=== PATIENT | male | born 1960 | race Caucasian/White ===

== ENCOUNTER → 2019-08-30 08:52 | Outpatient (CLI) | payer OTHER, SELFPAY ==
[2019-08-30 09:38] LABS: Hematocrit 45.2 % (41-53); Hemoglobin 15.4 g/dL (13.5-17.5); Mean Corpuscular HGB Conc 34.1 % (30-36); Mean Corpuscular Volume 87.8 fL (80-100); Platelet Count 273 X10^3/uL (150-400); Red Blood Cell Count 5.15 X10^6/uL (4.5-5.9); Red Cell Distribution Width 13.7 % (11.6-14.8); White Blood Cell Count 5.9 X10^3/uL (4.5-11.0)
[2019-08-30 09:55] LABS: Alanine Aminotransferase 36 IU/L (<50); Albumin 4.7 g/dL (3.5-5.0); Albumin Globulin Ratio 1.5 (1.0-2.8); Alkaline Phosphatase 66 U/L (38-126); Aspartate Aminotransferase 37 IU/L (17-59); Bilirubin Total 0.7 mg/dL (0.2-1.3); Blood Urea Nitrogen 15 mg/dL (9-20); Calcium 10.2 mg/dL (8.4-10.2); Carbon Dioxide 32 mmol/L (22-32); Chloride 103 mmol/L (98-107); Cholesterol 255 mg/dL (140-199); Estimated Glomerular Filt Rate > 60.0 mL/min (>60); Globulin 3.2 g/dL (1.7-4.1); Glucose 104 mg/dL (70-100); HDL Cholesterol 45 mg/dL (40-60); HEMOLYSIS 18 (0-50); LDL Cholesterol Calculated 168 mg/dL (<100); Potassium 4.6 mmol/L (3.4-5.1); Sodium 144 mmol/L (137-145); Total Protein 7.9 g/dL (6.3-8.2); Triglycerides 210 mg/dL (35-150)
[2019-08-30 10:11] LABS: Free T3, Triiodothyronine Free 3.52 pg/mL (2.77-5.27); Free T4, Direct Thyroxine 0.82 ng/dL (0.78-2.19)
[2019-08-30 10:23] LABS: Prostate Specific Antigen Scrn 1.31 ng/mL (0.1-4.0)
[2019-08-30 10:25] LABS: Thyroid Stimulating Hormone 1.37 uIU/mL (0.47-4.68)
[2019-08-30 12:23] LABS: Total Cells Counted 100
[2019-08-30 12:24] LABS: Neutrophils Absolute Manual 3245 /uL (3000-5900)
[2019-08-30 12:25] LABS: Morphology Comment Normal Morphology
== END ==
PROVIDERS: PCP Nurse Practitioner; Visit Provider Nurse Practitioner
DX: Z00.00 Encounter for general adult medical examination without abnormal findings (principal); Z78.9 Other specified health status
CPT/HCPCS: 36415; 80053; 80061; 84439; 84443; 84481; 85025; 86900; 86901; G0103

== ENCOUNTER 2022-09-18 07:30 | Outpatient (RCR) | payer OTHER, SELFPAY ==
--- NOTE | 2021-12-29 17:20 | PT.OIE ---
Current Diagnoses Pain in left shoulder (12/29/21) Bursitis of left shoulder (12/29/21) Contusion of left shoulder, initial encounter (12/29/21) Past Medical History (Last Updated 12/15/19 @ 09:53 by LIANNE Cummins) Elevated blood sugar History of colonoscopy Hyperlipidemia Obesity (BMI 30.0-34.9) Past Surgical History (Last Reviewed 09/18/19 @ 08:29 by LIANNE Cummins) Anesthesia Fracture (~1985) History of colonoscopy Visit Care Team Role Provider Type LIANNE Cummins Family Provider Advanced Hydraulic Plumber Primary Care Provider Specialty: Family Practice Address: [address] [place] [address], [id number] Email: [email or web address] Chas Buck MD Attending Provider Non-Staff Referring Provider Specialty: Orthopedic Surgery Address: [address] [place] [address], [id number] Email: Physical Therapy Initial Evaluation PT-OP-A Visit Information Start: 12/27/21 16:53 Freq: Status: Active Protocol: Document 12/29/21 13:51 [facility] (Rec: 12/29/21 14:35 [facility] [id number]) Out-Patient Physical Therapy Visit Information Visit Information Visit Type Initial Evaluation Visit Start Time 13:45 Visit Stop Time 14:40 Total Visit Minutes 50 Visit Number 1 Evaluation Information Evaluation Date 12/29/21 PT-OP-B Current Condition Start: 12/27/21 16:53 Freq: Status: Active Protocol: Document 12/29/21 13:51 [facility] (Rec: 12/29/21 14:35 [facility] [id number]) Current Condition History of Current Condition Onset Date 10/13/21 Current Complaints left shoulder pain History of Current Condition Walking out of bus carrying things in hands, lost balance on ice, came down on left elbow, initially left shoulder pain, within a couple days feeling pain on right as well. At this time claim only approved for left shoulder. x- ray: swelling. MRI: full tear of one tendon, partial of 3 others. Anticipating surgical repair on the left. Waiting for approval for evaluation and treatment of right shoulder pain; x-ray was negative. States doctor thinking may have similar injury right shoulder. Uses both ice and heat. Doing some range of motion exercises found online with good tolerance. Taking Tylenol as needed; reg and Tylenol PM. Prior Treatments and Tests MRI as above, medication, ice and heat. No further treatment. Treatment Goals Patient/Caregiver Goals Decreased pain, improve ROM and strength in shoulder, be able to return to work. 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 Current Functional Impairments (Reported) Functional Limitations- ADL's unable to reach overhead, out to side, or behind his back without pain Functional Limitations- Work/School unable to work Personal Factors Other Personal Factors That May Effect right shoulder pain as well as Therapy/Recovery left PT-OP-C Subjective Start: 12/27/21 16:53 Freq: Status: Active Protocol: Document 12/29/21 13:51 [facility] (Rec: 01/02/22 17:20 [facility] [id number]) Patient Questionnaires Quick Dash- Upper Extremity Quick Dash UE Score 50 OP-PT Pain Assessment Pain Assessment Grid Paper Pain Assessment Grid Completed Yes Location left shoulder Intensity 8 Scale Used Numeric (0 - 10) Description Aching,Burning,Sharp,Stabbing, Tender,With Movement Pain Aggravating Factors Position,ADL's,Activity Pain Alleviating Factors Medication Home Pain Medication Use Pain Medications Used Yes Home Pain Medication Frequency occcasional Tylenol, nightly Tylenol PM PT-OP-E Functional Tests Start: 12/27/21 16:53 Freq: Status: Active Protocol: Document 12/29/21 13:51 [facility] (Rec: 01/02/22 17:20 [facility] [id number]) Functional Tests Apley's Scratch Test Action 1- Left medial chest Action 1- Right anterior shoulder Action 2- Left lateral neck Action 2- Right T1 Action 3- Left L3 Action 3- Right L3 PT-OP-H Neuro Start: 12/27/21 16:53 Freq: Status: Active Protocol: Document 12/29/21 13:51 [facility] (Rec: 01/02/22 17:20 [facility] [id number]) Sensation Evaluation Gross Sensation Gross Sensation WNL PT-OP-J Posture/Palpation/Skin Start: 12/27/21 16:53 Freq: Status: Active Protocol: Document 12/29/21 13:51 [facility] (Rec: 01/02/22 17:20 [facility] [id number]) Posture Evaluation Position Sitting Head/C-Spine Posture Forward Head Shoulder Posture (L) Rounded,(R) Rounded Scapula Posture (L) Protracted,(R) Protracted Arm Posture (L) Internally Rotated Pelvis Posture Neutral Palpation Assessment Location RC insertion Palpation Location left greater than right Palpation Findings Muscle Guarding,Tenderness PT-OP-K Range of Motion Start: 12/27/21 16:53 Freq: Status: Active Protocol: Document 12/29/21 13:51 [facility] (Rec: 01/02/22 17:20 [facility] [id number]) Cervical Spine Range of Motion Cervical Spine Active Testing Position Sitting Flexion 50 Extension 10 Rotation Left 55 Rotation Right 55 Lateral Flexion Left 45 Lateral Flexion Right 40 ROM Limitations Soft Tissue Tightness Shoulder Goniometric Range of Motion Shoulder Right Shoulder ROM WFL No Flexion 91 Extension 11 Abduction 98 External Rotation at 0 degrees Abduction 38 Internal Rotation Behind Back (text) L3 Comments painful arc Left Shoulder ROM WFL No Testing Position Sitting Flexion 83 Extension 10 Abduction 98 External Rotation at 0 degrees Abduction 0 Internal Rotation Behind Back (text) L3 Comments painful arc Elbow/Forearm Range of Motion Elbow/Forearm antoine Elbow/Forearm ROM WFL Yes PT-OP-L Special Tests Start: 12/27/21 16:53 Freq: Status: Active Protocol: Document 12/29/21 13:51 [facility] (Rec: 01/02/22 17:20 [facility] [id number]) Special Tests Shoulder Special Tests Lift-Off Rotator Cuff Test Results positive antoine left greater than righ Drop Arm Rotator Cuff Test Results positive antoine left greater than right PT-OP-M Strength Start: 12/27/21 16:53 Freq: Status: Active Protocol: Document 12/29/21 13:51 [facility] (Rec: 01/02/22 17:20 [facility] [id number]) Shoulder Strength Shoulder Manual Muscle Testing Right Flexion 3- Fair- Abduction (C5) 3- Fair- Adduction 3- Fair- External Rotation 3- Fair- Internal Rotation 3- Fair- Horizontal Abduction 3- Fair- Horizontal Adduction 3- Fair- Comments limited by pain Left Flexion 3- Fair- Extension 3- Fair- Abduction (C5) 3- Fair- Adduction 3+ Fair+ External Rotation 3- Fair- Internal Rotation 3- Fair- Horizontal Abduction 3- Fair- Horizontal Adduction 3- Fair- Comments limited by pain Elbow/Forearm Strength Elbow and Forearm Manual Muscle Testing Right Flexion (C6) 5 Normal Extension (C7) 5 Normal Left Flexion (C6) 4+ Good+ Extension (C7) 4+ Good+ Hand General Office Associate/Pinch Strength Hand Dominance Hand Dominance Right PT-OP-Q Treatments Start: 12/27/21 16:53 Freq: Status: Active Protocol: Document 12/29/21 13:51 [facility] (Rec: 01/02/22 17:20 [facility] [id number]) Self-Care/Home Management Treatment Education Patient Education Home Exercise Program,Pain Management,Posture Other Education issued written HEP shoulder flexion towel slides, pulleys, supine external rotation with wand PT-OP-R Modalities Start: 12/27/21 16:53 Freq: Status: Active Protocol: Document 12/29/21 13:51 [facility] (Rec: 01/02/22 17:20 [facility] [id number]) Hot Pack/Cold Pack Treatment Cold Pack Location left shoulder Patient Position Hooklying Treatment Duration (minutes) 10 Patient Tolerance Good PT-OP-T Assessment and Plan Start: 12/27/21 16:53 Freq: Status: Active Protocol: Document 12/29/21 13:51 [facility] (Rec: 01/02/22 17:20 [facility] [id number]) Physical Therapy Assessment Rehab Potential Rehabilitation Potential Good Evaluation Complexity Number of Personal Factors/Comorbidities 1-2 Number of Body Systems Impaired 3 Clinical Presentation at Evaluation Evolving Impairments Impairments Activity Tolerance,Pain,ROM, Strength Goals Three Impairment pain as high as 8/10 left shoulder interrupting sleep Fdc Goal (LTG) Patient will be able to sleep through the night, no wakinig due to left shouldre pain LTG Duration 04/02/22 Two Impairment decreased ROM and strength left shoulder Short Term Goal (STG) Instruct patient in progressive ther ex program for ROM and strengthening left shoudler STG Duration 02/12/22 Superintendent Storage Area Goal (LTG) Patient to be independent and compliant with HEP and demonstrate left shoulder ROM WNL and left shoulder strength at least 4+/5 all motions to allow him to return to all usual activities. LTG Duration 04/02/22 One Impairment Limited activity tolerance left shoulder due to pain Impairment Quickdash disability index score 50% Short Term Goal (STG) Decrease Quickdash score to no greater than 30% STG Duration 02/12/22 Fdc Goal (LTG) Decrease Quickdash score to no greater than 10% as measure of improved activity tolerance with patient able to return to work without an increase in pain LTG Duration 04/02/22 Assessment Summary Assessment Patient presents with function -limiting left shoulder pain with signs and symptoms consistent with rotator cuff tear. Imaging results not available at evaluation. PT evaluation always includes evaluation of opposite side for comparison and patient's right shoulder also appear to have rotator cuff involvement. Feel he would benefit from physical therapy to decrease his pain, improve his ROM, strength, an function of his left shoulder at this time and right shoulder if approved. We discussed PT POC and patient is in agreement. He is highly receptive to instruction and appears highly motivated to improve his function and return to work. Physical Therapy Plan Frequency and Duration Frequency of Treatment 2x/Week Duration of Treatment 12 weeks Plan of Care Start Date 12/29/21 Plan of Care End Date 04/02/22 Therapeutic Interventions Therapeutic Interventions Aquatic Therapy,Home Exercise Program,Manual Therapy,Patient /Caregiver Education,Self-Care /Home Management,Soft Tissue Mobilization,Taping, Therapeutic Activities, Therapeutic Exercises Modalities Cold Pack/Ice Massage,Electric Stimulation,Hot Packs, Infrared Therapy,Iontophoresis ,Ultrasound Next Visit Focus/Plan Next Note Type Treatment Note Next Visit Plan Review HEP, progress ROM and strengthening for left shoulder impairments. Modalities and manual therapy as indicated for symptom management and healing.
--- NOTE | 2021-12-29 17:21 | PT.OPPOC ---
Physical, Occupational & Speech Therapy At [facility] Current Diagnoses Pain in left shoulder (12/29/21) Bursitis of left shoulder (12/29/21) Contusion of left shoulder, initial encounter (12/29/21) Visit Care Team Role Provider Type LIANNE Cummins Family Provider Advanced Broadcast Maintenance Engineer Primary Care Provider Specialty: Family Practice Address: [address] [place] [address], [id number] Email: [email or web address] Chas Buck MD Attending Provider Non-Staff Referring Provider Specialty: Orthopedic Surgery Address: [facility] [address], [place], [address] Email: Plan Of Care PT-OP-T Assessment and Plan Start: 12/27/21 16:53 Freq: Status: Active Protocol: Document 12/29/21 13:51 [facility] (Rec: 01/02/22 17:20 [facility] [id number]) Physical Therapy Assessment Rehab Potential Rehabilitation Potential Good Evaluation Complexity Number of Personal Factors/Comorbidities 1-2 Number of Body Systems Impaired 3 Clinical Presentation at Evaluation Evolving Impairments Impairments Activity Tolerance,Pain,ROM, Strength Goals Three Impairment pain as high as 8/10 left shoulder interrupting sleep Tool Or Die Drawing Checker Goal (LTG) Patient will be able to sleep through the night, no wakinig due to left shouldre pain LTG Duration 04/02/22 Two Impairment decreased ROM and strength left shoulder Short Term Goal (STG) Instruct patient in progressive ther ex program for ROM and strengthening left shoudler STG Duration 02/12/22 Tool Or Die Drawing Checker Goal (LTG) Patient to be independent and compliant with HEP and demonstrate left shoulder ROM WNL and left shoulder strength at least 4+/5 all motions to allow him to return to all usual activities. LTG Duration 04/02/22 One Impairment Limited activity tolerance left shoulder due to pain Impairment Quickdash disability index score 50% Short Term Goal (STG) Decrease Quickdash score to no greater than 30% STG Duration 02/12/22 Tool Or Die Drawing Checker Goal (LTG) Decrease Quickdash score to no greater than 10% as measure of improved activity tolerance with patient able to return to work without an increase in pain LTG Duration 04/02/22 Assessment Summary Assessment Patient presents with function -limiting left shoulder pain with signs and symptoms consistent with rotator cuff tear. Imaging results not available at evaluation. PT evaluation always includes evaluation of opposite side for comparison and patient's right shoulder also appear to have rotator cuff involvement. Feel he would benefit from physical therapy to decrease his pain, improve his ROM, strength, an function of his left shoulder at this time and right shoulder if approved. We discussed PT POC and patient is in agreement. He is highly receptive to instruction and appears highly motivated to improve his function and return to work. Physical Therapy Plan Frequency and Duration Frequency of Treatment 2x/Week Duration of Treatment 12 weeks Plan of Care Start Date 12/29/21 Plan of Care End Date 04/02/22 Therapeutic Interventions Therapeutic Interventions Aquatic Therapy,Home Exercise Program,Manual Therapy,Patient /Caregiver Education,Self-Care /Home Management,Soft Tissue Mobilization,Taping, Therapeutic Activities, Therapeutic Exercises Modalities Cold Pack/Ice Massage,Electric Stimulation,Hot Packs, Infrared Therapy,Iontophoresis ,Ultrasound Next Visit Focus/Plan Next Note Type Treatment Note Next Visit Plan Review HEP, progress ROM and strengthening for left shoulder impairments. Modalities and manual therapy as indicated for symptom management and healing. Plan of Care Dates Plan of Care Start Date 12/29/21 Plan of Care End Date 04/02/22 Electronically Signed by: Lena Saleh PT 01/02/22 2640 If you are in agreement with this Plan of Care, please return a signed and dated copy. I have reviewed this Plan of Care and certify that the skilled therapy services above are required to meet the patient?s needs. Physician Signature Date Printed Name and Credentials Clinical Instructor Signature Printed Name and Credentials
--- NOTE | 2022-01-04 11:52 | PT.OTN ---
Current Diagnoses Pain in left shoulder (01/04/22) Bursitis of left shoulder (01/04/22) Contusion of left shoulder, initial encounter (01/04/22) Physical Therapy Treatment Note PT-OP-A Visit Information Start: 12/27/21 16:53 Freq: Status: Active Protocol: Document 01/04/22 09:30 [facility] (Rec: 01/04/22 10:17 [facility] [id number]) Out-Patient Physical Therapy Visit Information Visit Information Visit Type Treatment Note Visit Start Time 09:30 Visit Stop Time 10:20 Total Visit Minutes 50 Visit Number 3 Number of IGNITER ASSEMBLER Visits 1 PT-OP-B Current Condition Start: 12/27/21 16:53 Freq: Status: Active Protocol: Document 01/03/22 08:14 [facility] (Rec: 01/03/22 09:30 [facility] [id number]) Current Condition History of Current Condition Onset Date 10/13/21 Current Complaints left shoulder pain History of Current Condition Walking out of bus carrying things in hands, lost balance on ice, came down on left elbow, initially left shoulder pain, within a couple days feeling pain on right as well. At this time claim only approved for left shoulder. x- ray: swelling. MRI: full tear of one tendon, partial of 3 others. Anticipating surgical repair on the left. Waiting for approval for evaluation and treatment of right shoulder pain; x-ray was negative. States doctor thinking may have similar injury right shoulder. Uses both ice and heat. Doing some range of motion exercises found online with good tolerance. Taking Tylenol as needed; reg and Tylenol PM. Prior Treatments and Tests MRI as above, medication, ice and heat. No further treatment. PT-OP-C Subjective Start: 12/27/21 16:53 Freq: Status: Active Protocol: Document 01/04/22 09:30 [facility] (Rec: 01/04/22 10:17 [facility] [id number]) OP-PT Subjective Patient Comments Patient Comments Pt's dr should have new referral for josé luis shoulders by end of week. PT-OP-E Functional Tests Start: 12/27/21 16:53 Freq: Status: Active Protocol: Document 12/29/21 13:51 [facility] (Rec: 01/02/22 17:20 [facility] [id number]) Functional Tests Zelalemey's Scratch Test Action 1- Left medial chest Action 1- Right anterior shoulder Action 2- Left lateral neck Action 2- Right T1 Action 3- Left L3 Action 3- Right L3 PT-OP-H Neuro Start: 12/27/21 16:53 Freq: Status: Active Protocol: Document 12/29/21 13:51 [facility] (Rec: 01/02/22 17:20 [facility] [id number]) Sensation Evaluation Gross Sensation Gross Sensation WNL PT-OP-J Posture/Palpation/Skin Start: 12/27/21 16:53 Freq: Status: Active Protocol: Document 12/29/21 13:51 [facility] (Rec: 01/02/22 17:20 [facility] [id number]) Posture Evaluation Position Sitting Head/C-Spine Posture Forward Head Shoulder Posture (L) Rounded,(R) Rounded Scapula Posture (L) Protracted,(R) Protracted Arm Posture (L) Internally Rotated Pelvis Posture Neutral Palpation Assessment Location RC insertion Palpation Location left greater than right Palpation Findings Muscle Guarding,Tenderness PT-OP-K Range of Motion Start: 12/27/21 16:53 Freq: Status: Active Protocol: Document 12/29/21 13:51 [facility] (Rec: 01/02/22 17:20 [facility] [id number]) Cervical Spine Range of Motion Cervical Spine Active Testing Position Sitting Flexion 50 Extension 10 Rotation Left 55 Rotation Right 55 Lateral Flexion Left 45 Lateral Flexion Right 40 ROM Limitations Soft Tissue Tightness Shoulder Goniometric Range of Motion Shoulder Right Shoulder ROM WFL No Flexion 91 Extension 11 Abduction 98 External Rotation at 0 degrees Abduction 38 Internal Rotation Behind Back (text) L3 Comments painful arc Left Shoulder ROM WFL No Testing Position Sitting Flexion 83 Extension 10 Abduction 98 External Rotation at 0 degrees Abduction 0 Internal Rotation Behind Back (text) L3 Comments painful arc Elbow/Forearm Range of Motion Elbow/Forearm josé luis Elbow/Forearm ROM WFL Yes PT-OP-L Special Tests Start: 12/27/21 16:53 Freq: Status: Active Protocol: Document 12/29/21 13:51 [facility] (Rec: 01/02/22 17:20 [facility] [id number]) Special Tests Shoulder Special Tests Lift-Off Rotator Cuff Test Results positive josé luis left greater than righ Drop Arm Rotator Cuff Test Results positive josé luis left greater than right PT-OP-M Strength Start: 12/27/21 16:53 Freq: Status: Active Protocol: Document 12/29/21 13:51 [facility] (Rec: 01/02/22 17:20 [facility] [id number]) Shoulder Strength Shoulder Manual Muscle Testing Right Flexion 3- Fair- Abduction (C5) 3- Fair- Adduction 3- Fair- External Rotation 3- Fair- Internal Rotation 3- Fair- Horizontal Abduction 3- Fair- Horizontal Adduction 3- Fair- Comments limited by pain Left Flexion 3- Fair- Extension 3- Fair- Abduction (C5) 3- Fair- Adduction 3+ Fair+ External Rotation 3- Fair- Internal Rotation 3- Fair- Horizontal Abduction 3- Fair- Horizontal Adduction 3- Fair- Comments limited by pain Elbow/Forearm Strength Elbow and Forearm Manual Muscle Testing Right Flexion (C6) 5 Normal Extension (C7) 5 Normal Left Flexion (C6) 4+ Good+ Extension (C7) 4+ Good+ Hand Flosser/Pinch Strength Hand Dominance Hand Dominance Right PT-OP-Q Treatments Start: 12/27/21 16:53 Freq: Status: Active Protocol: Document 01/04/22 09:30 [facility] (Rec: 01/04/22 10:17 [facility] [id number]) Therapeutic Exercises Sitting Exercises LS stretch Side bilateral Reps/Minutes x30 ea Comments added to HEP UT stretch Side bilateral Reps/Minutes x30 ea Comments added to HEP shoulder flex Sitting Exercise Name table slide this session Side bilateral Reps/Minutes 10 Comments cues for relaxed UT shoulder ext Equipment Used wand Reps/Minutes 10 Comments cues for relaxed UT Shoulder ER Equipment Used cane Reps/Minutes 10x Comments cues for relaxed UT pulleys Sitting Exercise Name flexion and scaption Reps/Minutes 10x Comments cues for relaxed UT Standing Exercises shoulder ext Equipment Used lvl 1 TB Reps/Minutes 2x10 Comments cues for inhib UT row Resistance L2 TB Reps/Minutes 2x10 Comments cues for inhib UT Manual Therapy Treatment Soft Tissue Mobilization RC Mobilization Type Cross-Friction Body Position Hooklying bicep, deltoid insertion Mobilization Type Myofascial Release Body Position Hooklying UT Mobilization Type Sustained Pressure,Trigger Point Release Body Position Hooklying PT-OP-R Modalities Start: 12/27/21 16:53 Freq: Status: Active Protocol: Document 01/04/22 09:30 [facility] (Rec: 01/04/22 10:17 [facility] [id number]) Hot Pack/Cold Pack Treatment Cold Pack Location José Luis shds Patient Position Hooklying Treatment Duration (minutes) 10 Patient Tolerance Good PT-OP-T Assessment and Plan Start: 12/27/21 16:53 Freq: Status: Active Protocol: Document 01/04/22 09:30 [facility] (Rec: 01/04/22 10:17 [facility] [id number]) Physical Therapy Assessment Goals Three Impairment pain as high as 8/10 left shoulder interrupting sleep Food Beverage Supervisor Goal (LTG) Patient will be able to sleep through the night, no wakinig due to left shouldre pain LTG Duration 04/02/22 Two Impairment decreased ROM and strength left shoulder Short Term Goal (STG) Instruct patient in progressive ther ex program for ROM and strengthening left shoudler STG Duration 02/12/22 Jail Goal (LTG) Patient to be independent and compliant with HEP and demonstrate left shoulder ROM WNL and left shoulder strength at least 4+/5 all motions to allow him to return to all usual activities. LTG Duration 04/02/22 One Impairment Limited activity tolerance left shoulder due to pain Impairment Quickdash disability index score 50% Short Term Goal (STG) Decrease Quickdash score to no greater than 30% STG Duration 02/12/22 Jail Goal (LTG) Decrease Quickdash score to no greater than 10% as measure of improved activity tolerance with patient able to return to work without an increase in pain LTG Duration 04/02/22 Assessment Summary Assessment Pt continues to require frequent cues for inhibition of UT during ther ex and stretches. Added UT and scalene stretch to HEP. Pt tolerates all exercises with only minor pain but has increased pain in josé luis shds with AAROM ER. Physical Therapy Plan Frequency and Duration Frequency of Treatment 2x/Week Duration of Treatment 12 weeks Plan of Care Start Date 12/29/21 Plan of Care End Date 04/02/22 Therapeutic Interventions Therapeutic Interventions Aquatic Therapy,Home Exercise Program,Manual Therapy,Patient /Caregiver Education,Self-Care /Home Management,Soft Tissue Mobilization,Taping, Therapeutic Activities, Therapeutic Exercises Modalities Cold Pack/Ice Massage,Electric Stimulation,Hot Packs, Infrared Therapy,Iontophoresis ,Ultrasound Next Visit Focus/Plan Next Note Type Treatment Note Next Visit Plan Review UT & Scalene stretches. Continue PT for gentle ROM and strengthening left shoulder, modalities and manual therapy as needed for symptom management. Continue to cue for inhibition of UT and improved scapular activation.
--- NOTE | 2022-01-11 14:29 | PT.OTN ---
Current Diagnoses Pain in left shoulder (01/11/22) Bursitis of left shoulder (01/11/22) Contusion of left shoulder, initial encounter (01/11/22) Physical Therapy Treatment Note PT-OP-A Visit Information Start: 12/27/21 16:53 Freq: Status: Active Protocol: Document 01/11/22 09:04 [facility] (Rec: 01/11/22 09:51 [facility] [id number]) Out-Patient Physical Therapy Visit Information Visit Information Visit Type Treatment Note Visit Start Time 09:05 Visit Stop Time 09:55 Total Visit Minutes 50 Visit Number 4 Number of BOX PRINTER Visits 0 Evaluation Information Evaluation Date 12/29/21 PT-OP-B Current Condition Start: 12/27/21 16:53 Freq: Status: Active Protocol: Document 01/03/22 08:14 [facility] (Rec: 01/03/22 09:30 [facility] [id number]) Current Condition History of Current Condition Onset Date 10/13/21 Current Complaints left shoulder pain History of Current Condition Walking out of bus carrying things in hands, lost balance on ice, came down on left elbow, initially left shoulder pain, within a couple days feeling pain on right as well. At this time claim only approved for left shoulder. x- ray: swelling. MRI: full tear of one tendon, partial of 3 others. Anticipating surgical repair on the left. Waiting for approval for evaluation and treatment of right shoulder pain; x-ray was negative. States doctor thinking may have similar injury right shoulder. Uses both ice and heat. Doing some range of motion exercises found online with good tolerance. Taking Tylenol as needed; reg and Tylenol PM. Prior Treatments and Tests MRI as above, medication, ice and heat. No further treatment. PT-OP-C Subjective Start: 12/27/21 16:53 Freq: Status: Active Protocol: Document 01/11/22 09:04 [facility] (Rec: 01/11/22 09:51 [facility] [id number]) OP-PT Subjective Patient Comments Patient Comments Yesterday got down on hands and knees to pull weeds, has to be careful. Having MRI right shoulder 01/19/22. Shoulders still very sore, gets unexpected severe jolts of pain josé luis. Still can't lift arm overhead. Compliant to HEP. States he knows he has a difficult time relaxing his muscles. PT-OP-E Functional Tests Start: 12/27/21 16:53 Freq: Status: Active Protocol: Document 12/29/21 13:51 [facility] (Rec: 01/02/22 17:20 [facility] [id number]) Functional Tests Apley's Scratch Test Action 1- Left medial chest Action 1- Right anterior shoulder Action 2- Left lateral neck Action 2- Right T1 Action 3- Left L3 Action 3- Right L3 PT-OP-H Neuro Start: 12/27/21 16:53 Freq: Status: Active Protocol: Document 12/29/21 13:51 [facility] (Rec: 01/02/22 17:20 [facility] [id number]) Sensation Evaluation Gross Sensation Gross Sensation WNL PT-OP-J Posture/Palpation/Skin Start: 12/27/21 16:53 Freq: Status: Active Protocol: Document 12/29/21 13:51 [facility] (Rec: 01/02/22 17:20 [facility] [id number]) Posture Evaluation Position Sitting Head/C-Spine Posture Forward Head Shoulder Posture (L) Rounded,(R) Rounded Scapula Posture (L) Protracted,(R) Protracted Arm Posture (L) Internally Rotated Pelvis Posture Neutral Palpation Assessment Location RC insertion Palpation Location left greater than right Palpation Findings Muscle Guarding,Tenderness PT-OP-K Range of Motion Start: 12/27/21 16:53 Freq: Status: Active Protocol: Document 12/29/21 13:51 [facility] (Rec: 01/02/22 17:20 [facility] [id number]) Cervical Spine Range of Motion Cervical Spine Active Testing Position Sitting Flexion 50 Extension 10 Rotation Left 55 Rotation Right 55 Lateral Flexion Left 45 Lateral Flexion Right 40 ROM Limitations Soft Tissue Tightness Shoulder Goniometric Range of Motion Shoulder Right Shoulder ROM WFL No Flexion 91 Extension 11 Abduction 98 External Rotation at 0 degrees Abduction 38 Internal Rotation Behind Back (text) L3 Comments painful arc Left Shoulder ROM WFL No Testing Position Sitting Flexion 83 Extension 10 Abduction 98 External Rotation at 0 degrees Abduction 0 Internal Rotation Behind Back (text) L3 Comments painful arc Elbow/Forearm Range of Motion Elbow/Forearm josé luis Elbow/Forearm ROM WFL Yes PT-OP-L Special Tests Start: 12/27/21 16:53 Freq: Status: Active Protocol: Document 12/29/21 13:51 [facility] (Rec: 01/02/22 17:20 [facility] [id number]) Special Tests Shoulder Special Tests Lift-Off Rotator Cuff Test Results positive josé luis left greater than righ Drop Arm Rotator Cuff Test Results positive josé luis left greater than right PT-OP-M Strength Start: 12/27/21 16:53 Freq: Status: Active Protocol: Document 12/29/21 13:51 [facility] (Rec: 01/02/22 17:20 [facility] [id number]) Shoulder Strength Shoulder Manual Muscle Testing Right Flexion 3- Fair- Abduction (C5) 3- Fair- Adduction 3- Fair- External Rotation 3- Fair- Internal Rotation 3- Fair- Horizontal Abduction 3- Fair- Horizontal Adduction 3- Fair- Comments limited by pain Left Flexion 3- Fair- Extension 3- Fair- Abduction (C5) 3- Fair- Adduction 3+ Fair+ External Rotation 3- Fair- Internal Rotation 3- Fair- Horizontal Abduction 3- Fair- Horizontal Adduction 3- Fair- Comments limited by pain Elbow/Forearm Strength Elbow and Forearm Manual Muscle Testing Right Flexion (C6) 5 Normal Extension (C7) 5 Normal Left Flexion (C6) 4+ Good+ Extension (C7) 4+ Good+ Hand Scraper Meat/Pinch Strength Hand Dominance Hand Dominance Right PT-OP-Q Treatments Start: 12/27/21 16:53 Freq: Status: Active Protocol: Document 01/11/22 09:04 [facility] (Rec: 01/11/22 09:51 [facility] [id number]) Cardio Equipment Recumbent Stepper (Sci-Fit) Duration (Minutes) 5 Resistance 1 Seat Position 10 Other cues for pain-free ROM and intensity Therapeutic Exercises Sitting Exercises LS stretch Side bilateral Reps/Minutes x30 ea UT stretch Sitting Exercise Name also scalene Side bilateral Reps/Minutes x30 ea Comments hand holding side of chair shoulder flex Sitting Exercise Name table slide best tolerated Side bilateral Reps/Minutes 10 Comments cues for relaxed UT shoulder ext Sitting Exercise Name unilateral row Equipment Used wand Reps/Minutes 10x Comments cues for relaxed UT Shoulder ER Equipment Used cane Reps/Minutes 10x Comments cues for relaxed UT pulleys Sitting Exercise Name flexion and scaption Equipment Used pulleys, mirror Reps/Minutes 10x Comments cues for relaxed UT Standing Exercises pendulum Standing Exercise Name fwd, bck,side Reps/Minutes 10x Comments cues for relaxed muscles, use of body to achieve mvmt shoulder ext Equipment Used lvl 2 TB Reps/Minutes 2x10 Comments cues for inhib UT row Resistance L2 TB Reps/Minutes 2x10 Comments cues for inhib UT Other Exercises shoulder ER Other Exercise Name isometric Reps/Minutes 2x Comments painful so discontinued. shoulder IR Reps/Minutes 5x Comments isometric Manual Therapy Treatment Soft Tissue Mobilization RC Mobilization Type Cross-Friction Body Position Hooklying bicep, deltoid insertion Mobilization Type Myofascial Release Body Position Hooklying UT Mobilization Type Sustained Pressure,Trigger Point Release Body Position Hooklying PT-OP-R Modalities Start: 12/27/21 16:53 Freq: Status: Active Protocol: Document 01/11/22 09:04 [facility] (Rec: 01/11/22 09:51 [facility] [id number]) Hot Pack/Cold Pack Treatment Cold Pack Location José Luis shds Patient Position Hooklying Treatment Duration (minutes) 10 Patient Tolerance Good PT-OP-T Assessment and Plan Start: 12/27/21 16:53 Freq: Status: Active Protocol: Document 01/11/22 09:04 [facility] (Rec: 01/11/22 09:51 [facility] [id number]) Physical Therapy Assessment Goals Three Impairment pain as high as 8/10 left shoulder interrupting sleep [employer] Goal (LTG) Patient will be able to sleep through the night, no wakinig due to left shouldre pain LTG Duration 04/02/22 Two Impairment decreased ROM and strength left shoulder Short Term Goal (STG) Instruct patient in progressive ther ex program for ROM and strengthening left shoudler STG Duration 02/12/22 [facility] Goal (LTG) Patient to be independent and compliant with HEP and demonstrate left shoulder ROM WNL and left shoulder strength at least 4+/5 all motions to allow him to return to all usual activities. LTG Duration 04/02/22 One Impairment Limited activity tolerance left shoulder due to pain Impairment Quickdash disability index score 50% Short Term Goal (STG) Decrease Quickdash score to no greater than 30% STG Duration 02/12/22 [facility] Goal (LTG) Decrease Quickdash score to no greater than 10% as measure of improved activity tolerance with patient able to return to work without an increase in pain LTG Duration 04/02/22 Assessment Summary Assessment Patient requires close monitoring and cues for inhibiting UT during all exercises and with stretches cues to relax and do deep breathing into stretch vs pushing hard. He demonstrated good understanding and improved performance with continual cues. Unable to tolerate even gentle ER isometric. Reaching overhead still not tolerated. Physical Therapy Plan Frequency and Duration Frequency of Treatment 2x/Week Duration of Treatment 12 weeks Plan of Care Start Date 12/29/21 Plan of Care End Date 04/02/22 Therapeutic Interventions Therapeutic Interventions Aquatic Therapy,Home Exercise Program,Manual Therapy,Patient /Caregiver Education,Self-Care /Home Management,Soft Tissue Mobilization,Taping, Therapeutic Activities, Therapeutic Exercises Modalities Cold Pack/Ice Massage,Electric Stimulation,Hot Packs, Infrared Therapy,Iontophoresis ,Ultrasound Next Visit Focus/Plan Next Note Type Treatment Note Next Visit Plan Continue PT for gentle ROM and strengthening left shoulder, modalities and manual therapy as needed for symptom management. Continue to cue for inhibition of UT and improved scapular activation.
--- NOTE | 2022-01-12 15:18 | PT.OTN ---
Addendum entered and electronically signed by Sheri Castillo, KALPANA 01/17/22 15:19: Pt stated is color blind so stated if can cut bands for home to allow see resistance number printed to be able to tell between each progressing to at home for support. Original Note: Current Diagnoses Pain in left shoulder (01/12/22) Bursitis of left shoulder (01/12/22) Contusion of left shoulder, initial encounter (01/12/22) Physical Therapy Treatment Note PT-OP-A Visit Information Start: 12/27/21 16:53 Freq: Status: Active Protocol: Document 01/12/22 14:36 SP (Rec: 01/12/22 15:38 SP [id number]) Out-Patient Physical Therapy Visit Information Visit Information Visit Type Treatment Note Visit Start Time 14:36 Visit Stop Time 15:18 Total Visit Minutes 42 Visit Number 5 Number of INDEPENDENT DRIVER Visits 1 Evaluation Information Evaluation Date 12/29/21 PT-OP-B Current Condition Start: 12/27/21 16:53 Freq: Status: Active Protocol: Document 01/03/22 08:14 [facility] (Rec: 01/03/22 09:30 [facility] [id number]) Current Condition History of Current Condition Onset Date 10/13/21 Current Complaints left shoulder pain History of Current Condition Walking out of bus carrying things in hands, lost balance on ice, came down on left elbow, initially left shoulder pain, within a couple days feeling pain on right as well. At this time claim only approved for left shoulder. x- ray: swelling. MRI: full tear of one tendon, partial of 3 others. Anticipating surgical repair on the left. Waiting for approval for evaluation and treatment of right shoulder pain; x-ray was negative. States doctor thinking may have similar injury right shoulder. Uses both ice and heat. Doing some range of motion exercises found online with good tolerance. Taking Tylenol as needed; reg and Tylenol PM. Prior Treatments and Tests MRI as above, medication, ice and heat. No further treatment. PT-OP-C Subjective Start: 12/27/21 16:53 Freq: Status: Active Protocol: Document 01/12/22 14:36 SP (Rec: 01/12/22 15:38 SP [id number]) OP-PT Subjective Patient Comments Patient Comments Pt reported always has constant pain B shlds and knees. He states has bike and bars at home to use. He walk about 4 miles a day. PT-OP-E Functional Tests Start: 12/27/21 16:53 Freq: Status: Active Protocol: Document 12/29/21 13:[address] [facility] (Rec: 01/02/22 17:[address] [facility] [id number]) Functional Tests Apley's Scratch Test Action 1- Left medial chest Action 1- Right anterior shoulder Action 2- Left lateral neck Action 2- Right T1 Action 3- Left L3 Action 3- Right L3 PT-OP-H Neuro Start: 12/27/21 16:53 Freq: Status: Active Protocol: Document 12/29/21 13:[address] [facility] (Rec: 01/02/22 17:[address] [facility] [id number]) Sensation Evaluation Gross Sensation Gross Sensation WNL PT-OP-J Posture/Palpation/Skin Start: 12/27/21 16:53 Freq: Status: Active Protocol: Document 12/29/21 13:[address] [facility] (Rec: 01/02/22 17:[address] [facility] [id number]) Posture Evaluation Position Sitting Head/C-Spine Posture Forward Head Shoulder Posture (L) Rounded,(R) Rounded Scapula Posture (L) Protracted,(R) Protracted Arm Posture (L) Internally Rotated Pelvis Posture Neutral Palpation Assessment Location RC insertion Palpation Location left greater than right Palpation Findings Muscle Guarding,Tenderness PT-OP-K Range of Motion Start: 12/27/21 16:53 Freq: Status: Active Protocol: Document 12/29/21 13:[address] [facility] (Rec: 01/02/22 17:[address] [facility] [id number]) Cervical Spine Range of Motion Cervical Spine Active Testing Position Sitting Flexion 50 Extension 10 Rotation Left 55 Rotation Right 55 Lateral Flexion Left 45 Lateral Flexion Right 40 ROM Limitations Soft Tissue Tightness Shoulder Goniometric Range of Motion Shoulder Right Shoulder ROM WFL No Flexion 91 Extension 11 Abduction 98 External Rotation at 0 degrees Abduction 38 Internal Rotation Behind Back (text) L3 Comments painful arc Left Shoulder ROM WFL No Testing Position Sitting Flexion 83 Extension 10 Abduction 98 External Rotation at 0 degrees Abduction 0 Internal Rotation Behind Back (text) L3 Comments painful arc Elbow/Forearm Range of Motion Elbow/Forearm josé luis Elbow/Forearm ROM WFL Yes PT-OP-L Special Tests Start: 12/27/21 16:53 Freq: Status: Active Protocol: Document 12/29/21 13:[address] [facility] (Rec: 01/02/22 17:[address] [facility] [id number]) Special Tests Shoulder Special Tests Lift-Off Rotator Cuff Test Results positive josé luis left greater than righ Drop Arm Rotator Cuff Test Results positive josé luis left greater than right PT-OP-M Strength Start: 12/27/21 16:53 Freq: Status: Active Protocol: Document 12/29/21 13:51 [facility] (Rec: 01/02/22 17:20 [facility] [id number]) Shoulder Strength Shoulder Manual Muscle Testing Right Flexion 3- Fair- Abduction (C5) 3- Fair- Adduction 3- Fair- External Rotation 3- Fair- Internal Rotation 3- Fair- Horizontal Abduction 3- Fair- Horizontal Adduction 3- Fair- Comments limited by pain Left Flexion 3- Fair- Extension 3- Fair- Abduction (C5) 3- Fair- Adduction 3+ Fair+ External Rotation 3- Fair- Internal Rotation 3- Fair- Horizontal Abduction 3- Fair- Horizontal Adduction 3- Fair- Comments limited by pain Elbow/Forearm Strength Elbow and Forearm Manual Muscle Testing Right Flexion (C6) 5 Normal Extension (C7) 5 Normal Left Flexion (C6) 4+ Good+ Extension (C7) 4+ Good+ Hand Clipper Machine/Pinch Strength Hand Dominance Hand Dominance Right PT-OP-Q Treatments Start: 12/27/21 16:53 Freq: Status: Active Protocol: Document 01/12/22 14:36 SP (Rec: 01/12/22 15:38 SP [id number]) Cardio Equipment Recumbent Stepper (Sci-Fit) Duration (Minutes) 5 Resistance 2 Seat Position 10 Other cues for pain-free ROM and intensity Therapeutic Exercises Standing Exercises shoulder ball roll wall Standing Exercise Name added to HEP vs table rolls Side bilateral Equipment Used kick bal Reps/Minutes x8 Comments improvement in ROM OH shoulder ext Equipment Used lvl 2 TB Reps/Minutes 2x10 Comments improved no UT, scap post retraction row Resistance L2>3 TB Reps/Minutes 2x10 Comments good effort Other Exercises shoulder ER Other Exercise Name isometric-HEP Side bilateral Reps/Minutes 3 sec hold x5 Comments 6/10 discomfort, improved with cues less pressure and scap stab aware. shoulder IR Other Exercise Name isometric- HEP Side bilateral Reps/Minutes 3 sec hold x6 Comments cued trunk/scap align, elbow 90 deg w/no trunk recruit. Self-Care/Home Management Treatment Education Patient Education Home Exercise Program,Pain Management,Posture Other Education Time spent discuss proper form quadruped postural alignment and wt shifting trunk/ shld ROM for decrease stiffness, good use of knee pads reported . Next tx: discuss use pillows supine/ side if wants propping comfort to complete. PT-OP-R Modalities Start: 12/27/21 16:53 Freq: Status: Active Protocol: Document 01/11/22 09:04 [facility] (Rec: 01/11/22 09:51 [facility] [id number]) Hot Pack/Cold Pack Treatment Cold Pack Location José Luis shds Patient Position Hooklying Treatment Duration (minutes) 10 Patient Tolerance Good PT-OP-T Assessment and Plan Start: 12/27/21 16:53 Freq: Status: Active Protocol: Document 01/12/22 14:36 SP (Rec: 01/12/22 15:38 SP [id number]) Physical Therapy Assessment Goals Three Impairment pain as high as 8/10 left shoulder interrupting sleep [facility] Goal (LTG) Patient will be able to sleep through the night, no wakinig due to left shouldre pain 01/12/22: states needs use Tylenol pm vs regular to allow sleep 6 hrs, not working right now. LTG Duration 04/02/22 01/12/22:progressing Two Impairment decreased ROM and strength left shoulder Short Term Goal (STG) Instruct patient in progressive ther ex program for ROM and strengthening left shoudler STG Duration 02/12/22 [facility] Goal (LTG) Patient to be independent and compliant with HEP and demonstrate left shoulder ROM WNL and left shoulder strength at least 4+/5 all motions to allow him to return to all usual activities. LTG Duration 04/02/22 One Impairment Limited activity tolerance left shoulder due to pain Impairment Quickdash disability index score 50% Short Term Goal (STG) Decrease Quickdash score to no greater than 30% STG Duration 02/12/22 [facility] Goal (LTG) Decrease Quickdash score to no greater than 10% as measure of improved activity tolerance with patient able to return to work without an increase in pain LTG Duration 04/02/22 Assessment Summary Assessment Pt responded well to cues for scapular and trunk alignment during ex. He was able to increase resistance on rows and OH AROM FF use ball on wall with little discomfort tension but not pain, progressed from table rolls discontinued. Physical Therapy Plan Frequency and Duration Frequency of Treatment 2x/Week Duration of Treatment 12 weeks Plan of Care Start Date 12/29/21 Plan of Care End Date 04/02/22 Therapeutic Interventions Therapeutic Interventions Aquatic Therapy,Home Exercise Program,Manual Therapy,Patient /Caregiver Education,Self-Care /Home Management,Soft Tissue Mobilization,Taping, Therapeutic Activities, Therapeutic Exercises Modalities Cold Pack/Ice Massage,Electric Stimulation,Hot Packs, Infrared Therapy,Iontophoresis ,Ultrasound Next Visit Focus/Plan Next Note Type Treatment Note Next Visit Plan Recheck wall ball roll FF. Continue PT for gentle ROM and strengthening left shoulder, modalities and manual therapy as needed for symptom management. Continue to cue for inhibition of UT and improved scapular activation.
--- NOTE | 2022-01-17 16:05 | PT.OTN ---
Current Diagnoses Pain in left shoulder (01/17/22) Bursitis of left shoulder (01/17/22) Contusion of left shoulder, initial encounter (01/17/22) Physical Therapy Treatment Note PT-OP-A Visit Information Start: 12/27/21 16:53 Freq: Status: Active Protocol: Document 01/17/22 13:06 AMB (Rec: 01/17/22 13:40 AMB [id number]) Out-Patient Physical Therapy Visit Information Visit Information Visit Type Treatment Note Visit Start Time 13:00 Visit Stop Time 13:45 Total Visit Minutes 45 Visit Number 6 PT-OP-B Current Condition Start: 12/27/21 16:53 Freq: Status: Active Protocol: Document 01/03/22 08:14 SAK (Rec: 01/03/22 09:30 SAK [id number]) Current Condition History of Current Condition Onset Date 10/13/21 Current Complaints left shoulder pain History of Current Condition Walking out of bus carrying things in hands, lost balance on ice, came down on left elbow, initially left shoulder pain, within a couple days feeling pain on right as well. At this time claim only approved for left shoulder. x- ray: swelling. MRI: full tear of one tendon, partial of 3 others. Anticipating surgical repair on the left. Waiting for approval for evaluation and treatment of right shoulder pain; x-ray was negative. States doctor thinking may have similar injury right shoulder. Uses both ice and heat. Doing some range of motion exercises found online with good tolerance. Taking Tylenol as needed; reg and Tylenol PM. Prior Treatments and Tests MRI as above, medication, ice and heat. No further treatment. PT-OP-C Subjective Start: 12/27/21 16:53 Freq: Status: Active Protocol: Document 01/17/22 13:06 AMB (Rec: 01/17/22 13:40 AMB [id number]) OP-PT Subjective Patient Comments Patient Comments Woke up on stomach and shoulders were painful with that. Pain is always there PT-OP-E Functional Tests Start: 12/27/21 16:53 Freq: Status: Active Protocol: Document 12/29/21 13:51 SAK (Rec: 01/02/22 17:20 SAK [id number]) Functional Tests Apley's Scratch Test Action 1- Left medial chest Action 1- Right anterior shoulder Action 2- Left lateral neck Action 2- Right T1 Action 3- Left L3 Action 3- Right L3 PT-OP-H Neuro Start: 12/27/21 16:53 Freq: Status: Active Protocol: Document 12/29/21 13:51 [facility] (Rec: 01/02/22 17:20 [facility] [id number]) Sensation Evaluation Gross Sensation Gross Sensation WNL PT-OP-J Posture/Palpation/Skin Start: 12/27/21 16:53 Freq: Status: Active Protocol: Document 12/29/21 13:51 [facility] (Rec: 01/02/22 17:20 [facility] [id number]) Posture Evaluation Position Sitting Head/C-Spine Posture Forward Head Shoulder Posture (L) Rounded,(R) Rounded Scapula Posture (L) Protracted,(R) Protracted Arm Posture (L) Internally Rotated Pelvis Posture Neutral Palpation Assessment Location RC insertion Palpation Location left greater than right Palpation Findings Muscle Guarding,Tenderness PT-OP-K Range of Motion Start: 12/27/21 16:53 Freq: Status: Active Protocol: Document 12/29/21 13:51 [facility] (Rec: 01/02/22 17:20 [facility] [id number]) Cervical Spine Range of Motion Cervical Spine Active Testing Position Sitting Flexion 50 Extension 10 Rotation Left 55 Rotation Right 55 Lateral Flexion Left 45 Lateral Flexion Right 40 ROM Limitations Soft Tissue Tightness Shoulder Goniometric Range of Motion Shoulder Right Shoulder ROM WFL No Flexion 91 Extension 11 Abduction 98 External Rotation at 0 degrees Abduction 38 Internal Rotation Behind Back (text) L3 Comments painful arc Left Shoulder ROM WFL No Testing Position Sitting Flexion 83 Extension 10 Abduction 98 External Rotation at 0 degrees Abduction 0 Internal Rotation Behind Back (text) L3 Comments painful arc Elbow/Forearm Range of Motion Elbow/Forearm josé luis Elbow/Forearm ROM WFL Yes PT-OP-L Special Tests Start: 12/27/21 16:53 Freq: Status: Active Protocol: Document 12/29/21 13:51 [facility] (Rec: 01/02/22 17:20 [facility] [id number]) Special Tests Shoulder Special Tests Lift-Off Rotator Cuff Test Results positive josé luis left greater than righ Drop Arm Rotator Cuff Test Results positive josé luis left greater than right PT-OP-M Strength Start: 12/27/21 16:53 Freq: Status: Active Protocol: Document 12/29/21 13:51 [facility] (Rec: 01/02/22 17:20 [facility] [id number]) Shoulder Strength Shoulder Manual Muscle Testing Right Flexion 3- Fair- Abduction (C5) 3- Fair- Adduction 3- Fair- External Rotation 3- Fair- Internal Rotation 3- Fair- Horizontal Abduction 3- Fair- Horizontal Adduction 3- Fair- Comments limited by pain Left Flexion 3- Fair- Extension 3- Fair- Abduction (C5) 3- Fair- Adduction 3+ Fair+ External Rotation 3- Fair- Internal Rotation 3- Fair- Horizontal Abduction 3- Fair- Horizontal Adduction 3- Fair- Comments limited by pain Elbow/Forearm Strength Elbow and Forearm Manual Muscle Testing Right Flexion (C6) 5 Normal Extension (C7) 5 Normal Left Flexion (C6) 4+ Good+ Extension (C7) 4+ Good+ Hand Joint Finisher/Pinch Strength Hand Dominance Hand Dominance Right PT-OP-Q Treatments Start: 12/27/21 16:53 Freq: Status: Active Protocol: Document 01/17/22 13:06 AMB (Rec: 01/17/22 13:40 AMB [id number]) Cardio Equipment Recumbent Stepper (Sci-Fit) Duration (Minutes) 5 Resistance 2 Seat Position 10 Other cues for pain-free ROM and intensity Therapeutic Exercises Standing Exercises shoulder ball roll wall Standing Exercise Name added to HEP vs table rolls Side bilateral Equipment Used kick ball Reps/Minutes x8 Comments improvement in ROM OH shoulder ext Equipment Used lvl 2 TB Reps/Minutes 2x10 Comments improved no UT, scap post retraction row Resistance 3 TB Reps/Minutes 2x10 Comments good effort Other Exercises shoulder ER Other Exercise Name isometric-HEP Side bilateral Reps/Minutes 3 sec hold x5 Comments 6/10 discomfort, improved with cues less pressure and scap stab aware. shoulder IR Other Exercise Name isometric- HEP Side bilateral Reps/Minutes 3 sec hold x6 Comments cued trunk/scap align, elbow 90 deg w/no trunk recruit. Manual Therapy Treatment Soft Tissue Mobilization RC Mobilization Type Cross-Friction Body Position Hooklying bicep, deltoid insertion Mobilization Type Myofascial Release Body Position Hooklying PT-OP-R Modalities Start: 12/27/21 16:53 Freq: Status: Active Protocol: Document 01/11/22 09:04 AL (Rec: 01/11/22 09:51 SAK [id number]) Hot Pack/Cold Pack Treatment Cold Pack Location José Luis shds Patient Position Hooklying Treatment Duration (minutes) 10 Patient Tolerance Good PT-OP-T Assessment and Plan Start: 12/27/21 16:53 Freq: Status: Active Protocol: Document 01/17/22 13:06 AMB (Rec: 01/17/22 13:40 AMB [id number]) Physical Therapy Assessment Goals Three Impairment pain as high as 8/10 left shoulder interrupting sleep Senior Care Goal (LTG) Patient will be able to sleep through the night, no wakinig due to left shouldre pain 01/12/22: states needs use Tylenol pm vs regular to allow sleep 6 hrs, not working right now. LTG Duration 04/02/22 01/12/22:progressing Two Impairment decreased ROM and strength left shoulder Short Term Goal (STG) Instruct patient in progressive ther ex program for ROM and strengthening left shoudler STG Duration 02/12/22 Senior Care Goal (LTG) Patient to be independent and compliant with HEP and demonstrate left shoulder ROM WNL and left shoulder strength at least 4+/5 all motions to allow him to return to all usual activities. LTG Duration 04/02/22 One Impairment Limited activity tolerance left shoulder due to pain Impairment Quickdash disability index score 50% Short Term Goal (STG) Decrease Quickdash score to no greater than 30% STG Duration 02/12/22 Senior Care Goal (LTG) Decrease Quickdash score to no greater than 10% as measure of improved activity tolerance with patient able to return to work without an increase in pain LTG Duration 04/02/22 Assessment Summary Assessment Continued cues for reduced UT recruitment and scapular stabilization. Worked on positioning for sleep with pillows, pt interested in getting body pillow. Physical Therapy Plan Next Visit Focus/Plan Next Note Type Treatment Note Next Visit Plan Continue PT for gentle ROM and strengthening left shoulder, modalities and manual therapy as needed for symptom management. Continue to cue for inhibition of UT and improved scapular activation.
--- NOTE | 2022-01-23 11:01 | PT-OP ANOTE ---
No show- called and LVM confirming next appt day and time.
--- NOTE | 2022-01-25 09:07 | PT.OTN ---
Current Diagnoses Pain in left shoulder (01/25/22) Bursitis of left shoulder (01/25/22) Contusion of left shoulder, initial encounter (01/25/22) Physical Therapy Treatment Note PT-OP-A Visit Information Start: 12/27/21 16:53 Freq: Status: Active Protocol: Document 01/25/22 08:16 SP (Rec: 01/25/22 09:39 SP [id number]) Out-Patient Physical Therapy Visit Information Visit Information Visit Type Treatment Note Visit Start Time 08:16 Visit Stop Time 09:07 Total Visit Minutes 51 Visit Number 7 Number of LOCKSTITCH ZIPPER SETTER Visits 1 Evaluation Information Evaluation Date 12/29/21 PT-OP-B Current Condition Start: 12/27/21 16:53 Freq: Status: Active Protocol: Document 01/03/22 08:14 SAK (Rec: 01/03/22 09:30 SAK [id number]) Current Condition History of Current Condition Onset Date 10/13/21 Current Complaints left shoulder pain History of Current Condition Walking out of bus carrying things in hands, lost balance on ice, came down on left elbow, initially left shoulder pain, within a couple days feeling pain on right as well. At this time claim only approved for left shoulder. x- ray: swelling. MRI: full tear of one tendon, partial of 3 others. Anticipating surgical repair on the left. Waiting for approval for evaluation and treatment of right shoulder pain; x-ray was negative. States doctor thinking may have similar injury right shoulder. Uses both ice and heat. Doing some range of motion exercises found online with good tolerance. Taking Tylenol as needed; reg and Tylenol PM. Prior Treatments and Tests MRI as above, medication, ice and heat. No further treatment. PT-OP-C Subjective Start: 12/27/21 16:53 Freq: Status: Active Protocol: Document 01/25/22 08:16 SP (Rec: 01/25/22 09:39 SP [id number]) OP-PT Subjective Patient Comments Patient Comments Pt reported got the results of his MRI of R shld at [facility] and bicep involvement, States compliant with HEP and logs them for self compliance. PT-OP-E Functional Tests Start: 12/27/21 16:53 Freq: Status: Active Protocol: Document 12/29/21 13:51 SAK (Rec: 01/02/22 17:20 SAK [id number]) Functional Tests Apley's Scratch Test Action 1- Left medial chest Action 1- Right anterior shoulder Action 2- Left lateral neck Action 2- Right T1 Action 3- Left L3 Action 3- Right L3 PT-OP-H Neuro Start: 12/27/21 16:53 Freq: Status: Active Protocol: Document 12/29/21 13:51 [facility] (Rec: 01/02/22 17:20 [facility] [id number]) Sensation Evaluation Gross Sensation Gross Sensation WNL PT-OP-J Posture/Palpation/Skin Start: 12/27/21 16:53 Freq: Status: Active Protocol: Document 12/29/21 13:51 [facility] (Rec: 01/02/22 17:20 [facility] [id number]) Posture Evaluation Position Sitting Head/C-Spine Posture Forward Head Shoulder Posture (L) Rounded,(R) Rounded Scapula Posture (L) Protracted,(R) Protracted Arm Posture (L) Internally Rotated Pelvis Posture Neutral Palpation Assessment Location RC insertion Palpation Location left greater than right Palpation Findings Muscle Guarding,Tenderness PT-OP-K Range of Motion Start: 12/27/21 16:53 Freq: Status: Active Protocol: Document 12/29/21 13:51 [facility] (Rec: 01/02/22 17:20 [facility] [id number]) Cervical Spine Range of Motion Cervical Spine Active Testing Position Sitting Flexion 50 Extension 10 Rotation Left 55 Rotation Right 55 Lateral Flexion Left 45 Lateral Flexion Right 40 ROM Limitations Soft Tissue Tightness Shoulder Goniometric Range of Motion Shoulder Right Shoulder ROM WFL No Flexion 91 Extension 11 Abduction 98 External Rotation at 0 degrees Abduction 38 Internal Rotation Behind Back (text) L3 Comments painful arc Left Shoulder ROM WFL No Testing Position Sitting Flexion 83 Extension 10 Abduction 98 External Rotation at 0 degrees Abduction 0 Internal Rotation Behind Back (text) L3 Comments painful arc Elbow/Forearm Range of Motion Elbow/Forearm josé luis Elbow/Forearm ROM WFL Yes PT-OP-L Special Tests Start: 12/27/21 16:53 Freq: Status: Active Protocol: Document 12/29/21 13:51 [facility] (Rec: 01/02/22 17:20 [facility] [id number]) Special Tests Shoulder Special Tests Lift-Off Rotator Cuff Test Results positive josé luis left greater than righ Drop Arm Rotator Cuff Test Results positive josé luis left greater than right PT-OP-M Strength Start: 12/27/21 16:53 Freq: Status: Active Protocol: Document 12/29/21 13:51 SAK (Rec: 01/02/22 17:20 SAK [id number]) Shoulder Strength Shoulder Manual Muscle Testing Right Flexion 3- Fair- Abduction (C5) 3- Fair- Adduction 3- Fair- External Rotation 3- Fair- Internal Rotation 3- Fair- Horizontal Abduction 3- Fair- Horizontal Adduction 3- Fair- Comments limited by pain Left Flexion 3- Fair- Extension 3- Fair- Abduction (C5) 3- Fair- Adduction 3+ Fair+ External Rotation 3- Fair- Internal Rotation 3- Fair- Horizontal Abduction 3- Fair- Horizontal Adduction 3- Fair- Comments limited by pain Elbow/Forearm Strength Elbow and Forearm Manual Muscle Testing Right Flexion (C6) 5 Normal Extension (C7) 5 Normal Left Flexion (C6) 4+ Good+ Extension (C7) 4+ Good+ Hand Cable Installer Repairer/Pinch Strength Hand Dominance Hand Dominance Right PT-OP-Q Treatments Start: 12/27/21 16:53 Freq: Status: Active Protocol: Document 01/25/22 08:16 SP (Rec: 01/25/22 09:39 SP [id number]) Cardio Equipment Upper Body Ergometer (UBE) Duration (Minutes) 6 RPM 120 Seat Position 10 Height 3.5 Other f/b 30 sec, states muscle tiring, slight irritation R bicep but ok to do Therapeutic Exercises Standing Exercises shoulder ball roll wall Standing Exercise Name reviewed HEP wall Side bilateral Resistance AAROM Equipment Used slider at corner wall Reps/Minutes x10 each UE Comments improvement in ROM OH shoulder ext Equipment Used lvl 3 TB Reps/Minutes 2x10 Comments improved no UT, scap post retraction row Resistance 3 TB Reps/Minutes 2x10 Comments good effort Other Exercises shoulder ER Other Exercise Name isometric-HEP Side bilateral Resistance manual resistance given for feedback proper form Equipment Used gentle pressure, discomfort but not pain Reps/Minutes 3 sec hold x5 Comments 6/10 discomfort, improved with cues less pressure and scap stab aware. shoulder IR Other Exercise Name isometric- HEP Side bilateral Resistance manual resistance given for feedback proper form Equipment Used gentle pressure, discomfort but not pain Reps/Minutes 3 sec hold x6 Comments cued trunk/scap align, elbow 90 deg w/no trunk recruit. Manual Therapy Treatment Soft Tissue Mobilization RC Body Location B Mobilization Type Cross-Friction Intensity/Depth Moderate Body Position Hooklying Comments manual and discussion spouse assist home and self STMs ball wall with stated does use. He also uses MHP pre ex and helps with ROM. bicep, deltoid insertion Body Location B Mobilization Type Myofascial Release,Strumming Body Position Hooklying Comments manual and discussion spouse assist home and self STMs ball wall with stated does use. He also uses MHP pre ex and helps with ROM. Good softening of bicep post. PT-OP-R Modalities Start: 12/27/21 16:53 Freq: Status: Active Protocol: Document 01/11/22 09:04 SAK (Rec: 01/11/22 09:51 SAK [id number]) Hot Pack/Cold Pack Treatment Cold Pack Location José Luis shds Patient Position Hooklying Treatment Duration (minutes) 10 Patient Tolerance Good PT-OP-T Assessment and Plan Start: 12/27/21 16:53 Freq: Status: Active Protocol: Document 01/25/22 08:16 SP (Rec: 01/25/22 09:39 SP [id number]) Physical Therapy Assessment Goals Three Impairment pain as high as 8/10 left shoulder interrupting sleep Paleobotanist Goal (LTG) Patient will be able to sleep through the night, no wakinig due to left shouldre pain 01/12/22: states needs use Tylenol pm vs regular to allow sleep 6 hrs, not working right now. LTG Duration 04/02/22 01/12/22:progressing Two Impairment decreased ROM and strength left shoulder Short Term Goal (STG) Instruct patient in progressive ther ex program for ROM and strengthening left shoudler STG Duration 02/12/22 Half-Way Goal (LTG) Patient to be independent and compliant with HEP and demonstrate left shoulder ROM WNL and left shoulder strength at least 4+/5 all motions to allow him to return to all usual activities. LTG Duration 04/02/22 One Impairment Limited activity tolerance left shoulder due to pain Impairment Quickdash disability index score 50% Short Term Goal (STG) Decrease Quickdash score to no greater than 30% STG Duration 02/12/22 Half-Way Goal (LTG) Decrease Quickdash score to no greater than 10% as measure of improved activity tolerance with patient able to return to work without an increase in pain LTG Duration 04/02/22 Assessment Summary Assessment Pt better understanding and self correction improvement in humeral posturing with manual and verbal feedback for proper form with improvement decrease to no pain B and allowance of post musculature facilitation and inhibition of pec, bicep and improved scapular activation. Suggested having provide manual resistance feedback vs wall. Pt was able to perform UBE José Luis with no pain, improved postural self corrections and allow ease strengthening and ROM this tx. Physical Therapy Plan Frequency and Duration Frequency of Treatment 2x/Week Duration of Treatment 12 weeks Plan of Care Start Date 12/29/21 Plan of Care End Date 04/02/22 Therapeutic Interventions Therapeutic Interventions Aquatic Therapy,Home Exercise Program,Manual Therapy,Patient /Caregiver Education,Self-Care /Home Management,Soft Tissue Mobilization,Taping, Therapeutic Activities, Therapeutic Exercises Modalities Cold Pack/Ice Massage,Electric Stimulation,Hot Packs, Infrared Therapy,Iontophoresis ,Ultrasound Next Visit Focus/Plan Next Note Type Treatment Note Next Visit Plan Recheck isometric IR/ER. Continue PT for gentle ROM and strengthening left shoulder, modalities and manual therapy as needed for symptom management. Continue to cue for inhibition of UT and improved scapular activation.
--- NOTE | 2022-01-31 09:05 | PT.OTN ---
Current Diagnoses Pain in left shoulder (01/31/22) Bursitis of left shoulder (01/31/22) Contusion of left shoulder, initial encounter (01/31/22) Physical Therapy Treatment Note PT-OP-A Visit Information Start: 12/27/21 16:53 Freq: Status: Active Protocol: Document 01/31/22 08:19 SP (Rec: 01/31/22 09:07 SP [id number]) Out-Patient Physical Therapy Visit Information Visit Information Visit Type Treatment Note Visit Start Time 08:19 Visit Stop Time 09:05 Total Visit Minutes 46 Visit Number 8 Number of TRAFFIC CONTROL SPECIALIST Visits 1 Evaluation Information Evaluation Date 12/29/21 PT-OP-B Current Condition Start: 12/27/21 16:53 Freq: Status: Active Protocol: Document 01/03/22 08:14 SAK (Rec: 01/03/22 09:30 SAK [id number]) Current Condition History of Current Condition Onset Date 10/13/21 Current Complaints left shoulder pain History of Current Condition Walking out of bus carrying things in hands, lost balance on ice, came down on left elbow, initially left shoulder pain, within a couple days feeling pain on right as well. At this time claim only approved for left shoulder. x- ray: swelling. MRI: full tear of one tendon, partial of 3 others. Anticipating surgical repair on the left. Waiting for approval for evaluation and treatment of right shoulder pain; x-ray was negative. States doctor thinking may have similar injury right shoulder. Uses both ice and heat. Doing some range of motion exercises found online with good tolerance. Taking Tylenol as needed; reg and Tylenol PM. Prior Treatments and Tests MRI as above, medication, ice and heat. No further treatment. PT-OP-C Subjective Start: 12/27/21 16:53 Freq: Status: Active Protocol: Document 01/31/22 08:19 SP (Rec: 01/31/22 09:07 SP [id number]) OP-PT Subjective Patient Comments Patient Comments Pt reported R shld irritated today, thinks slept wrong last night. He reports is compliant with HEP. Patient Reported Progress Improving PT-OP-E Functional Tests Start: 12/27/21 16:53 Freq: Status: Active Protocol: Document 12/29/21 13:51 SAK (Rec: 01/02/22 17:20 SAK [id number]) Functional Tests Apley's Scratch Test Action 1- Left medial chest Action 1- Right anterior shoulder Action 2- Left lateral neck Action 2- Right T1 Action 3- Left L3 Action 3- Right L3 PT-OP-H Neuro Start: 12/27/21 16:53 Freq: Status: Active Protocol: Document 12/29/21 13:51 [facility] (Rec: 01/02/22 17:20 [facility] [id number]) Sensation Evaluation Gross Sensation Gross Sensation WNL PT-OP-J Posture/Palpation/Skin Start: 12/27/21 16:53 Freq: Status: Active Protocol: Document 12/29/21 13:51 [facility] (Rec: 01/02/22 17:20 [facility] [id number]) Posture Evaluation Position Sitting Head/C-Spine Posture Forward Head Shoulder Posture (L) Rounded,(R) Rounded Scapula Posture (L) Protracted,(R) Protracted Arm Posture (L) Internally Rotated Pelvis Posture Neutral Palpation Assessment Location RC insertion Palpation Location left greater than right Palpation Findings Muscle Guarding,Tenderness PT-OP-K Range of Motion Start: 12/27/21 16:53 Freq: Status: Active Protocol: Document 12/29/21 13:51 [facility] (Rec: 01/02/22 17:20 [facility] [id number]) Cervical Spine Range of Motion Cervical Spine Active Testing Position Sitting Flexion 50 Extension 10 Rotation Left 55 Rotation Right 55 Lateral Flexion Left 45 Lateral Flexion Right 40 ROM Limitations Soft Tissue Tightness Shoulder Goniometric Range of Motion Shoulder Right Shoulder ROM WFL No Flexion 91 Extension 11 Abduction 98 External Rotation at 0 degrees Abduction 38 Internal Rotation Behind Back (text) L3 Comments painful arc Left Shoulder ROM WFL No Testing Position Sitting Flexion 83 Extension 10 Abduction 98 External Rotation at 0 degrees Abduction 0 Internal Rotation Behind Back (text) L3 Comments painful arc Elbow/Forearm Range of Motion Elbow/Forearm josé luis Elbow/Forearm ROM WFL Yes PT-OP-L Special Tests Start: 12/27/21 16:53 Freq: Status: Active Protocol: Document 12/29/21 13:51 [facility] (Rec: 01/02/22 17:20 [facility] [id number]) Special Tests Shoulder Special Tests Lift-Off Rotator Cuff Test Results positive josé luis left greater than righ Drop Arm Rotator Cuff Test Results positive josé luis left greater than right PT-OP-M Strength Start: 12/27/21 16:53 Freq: Status: Active Protocol: Document 12/29/21 13:51 [facility] (Rec: 01/02/22 17:20 SAK [id number]) Shoulder Strength Shoulder Manual Muscle Testing Right Flexion 3- Fair- Abduction (C5) 3- Fair- Adduction 3- Fair- External Rotation 3- Fair- Internal Rotation 3- Fair- Horizontal Abduction 3- Fair- Horizontal Adduction 3- Fair- Comments limited by pain Left Flexion 3- Fair- Extension 3- Fair- Abduction (C5) 3- Fair- Adduction 3+ Fair+ External Rotation 3- Fair- Internal Rotation 3- Fair- Horizontal Abduction 3- Fair- Horizontal Adduction 3- Fair- Comments limited by pain Elbow/Forearm Strength Elbow and Forearm Manual Muscle Testing Right Flexion (C6) 5 Normal Extension (C7) 5 Normal Left Flexion (C6) 4+ Good+ Extension (C7) 4+ Good+ Hand Radio Station Engineer/Pinch Strength Hand Dominance Hand Dominance Right PT-OP-Q Treatments Start: 12/27/21 16:53 Freq: Status: Active Protocol: Document 01/31/22 08:19 SP (Rec: 01/31/22 09:07 SP [id number]) Cardio Equipment Upper Body Ergometer (UBE) Duration (Minutes) 6 RPM 120 Seat Position 10 Height 3.5 Other f/b 30 sec, states muscle tiring, 192 cycles Therapeutic Exercises Supine Exercises FF Supine Exercise Name added toHEP- alternating Side bilateral Resistance #1 DB Reps/Minutes 2x8 reps Comments cued elbow straight, knees bent, slow controlled serratus press Supine Exercise Name added to HEP (checking was doing self) Side bilateral Resistance AROM>#1 DB, > #2 DB Reps/Minutes 2x8 reps Comments cued wrist straight, no UT recruit shld ER Supine Exercise Name reviewed HEP Side bilateral Resistance AROM> #1 DB Equipment Used rolled towel under arms Reps/Minutes 2x8 Comments cued slow movement Standing Exercises shld IR TB Standing Exercise Name added to HEP Side bilateral Resistance TB #1 Equipment Used towel under arm Reps/Minutes 10 x2 Comments cued scap retract/depress, elbow as side- little twinge 2 /10 found good shoulder ball roll wall Standing Exercise Name reviewed HEP wall Side bilateral Resistance AAROM Equipment Used wall Reps/Minutes x10 each UE Comments improvement in ROM OH shoulder ext Standing Exercise Name reviewed HEP Equipment Used lvl 3 TB Reps/Minutes 2x10 Comments improved no UT, scap post retraction row Standing Exercise Name reviewed HEP Resistance 3 TB Reps/Minutes 2x10 Comments good effort Other Exercises shoulder ER Other Exercise Name isometric-HEP Side bilateral Resistance manual resistance given for feedback proper form Equipment Used gentle pressure, discomfort but not pain Reps/Minutes 3 sec hold x8 Comments 8/10 discomfort, improved with cues less pressure and scap stab aware. PT-OP-R Modalities Start: 12/27/21 16:53 Freq: Status: Active Protocol: Document 01/11/22 09:04 SAK (Rec: 01/11/22 09:51 SAK [id number]) Hot Pack/Cold Pack Treatment Cold Pack Location José Luis shds Patient Position Hooklying Treatment Duration (minutes) 10 Patient Tolerance Good PT-OP-T Assessment and Plan Start: 12/27/21 16:53 Freq: Status: Active Protocol: Document 01/31/22 08:19 SP (Rec: 01/31/22 09:07 SP [id number]) Physical Therapy Assessment Goals Three Impairment pain as high as 8/10 left shoulder interrupting sleep Ordnance Technician Goal (LTG) Patient will be able to sleep through the night, no wakinig due to left shouldre pain 01/12/22: states needs use Tylenol pm vs regular to allow sleep 6 hrs, not working right now. LTG Duration 04/02/22 01/12/22:progressing Two Impairment decreased ROM and strength left shoulder Short Term Goal (STG) Instruct patient in progressive ther ex program for ROM and strengthening left shoudler STG Duration 02/12/22 Ordnance Technician Goal (LTG) Patient to be independent and compliant with HEP and demonstrate left shoulder ROM WNL and left shoulder strength at least 4+/5 all motions to allow him to return to all usual activities. LTG Duration 04/02/22 One Impairment Limited activity tolerance left shoulder due to pain Impairment Quickdash disability index score 50% Short Term Goal (STG) Decrease Quickdash score to no greater than 30% STG Duration 02/12/22 Detention Goal (LTG) Decrease Quickdash score to no greater than 10% as measure of improved activity tolerance with patient able to return to work without an increase in pain LTG Duration 04/02/22 Assessment Summary Assessment Pt responded well to HEP review, tolerated added TB IR but challenged ER against TB resistance so recommended continued use wall vs manual resistance is best for self feedback postural alignment and graded pressure. Pt able progress serratus press, supine shld ER and FF with resistance assisted muscle control today to improve allowable ROM, painfree range and aware no UT recruitment. Limited on time post ther ex, didn't give manual STM support today. Physical Therapy Plan Frequency and Duration Frequency of Treatment 2x/Week Duration of Treatment 12 weeks Plan of Care Start Date 12/29/21 Plan of Care End Date 04/02/22 Therapeutic Interventions Therapeutic Interventions Aquatic Therapy,Home Exercise Program,Manual Therapy,Patient /Caregiver Education,Self-Care /Home Management,Soft Tissue Mobilization,Taping, Therapeutic Activities, Therapeutic Exercises Modalities Cold Pack/Ice Massage,Electric Stimulation,Hot Packs, Infrared Therapy,Iontophoresis ,Ultrasound Next Visit Focus/Plan Next Note Type Treatment Note Next Visit Plan Recheck isometric ER, added Serr Press/ FF/ER w/DB added last tx. Continue PT for gentle ROM and strengthening left shoulder, modalities and manual therapy as needed for symptom management. Continue to cue for inhibition of UT and improved scapular activation.
--- NOTE | 2022-02-02 08:00 | PT.OTRE ---
Current Diagnoses Pain in left shoulder (02/09/22) Bursitis of left shoulder (02/09/22) Contusion of left shoulder, initial encounter (02/09/22) Past Medical History (Last Updated 12/15/19 @ 09:53 by LIANNE Cummins) Elevated blood sugar Hyperlipidemia Obesity (BMI 30.0-34.9) Surgical History (Last Reviewed 09/18/19 @ 08:29 by LIANNE Cummins) Anesthesia Fracture (~1985) History of colonoscopy Visit Care Team Role Provider Type LIANNE Cummins Family Provider Advanced Show Host/Hostess Primary Care Provider Specialty: Family Practice Address: [address] [place] [address], [phone] Email: [email or web address] Chas Buck MD Attending Provider Non-Staff Referring Provider Specialty: Orthopedic Surgery Address: [address] [place] [address], [id number] Email: Physical Therapy Re-Evaluation PT-OP-A Visit Information Start: 12/27/21 16:53 Freq: Status: Active Protocol: Document 02/02/22 11:18 SAK (Rec: 02/02/22 12:01 [facility] [id number]) Out-Patient Physical Therapy Visit Information Visit Information Visit Type Treatment Note Visit Start Time 11:18 Total Visit Minutes 46 Visit Number 9 Number of BUFFER MACHINE Visits 0 Evaluation Information Evaluation Date 12/29/21 PT-OP-B Current Condition Start: 12/27/21 16:53 Freq: Status: Active Protocol: Document 01/03/22 08:14 SAK (Rec: 01/03/22 09:30 [facility] [id number]) Current Condition History of Current Condition Onset Date 10/13/21 Current Complaints left shoulder pain History of Current Condition Walking out of bus carrying things in hands, lost balance on ice, came down on left elbow, initially left shoulder pain, within a couple days feeling pain on right as well. At this time claim only approved for left shoulder. x- ray: swelling. MRI: full tear of one tendon, partial of 3 others. Anticipating surgical repair on the left. Waiting for approval for evaluation and treatment of right shoulder pain; x-ray was negative. States doctor thinking may have similar injury right shoulder. Uses both ice and heat. Doing some range of motion exercises found online with good tolerance. Taking Tylenol as needed; reg and Tylenol PM. Prior Treatments and Tests MRI as above, medication, ice and heat. No further treatment. PT-OP-C Subjective Start: 12/27/21 16:53 Freq: Status: Active Protocol: Document 02/02/22 11:18 SAK (Rec: 02/02/22 12:01 [facility] [id number]) OP-PT Subjective Patient Comments Patient Comments PT has given me things I can do at home but pain hasn't changed yet, sudden movements still challenging. Sees doctor on 02/14/22, anticipating surgery. Watching his diet; has lost 15 lbs since injury. Doing more walking vs other activities. Using heat in am, sometimes Tylenol and ice at other times of the best. Pain still can be as high as 8/10, but is constant 4-5/10 PT-OP-E Functional Tests Start: 12/27/21 16:53 Freq: Status: Active Protocol: Document 12/29/21 13:51 [facility] (Rec: 01/02/22 17:20 [facility] [id number]) Functional Tests Apley's Scratch Test Action 1: The subject is instructed to touch the opposite shoulder with his/her hand. This motion checks Glenohumeral adduction, internal rotation , horizontal adduction and scapular protraction Action 2: The subject is instructed to place his/her arm overhead and reach behind the neck to touch his/her upper back. This motion checks Glenohumeral abduction, external rotation and scapular upward rotation and elevation. Action 3: The subject puts his/her hand on the lower back and reaches upward as far as possible. This motion checks glenohumeral adduction, internal rotation and scapular retraction with downward rotation Action 1- Left medial chest Action 1- Right anterior shoulder Action 2- Left lateral neck Action 2- Right T1 Action 3- Left L3 Action 3- Right L3 PT-OP-H Neuro Start: 12/27/21 16:53 Freq: Status: Active Protocol: Document 12/29/21 13:51 [facility] (Rec: 01/02/22 17:20 [facility] [id number]) Sensation Evaluation Gross Sensation Gross Sensation WNL PT-OP-J Posture/Palpation/Skin Start: 12/27/21 16:53 Freq: Status: Active Protocol: Document 12/29/21 13:51 [facility] (Rec: 01/02/22 17:20 [facility] [id number]) Posture Evaluation Position Sitting Head/C-Spine Posture Forward Head Shoulder Posture (L) Rounded,(R) Rounded Scapula Posture (L) Protracted,(R) Protracted Arm Posture (L) Internally Rotated Pelvis Posture Neutral Palpation Assessment Location RC insertion Palpation Location left greater than right Palpation Findings Muscle Guarding,Tenderness PT-OP-K Range of Motion Start: 12/27/21 16:53 Freq: Status: Active Protocol: Document 12/29/21 13:51 SAK (Rec: 01/02/22 17:20 [facility] [id number]) Cervical Spine Range of Motion Cervical Spine Active Testing Position Sitting Flexion 50 Extension 10 Rotation Left 55 Rotation Right 55 Lateral Flexion Left 45 Lateral Flexion Right 40 ROM Limitations Soft Tissue Tightness Shoulder Goniometric Range of Motion Shoulder Measured in Degrees Right Shoulder ROM WFL No Flexion 91 Extension 11 Abduction 98 External Rotation at 0 degrees Abduction 38 Internal Rotation Behind Back (text) L3 Comments painful arc Left Shoulder ROM WFL No Testing Position Sitting Flexion 83 Extension 10 Abduction 98 External Rotation at 0 degrees Abduction 0 Internal Rotation Behind Back (text) L3 Comments painful arc Elbow/Forearm Range of Motion Elbow/Forearm Measured in Degrees antoine Elbow/Forearm ROM WFL Yes PT-OP-L Special Tests Start: 12/27/21 16:53 Freq: Status: Active Protocol: Document 12/29/21 13:51 SAK (Rec: 01/02/22 17:20 [facility] [id number]) Special Tests Shoulder Special Tests Lift-Off Rotator Cuff Test Results positive antoine left greater than righ Drop Arm Rotator Cuff Test Results positive antoine left greater than right PT-OP-M Strength Start: 12/27/21 16:53 Freq: Status: Active Protocol: Document 12/29/21 13:51 SAK (Rec: 01/02/22 17:20 [facility] [id number]) Shoulder Strength Shoulder Manual Muscle Testing Right Flexion 3- Fair- Abduction (C5) 3- Fair- Adduction 3- Fair- External Rotation 3- Fair- Internal Rotation 3- Fair- Horizontal Abduction 3- Fair- Horizontal Adduction 3- Fair- Comments limited by pain Left Flexion 3- Fair- Extension 3- Fair- Abduction (C5) 3- Fair- Adduction 3+ Fair+ External Rotation 3- Fair- Internal Rotation 3- Fair- Horizontal Abduction 3- Fair- Horizontal Adduction 3- Fair- Comments limited by pain Elbow/Forearm Strength Elbow and Forearm Manual Muscle Testing Right Flexion (C6) 5 Normal Extension (C7) 5 Normal Left Flexion (C6) 4+ Good+ Extension (C7) 4+ Good+ Hand Legal Advisor/Pinch Strength Hand Dominance Hand Dominance Right PT-OP-Q Treatments Start: 12/27/21 16:53 Freq: Status: Active Protocol: Document 02/02/22 11:18 [facility] (Rec: 02/02/22 12:01 [facility] [id number]) Cardio Equipment Upper Body Ergometer (UBE) Duration (Minutes) 6 RPM 115 Seat Position 10 Height 3.5 Other fatigued, no inc pain Gym Equipment Cable Column (Body Solid) scapular shrug Resistance 20 Reps/Time 10x2 lat pull Resistance 20 Reps/Time 10x2 Therapeutic Exercises Supine Exercises PNF Supine Exercise Name D2 starting 90 deg elevation, back to 90 Resistance L1 TB Comments well tolerated FF Supine Exercise Name added toHEP- alternating Side bilateral Resistance #1 DB Reps/Minutes 2x8 reps Comments cued elbow straight, knees bent, slow controlled serratus press Supine Exercise Name added to HEP (checking was doing self) Side bilateral Resistance AROM>#1 DB, > #2 DB Reps/Minutes 2x8 reps Comments cued wrist straight, no UT recruit shld ER Supine Exercise Name reviewed HEP Side bilateral Resistance AROM> #1 DB Equipment Used rolled towel under arms Reps/Minutes 2x8 Comments cued slow movement Standing Exercises shld IR TB Side bilateral Resistance TB #1 Equipment Used towel under arm Reps/Minutes 10 x2 Comments cued scap retract/depress, elbow as side- little twinge 2 /10 found good shoulder ball roll wall Standing Exercise Name reviewed HEP wall Side bilateral Resistance AAROM Equipment Used wall Reps/Minutes x10 each UE Comments improvement in ROM OH shoulder ext Standing Exercise Name reviewed HEP Equipment Used lvl 3 TB Reps/Minutes 2x10 Comments tactile cues for scapular activation row Standing Exercise Name reviewed HEP Resistance 3 TB Reps/Minutes 2x10 Comments tactile cues for scapular activation Manual Therapy Treatment Soft Tissue Mobilization RC Body Location B Mobilization Type Cross-Friction Intensity/Depth Moderate Body Position Hooklying bicep, deltoid insertion Body Location B Mobilization Type Myofascial Release,Strumming Body Position Hooklying PT-OP-R Modalities Start: 12/27/21 16:53 Freq: Status: Active Protocol: Document 01/11/22 09:04 [facility] (Rec: 01/11/22 09:51 [facility] [id number]) Hot Pack/Cold Pack Treatment Cold Pack Location Antoine shds Patient Position Hooklying Treatment Duration (minutes) 10 Patient Tolerance Good PT-OP-T Assessment and Plan Start: 12/27/21 16:53 Freq: Status: Active Protocol: Document 02/02/22 11:18 [facility] (Rec: 02/02/22 12:01 [facility] [id number]) Physical Therapy Assessment Goals Three Impairment pain as high as 8/10 left shoulder interrupting sleep Tour Counselor Goal (LTG) Patient will be able to sleep through the night, no wakinig due to left shouldre pain 01/12/22: states needs use Tylenol pm vs regular to allow sleep 6 hrs, not working right now. LTG Duration 04/02/22 01/12/22:progressing Two Impairment decreased ROM and strength left shoulder Short Term Goal (STG) Instruct patient in progressive ther ex program for ROM and strengthening left shoudler STG Duration 02/12/22 Halfway Goal (LTG) Patient to be independent and compliant with HEP and demonstrate left shoulder ROM WNL and left shoulder strength at least 4+/5 all motions to allow him to return to all usual activities. LTG Duration 04/02/22 One Impairment Limited activity tolerance left shoulder due to pain Impairment Quickdash disability index score 50% Short Term Goal (STG) Decrease Quickdash score to no greater than 30% STG Duration 02/12/22 Tour Counselor Goal (LTG) Decrease Quickdash score to no greater than 10% as measure of improved activity tolerance with patient able to return to work without an increase in pain LTG Duration 04/02/22 Assessment Summary Assessment Patient pain persists but demonstrating improved muscular activation, attention to postural alignment of shoulders, and dec overactivation of UT. Good tolerance for D2 shoulder flexion supine starting at 90 deg elevation with L1 TB; added to HEP Physical Therapy Plan Frequency and Duration Frequency of Treatment 2x/Week Duration of Treatment 12 weeks Plan of Care Start Date 12/29/21 Plan of Care End Date 04/02/22 Therapeutic Interventions Therapeutic Interventions Aquatic Therapy,Home Exercise Program,Manual Therapy,Patient /Caregiver Education,Self-Care /Home Management,Soft Tissue Mobilization,Taping, Therapeutic Activities, Therapeutic Exercises Modalities Cold Pack/Ice Massage,Electric Stimulation,Hot Packs, Infrared Therapy,Iontophoresis ,Ultrasound Next Visit Focus/Plan Next Note Type Treatment Note Next Visit Plan Recheck isometric ER, supine D2 flex with TB, and serratus punch. Trial prone I and T.
--- NOTE | 2022-02-02 08:01 | PT.OPPOC ---
Physical, Occupational & Speech Therapy At [facility] Current Diagnoses Pain in left shoulder (02/09/22) Bursitis of left shoulder (02/09/22) Contusion of left shoulder, initial encounter (02/09/22) Visit Care Team Role Provider Type LIANNE Cummins Family Provider Advanced Gear Cutting Machine Set Up Operator Primary Care Provider Specialty: Family Practice Address: [address] [place] [address], [id number] Email: [email or web address] Chas Buck MD Attending Provider Non-Staff Referring Provider Specialty: Orthopedic Surgery Address: [facility] [address], [place], [address] Email: Plan Of Care PT-OP-T Assessment and Plan Start: 12/27/21 16:53 Freq: Status: Active Protocol: Document 02/02/22 11:18 [facility] (Rec: 02/02/22 12:01 [facility] [id number]) Physical Therapy Assessment Goals Three Impairment pain as high as 8/10 left shoulder interrupting sleep Food Production Associate Goal (LTG) Patient will be able to sleep through the night, no wakinig due to left shouldre pain 01/12/22: states needs use Tylenol pm vs regular to allow sleep 6 hrs, not working right now. LTG Duration 04/02/22 01/12/22:progressing Two Impairment decreased ROM and strength left shoulder Short Term Goal (STG) Instruct patient in progressive ther ex program for ROM and strengthening left shoudler STG Duration 02/12/22 [facility]dc Goal (LTG) Patient to be independent and compliant with HEP and demonstrate left shoulder ROM WNL and left shoulder strength at least 4+/5 all motions to allow him to return to all usual activities. LTG Duration 04/02/22 One Impairment Limited activity tolerance left shoulder due to pain Impairment Quickdash disability index score 50% Short Term Goal (STG) Decrease Quickdash score to no greater than 30% STG Duration 02/12/22 Food Production Associate Goal (LTG) Decrease Quickdash score to no greater than 10% as measure of improved activity tolerance with patient able to return to work without an increase in pain LTG Duration 04/02/22 Assessment Summary Assessment Patient pain persists but demonstrating improved muscular activation, attention to postural alignment of shoulders, and dec overactivation of UT. Good tolerance for D2 shoulder flexion supine starting at 90 deg elevation with L1 TB; added to HEP Physical Therapy Plan Frequency and Duration Frequency of Treatment 2x/Week Duration of Treatment 12 weeks Plan of Care Start Date 12/29/21 Plan of Care End Date 04/02/22 Therapeutic Interventions Therapeutic Interventions Aquatic Therapy,Home Exercise Program,Manual Therapy,Patient /Caregiver Education,Self-Care /Home Management,Soft Tissue Mobilization,Taping, Therapeutic Activities, Therapeutic Exercises Modalities Cold Pack/Ice Massage,Electric Stimulation,Hot Packs, Infrared Therapy,Iontophoresis ,Ultrasound Next Visit Focus/Plan Next Note Type Treatment Note Next Visit Plan Recheck isometric ER, supine D2 flex with TB, and serratus punch. Trial prone I and T. Plan of Care Dates Plan of Care Start Date 12/29/21 Plan of Care End Date 04/02/22 Electronically Signed by: Lena Saleh, PT 02/09/22 0801 If you are in agreement with this Plan of Care, please return a signed and dated copy. I have reviewed this Plan of Care and certify that the skilled therapy services above are required to meet the patient?s needs. Physician Signature Date Printed Name and Credentials Clinical Instructor Signature Printed Name and Credentials
--- NOTE | 2022-02-02 08:01 | PT.OTRE ---
Current Diagnoses Pain in left shoulder (02/09/22) Bursitis of left shoulder (02/09/22) Contusion of left shoulder, initial encounter (02/09/22) Past Medical History (Last Updated 12/15/19 @ 09:53 by LIANNE Cummins) Elevated blood sugar Hyperlipidemia Obesity (BMI 30.0-34.9) Surgical History (Last Reviewed 09/18/19 @ 08:29 by LIANNE Cummins) Anesthesia Fracture (~1985) History of colonoscopy Visit Care Team Role Provider Type LIANNE Cummins Family Provider Advanced Police Justice Primary Care Provider Specialty: Family Practice Address: [address] [place] [address], [id number] Email: [email or web address] Chas Buck MD Attending Provider Non-Staff Referring Provider Specialty: Orthopedic Surgery Address: [address] [place] [address], [id number] Email: Physical Therapy Re-Evaluation PT-OP-A Visit Information Start: 12/27/21 16:53 Freq: Status: Active Protocol: Document 02/02/22 11:18 [facility] (Rec: 02/02/22 12:01 [facility] [id number]) Out-Patient Physical Therapy Visit Information Visit Information Visit Type Treatment Note Visit Start Time 11:18 Total Visit Minutes 46 Visit Number 9 Number of FIELD EXAMINER Visits 0 Evaluation Information Evaluation Date 12/29/21 PT-OP-B Current Condition Start: 12/27/21 16:53 Freq: Status: Active Protocol: Document 01/03/22 08:14 [facility] (Rec: 01/03/22 09:30 [facility] [id number]) Current Condition History of Current Condition Onset Date 10/13/21 Current Complaints left shoulder pain History of Current Condition Walking out of bus carrying things in hands, lost balance on ice, came down on left elbow, initially left shoulder pain, within a couple days feeling pain on right as well. At this time claim only approved for left shoulder. x- ray: swelling. MRI: full tear of one tendon, partial of 3 others. Anticipating surgical repair on the left. Waiting for approval for evaluation and treatment of right shoulder pain; x-ray was negative. States doctor thinking may have similar injury right shoulder. Uses both ice and heat. Doing some range of motion exercises found online with good tolerance. Taking Tylenol as needed; reg and Tylenol PM. Prior Treatments and Tests MRI as above, medication, ice and heat. No further treatment. PT-OP-C Subjective Start: 12/27/21 16:53 Freq: Status: Active Protocol: Document 02/02/22 11:18 [facility] (Rec: 02/02/22 12:01 [facility] [id number]) OP-PT Subjective Patient Comments Patient Comments PT has given me things I can do at home but pain hasn't changed yet, sudden movements still challenging. Sees doctor on 02/14/22, anticipating surgery. Watching his diet; has lost 15 lbs since injury. Doing more walking vs other activities. Using heat in am, sometimes Tylenol and ice at other times of the best. Pain still can be as high as 8/10, but is constant 4-5/10 PT-OP-E Functional Tests Start: 12/27/21 16:53 Freq: Status: Active Protocol: Document 12/29/21 13:51 [facility] (Rec: 01/02/22 17:20 [facility] [id number]) Functional Tests Apley's Scratch Test Action 1: The subject is instructed to touch the opposite shoulder with his/her hand. This motion checks Glenohumeral adduction, internal rotation , horizontal adduction and scapular protraction Action 2: The subject is instructed to place his/her arm overhead and reach behind the neck to touch his/her upper back. This motion checks Glenohumeral abduction, external rotation and scapular upward rotation and elevation. Action 3: The subject puts his/her hand on the lower back and reaches upward as far as possible. This motion checks glenohumeral adduction, internal rotation and scapular retraction with downward rotation Action 1- Left medial chest Action 1- Right anterior shoulder Action 2- Left lateral neck Action 2- Right T1 Action 3- Left L3 Action 3- Right L3 PT-OP-H Neuro Start: 12/27/21 16:53 Freq: Status: Active Protocol: Document 12/29/21 13:51 [facility] (Rec: 01/02/22 17:20 [facility] [id number]) Sensation Evaluation Gross Sensation Gross Sensation WNL PT-OP-J Posture/Palpation/Skin Start: 12/27/21 16:53 Freq: Status: Active Protocol: Document 12/29/21 13:51 [facility] (Rec: 01/02/22 17:20 [facility] [id number]) Posture Evaluation Position Sitting Head/C-Spine Posture Forward Head Shoulder Posture (L) Rounded,(R) Rounded Scapula Posture (L) Protracted,(R) Protracted Arm Posture (L) Internally Rotated Pelvis Posture Neutral Palpation Assessment Location RC insertion Palpation Location left greater than right Palpation Findings Muscle Guarding,Tenderness PT-OP-K Range of Motion Start: 12/27/21 16:53 Freq: Status: Active Protocol: Document 12/29/21 13:51 [facility] (Rec: 01/02/22 17:20 [facility] [id number]) Cervical Spine Range of Motion Cervical Spine Active Testing Position Sitting Flexion 50 Extension 10 Rotation Left 55 Rotation Right 55 Lateral Flexion Left 45 Lateral Flexion Right 40 ROM Limitations Soft Tissue Tightness Shoulder Goniometric Range of Motion Shoulder Measured in Degrees Right Shoulder ROM WFL No Flexion 91 Extension 11 Abduction 98 External Rotation at 0 degrees Abduction 38 Internal Rotation Behind Back (text) L3 Comments painful arc Left Shoulder ROM WFL No Testing Position Sitting Flexion 83 Extension 10 Abduction 98 External Rotation at 0 degrees Abduction 0 Internal Rotation Behind Back (text) L3 Comments painful arc Elbow/Forearm Range of Motion Elbow/Forearm Measured in Degrees antoine Elbow/Forearm ROM WFL Yes PT-OP-L Special Tests Start: 12/27/21 16:53 Freq: Status: Active Protocol: Document 12/29/21 13:51 [facility] (Rec: 01/02/22 17:20 [facility] [id number]) Special Tests Shoulder Special Tests Lift-Off Rotator Cuff Test Results positive antoine left greater than righ Drop Arm Rotator Cuff Test Results positive antoine left greater than right PT-OP-M Strength Start: 12/27/21 16:53 Freq: Status: Active Protocol: Document 12/29/21 13:51 [facility] (Rec: 01/02/22 17:20 [facility] [id number]) Shoulder Strength Shoulder Manual Muscle Testing Right Flexion 3- Fair- Abduction (C5) 3- Fair- Adduction 3- Fair- External Rotation 3- Fair- Internal Rotation 3- Fair- Horizontal Abduction 3- Fair- Horizontal Adduction 3- Fair- Comments limited by pain Left Flexion 3- Fair- Extension 3- Fair- Abduction (C5) 3- Fair- Adduction 3+ Fair+ External Rotation 3- Fair- Internal Rotation 3- Fair- Horizontal Abduction 3- Fair- Horizontal Adduction 3- Fair- Comments limited by pain Elbow/Forearm Strength Elbow and Forearm Manual Muscle Testing Right Flexion (C6) 5 Normal Extension (C7) 5 Normal Left Flexion (C6) 4+ Good+ Extension (C7) 4+ Good+ Hand Magnetic Resonance Imaging Coordinator/Pinch Strength Hand Dominance Hand Dominance Right PT-OP-Q Treatments Start: 12/27/21 16:53 Freq: Status: Active Protocol: Document 02/02/22 11:18 [facility] (Rec: 02/02/22 12:01 [facility] [id number]) Cardio Equipment Upper Body Ergometer (UBE) Duration (Minutes) 6 RPM 115 Seat Position 10 Height 3.5 Other fatigued, no inc pain Gym Equipment Cable Column (Body Solid) scapular shrug Resistance 20 Reps/Time 10x2 lat pull Resistance 20 Reps/Time 10x2 Therapeutic Exercises Supine Exercises PNF Supine Exercise Name D2 starting 90 deg elevation, back to 90 Resistance L1 TB Comments well tolerated FF Supine Exercise Name added toHEP- alternating Side bilateral Resistance #1 DB Reps/Minutes 2x8 reps Comments cued elbow straight, knees bent, slow controlled serratus press Supine Exercise Name added to HEP (checking was doing self) Side bilateral Resistance AROM>#1 DB, > #2 DB Reps/Minutes 2x8 reps Comments cued wrist straight, no UT recruit shld ER Supine Exercise Name reviewed HEP Side bilateral Resistance AROM> #1 DB Equipment Used rolled towel under arms Reps/Minutes 2x8 Comments cued slow movement Standing Exercises shld IR TB Side bilateral Resistance TB #1 Equipment Used towel under arm Reps/Minutes 10 x2 Comments cued scap retract/depress, elbow as side- little twinge 2 /10 found good shoulder ball roll wall Standing Exercise Name reviewed HEP wall Side bilateral Resistance AAROM Equipment Used wall Reps/Minutes x10 each UE Comments improvement in ROM OH shoulder ext Standing Exercise Name reviewed HEP Equipment Used lvl 3 TB Reps/Minutes 2x10 Comments tactile cues for scapular activation row Standing Exercise Name reviewed HEP Resistance 3 TB Reps/Minutes 2x10 Comments tactile cues for scapular activation Manual Therapy Treatment Soft Tissue Mobilization RC Body Location B Mobilization Type Cross-Friction Intensity/Depth Moderate Body Position Hooklying bicep, deltoid insertion Body Location B Mobilization Type Myofascial Release,Strumming Body Position Hooklying PT-OP-R Modalities Start: 12/27/21 16:53 Freq: Status: Active Protocol: Document 01/11/22 09:04 [facility] (Rec: 01/11/22 09:51 [facility] [id number]) Hot Pack/Cold Pack Treatment Cold Pack Location Antoine shds Patient Position Hooklying Treatment Duration (minutes) 10 Patient Tolerance Good PT-OP-T Assessment and Plan Start: 12/27/21 16:53 Freq: Status: Active Protocol: Document 02/02/22 11:18 [facility] (Rec: 02/02/22 12:01 [facility] [id number]) Physical Therapy Assessment Goals Three Impairment pain as high as 8/10 left shoulder interrupting sleep Commonwealth Attorney Goal (LTG) Patient will be able to sleep through the night, no wakinig due to left shouldre pain 01/12/22: states needs use Tylenol pm vs regular to allow sleep 6 hrs, not working right now. LTG Duration 04/02/22 01/12/22:progressing Two Impairment decreased ROM and strength left shoulder Short Term Goal (STG) Instruct patient in progressive ther ex program for ROM and strengthening left shoudler STG Duration 02/12/22 Shelter Goal (LTG) Patient to be independent and compliant with HEP and demonstrate left shoulder ROM WNL and left shoulder strength at least 4+/5 all motions to allow him to return to all usual activities. LTG Duration 04/02/22 One Impairment Limited activity tolerance left shoulder due to pain Impairment Quickdash disability index score 50% Short Term Goal (STG) Decrease Quickdash score to no greater than 30% STG Duration 02/12/22 Commonwealth Attorney Goal (LTG) Decrease Quickdash score to no greater than 10% as measure of improved activity tolerance with patient able to return to work without an increase in pain LTG Duration 04/02/22 Assessment Summary Assessment Patient pain persists but demonstrating improved muscular activation, attention to postural alignment of shoulders, and dec overactivation of UT. Good tolerance for D2 shoulder flexion supine starting at 90 deg elevation with L1 TB; added to HEP Physical Therapy Plan Frequency and Duration Frequency of Treatment 2x/Week Duration of Treatment 12 weeks Plan of Care Start Date 12/29/21 Plan of Care End Date 04/02/22 Therapeutic Interventions Therapeutic Interventions Aquatic Therapy,Home Exercise Program,Manual Therapy,Patient /Caregiver Education,Self-Care /Home Management,Soft Tissue Mobilization,Taping, Therapeutic Activities, Therapeutic Exercises Modalities Cold Pack/Ice Massage,Electric Stimulation,Hot Packs, Infrared Therapy,Iontophoresis ,Ultrasound Next Visit Focus/Plan Next Note Type Treatment Note Next Visit Plan Recheck isometric ER, supine D2 flex with TB, and serratus punch. Trial prone I and T.
--- NOTE | 2022-02-02 12:30 | PT.OTN ---
Current Diagnoses Pain in left shoulder (02/02/22) Bursitis of left shoulder (02/02/22) Contusion of left shoulder, initial encounter (02/02/22) Physical Therapy Treatment Note PT-OP-A Visit Information Start: 12/27/21 16:53 Freq: Status: Active Protocol: Document 02/02/22 11:18 SAK (Rec: 02/02/22 12:01 [facility] [id number]) Out-Patient Physical Therapy Visit Information Visit Information Visit Type Treatment Note Visit Start Time 11:18 Total Visit Minutes 46 Visit Number 9 Number of COLOR FINISHER Visits 0 Evaluation Information Evaluation Date 12/29/21 PT-OP-B Current Condition Start: 12/27/21 16:53 Freq: Status: Active Protocol: Document 01/03/22 08:14 SAK (Rec: 01/03/22 09:30 SAK [id number]) Current Condition History of Current Condition Onset Date 10/13/21 Current Complaints left shoulder pain History of Current Condition Walking out of bus carrying things in hands, lost balance on ice, came down on left elbow, initially left shoulder pain, within a couple days feeling pain on right as well. At this time claim only approved for left shoulder. x- ray: swelling. MRI: full tear of one tendon, partial of 3 others. Anticipating surgical repair on the left. Waiting for approval for evaluation and treatment of right shoulder pain; x-ray was negative. States doctor thinking may have similar injury right shoulder. Uses both ice and heat. Doing some range of motion exercises found online with good tolerance. Taking Tylenol as needed; reg and Tylenol PM. Prior Treatments and Tests MRI as above, medication, ice and heat. No further treatment. PT-OP-C Subjective Start: 12/27/21 16:53 Freq: Status: Active Protocol: Document 02/02/22 11:18 SAK (Rec: 02/02/22 12:01 SAK [id number]) OP-PT Subjective Patient Comments Patient Comments PT has given me things I can do at home but pain hasn't changed yet, sudden movements still challenging. Sees doctor on 02/14/22, anticipating surgery. Watching his diet; has lost 15 lbs since injury. Doing more walking vs other activities. Using heat in am, sometimes Tylenol and ice at other times of the best. Pain still can be as high as 8/10, but is constant 4-5/10 PT-OP-E Functional Tests Start: 12/27/21 16:53 Freq: Status: Active Protocol: Document 12/29/21 13:51 [facility] (Rec: 01/02/22 17:20 [facility] [id number]) Functional Tests Apley's Scratch Test Action 1- Left medial chest Action 1- Right anterior shoulder Action 2- Left lateral neck Action 2- Right T1 Action 3- Left L3 Action 3- Right L3 PT-OP-H Neuro Start: 12/27/21 16:53 Freq: Status: Active Protocol: Document 12/29/21 13:51 [facility] (Rec: 01/02/22 17:20 [facility] [id number]) Sensation Evaluation Gross Sensation Gross Sensation WNL PT-OP-J Posture/Palpation/Skin Start: 12/27/21 16:53 Freq: Status: Active Protocol: Document 12/29/21 13:51 [facility] (Rec: 01/02/22 17:20 [facility] [id number]) Posture Evaluation Position Sitting Head/C-Spine Posture Forward Head Shoulder Posture (L) Rounded,(R) Rounded Scapula Posture (L) Protracted,(R) Protracted Arm Posture (L) Internally Rotated Pelvis Posture Neutral Palpation Assessment Location RC insertion Palpation Location left greater than right Palpation Findings Muscle Guarding,Tenderness PT-OP-K Range of Motion Start: 12/27/21 16:53 Freq: Status: Active Protocol: Document 12/29/21 13:51 [facility] (Rec: 01/02/22 17:20 [facility] [id number]) Cervical Spine Range of Motion Cervical Spine Active Testing Position Sitting Flexion 50 Extension 10 Rotation Left 55 Rotation Right 55 Lateral Flexion Left 45 Lateral Flexion Right 40 ROM Limitations Soft Tissue Tightness Shoulder Goniometric Range of Motion Shoulder Right Shoulder ROM WFL No Flexion 91 Extension 11 Abduction 98 External Rotation at 0 degrees Abduction 38 Internal Rotation Behind Back (text) L3 Comments painful arc Left Shoulder ROM WFL No Testing Position Sitting Flexion 83 Extension 10 Abduction 98 External Rotation at 0 degrees Abduction 0 Internal Rotation Behind Back (text) L3 Comments painful arc Elbow/Forearm Range of Motion Elbow/Forearm josé luis Elbow/Forearm ROM WFL Yes PT-OP-L Special Tests Start: 12/27/21 16:53 Freq: Status: Active Protocol: Document 12/29/21 13:51 [facility] (Rec: 01/02/22 17:20 [facility] [id number]) Special Tests Shoulder Special Tests Lift-Off Rotator Cuff Test Results positive josé luis left greater than righ Drop Arm Rotator Cuff Test Results positive josé luis left greater than right PT-OP-M Strength Start: 12/27/21 16:53 Freq: Status: Active Protocol: Document 12/29/21 13:51 [facility] (Rec: 01/02/22 17:20 [facility] [id number]) Shoulder Strength Shoulder Manual Muscle Testing Right Flexion 3- Fair- Abduction (C5) 3- Fair- Adduction 3- Fair- External Rotation 3- Fair- Internal Rotation 3- Fair- Horizontal Abduction 3- Fair- Horizontal Adduction 3- Fair- Comments limited by pain Left Flexion 3- Fair- Extension 3- Fair- Abduction (C5) 3- Fair- Adduction 3+ Fair+ External Rotation 3- Fair- Internal Rotation 3- Fair- Horizontal Abduction 3- Fair- Horizontal Adduction 3- Fair- Comments limited by pain Elbow/Forearm Strength Elbow and Forearm Manual Muscle Testing Right Flexion (C6) 5 Normal Extension (C7) 5 Normal Left Flexion (C6) 4+ Good+ Extension (C7) 4+ Good+ Hand Mechanical Tech/Pinch Strength Hand Dominance Hand Dominance Right PT-OP-Q Treatments Start: 12/27/21 16:53 Freq: Status: Active Protocol: Document 02/02/22 11:18 [facility] (Rec: 02/02/22 12:01 [facility] [id number]) Cardio Equipment Upper Body Ergometer (UBE) Duration (Minutes) 6 RPM 115 Seat Position 10 Height 3.5 Other fatigued, no inc pain Gym Equipment Cable Column (Body Solid) scapular shrug Resistance 20 Reps/Time 10x2 lat pull Resistance 20 Reps/Time 10x2 Therapeutic Exercises Supine Exercises PNF Supine Exercise Name D2 starting 90 deg elevation, back to 90 Resistance L1 TB Comments well tolerated FF Supine Exercise Name added toHEP- alternating Side bilateral Resistance #1 DB Reps/Minutes 2x8 reps Comments cued elbow straight, knees bent, slow controlled serratus press Supine Exercise Name added to HEP (checking was doing self) Side bilateral Resistance AROM>#1 DB, > #2 DB Reps/Minutes 2x8 reps Comments cued wrist straight, no UT recruit shld ER Supine Exercise Name reviewed HEP Side bilateral Resistance AROM> #1 DB Equipment Used rolled towel under arms Reps/Minutes 2x8 Comments cued slow movement Standing Exercises shld IR TB Side bilateral Resistance TB #1 Equipment Used towel under arm Reps/Minutes 10 x2 Comments cued scap retract/depress, elbow as side- little twinge 2 /10 found good shoulder ball roll wall Standing Exercise Name reviewed HEP wall Side bilateral Resistance AAROM Equipment Used wall Reps/Minutes x10 each UE Comments improvement in ROM OH shoulder ext Standing Exercise Name reviewed HEP Equipment Used lvl 3 TB Reps/Minutes 2x10 Comments tactile cues for scapular activation row Standing Exercise Name reviewed HEP Resistance 3 TB Reps/Minutes 2x10 Comments tactile cues for scapular activation Manual Therapy Treatment Soft Tissue Mobilization RC Body Location B Mobilization Type Cross-Friction Intensity/Depth Moderate Body Position Hooklying bicep, deltoid insertion Body Location B Mobilization Type Myofascial Release,Strumming Body Position Hooklying PT-OP-R Modalities Start: 12/27/21 16:53 Freq: Status: Active Protocol: Document 01/11/22 09:04 [facility] (Rec: 01/11/22 09:51 [facility] [id number]) Hot Pack/Cold Pack Treatment Cold Pack Location José Luis shds Patient Position Hooklying Treatment Duration (minutes) 10 Patient Tolerance Good PT-OP-T Assessment and Plan Start: 12/27/21 16:53 Freq: Status: Active Protocol: Document 02/02/22 11:18 [facility] (Rec: 02/02/22 12:01 [facility] [id number]) Physical Therapy Assessment Goals Three Impairment pain as high as 8/10 left shoulder interrupting sleep Intermediate Goal (LTG) Patient will be able to sleep through the night, no wakinig due to left shouldre pain 01/12/22: states needs use Tylenol pm vs regular to allow sleep 6 hrs, not working right now. LTG Duration 04/02/22 01/12/22:progressing Two Impairment decreased ROM and strength left shoulder Short Term Goal (STG) Instruct patient in progressive ther ex program for ROM and strengthening left shoudler STG Duration 02/12/22 Intermediate Goal (LTG) Patient to be independent and compliant with HEP and demonstrate left shoulder ROM WNL and left shoulder strength at least 4+/5 all motions to allow him to return to all usual activities. LTG Duration 04/02/22 One Impairment Limited activity tolerance left shoulder due to pain Impairment Quickdash disability index score 50% Short Term Goal (STG) Decrease Quickdash score to no greater than 30% STG Duration 02/12/22 Intermediate Goal (LTG) Decrease Quickdash score to no greater than 10% as measure of improved activity tolerance with patient able to return to work without an increase in pain LTG Duration 04/02/22 Assessment Summary Assessment Patient pain persists but demonstrating improved muscular activation, attention to postural alignment of shoulders, and dec overactivation of UT. Good tolerance for D2 shoulder flexion supine starting at 90 deg elevation with L1 TB; added to HEP Physical Therapy Plan Frequency and Duration Frequency of Treatment 2x/Week Duration of Treatment 12 weeks Plan of Care Start Date 12/29/21 Plan of Care End Date 04/02/22 Therapeutic Interventions Therapeutic Interventions Aquatic Therapy,Home Exercise Program,Manual Therapy,Patient /Caregiver Education,Self-Care /Home Management,Soft Tissue Mobilization,Taping, Therapeutic Activities, Therapeutic Exercises Modalities Cold Pack/Ice Massage,Electric Stimulation,Hot Packs, Infrared Therapy,Iontophoresis ,Ultrasound Next Visit Focus/Plan Next Note Type Treatment Note Next Visit Plan Recheck isometric ER, supine D2 flex with TB, and serratus punch. Trial prone I and T.
--- NOTE | 2022-02-02 16:00 | PT.OTN ---
Current Diagnoses Pain in left shoulder (02/02/22) Bursitis of left shoulder (02/02/22) Contusion of left shoulder, initial encounter (02/02/22) Physical Therapy Treatment Note PT-OP-A Visit Information Start: 12/27/21 16:53 Freq: Status: Active Protocol: Document 02/02/22 11:18 SAK (Rec: 02/02/22 12:01 [facility] [id number]) Out-Patient Physical Therapy Visit Information Visit Information Visit Type Treatment Note Visit Start Time 11:18 Total Visit Minutes 46 Visit Number 9 Number of MEDICAL RECORD CLERK Visits 0 Evaluation Information Evaluation Date 12/29/21 PT-OP-B Current Condition Start: 12/27/21 16:53 Freq: Status: Active Protocol: Document 01/03/22 08:14 SAK (Rec: 01/03/22 09:30 SAK [id number]) Current Condition History of Current Condition Onset Date 10/13/21 Current Complaints left shoulder pain History of Current Condition Walking out of bus carrying things in hands, lost balance on ice, came down on left elbow, initially left shoulder pain, within a couple days feeling pain on right as well. At this time claim only approved for left shoulder. x- ray: swelling. MRI: full tear of one tendon, partial of 3 others. Anticipating surgical repair on the left. Waiting for approval for evaluation and treatment of right shoulder pain; x-ray was negative. States doctor thinking may have similar injury right shoulder. Uses both ice and heat. Doing some range of motion exercises found online with good tolerance. Taking Tylenol as needed; reg and Tylenol PM. Prior Treatments and Tests MRI as above, medication, ice and heat. No further treatment. PT-OP-C Subjective Start: 12/27/21 16:53 Freq: Status: Active Protocol: Document 02/02/22 11:18 SAK (Rec: 02/02/22 12:01 SAK [id number]) OP-PT Subjective Patient Comments Patient Comments PT has given me things I can do at home but pain hasn't changed yet, sudden movements still challenging. Sees doctor on 02/14/22, anticipating surgery. Watching his diet; has lost 15 lbs since injury. Doing more walking vs other activities. Using heat in am, sometimes Tylenol and ice at other times of the best. Pain still can be as high as 8/10, but is constant 4-5/10 Patient Reported Progress Improving PT-OP-E Functional Tests Start: 12/27/21 16:53 Freq: Status: Active Protocol: Document 12/29/21 13:51 [facility] (Rec: 01/02/22 17:20 [facility] [id number]) Functional Tests Apley's Scratch Test Action 1- Left medial chest Action 1- Right anterior shoulder Action 2- Left lateral neck Action 2- Right T1 Action 3- Left L3 Action 3- Right L3 PT-OP-H Neuro Start: 12/27/21 16:53 Freq: Status: Active Protocol: Document 12/29/21 13:51 [facility] (Rec: 01/02/22 17:20 [facility] [id number]) Sensation Evaluation Gross Sensation Gross Sensation WNL PT-OP-J Posture/Palpation/Skin Start: 12/27/21 16:53 Freq: Status: Active Protocol: Document 12/29/21 13:51 [facility] (Rec: 01/02/22 17:20 [facility] [id number]) Posture Evaluation Position Sitting Head/C-Spine Posture Forward Head Shoulder Posture (L) Rounded,(R) Rounded Scapula Posture (L) Protracted,(R) Protracted Arm Posture (L) Internally Rotated Pelvis Posture Neutral Palpation Assessment Location RC insertion Palpation Location left greater than right Palpation Findings Muscle Guarding,Tenderness PT-OP-K Range of Motion Start: 12/27/21 16:53 Freq: Status: Active Protocol: Document 12/29/21 13:51 [facility] (Rec: 01/02/22 17:20 [facility] [id number]) Cervical Spine Range of Motion Cervical Spine Active Testing Position Sitting Flexion 50 Extension 10 Rotation Left 55 Rotation Right 55 Lateral Flexion Left 45 Lateral Flexion Right 40 ROM Limitations Soft Tissue Tightness Shoulder Goniometric Range of Motion Shoulder Right Shoulder ROM WFL No Flexion 91 Extension 11 Abduction 98 External Rotation at 0 degrees Abduction 38 Internal Rotation Behind Back (text) L3 Comments painful arc Left Shoulder ROM WFL No Testing Position Sitting Flexion 83 Extension 10 Abduction 98 External Rotation at 0 degrees Abduction 0 Internal Rotation Behind Back (text) L3 Comments painful arc Elbow/Forearm Range of Motion Elbow/Forearm josé luis Elbow/Forearm ROM WFL Yes PT-OP-L Special Tests Start: 12/27/21 16:53 Freq: Status: Active Protocol: Document 12/29/21 13:51 [facility] (Rec: 01/02/22 17:20 [facility] [id number]) Special Tests Shoulder Special Tests Lift-Off Rotator Cuff Test Results positive josé luis left greater than righ Drop Arm Rotator Cuff Test Results positive josé luis left greater than right PT-OP-M Strength Start: 12/27/21 16:53 Freq: Status: Active Protocol: Document 12/29/21 13:51 [facility] (Rec: 01/02/22 17:20 [facility] [id number]) Shoulder Strength Shoulder Manual Muscle Testing Right Flexion 3- Fair- Abduction (C5) 3- Fair- Adduction 3- Fair- External Rotation 3- Fair- Internal Rotation 3- Fair- Horizontal Abduction 3- Fair- Horizontal Adduction 3- Fair- Comments limited by pain Left Flexion 3- Fair- Extension 3- Fair- Abduction (C5) 3- Fair- Adduction 3+ Fair+ External Rotation 3- Fair- Internal Rotation 3- Fair- Horizontal Abduction 3- Fair- Horizontal Adduction 3- Fair- Comments limited by pain Elbow/Forearm Strength Elbow and Forearm Manual Muscle Testing Right Flexion (C6) 5 Normal Extension (C7) 5 Normal Left Flexion (C6) 4+ Good+ Extension (C7) 4+ Good+ Hand Is Architect/Pinch Strength Hand Dominance Hand Dominance Right PT-OP-Q Treatments Start: 12/27/21 16:53 Freq: Status: Active Protocol: Document 02/02/22 11:18 [facility] (Rec: 02/02/22 12:01 [facility] [id number]) Cardio Equipment Upper Body Ergometer (UBE) Duration (Minutes) 6 RPM 115 Seat Position 10 Height 3.5 Other f/b 30 sec, states muscle tiring, 192 cycles Gym Equipment Cable Column (Body Solid) scapular shrug Resistance 20 Reps/Time 10x2 lat pull Resistance 20 Reps/Time 10x2 Therapeutic Exercises Supine Exercises PNF Supine Exercise Name D2 starting 90 deg elevation, back to 90 Resistance L1 TB FF Supine Exercise Name added toHEP- alternating Side bilateral Resistance #1 DB Reps/Minutes 2x8 reps Comments cued elbow straight, knees bent, slow controlled serratus press Supine Exercise Name added to HEP (checking was doing self) Side bilateral Resistance AROM>#1 DB, > #2 DB Reps/Minutes 2x8 reps Comments cued wrist straight, no UT recruit shld ER Supine Exercise Name reviewed HEP Side bilateral Resistance AROM> #1 DB Equipment Used rolled towel under arms Reps/Minutes 2x8 Comments cued slow movement Standing Exercises shld IR TB Side bilateral Resistance TB #1 Equipment Used towel under arm Reps/Minutes 10 x2 Comments cued scap retract/depress, elbow as side- little twinge 2 /10 found good shoulder ball roll wall Standing Exercise Name reviewed HEP wall Side bilateral Resistance AAROM Equipment Used wall Reps/Minutes x10 each UE Comments improvement in ROM OH shoulder ext Standing Exercise Name reviewed HEP Equipment Used lvl 3 TB Reps/Minutes 2x10 Comments improved no UT, scap post retraction row Standing Exercise Name reviewed HEP Resistance 3 TB Reps/Minutes 2x10 Comments good effort Manual Therapy Treatment Soft Tissue Mobilization RC Body Location B Mobilization Type Cross-Friction Intensity/Depth Moderate Body Position Hooklying Comments manual and discussion spouse assist home and self STMs ball wall with stated does use. He also uses MHP pre ex and helps with ROM. bicep, deltoid insertion Body Location B Mobilization Type Myofascial Release,Strumming Body Position Hooklying Comments manual and discussion spouse assist home and self STMs ball wall with stated does use. He also uses MHP pre ex and helps with ROM. Good softening of bicep post. PT-OP-R Modalities Start: 12/27/21 16:53 Freq: Status: Active Protocol: Document 01/11/22 09:04 [facility] (Rec: 01/11/22 09:51 [facility] [id number]) Hot Pack/Cold Pack Treatment Cold Pack Location José Luis shds Patient Position Hooklying Treatment Duration (minutes) 10 Patient Tolerance Good PT-OP-T Assessment and Plan Start: 12/27/21 16:53 Freq: Status: Active Protocol: Document 02/02/22 11:18 [facility] (Rec: 02/02/22 12:01 [facility] [id number]) Physical Therapy Assessment Goals Three Impairment pain as high as 8/10 left shoulder interrupting sleep Mcfp Goal (LTG) Patient will be able to sleep through the night, no wakinig due to left shouldre pain 01/12/22: states needs use Tylenol pm vs regular to allow sleep 6 hrs, not working right now. LTG Duration 04/02/22 01/12/22:progressing Two Impairment decreased ROM and strength left shoulder Short Term Goal (STG) Instruct patient in progressive ther ex program for ROM and strengthening left shoudler STG Duration 02/12/22 Mcfp Goal (LTG) Patient to be independent and compliant with HEP and demonstrate left shoulder ROM WNL and left shoulder strength at least 4+/5 all motions to allow him to return to all usual activities. LTG Duration 04/02/22 One Impairment Limited activity tolerance left shoulder due to pain Impairment Quickdash disability index score 50% Short Term Goal (STG) Decrease Quickdash score to no greater than 30% STG Duration 02/12/22 Mcfp Goal (LTG) Decrease Quickdash score to no greater than 10% as measure of improved activity tolerance with patient able to return to work without an increase in pain LTG Duration 04/02/22 Physical Therapy Plan Frequency and Duration Frequency of Treatment 2x/Week Duration of Treatment 12 weeks Plan of Care Start Date 12/29/21 Plan of Care End Date 04/02/22 Therapeutic Interventions Therapeutic Interventions Aquatic Therapy,Home Exercise Program,Manual Therapy,Patient /Caregiver Education,Self-Care /Home Management,Soft Tissue Mobilization,Taping, Therapeutic Activities, Therapeutic Exercises Modalities Cold Pack/Ice Massage,Electric Stimulation,Hot Packs, Infrared Therapy,Iontophoresis ,Ultrasound Next Visit Focus/Plan Next Note Type Treatment Note
--- NOTE | 2022-02-09 08:18 | PT.OTN ---
Current Diagnoses Pain in left shoulder (02/09/22) Bursitis of left shoulder (02/09/22) Contusion of left shoulder, initial encounter (02/09/22) Physical Therapy Treatment Note PT-OP-A Visit Information Start: 12/27/21 16:53 Freq: Status: Active Protocol: Document 02/09/22 07:30 SP (Rec: 02/09/22 08:18 SP [id number]) Out-Patient Physical Therapy Visit Information Visit Information Visit Type Treatment Note Visit Start Time 07:30 Visit Stop Time 08:18 Total Visit Minutes 48 Visit Number 10 Number of PRODUCE DEPARTMENT MANAGER Visits 1 Evaluation Information Evaluation Date 12/29/21 PT-OP-B Current Condition Start: 12/27/21 16:53 Freq: Status: Active Protocol: Document 01/03/22 08:14 SAK (Rec: 01/03/22 09:30 SAK [id number]) Current Condition History of Current Condition Onset Date 10/13/21 Current Complaints left shoulder pain History of Current Condition Walking out of bus carrying things in hands, lost balance on ice, came down on left elbow, initially left shoulder pain, within a couple days feeling pain on right as well. At this time claim only approved for left shoulder. x- ray: swelling. MRI: full tear of one tendon, partial of 3 others. Anticipating surgical repair on the left. Waiting for approval for evaluation and treatment of right shoulder pain; x-ray was negative. States doctor thinking may have similar injury right shoulder. Uses both ice and heat. Doing some range of motion exercises found online with good tolerance. Taking Tylenol as needed; reg and Tylenol PM. Prior Treatments and Tests MRI as above, medication, ice and heat. No further treatment. PT-OP-C Subjective Start: 12/27/21 16:53 Freq: Status: Active Protocol: Document 02/09/22 07:30 SP (Rec: 02/09/22 08:18 SP [id number]) OP-PT Subjective Patient Comments Patient Comments Pt reports has ortho appt next week and assess MRI to see what going to do forward. Pt stated some days one shld hurts more than the other,take turns and other days both hurt together. PT-OP-E Functional Tests Start: 12/27/21 16:53 Freq: Status: Active Protocol: Document 12/29/21 13:51 SAK (Rec: 01/02/22 17:20 [facility] [id number]) Functional Tests Apley's Scratch Test Action 1- Left medial chest Action 1- Right anterior shoulder Action 2- Left lateral neck Action 2- Right T1 Action 3- Left L3 Action 3- Right L3 PT-OP-H Neuro Start: 12/27/21 16:53 Freq: Status: Active Protocol: Document 12/29/21 13:51 [facility] (Rec: 01/02/22 17:20 [facility] [id number]) Sensation Evaluation Gross Sensation Gross Sensation WNL PT-OP-J Posture/Palpation/Skin Start: 12/27/21 16:53 Freq: Status: Active Protocol: Document 12/29/21 13:51 [facility] (Rec: 01/02/22 17:20 [facility] [id number]) Posture Evaluation Position Sitting Head/C-Spine Posture Forward Head Shoulder Posture (L) Rounded,(R) Rounded Scapula Posture (L) Protracted,(R) Protracted Arm Posture (L) Internally Rotated Pelvis Posture Neutral Palpation Assessment Location RC insertion Palpation Location left greater than right Palpation Findings Muscle Guarding,Tenderness PT-OP-K Range of Motion Start: 12/27/21 16:53 Freq: Status: Active Protocol: Document 12/29/21 13:51 [facility] (Rec: 01/02/22 17:20 [facility] [id number]) Cervical Spine Range of Motion Cervical Spine Active Testing Position Sitting Flexion 50 Extension 10 Rotation Left 55 Rotation Right 55 Lateral Flexion Left 45 Lateral Flexion Right 40 ROM Limitations Soft Tissue Tightness Shoulder Goniometric Range of Motion Shoulder Right Shoulder ROM WFL No Flexion 91 Extension 11 Abduction 98 External Rotation at 0 degrees Abduction 38 Internal Rotation Behind Back (text) L3 Comments painful arc Left Shoulder ROM WFL No Testing Position Sitting Flexion 83 Extension 10 Abduction 98 External Rotation at 0 degrees Abduction 0 Internal Rotation Behind Back (text) L3 Comments painful arc Elbow/Forearm Range of Motion Elbow/Forearm josé luis Elbow/Forearm ROM WFL Yes PT-OP-L Special Tests Start: 12/27/21 16:53 Freq: Status: Active Protocol: Document 12/29/21 13:51 [facility] (Rec: 01/02/22 17:20 [facility] [id number]) Special Tests Shoulder Special Tests Lift-Off Rotator Cuff Test Results positive josé luis left greater than righ Drop Arm Rotator Cuff Test Results positive josé luis left greater than right PT-OP-M Strength Start: 12/27/21 16:53 Freq: Status: Active Protocol: Document 12/29/21 13:51 SAK (Rec: 01/02/22 17:20 SAK [id number]) Shoulder Strength Shoulder Manual Muscle Testing Right Flexion 3- Fair- Abduction (C5) 3- Fair- Adduction 3- Fair- External Rotation 3- Fair- Internal Rotation 3- Fair- Horizontal Abduction 3- Fair- Horizontal Adduction 3- Fair- Comments limited by pain Left Flexion 3- Fair- Extension 3- Fair- Abduction (C5) 3- Fair- Adduction 3+ Fair+ External Rotation 3- Fair- Internal Rotation 3- Fair- Horizontal Abduction 3- Fair- Horizontal Adduction 3- Fair- Comments limited by pain Elbow/Forearm Strength Elbow and Forearm Manual Muscle Testing Right Flexion (C6) 5 Normal Extension (C7) 5 Normal Left Flexion (C6) 4+ Good+ Extension (C7) 4+ Good+ Hand Data Recovery Planner/Pinch Strength Hand Dominance Hand Dominance Right PT-OP-Q Treatments Start: 12/27/21 16:53 Freq: Status: Active Protocol: Document 02/09/22 07:30 SP (Rec: 02/09/22 08:18 SP [id number]) Cardio Equipment Upper Body Ergometer (UBE) Duration (Minutes) 6 RPM 65 Seat Position 10 Height 3.5 Other fatigued, no inc pain 155cycles Gym Equipment Cable Column (Body Solid) scapular shrug Details arms extended OH, scap shrug Resistance 20 Reps/Time 10x2 lat pull Resistance 20 Reps/Time 10x2 Therapeutic Exercises Supine Exercises PNF Supine Exercise Name D2 starting 90 deg elevation, back to 90 Resistance #1 DB (states uses DB and TB # 1 at home) Reps/Minutes x10 Comments well tolerated FF Supine Exercise Name reviewed HEP- alternating Side bilateral Resistance #1 DB> #2 Reps/Minutes 2x8 reps Comments cued elbow straight, knees bent, slow controlled serratus press Supine Exercise Name reviewed HEP Side bilateral Resistance #2 DB Reps/Minutes 2x8 reps Comments cued wrist straight, no UT recruit 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 ER Supine Exercise Name reviewed HEP Side bilateral Resistance #1 DB> #2DB Equipment Used rolled towel under arms Reps/Minutes 2x8 Comments cued slow movement Prone Exercises Ts, Is Side bilateral Resistance AROM Equipment Used over all 65cm ball Reps/Minutes x10 Comments cued no UT recruitment Standing Exercises median nerve glide Standing Exercise Name standing instructed try supine at home Side bilateral Reps/Minutes x5 Comments assist decrease tingle finger tips self STMs Standing Exercise Name pec Side bilateral Equipment Used racquetball on corner wall Reps/Minutes 1 min Comments good feedback response. shld IR TB Side bilateral Resistance TB #1 Equipment Used towel under arm Reps/Minutes 10 x2 Comments cued scap retract/depress, elbow as side- little twinge 2 /10 found good shoulder ball roll wall Standing Exercise Name reviewed HEP wall Side bilateral Resistance AAROM Equipment Used wall Reps/Minutes x10 each UE Comments Cued step with opp LE forward to increase ROM shoulder ext Standing Exercise Name reviewed HEP Equipment Used lvl 3 TB Reps/Minutes x20 Comments good scap stab depression today row Standing Exercise Name reviewed HEP Resistance 3 TB Reps/Minutes x10 Comments good scap stab depression today PT-OP-R Modalities Start: 12/27/21 16:53 Freq: Status: Active Protocol: Document 01/11/22 09:04 SAK (Rec: 01/11/22 09:51 SAK [id number]) Hot Pack/Cold Pack Treatment Cold Pack Location José Luis shds Patient Position Hooklying Treatment Duration (minutes) 10 Patient Tolerance Good PT-OP-T Assessment and Plan Start: 12/27/21 16:53 Freq: Status: Active Protocol: Document 02/09/22 07:30 SP (Rec: 02/09/22 08:18 SP [id number]) Physical Therapy Assessment Goals Three Impairment pain as high as 8/10 left shoulder interrupting sleep Skilled Nursing Goal (LTG) Patient will be able to sleep through the night, no wakinig due to left shouldre pain 01/12/22: states needs use Tylenol pm vs regular to allow sleep 6 hrs, not working right now. LTG Duration 04/02/22 01/12/22:progressing Two Impairment decreased ROM and strength left shoulder Short Term Goal (STG) Instruct patient in progressive ther ex program for ROM and strengthening left shoudler STG Duration 02/12/22 Skilled Nursing Goal (LTG) Patient to be independent and compliant with HEP and demonstrate left shoulder ROM WNL and left shoulder strength at least 4+/5 all motions to allow him to return to all usual activities. LTG Duration 04/02/22 One Impairment Limited activity tolerance left shoulder due to pain Impairment Quickdash disability index score 50% Short Term Goal (STG) Decrease Quickdash score to no greater than 30% STG Duration 02/12/22 Skilled Nursing Goal (LTG) Decrease Quickdash score to no greater than 10% as measure of improved activity tolerance with patient able to return to work without an increase in pain LTG Duration 04/02/22 Assessment Summary Assessment Pt improved ROM and tolerance with HEP, able increase resistance ther ex. Good tolerance and response to prone Ts and Is to continue at home, cued extended elbows, provided HO for carry over. Tingling in B hands end tx, improved with given median nerve glide for home. Instructed to do in supine due to limited ROM at time. Physical Therapy Plan Frequency and Duration Frequency of Treatment 2x/Week Duration of Treatment 12 weeks Plan of Care Start Date 12/29/21 Plan of Care End Date 04/02/22 Therapeutic Interventions Therapeutic Interventions Aquatic Therapy,Home Exercise Program,Manual Therapy,Patient /Caregiver Education,Self-Care /Home Management,Soft Tissue Mobilization,Taping, Therapeutic Activities, Therapeutic Exercises Modalities Cold Pack/Ice Massage,Electric Stimulation,Hot Packs, Infrared Therapy,Iontophoresis ,Ultrasound Next Visit Focus/Plan Next Note Type Treatment Note Next Visit Plan Recheck prone Ts, Is, isometric ER, supine D2 flex with TB, ER supine and serratus punch.
--- NOTE | 2022-02-16 12:03 | PT.OTN ---
Current Diagnoses Pain in left shoulder (02/16/22) Bursitis of left shoulder (02/16/22) Contusion of left shoulder, initial encounter (02/16/22) Physical Therapy Treatment Note PT-OP-A Visit Information Start: 12/27/21 16:53 Freq: Status: Active Protocol: Document 02/16/22 11:19 MA (Rec: 02/16/22 12:03 MA [id number]) Out-Patient Physical Therapy Visit Information Visit Information Visit Type Treatment Note Visit Start Time 11:15 Visit Stop Time 11:57 Total Visit Minutes 42 Visit Number 11 Number of INSIDE ACCOUNT REPRESENTATIVE Visits 2 PT-OP-B Current Condition Start: 12/27/21 16:53 Freq: Status: Active Protocol: Document 01/03/22 08:14 SAK (Rec: 01/03/22 09:30 SAK [id number]) Current Condition History of Current Condition Onset Date 10/13/21 Current Complaints left shoulder pain History of Current Condition Walking out of bus carrying things in hands, lost balance on ice, came down on left elbow, initially left shoulder pain, within a couple days feeling pain on right as well. At this time claim only approved for left shoulder. x- ray: swelling. MRI: full tear of one tendon, partial of 3 others. Anticipating surgical repair on the left. Waiting for approval for evaluation and treatment of right shoulder pain; x-ray was negative. States doctor thinking may have similar injury right shoulder. Uses both ice and heat. Doing some range of motion exercises found online with good tolerance. Taking Tylenol as needed; reg and Tylenol PM. Prior Treatments and Tests MRI as above, medication, ice and heat. No further treatment. PT-OP-C Subjective Start: 12/27/21 16:53 Freq: Status: Active Protocol: Document 02/16/22 11:19 MA (Rec: 02/16/22 12:03 MA [id number]) OP-PT Subjective Patient Comments Patient Comments Pt saw ortho who is going to schedule pt for surgery in the next three weeks. First surgery will be on L shd and then, if all goes well, two months later R shd. PT-OP-E Functional Tests Start: 12/27/21 16:53 Freq: Status: Active Protocol: Document 12/29/21 13:51 SAK (Rec: 01/02/22 17:20 SAK [id number]) Functional Tests Apley's Scratch Test Action 1- Left medial chest Action 1- Right anterior shoulder Action 2- Left lateral neck Action 2- Right T1 Action 3- Left L3 Action 3- Right L3 PT-OP-H Neuro Start: 12/27/21 16:53 Freq: Status: Active Protocol: Document 12/29/21 13:51 [facility] (Rec: 01/02/22 17:20 [facility] [id number]) Sensation Evaluation Gross Sensation Gross Sensation WNL PT-OP-J Posture/Palpation/Skin Start: 12/27/21 16:53 Freq: Status: Active Protocol: Document 12/29/21 13:51 [facility] (Rec: 01/02/22 17:20 [facility] [id number]) Posture Evaluation Position Sitting Head/C-Spine Posture Forward Head Shoulder Posture (L) Rounded,(R) Rounded Scapula Posture (L) Protracted,(R) Protracted Arm Posture (L) Internally Rotated Pelvis Posture Neutral Palpation Assessment Location RC insertion Palpation Location left greater than right Palpation Findings Muscle Guarding,Tenderness PT-OP-K Range of Motion Start: 12/27/21 16:53 Freq: Status: Active Protocol: Document 12/29/21 13:51 [facility] (Rec: 01/02/22 17:20 [facility] [id number]) Cervical Spine Range of Motion Cervical Spine Active Testing Position Sitting Flexion 50 Extension 10 Rotation Left 55 Rotation Right 55 Lateral Flexion Left 45 Lateral Flexion Right 40 ROM Limitations Soft Tissue Tightness Shoulder Goniometric Range of Motion Shoulder Right Shoulder ROM WFL No Flexion 91 Extension 11 Abduction 98 External Rotation at 0 degrees Abduction 38 Internal Rotation Behind Back (text) L3 Comments painful arc Left Shoulder ROM WFL No Testing Position Sitting Flexion 83 Extension 10 Abduction 98 External Rotation at 0 degrees Abduction 0 Internal Rotation Behind Back (text) L3 Comments painful arc Elbow/Forearm Range of Motion Elbow/Forearm josé luis Elbow/Forearm ROM WFL Yes PT-OP-L Special Tests Start: 12/27/21 16:53 Freq: Status: Active Protocol: Document 12/29/21 13:51 [facility] (Rec: 01/02/22 17:20 [facility] [id number]) Special Tests Shoulder Special Tests Lift-Off Rotator Cuff Test Results positive josé luis left greater than righ Drop Arm Rotator Cuff Test Results positive josé luis left greater than right PT-OP-M Strength Start: 12/27/21 16:53 Freq: Status: Active Protocol: Document 12/29/21 13:51 SAK (Rec: 01/02/22 17:20 SAK [id number]) Shoulder Strength Shoulder Manual Muscle Testing Right Flexion 3- Fair- Abduction (C5) 3- Fair- Adduction 3- Fair- External Rotation 3- Fair- Internal Rotation 3- Fair- Horizontal Abduction 3- Fair- Horizontal Adduction 3- Fair- Comments limited by pain Left Flexion 3- Fair- Extension 3- Fair- Abduction (C5) 3- Fair- Adduction 3+ Fair+ External Rotation 3- Fair- Internal Rotation 3- Fair- Horizontal Abduction 3- Fair- Horizontal Adduction 3- Fair- Comments limited by pain Elbow/Forearm Strength Elbow and Forearm Manual Muscle Testing Right Flexion (C6) 5 Normal Extension (C7) 5 Normal Left Flexion (C6) 4+ Good+ Extension (C7) 4+ Good+ Hand Assistant Center Manager/Pinch Strength Hand Dominance Hand Dominance Right PT-OP-Q Treatments Start: 12/27/21 16:53 Freq: Status: Active Protocol: Document 02/16/22 11:19 MA (Rec: 02/16/22 12:03 MA [id number]) Cardio Equipment Upper Body Ergometer (UBE) Duration (Minutes) 6 RPM 65 Seat Position 10 Height 3.5 Other fatigued, no inc pain Therapeutic Exercises Supine Exercises PNF Supine Exercise Name D2 starting 90 deg elevation, back to 90 Resistance #1 DB (states uses DB and TB # 1 at home) Reps/Minutes x10 Comments well tolerated FF Supine Exercise Name reviewed HEP- alternating Side bilateral Resistance #1 DB> #2 Reps/Minutes 2x8 reps Comments cued elbow straight, knees bent, slow controlled serratus press Supine Exercise Name reviewed HEP Side bilateral Resistance #1 DB per pt's request today Reps/Minutes 2x8 reps Comments cued wrist straight, no [place] recruit shld ER Supine Exercise Name reviewed HEP Side bilateral Resistance #1 DB Equipment Used rolled towel under arms Reps/Minutes 2x8 Comments pt requests 1# as 2# caused increased pain last session Prone Exercises Ts, Is Prone Exercise Name 1. ext 2. T's 3. I's Side bilateral Resistance AROM Equipment Used over all 65cm ball Reps/Minutes x10 Comments cued no UT recruitment Manual Therapy Treatment Soft Tissue Mobilization RC Body Location B Mobilization Type Cross-Friction Intensity/Depth Moderate Body Position Hooklying bicep, deltoid insertion Body Location B Mobilization Type Myofascial Release,Strumming Body Position Hooklying UT Body Location B Mobilization Type Sustained Pressure,Trigger Point Release Body Position Hooklying PT-OP-R Modalities Start: 12/27/21 16:53 Freq: Status: Active Protocol: Document 01/11/22 09:04 SAK (Rec: 01/11/22 09:51 SAK [id number]) Hot Pack/Cold Pack Treatment Cold Pack Location José Luis shds Patient Position Hooklying Treatment Duration (minutes) 10 Patient Tolerance Good PT-OP-T Assessment and Plan Start: 12/27/21 16:53 Freq: Status: Active Protocol: Document 02/16/22 11:19 MA (Rec: 02/16/22 12:03 MA [id number]) Physical Therapy Assessment Goals Three Impairment pain as high as 8/10 left shoulder interrupting sleep Roll Up Machine Operator Goal (LTG) Patient will be able to sleep through the night, no wakinig due to left shouldre pain 01/12/22: states needs use Tylenol pm vs regular to allow sleep 6 hrs, not working right now. LTG Duration 04/02/22 01/12/22:progressing Two Impairment decreased ROM and strength left shoulder Short Term Goal (STG) Instruct patient in progressive ther ex program for ROM and strengthening left shoudler STG Duration 02/12/22 Fpc Goal (LTG) Patient to be independent and compliant with HEP and demonstrate left shoulder ROM WNL and left shoulder strength at least 4+/5 all motions to allow him to return to all usual activities. LTG Duration 04/02/22 One Impairment Limited activity tolerance left shoulder due to pain Impairment Quickdash disability index score 50% Short Term Goal (STG) Decrease Quickdash score to no greater than 30% STG Duration 02/12/22 Fpc Goal (LTG) Decrease Quickdash score to no greater than 10% as measure of improved activity tolerance with patient able to return to work without an increase in pain LTG Duration 04/02/22 Assessment Summary Assessment Pt demonstrates good form throughout exercises only requiring minor cues during protraction exercise to avoid using UTs. Rene has good ROM with shd exercises prone over tball but does place his pain at an 8/10 during flex and habd. Pt will be scheduled for surgery within the next three weeks on the L shd and then ~8 weeks later will have the R shd repaired. Physical Therapy Plan Frequency and Duration Frequency of Treatment 2x/Week Duration of Treatment 12 weeks Plan of Care Start Date 12/29/21 Plan of Care End Date 04/02/22 Therapeutic Interventions Therapeutic Interventions Aquatic Therapy,Home Exercise Program,Manual Therapy,Patient /Caregiver Education,Self-Care /Home Management,Soft Tissue Mobilization,Taping, Therapeutic Activities, Therapeutic Exercises Modalities Cold Pack/Ice Massage,Electric Stimulation,Hot Packs, Infrared Therapy,Iontophoresis ,Ultrasound Next Visit Focus/Plan Next Note Type Treatment Note Next Visit Plan Recheck prone Ts, Is, isometric ER, supine D2 flex with TB, ER supine and serratus punch.
--- NOTE | 2022-03-02 08:15 | PT.OTN ---
Current Diagnoses Pain in left shoulder (03/02/22) Bursitis of left shoulder (03/02/22) Contusion of left shoulder, initial encounter (03/02/22) Physical Therapy Treatment Note PT-OP-A Visit Information Start: 12/27/21 16:53 Freq: Status: Active Protocol: Document 03/02/22 07:33 SP (Rec: 03/02/22 08:18 SP [id number]) Out-Patient Physical Therapy Visit Information Visit Information Visit Type Treatment Note Visit Start Time 07:33 Visit Stop Time 08:15 Total Visit Minutes 42 Visit Number 12 Number of SQL REPORT ANALYST Visits 3 Evaluation Information Evaluation Date 12/29/21 PT-OP-B Current Condition Start: 12/27/21 16:53 Freq: Status: Active Protocol: Document 01/03/22 08:14 SAK (Rec: 01/03/22 09:30 SAK [id number]) Current Condition History of Current Condition Onset Date 10/13/21 Current Complaints left shoulder pain History of Current Condition Walking out of bus carrying things in hands, lost balance on ice, came down on left elbow, initially left shoulder pain, within a couple days feeling pain on right as well. At this time claim only approved for left shoulder. x- ray: swelling. MRI: full tear of one tendon, partial of 3 others. Anticipating surgical repair on the left. Waiting for approval for evaluation and treatment of right shoulder pain; x-ray was negative. States doctor thinking may have similar injury right shoulder. Uses both ice and heat. Doing some range of motion exercises found online with good tolerance. Taking Tylenol as needed; reg and Tylenol PM. Prior Treatments and Tests MRI as above, medication, ice and heat. No further treatment. PT-OP-C Subjective Start: 12/27/21 16:53 Freq: Status: Active Protocol: Document 03/02/22 07:33 SP (Rec: 03/02/22 08:18 SP [id number]) OP-PT Subjective Patient Comments Patient Comments Pt stated surgery set for Apr 05 for L shld then if all goes well R shld in 8 weeks after that. Stated thinks slept wrong and stiff and tingling into R forearm/hand this am when woke up, so took Tylenol and it helped. PT-OP-E Functional Tests Start: 12/27/21 16:53 Freq: Status: Active Protocol: Document 12/29/21 13:51 [facility] (Rec: 01/02/22 17:20 [facility] [id number]) Functional Tests Apley's Scratch Test Action 1- Left medial chest Action 1- Right anterior shoulder Action 2- Left lateral neck Action 2- Right T1 Action 3- Left L3 Action 3- Right L3 PT-OP-H Neuro Start: 12/27/21 16:53 Freq: Status: Active Protocol: Document 12/29/21 13:51 SAK (Rec: 01/02/22 17:20 [facility] [id number]) Sensation Evaluation Gross Sensation Gross Sensation WNL PT-OP-J Posture/Palpation/Skin Start: 12/27/21 16:53 Freq: Status: Active Protocol: Document 12/29/21 13:51 [facility] (Rec: 01/02/22 17:20 [facility] [id number]) Posture Evaluation Position Sitting Head/C-Spine Posture Forward Head Shoulder Posture (L) Rounded,(R) Rounded Scapula Posture (L) Protracted,(R) Protracted Arm Posture (L) Internally Rotated Pelvis Posture Neutral Palpation Assessment Location RC insertion Palpation Location left greater than right Palpation Findings Muscle Guarding,Tenderness PT-OP-K Range of Motion Start: 12/27/21 16:53 Freq: Status: Active Protocol: Document 12/29/21 13:51 [facility] (Rec: 01/02/22 17:20 [facility] [id number]) Cervical Spine Range of Motion Cervical Spine Active Testing Position Sitting Flexion 50 Extension 10 Rotation Left 55 Rotation Right 55 Lateral Flexion Left 45 Lateral Flexion Right 40 ROM Limitations Soft Tissue Tightness Shoulder Goniometric Range of Motion Shoulder Right Shoulder ROM WFL No Flexion 91 Extension 11 Abduction 98 External Rotation at 0 degrees Abduction 38 Internal Rotation Behind Back (text) L3 Comments painful arc Left Shoulder ROM WFL No Testing Position Sitting Flexion 83 Extension 10 Abduction 98 External Rotation at 0 degrees Abduction 0 Internal Rotation Behind Back (text) L3 Comments painful arc Elbow/Forearm Range of Motion Elbow/Forearm josé luis Elbow/Forearm ROM WFL Yes PT-OP-L Special Tests Start: 12/27/21 16:53 Freq: Status: Active Protocol: Document 12/29/21 13:51 SAK (Rec: 01/02/22 17:20 [facility] [id number]) Special Tests Shoulder Special Tests Lift-Off Rotator Cuff Test Results positive josé luis left greater than righ Drop Arm Rotator Cuff Test Results positive josé luis left greater than right PT-OP-M Strength Start: 12/27/21 16:53 Freq: Status: Active Protocol: Document 12/29/21 13:51 SAK (Rec: 01/02/22 17:20 SAK [id number]) Shoulder Strength Shoulder Manual Muscle Testing Right Flexion 3- Fair- Abduction (C5) 3- Fair- Adduction 3- Fair- External Rotation 3- Fair- Internal Rotation 3- Fair- Horizontal Abduction 3- Fair- Horizontal Adduction 3- Fair- Comments limited by pain Left Flexion 3- Fair- Extension 3- Fair- Abduction (C5) 3- Fair- Adduction 3+ Fair+ External Rotation 3- Fair- Internal Rotation 3- Fair- Horizontal Abduction 3- Fair- Horizontal Adduction 3- Fair- Comments limited by pain Elbow/Forearm Strength Elbow and Forearm Manual Muscle Testing Right Flexion (C6) 5 Normal Extension (C7) 5 Normal Left Flexion (C6) 4+ Good+ Extension (C7) 4+ Good+ Hand Business Continuity Strategy Director/Pinch Strength Hand Dominance Hand Dominance Right PT-OP-Q Treatments Start: 12/27/21 16:53 Freq: Status: Active Protocol: Document 03/02/22 07:33 SP (Rec: 03/02/22 08:18 SP [id number]) Cardio Equipment Upper Body Ergometer (UBE) Duration (Minutes) 6 RPM 65 Seat Position 10 Height 3.5 Other fatigued, no inc pain Therapeutic Exercises Supine Exercises PNF Supine Exercise Name D2 starting 90 deg elevation, back to 90 Resistance #2 DB (states uses DB and TB # 1 at home) Reps/Minutes x10 Comments well tolerated FF Supine Exercise Name reviewed HEP- alternating Side bilateral Resistance #2 DB Reps/Minutes 2x10 reps Comments cued elbow straight, knees bent, slow controlled serratus press Supine Exercise Name reviewed HEP Side bilateral Resistance #2 DB per pt's request today Reps/Minutes 2x8 reps Comments cued wrist straight, no UT recruit shld ER Supine Exercise Name reviewed HEP Side bilateral Resistance #2 DB Equipment Used rolled towel under arms Reps/Minutes 2x8 Comments good form and response Sidelying Exercises open book Sidelying Exercise Name added to HEP: elbow straight or bent good response Side bilateral Reps/Minutes x5 reps each side Comments cued head with arm, good feedback response and no UT recruitment Standing Exercises median nerve glide Standing Exercise Name standing instructed try supine at home Side right Reps/Minutes 2x5 Comments decrease tingle finger tips Manual Therapy Treatment Soft Tissue Mobilization RC Body Location R , pec minor, Mobilization Type Cross-Friction Intensity/Depth Moderate Body Position Hooklying bicep, deltoid insertion Body Location R Mobilization Type Myofascial Release,Strumming Body Position Hooklying UT Body Location B UT, R scalene, pec minor, bicep, pronator Terex Mobilization Type Cross-Friction,Strumming, Sustained Pressure,Trigger Point Release Body Position Hooklying PT-OP-R Modalities Start: 12/27/21 16:53 Freq: Status: Active Protocol: Document 01/11/22 09:04 SAK (Rec: 01/11/22 09:51 SAK [id number]) Hot Pack/Cold Pack Treatment Cold Pack Location José Luis shds Patient Position Hooklying Treatment Duration (minutes) 10 Patient Tolerance Good PT-OP-T Assessment and Plan Start: 12/27/21 16:53 Freq: Status: Active Protocol: Document 03/02/22 07:33 SP (Rec: 03/02/22 08:18 SP [id number]) Physical Therapy Assessment Goals Three Impairment pain as high as 8/10 left shoulder interrupting sleep Intermediate Goal (LTG) Patient will be able to sleep through the night, no wakinig due to left shouldre pain 01/12/22: states needs use Tylenol pm vs regular to allow sleep 6 hrs, not working right now. LTG Duration 04/02/22 01/12/22:progressing Two Impairment decreased ROM and strength left shoulder Short Term Goal (STG) Instruct patient in progressive ther ex program for ROM and strengthening left shoudler STG Duration 02/12/22 Agricultural Equipment Sales Manager Goal (LTG) Patient to be independent and compliant with HEP and demonstrate left shoulder ROM WNL and left shoulder strength at least 4+/5 all motions to allow him to return to all usual activities. LTG Duration 04/02/22 One Impairment Limited activity tolerance left shoulder due to pain Impairment Quickdash disability index score 50% Short Term Goal (STG) Decrease Quickdash score to no greater than 30% STG Duration 02/12/22 Intermediate Goal (LTG) Decrease Quickdash score to no greater than 10% as measure of improved activity tolerance with patient able to return to work without an increase in pain LTG Duration 04/02/22 Assessment Summary Assessment Pt responded well to manual no tingling into R hand now. Added open book for scapular ROM and TS rotation with good form and reponse, increased ROM mobility. Added more appts for progress to surgery [place]. Pt to continue HEP. Physical Therapy Plan Frequency and Duration Frequency of Treatment 2x/Week Duration of Treatment 12 weeks Plan of Care Start Date 12/29/21 Plan of Care End Date 04/02/22 Therapeutic Interventions Therapeutic Interventions Aquatic Therapy,Home Exercise Program,Manual Therapy,Patient /Caregiver Education,Self-Care /Home Management,Soft Tissue Mobilization,Taping, Therapeutic Activities, Therapeutic Exercises Modalities Cold Pack/Ice Massage,Electric Stimulation,Hot Packs, Infrared Therapy,Iontophoresis ,Ultrasound Next Visit Focus/Plan Next Note Type Treatment Note Next Visit Plan Recheck open book, prone Ts, Is, isometric ER, supine D2 flex with TB, ER supine and serratus punch.
--- NOTE | 2022-03-14 11:30 | PT.OTN ---
Current Diagnoses Pain in left shoulder (03/14/22) Bursitis of left shoulder (03/14/22) Contusion of left shoulder, initial encounter (03/14/22) Physical Therapy Treatment Note PT-OP-A Visit Information Start: 12/27/21 16:53 Freq: Status: Active Protocol: Document 03/14/22 10:34 SAK (Rec: 03/14/22 11:28 [facility] [id number]) Out-Patient Physical Therapy Visit Information Visit Information Visit Type Treatment Note Visit Start Time 10:35 Visit Stop Time 11:16 Total Visit Minutes 41 Visit Number 13 Number of MARKET NEWS REPORTER Visits 0 Evaluation Information Evaluation Date 12/29/21 PT-OP-B Current Condition Start: 12/27/21 16:53 Freq: Status: Active Protocol: Document 01/03/22 08:14 SAK (Rec: 01/03/22 09:30 [facility] [id number]) Current Condition History of Current Condition Onset Date 10/13/21 Current Complaints left shoulder pain History of Current Condition Walking out of bus carrying things in hands, lost balance on ice, came down on left elbow, initially left shoulder pain, within a couple days feeling pain on right as well. At this time claim only approved for left shoulder. x- ray: swelling. MRI: full tear of one tendon, partial of 3 others. Anticipating surgical repair on the left. Waiting for approval for evaluation and treatment of right shoulder pain; x-ray was negative. States doctor thinking may have similar injury right shoulder. Uses both ice and heat. Doing some range of motion exercises found online with good tolerance. Taking Tylenol as needed; reg and Tylenol PM. Prior Treatments and Tests MRI as above, medication, ice and heat. No further treatment. PT-OP-C Subjective Start: 12/27/21 16:53 Freq: Status: Active Protocol: Document 03/14/22 10:34 SAK (Rec: 03/14/22 11:28 [facility] [id number]) OP-PT Subjective Patient Comments Patient Comments No new c/o, less tingling after shown nerve glide PT-OP-E Functional Tests Start: 12/27/21 16:53 Freq: Status: Active Protocol: Document 12/29/21 13:51 SAK (Rec: 01/02/22 17:20 [facility] [id number]) Functional Tests Apley's Scratch Test Action 1- Left medial chest Action 1- Right anterior shoulder Action 2- Left lateral neck Action 2- Right T1 Action 3- Left L3 Action 3- Right L3 PT-OP-H Neuro Start: 12/27/21 16:53 Freq: Status: Active Protocol: Document 12/29/21 13:51 [facility] (Rec: 01/02/22 17:20 [facility] [id number]) Sensation Evaluation Gross Sensation Gross Sensation WNL PT-OP-J Posture/Palpation/Skin Start: 12/27/21 16:53 Freq: Status: Active Protocol: Document 12/29/21 13:51 [facility] (Rec: 01/02/22 17:20 [facility] [id number]) Posture Evaluation Position Sitting Head/C-Spine Posture Forward Head Shoulder Posture (L) Rounded,(R) Rounded Scapula Posture (L) Protracted,(R) Protracted Arm Posture (L) Internally Rotated Pelvis Posture Neutral Palpation Assessment Location RC insertion Palpation Location left greater than right Palpation Findings Muscle Guarding,Tenderness PT-OP-K Range of Motion Start: 12/27/21 16:53 Freq: Status: Active Protocol: Document 12/29/21 13:51 [facility] (Rec: 01/02/22 17:20 [facility] [id number]) Cervical Spine Range of Motion Cervical Spine Active Testing Position Sitting Flexion 50 Extension 10 Rotation Left 55 Rotation Right 55 Lateral Flexion Left 45 Lateral Flexion Right 40 ROM Limitations Soft Tissue Tightness Shoulder Goniometric Range of Motion Shoulder Right Shoulder ROM WFL No Flexion 91 Extension 11 Abduction 98 External Rotation at 0 degrees Abduction 38 Internal Rotation Behind Back (text) L3 Comments painful arc Left Shoulder ROM WFL No Testing Position Sitting Flexion 83 Extension 10 Abduction 98 External Rotation at 0 degrees Abduction 0 Internal Rotation Behind Back (text) L3 Comments painful arc Elbow/Forearm Range of Motion Elbow/Forearm josé luis Elbow/Forearm ROM WFL Yes PT-OP-L Special Tests Start: 12/27/21 16:53 Freq: Status: Active Protocol: Document 12/29/21 13:51 [facility] (Rec: 01/02/22 17:20 [facility] [id number]) Special Tests Shoulder Special Tests Lift-Off Rotator Cuff Test Results positive josé luis left greater than righ Drop Arm Rotator Cuff Test Results positive josé luis left greater than right PT-OP-M Strength Start: 12/27/21 16:53 Freq: Status: Active Protocol: Document 12/29/21 13:51 [facility] (Rec: 01/02/22 17:20 [facility] [id number]) Shoulder Strength Shoulder Manual Muscle Testing Right Flexion 3- Fair- Abduction (C5) 3- Fair- Adduction 3- Fair- External Rotation 3- Fair- Internal Rotation 3- Fair- Horizontal Abduction 3- Fair- Horizontal Adduction 3- Fair- Comments limited by pain Left Flexion 3- Fair- Extension 3- Fair- Abduction (C5) 3- Fair- Adduction 3+ Fair+ External Rotation 3- Fair- Internal Rotation 3- Fair- Horizontal Abduction 3- Fair- Horizontal Adduction 3- Fair- Comments limited by pain Elbow/Forearm Strength Elbow and Forearm Manual Muscle Testing Right Flexion (C6) 5 Normal Extension (C7) 5 Normal Left Flexion (C6) 4+ Good+ Extension (C7) 4+ Good+ Hand Security Guard Supervisor/Pinch Strength Hand Dominance Hand Dominance Right PT-OP-Q Treatments Start: 12/27/21 16:53 Freq: Status: Active Protocol: Document 03/14/22 10:34 [facility] (Rec: 03/14/22 11:28 [facility] [id number]) Cardio Equipment Upper Body Ergometer (UBE) Duration (Minutes) 6 RPM 65 Seat Position 10 Height 3.5 Other fatigued, no inc pain Therapeutic Exercises Supine Exercises PNF Supine Exercise Name HEP FF Supine Exercise Name HEP serratus press Supine Exercise Name HEP shld ER Supine Exercise Name HEP Prone Exercises Ts, Is Prone Exercise Name 1. ext 2. T's 3. I's Side bilateral Resistance 1 lb I, T, AROM Y Equipment Used over all 65cm ball Reps/Minutes x10 Comments cued no UT recruitment, post/ inf glide scapula Sidelying Exercises open book Sidelying Exercise Name elbow bent Side bilateral Reps/Minutes x5 reps each side Comments better eamon bent arm, verbal and tacile cues Standing Exercises median nerve glide Side right Reps/Minutes 1x5 Comments decrease tingle finger tips Manual Therapy Treatment Soft Tissue Mobilization RC Body Location R , pec minor, Mobilization Type Cross-Friction Intensity/Depth Moderate Body Position Hooklying bicep, deltoid insertion Body Location R Mobilization Type Myofascial Release,Strumming Body Position Hooklying UT Body Location B UT, R scalene, pec minor, bicep, pronator Terex Mobilization Type Cross-Friction,Strumming, Sustained Pressure,Trigger Point Release Body Position Hooklying Joint Mobilizations GH Joint josé luis Direction posterior Grade III Body Position Hooklying Reps/Duration 5 min Self-Care/Home Management Treatment Education Patient Education Home Exercise Program,Pain Management,Posture Other Education consider obtaining strap on ice pack, electric ice machine for post-op PT-OP-R Modalities Start: 12/27/21 16:53 Freq: Status: Active Protocol: Document 01/11/22 09:04 [facility] (Rec: 01/11/22 09:51 [facility] [id number]) Hot Pack/Cold Pack Treatment Cold Pack Location José Luis shds Patient Position Hooklying Treatment Duration (minutes) 10 Patient Tolerance Good PT-OP-T Assessment and Plan Start: 12/27/21 16:53 Freq: Status: Active Protocol: Document 03/14/22 10:34 [facility] (Rec: 03/14/22 11:28 [facility] [id number]) Physical Therapy Assessment Goals Three Impairment pain as high as 8/10 left shoulder interrupting sleep Tire Layer Goal (LTG) Patient will be able to sleep through the night, no wakinig due to left shouldre pain 01/12/22: states needs use Tylenol pm vs regular to allow sleep 6 hrs, not working right now. LTG Duration 04/02/22 01/12/22:progressing Two Impairment decreased ROM and strength left shoulder Short Term Goal (STG) Instruct patient in progressive ther ex program for ROM and strengthening left shoudler STG Duration 02/12/22 Residential Goal (LTG) Patient to be independent and compliant with HEP and demonstrate left shoulder ROM WNL and left shoulder strength at least 4+/5 all motions to allow him to return to all usual activities. LTG Duration 04/02/22 One Impairment Limited activity tolerance left shoulder due to pain Impairment Quickdash disability index score 50% Short Term Goal (STG) Decrease Quickdash score to no greater than 30% STG Duration 02/12/22 Tire Layer Goal (LTG) Decrease Quickdash score to no greater than 10% as measure of improved activity tolerance with patient able to return to work without an increase in pain LTG Duration 04/02/22 Assessment Summary Assessment Better tolerance for open book with elbow bent. Needs mod cues for dec UT recruitment with prone ex over therapy ball and for correct shoulder rotation with ex. Added post GH mobs due to persistent posterior capsule tightness Physical Therapy Plan Frequency and Duration Frequency of Treatment 2x/Week Duration of Treatment 12 weeks Plan of Care Start Date 12/29/21 Plan of Care End Date 04/02/22 Therapeutic Interventions Therapeutic Interventions Aquatic Therapy,Home Exercise Program,Manual Therapy,Patient /Caregiver Education,Self-Care /Home Management,Soft Tissue Mobilization,Taping, Therapeutic Activities, Therapeutic Exercises Modalities Cold Pack/Ice Massage,Electric Stimulation,Hot Packs, Infrared Therapy,Iontophoresis ,Ultrasound Next Visit Focus/Plan Next Note Type Treatment Note Next Visit Plan Recheck open book, prone Ts, Is, isometric ER, supine D2 flex with TB, ER supine and serratus punch.
--- NOTE | 2022-04-27 19:50 | PT.OPPOC ---
Physical, Occupational & Speech Therapy At [facility] Current Diagnoses Pain in left shoulder (04/27/22) Bursitis of left shoulder (04/27/22) Contusion of left shoulder, initial encounter (04/27/22) Visit Care Team Role Provider Type LIANNE Cummins Family Provider Advanced Color Maker Primary Care Provider Specialty: Family Practice Address: [address] [place] [address], [id number] Email: [email or web address] Chas Buck MD Attending Provider Non-Staff Referring Provider Specialty: Orthopedic Surgery Address: [facility] [address], [place], [address] Email: Plan Of Care PT-OP-T Assessment and Plan Start: 12/27/21 16:53 Freq: Status: Active Protocol: Document 04/27/22 13:48 LRN (Rec: 04/27/22 15:42 LRN [id number]) Physical Therapy Assessment Rehab Potential Rehabilitation Potential Good Evaluation Complexity Number of Personal Factors/Comorbidities 1-2 Number of Body Systems Impaired 4 or More Clinical Presentation at Evaluation Unstable Impairments Impairments Activity Tolerance,Pain,ROM, Soft Tissue Mobility,Strength Goals Three Impairment ROM Short Term Goal (STG) Per protocol, Phase 1: PROTECT SURGERY. DECR PAIN AND INFLAMMATION, pt education in self care. STG Duration 6 wks Divider Operator Goal (LTG) Per protocol Phase II: (6-12 wks) Caution with flexion and throughout phase, functional ROM. Pt able to reach up in high cupboard. LTG Duration 4 months Two Impairment Decreased strength, not to start strengthening until phase II of protcol Short Term Goal (STG) Per protocol, Phase II: Begin gentle strengthening and scapular strengthening, Marielena IR/ER & tolerate UBE towards end of phase. Patient educated in HEP of starting AROM. STG Duration 3 months (12 weeks) Nursing Home Goal (LTG) Per protocol, Phase III - IV: Left shoulder ROM WFL, and left shoulder beginning and progressing weighted strenghtening, with L shoulder strength least 4-/5 all motions to allow him to return to usual activities. LTG Duration 6 months (24 weeks) One Impairment HEP Short Term Goal (STG) Phase II: Pt will be educated in PROM/AROM ex's on home program. STG Duration 3 months (6-12 weeks) Nursing Home Goal (LTG) Pt will be independent in self half-way and aquatic ex program for L shoulder ROM and strengthening ex's. LTG Duration 6 months (10/30/22) Assessment Summary Assessment Pt returns s/p L shoulder Rotator cuff complete tear. Pt returns with his L arm in a sling with AB pillow. He is having very little pain and his scar has healed to point of being barely visible. The pt demonstrates ability to don /doff his sling independently and although he cognitively knows not to use his L arm, when removing and replacing sling he does appear to perform active L shoulder AB without pain. The pt reported no pain with Codman ex of only dangling arm (no swing). There appears to be some confusion as to whether the pt is allowed in therapy to have ROM of the L shoulder. He attends with protocol that indicates 0-6 weeks gentle PROM, but pt believes he is only to allow his elbow to move and not the shoulder. We will hold ROM to the L shoulder until clarification is obtained. The pt does not have complaints with ROM of L hand, elbow and wrist. The pt will benefit from skilled physical therapy to start 1x/ week or every other week depending pt ability to follow directions safely for recovery. Starting at 4-6 wks post op the pt would be more appropriate for therapy 2x/ week with possible 1x/week in aquatic therapy. We will follow the rehab protocol brought to us by the patient. Physical Therapy Plan Frequency and Duration Frequency of Treatment 2x/Week Duration of Treatment 6 months Plan of Care Start Date 04/27/22 Plan of Care End Date 10/30/22 Therapeutic Interventions Therapeutic Interventions Aquatic Therapy,Home Exercise Program,Manual Therapy, Neuromuscular Re-education, Patient/Caregiver Education, Self-Care/Home Management,Soft Tissue Mobilization,Taping, Therapeutic Activities, Therapeutic Exercises Modalities Cold Pack/Ice Massage,Electric Stimulation,Hot Packs, Infrared Therapy,Iontophoresis ,Ultrasound Next Visit Focus/Plan Next Note Type Treatment Note Next Visit Plan CLARIFICATION, phase I, NEEDED BEFORE STARTING: Gentle PROM L shoulder (0-6 weeks): FLEX to 90? abduction to tolerance- being cautious with this movement, IR/ER as tolerated at 30?shoulder AB. Follow referring physicians protocol for Lg to massive Left RC repair (see protocol in meditech notes). For weeks 0-6, treatment 1x/wk or every other week for Phase I of protocol (no strengthening until 12 weeks Post Op). Per protocol pt could gegin auatic therapy 4-6 wks post-op. Plan of Care Dates Plan of Care Start Date 04/27/22 Plan of Care End Date 10/30/22 Electronically Signed by: Kamala Swenson, PT 04/28/22 0897 If you are in agreement with this Plan of Care, please return a signed and dated copy. I have reviewed this Plan of Care and certify that the skilled therapy services above are required to meet the patient?s needs. Physician Signature Date Printed Name and Credentials Clinical Instructor Signature Printed Name and Credentials
--- NOTE | 2022-04-27 19:50 | PT.OIE ---
Current Diagnoses Pain in left shoulder (04/27/22) Bursitis of left shoulder (04/27/22) Contusion of left shoulder, initial encounter (04/27/22) Past Medical History (Last Updated 12/15/19 @ 09:53 by LIANNE Cummins) Elevated blood sugar Hyperlipidemia Obesity (BMI 30.0-34.9) Past Surgical History (Last Reviewed 09/18/19 @ 08:29 by LIANNE Cummins) Anesthesia Fracture (~1985) History of colonoscopy Visit Care Team Role Provider Type LIANNE Cummins Family Provider Advanced Probation Manager Primary Care Provider Specialty: Family Practice Address: [address] [place] [address], [id number] Email: [email or web address] Chas Buck MD Attending Provider Non-Staff Referring Provider Specialty: Orthopedic Surgery Address: [address] [place] [address], [id number] Email: Physical Therapy Initial Evaluation PT-OP-A Visit Information Start: 12/27/21 16:53 Freq: Status: Active Protocol: Document 04/27/22 13:48 LRN (Rec: 04/27/22 15:42 LRN [id number]) Out-Patient Physical Therapy Visit Information Visit Information Visit Type Re-Evaluation Visit Start Time 13:48 Visit Stop Time 14:39 Total Visit Minutes 51 Visit Number 14 Evaluation Information Evaluation Date 12/29/21 Precautions Precautions L rotator cuff repair of large tear - [address] Buck. Initial eval indicates full tear of one tendon, partial of 3 others. PT-OP-B Current Condition Start: 12/27/21 16:53 Freq: Status: Active Protocol: Document 04/27/22 13:48 LRN (Rec: 04/28/22 19:47 LRN [id number]) Current Condition History of Current Condition Onset Date 2 wks ago L RCR massive full tear repair Current Complaints left shoulder not to be moved, in sling, pain 1/10 History of Current Condition Initial injury: Walking out of bus carrying things in hands, lost balance on ice, came down on left elbow, initially left shoulder pain, within a couple days feeling pain on right as well. At this time claim only approved for left shoulder. x-ray: swelling. MRI: full tear of one tendon, partial of 3 others. Surgical repair on the left shoulder 2 weeks ago. Pt presents with rehabilitation protocol for Lg to Massive RCR , subacromial decmprssion. 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 Prior Treatments and Tests Pt using mainly ice post op. Not taking medications because he doesn't like how it makes him feel. Treatment Goals Patient/Caregiver Goals Rehab per protocol. Personal Factors Other Personal Factors That May Effect Right shoulder pain as well as Therapy/Recovery left PT-OP-C Subjective Start: 12/27/21 16:53 Freq: Status: Active Protocol: Document 04/27/22 13:48 LRN (Rec: 04/27/22 15:42 LRN [id number]) OP-PT Subjective Patient Comments Patient Comments Pain in biceps where tendon is that was repaired. Feels a pull if moves wrong. Patient Questionnaires Quick Dash- Upper Extremity Quick Dash UE Score 72.72 Quick Dash UE Impairment 60 to 79% Impaired (Score 60- 79) OP-PT Pain Assessment Location left shoulder Pain Location Details Top of shoulder and lateral brachium Intensity 1 Scale Used Numeric (0 - 10) Description Aching PT-OP-E Functional Tests Start: 12/27/21 16:53 Freq: Status: Active Protocol: Document 12/29/21 13:51 [facility] (Rec: 01/02/22 17:20 [facility] [id number]) Functional Tests Apley's Scratch Test Action 1- Left medial chest Action 1- Right anterior shoulder Action 2- Left lateral neck Action 2- Right T1 Action 3- Left L3 Action 3- Right L3 PT-OP-H Neuro Start: 12/27/21 16:53 Freq: Status: Active Protocol: Document 12/29/21 13:51 SAK (Rec: 01/02/22 17:20 SAK [id number]) Sensation Evaluation Gross Sensation Gross Sensation WNL PT-OP-J Posture/Palpation/Skin Start: 12/27/21 16:53 Freq: Status: Active Protocol: Document 04/27/22 13:48 LRN (Rec: 04/27/22 20:20 LRN [id number]) Posture Evaluation Position Sitting Evaluation View Pt L shoulder in sling Comments Posture Comments Pt able to don/doff sling independently without complaints of pain. Palpation Assessment Location Healed scars Palpation Location L shoulder: Anterior and posterior incisions Palpation Details Good mobility of well healed scars with barely visible incision lines noted. No tenderness. PT-OP-K Range of Motion Start: 12/27/21 16:53 Freq: Status: Active Protocol: Document 04/27/22 13:48 LRN (Rec: 04/27/22 20:20 LRN [id number]) Shoulder Goniometric Range of Motion Shoulder Right Shoulder ROM WFL No Flexion 91 Extension 11 Abduction 98 External Rotation at 0 degrees Abduction 38 Internal Rotation Behind Back (text) L3 Comments painful arc ROM as previously taken . Left Shoulder ROM WFL No Testing Position Leaning forward Flexion 35 Comments Held assessment of other motions per pt report referring physician did not want him moving the L shoulder . Elbow/Forearm Range of Motion Elbow/Forearm Left Active ROM Testing Position Sitting Comments 3-140 deg's PT-OP-L Special Tests Start: 12/27/21 16:53 Freq: Status: Active Protocol: Document 12/29/21 13:51 SAK (Rec: 01/02/22 17:20 SAK [id number]) Special Tests Shoulder Special Tests Lift-Off Rotator Cuff Test Results positive antoine left greater than righ Drop Arm Rotator Cuff Test Results positive antoine left greater than right PT-OP-M Strength Start: 12/27/21 16:53 Freq: Status: Active Protocol: Document 04/27/22 13:48 LRN (Rec: 04/27/22 20:20 LRN [id number]) Shoulder Strength Shoulder Manual Muscle Testing Right Flexion 3- Fair- Abduction (C5) 3- Fair- Adduction 3- Fair- External Rotation 3- Fair- Internal Rotation 3- Fair- Horizontal Abduction 3- Fair- Horizontal Adduction 3- Fair- Comments Strength as assessed initial visit 12/29/21 Left Comments Deferred, pt in sling. Pt phase I protocol for PROM only. No strengthening until 12 weeks Post Op. PT-OP-Q Treatments Start: 12/27/21 16:53 Freq: Status: Active Protocol: Document 04/27/22 13:48 LRN (Rec: 04/27/22 15:42 LRN [id number]) Therapeutic Exercises Sitting Exercises Neck stretch Sitting Exercise Name SB hold 10 secs, Rot hold 2-5 secs Side bilateral Forearm sup/pron Sitting Exercise Name Forearm sup/pron Side left Reps/Minutes 30x Hand squeezes Sitting Exercise Name Hand squeeze Side left Reps/Minutes 30x Elbow flex Sitting Exercise Name Active elbow flex Side left Standing Exercises Scap retract Standing Exercise Name Very small mvmt of scap retract Side bilateral Reps/Minutes 10x Passive shldr flex Standing Exercise Name Bending over to let arm hang Side left Reps/Minutes 5' Manual Therapy Treatment Soft Tissue Mobilization L Biceps Body Location L Biceps Mobilization Type Strumming Intensity/Depth Superficial Body Position Sitting Comments Light massage Self-Care/Home Management Treatment Education Other Education Educated and discussed RICE treatment for edema and pain management, handout issued. Activities Self-Care/Home Management Activities HEP issued and reviewed: Codman's ex, active elbow flex /ext with elbow by side & neck stretch for SB and Rotation. PT-OP-R Modalities Start: 12/27/21 16:53 Freq: Status: Active Protocol: Document 01/11/22 09:04 SAK (Rec: 01/11/22 09:51 SAK [id number]) Hot Pack/Cold Pack Treatment Cold Pack Location Antoine shds Patient Position Hooklying Treatment Duration (minutes) 10 Patient Tolerance Good PT-OP-T Assessment and Plan Start: 12/27/21 16:53 Freq: Status: Active Protocol: Document 04/27/22 13:48 LRN (Rec: 04/27/22 15:42 LRN [id number]) Physical Therapy Assessment Rehab Potential Rehabilitation Potential Good Evaluation Complexity Number of Personal Factors/Comorbidities 1-2 Number of Body Systems Impaired 4 or More Clinical Presentation at Evaluation Unstable Impairments Impairments Activity Tolerance,Pain,ROM, Soft Tissue Mobility,Strength Goals Three Impairment ROM Short Term Goal (STG) Per protocol, Phase 1: PROTECT SURGERY. DECR PAIN AND INFLAMMATION, pt education in self care. STG Duration 6 wks Redipper Goal (LTG) Per protocol Phase II: (6-12 wks) Caution with flexion and throughout phase, functional ROM. Pt able to reach up in high cupboard. LTG Duration 4 months Two Impairment Decreased strength, not to start strengthening until phase II of protcol Short Term Goal (STG) Per protocol, Phase II: Begin gentle strengthening and scapular strengthening, Marielena IR/ER & tolerate UBE towards end of phase. Patient educated in HEP of starting AROM. STG Duration 3 months (12 weeks) Redipper Goal (LTG) Per protocol, Phase III - IV: Left shoulder ROM WFL, and left shoulder beginning and progressing weighted strenghtening, with L shoulder strength least 4-/5 all motions to allow him to return to usual activities. LTG Duration 6 months (24 weeks) One Impairment HEP Short Term Goal (STG) Phase II: Pt will be educated in PROM/AROM ex's on home program. STG Duration 3 months (6-12 weeks) Redipper Goal (LTG) Pt will be independent in self long term and aquatic ex program for L shoulder ROM and strengthening ex's. LTG Duration 6 months (10/30/22) Assessment Summary Assessment Pt returns s/p L shoulder Rotator cuff complete tear. Pt returns with his L arm in a sling with AB pillow. He is having very little pain and his scar has healed to point of being barely visible. The pt demonstrates ability to don /doff his sling independently and although he cognitively knows not to use his L arm, when removing and replacing sling he does appear to perform active L shoulder AB without pain. The pt reported no pain with Codman ex of only dangling arm (no swing). There appears to be some confusion as to whether the pt is allowed in therapy to have ROM of the L shoulder. He attends with protocol that indicates 0-6 weeks gentle PROM, but pt believes he is only to allow his elbow to move and not the shoulder. We will hold ROM to the L shoulder until clarification is obtained. The pt does not have complaints with ROM of L hand, elbow and wrist. The pt will benefit from skilled physical therapy to start 1x/ week or every other week depending pt ability to follow directions safely for recovery. Starting at 4-6 wks post op the pt would be more appropriate for therapy 2x/ week with possible 1x/week in aquatic therapy. We will follow the rehab protocol brought to us by the patient. Physical Therapy Plan Frequency and Duration Frequency of Treatment 2x/Week Duration of Treatment 6 months Plan of Care Start Date 04/27/22 Plan of Care End Date 10/30/22 Therapeutic Interventions Therapeutic Interventions Aquatic Therapy,Home Exercise Program,Manual Therapy, Neuromuscular Re-education, Patient/Caregiver Education, Self-Care/Home Management,Soft Tissue Mobilization,Taping, Therapeutic Activities, Therapeutic Exercises Modalities Cold Pack/Ice Massage,Electric Stimulation,Hot Packs, Infrared Therapy,Iontophoresis ,Ultrasound Next Visit Focus/Plan Next Note Type Treatment Note Next Visit Plan CLARIFICATION, phase I, NEEDED BEFORE STARTING: Gentle PROM L shoulder (0-6 weeks): FLEX to 90? abduction to tolerance- being cautious with this movement, IR/ER as tolerated at 30?shoulder AB. Follow referring physicians protocol for Lg to massive Left RC repair (see protocol in meditech notes). For weeks 0-6, treatment 1x/wk or every other week for Phase I of protocol (no strengthening until 12 weeks Post Op). Per protocol pt could gegin auatic therapy 4-6 wks post-op.
--- NOTE | 2022-05-04 12:03 | PT.OTN ---
Current Diagnoses Pain in left shoulder (05/04/22) Bursitis of left shoulder (05/04/22) Contusion of left shoulder, initial encounter (05/04/22) Physical Therapy Treatment Note PT-OP-A Visit Information Start: 12/27/21 16:53 Freq: Status: Active Protocol: Document 05/04/22 11:19 AW (Rec: 05/04/22 12:03 AW [id number]) Out-Patient Physical Therapy Visit Information Visit Information Visit Type Treatment Note Visit Start Time 11:20 Visit Stop Time 12:00 Total Visit Minutes 40 Visit Number 15 Evaluation Information Evaluation Date 12/29/21 Precautions Precautions L rotator cuff repair of large tear - [address] uBck. Initial eval indicates full tear of one tendon, partial of 3 others. PT-OP-B Current Condition Start: 12/27/21 16:53 Freq: Status: Active Protocol: Document 04/27/22 13:48 LRN (Rec: 04/28/22 19:47 LRN [id number]) Current Condition History of Current Condition Onset Date 2 wks ago L RCR massive full tear repair Current Complaints left shoulder not to be moved, in sling, pain 1/10 History of Current Condition Initial injury: Walking out of bus carrying things in hands, lost balance on ice, came down on left elbow, initially left shoulder pain, within a couple days feeling pain on right as well. At this time claim only approved for left shoulder. x-ray: swelling. MRI: full tear of one tendon, partial of 3 others. Surgical repair on the left shoulder 2 weeks ago. Pt presents with rehabilitation protocol for Lg to Massive RCR , subacromial decmprssion. 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 Prior Treatments and Tests Pt using mainly ice post op. Not taking medications because he doesn't like how it makes him feel. Treatment Goals Patient/Caregiver Goals Rehab per protocol. Personal Factors Other Personal Factors That May Effect Right shoulder pain as well as Therapy/Recovery left PT-OP-C Subjective Start: 12/27/21 16:53 Freq: Status: Active Protocol: Document 05/04/22 11:19 AW (Rec: 05/04/22 12:03 AW [id number]) OP-PT Subjective Patient Comments Patient Comments Feeling good today with only 1 /10 pain. Pt expresses interest in aquatic therapy. PT-OP-E Functional Tests Start: 12/27/21 16:53 Freq: Status: Active Protocol: Document 12/29/21 13:51 SAK (Rec: 01/02/22 17:20 SAK [id number]) Functional Tests Apley's Scratch Test Action 1- Left medial chest Action 1- Right anterior shoulder Action 2- Left lateral neck Action 2- Right T1 Action 3- Left L3 Action 3- Right L3 PT-OP-H Neuro Start: 12/27/21 16:53 Freq: Status: Active Protocol: Document 12/29/21 13:51 SAK (Rec: 01/02/22 17:20 SAK [id number]) Sensation Evaluation Gross Sensation Gross Sensation WNL PT-OP-J Posture/Palpation/Skin Start: 12/27/21 16:53 Freq: Status: Active Protocol: Document 04/27/22 13:48 LRN (Rec: 04/27/22 20:20 LRN [id number]) Posture Evaluation Position Sitting Evaluation View Pt L shoulder in sling Comments Posture Comments Pt able to don/doff sling independently without complaints of pain. Palpation Assessment Location Healed scars Palpation Location L shoulder: Anterior and posterior incisions Palpation Details Good mobility of well healed scars with barely visible incision lines noted. No tenderness. PT-OP-K Range of Motion Start: 12/27/21 16:53 Freq: Status: Active Protocol: Document 04/27/22 13:48 LRN (Rec: 04/27/22 20:20 LRN [id number]) Shoulder Goniometric Range of Motion Shoulder Right Shoulder ROM WFL No Flexion 91 Extension 11 Abduction 98 External Rotation at 0 degrees Abduction 38 Internal Rotation Behind Back (text) L3 Comments painful arc ROM as previously taken . Left Shoulder ROM WFL No Testing Position Leaning forward Flexion 35 Comments Held assessment of other motions per pt report referring physician did not want him moving the L shoulder . Elbow/Forearm Range of Motion Elbow/Forearm Left Active ROM Testing Position Sitting Comments 3-140 deg's PT-OP-L Special Tests Start: 12/27/21 16:53 Freq: Status: Active Protocol: Document 12/29/21 13:51 SAK (Rec: 01/02/22 17:20 SAK [id number]) Special Tests Shoulder Special Tests Lift-Off Rotator Cuff Test Results positive josé luis left greater than righ Drop Arm Rotator Cuff Test Results positive josé luis left greater than right PT-OP-M Strength Start: 12/27/21 16:53 Freq: Status: Active Protocol: Document 04/27/22 13:48 LRN (Rec: 04/27/22 20:20 LRN [id number]) Shoulder Strength Shoulder Manual Muscle Testing Right Flexion 3- Fair- Abduction (C5) 3- Fair- Adduction 3- Fair- External Rotation 3- Fair- Internal Rotation 3- Fair- Horizontal Abduction 3- Fair- Horizontal Adduction 3- Fair- Comments Strength as assessed initial visit 12/29/21 Left Comments Deferred, pt in sling. Pt phase I protocol for PROM only. No strengthening until 12 weeks Post Op. PT-OP-Q Treatments Start: 12/27/21 16:53 Freq: Status: Active Protocol: Document 05/04/22 11:19 AW (Rec: 05/04/22 12:03 AW [id number]) Therapeutic Exercises Sitting Exercises trunk rotation Sitting Exercise Name trunk rotation Side bilateral Equipment Used sling donned Neck stretch Sitting Exercise Name SB hold 10 secs, Rot hold 2-5 secs Side bilateral Forearm sup/pron Sitting Exercise Name Forearm sup/pron Side left Reps/Minutes 30x Hand squeezes Sitting Exercise Name Hand squeeze Side left Reps/Minutes 30x Elbow flex Sitting Exercise Name Active elbow flex Side left Standing Exercises Scap retract Standing Exercise Name Very small mvmt of scap retract Side bilateral Reps/Minutes 10x Passive shldr flex Standing Exercise Name Bending over to let arm hang Side left Comments emphasized LE weight shift to get arm moving in small range Manual Therapy Treatment Soft Tissue Mobilization L Biceps Body Location L Biceps Mobilization Type Strumming Intensity/Depth Superficial Body Position Supine Comments Light massage UT Body Location L UT, L scalene, pec minor, bicep, pronator Terex Mobilization Type Cross-Friction,Strumming, Sustained Pressure,Trigger Point Release Body Position Hooklying Joint Mobilizations L elbow Joint L elbow Comments to maintain elbow extension ROM Manual Techniques PROM L shoulder Type PROM L shoulder Comments Per protocol: no more than 90 deg flexion, IR/ER in 30 deg abduction as tolerated, abduction with caution to tolerance. Self-Care/Home Management Treatment Education Patient Education Home Exercise Program,Pain Management Other Education Added seated or standing trunk rotation for thoracic mobility. Emphasized only with sling donned or in sitting with RUE support. PT-OP-R Modalities Start: 12/27/21 16:53 Freq: Status: Active Protocol: Document 01/11/22 09:04 SAK (Rec: 01/11/22 09:51 SAK [id number]) Hot Pack/Cold Pack Treatment Cold Pack Location José Luis shds Patient Position Hooklying Treatment Duration (minutes) 10 Patient Tolerance Good PT-OP-T Assessment and Plan Start: 12/27/21 16:53 Freq: Status: Active Protocol: Document 05/04/22 11:19 AW (Rec: 05/04/22 12:03 AW [id number]) Physical Therapy Assessment Goals Three Impairment ROM Short Term Goal (STG) Per protocol, Phase 1: PROTECT SURGERY. DECR PAIN AND INFLAMMATION, pt education in self care. STG Duration 6 wks [employer] Goal (LTG) Per protocol Phase II: (6-12 wks) Caution with flexion and throughout phase, functional ROM. Pt able to reach up in high cupboard. LTG Duration 4 months Two Impairment Decreased strength, not to start strengthening until phase II of protcol Short Term Goal (STG) Per protocol, Phase II: Begin gentle strengthening and scapular strengthening, Marielena IR/ER & tolerate UBE towards end of phase. Patient educated in HEP of starting AROM. STG Duration 3 months (12 weeks) [employer] Goal (LTG) Per protocol, Phase III - IV: Left shoulder ROM WFL, and left shoulder beginning and progressing weighted strenghtening, with L shoulder strength least 4-/5 all motions to allow him to return to usual activities. LTG Duration 6 months (24 weeks) One Impairment HEP Impairment Quickdash disability index score 50% Short Term Goal (STG) Phase II: Pt will be educated in PROM/AROM ex's on home program. STG Duration 3 months (6-12 weeks) Intermediate Goal (LTG) Pt will be independent in self fdc and aquatic ex program for L shoulder ROM and strengthening ex's. LTG Duration 6 months (10/30/22) Assessment Summary Assessment PT called ortho and recieved VM in return confirming that gentle PROM left shoulder is acceptable per protocol. Educated pt on same and pt was receptive. Initiated PROM within protocol and pt tolerated very well. Physical Therapy Plan Frequency and Duration Frequency of Treatment 2x/Week Duration of Treatment 6 months Plan of Care Start Date 04/27/22 Plan of Care End Date 10/30/22 Therapeutic Interventions Therapeutic Interventions Aquatic Therapy,Home Exercise Program,Manual Therapy, Neuromuscular Re-education, Patient/Caregiver Education, Self-Care/Home Management,Soft Tissue Mobilization,Taping, Therapeutic Activities, Therapeutic Exercises Modalities Cold Pack/Ice Massage,Electric Stimulation,Hot Packs, Infrared Therapy,Iontophoresis ,Ultrasound Next Visit Focus/Plan Next Note Type Treatment Note Next Visit Plan Gentle PROM L shoulder (0-6 weeks): FLEX to 90? abduction to tolerance-being cautious with this movement, IR/ER as tolerated at 30?shoulder AB. Follow referring physicians protocol for Lg to massive Left RC repair (see protocol in meditech notes). For weeks 0-6, treatment 1x/wk or every other week for Phase I of protocol (no strengthening until 12 weeks Post Op). Per protocol pt could gegin auatic therapy 4-6 wks post-op.
--- NOTE | 2022-05-09 12:42 | PT.OTN ---
Current Diagnoses Pain in left shoulder (05/09/22) Bursitis of left shoulder (05/09/22) Contusion of left shoulder, initial encounter (05/09/22) Physical Therapy Treatment Note PT-OP-A Visit Information Start: 12/27/21 16:53 Freq: Status: Active Protocol: Document 05/09/22 09:04 LRN (Rec: 05/09/22 09:46 LRN [id number]) Out-Patient Physical Therapy Visit Information Visit Information Visit Type Treatment Note Visit Start Time 09:04 Visit Stop Time 09:44 Total Visit Minutes 40 Visit Number 16 Evaluation Information Evaluation Date 12/29/21 Precautions Precautions L rotator cuff repair of large tear - [address] Buck. Initial eval indicates full tear of one tendon, partial of 3 others. PT-OP-B Current Condition Start: 12/27/21 16:53 Freq: Status: Active Protocol: Document 04/27/22 13:48 LRN (Rec: 04/28/22 19:47 LRN [id number]) Current Condition History of Current Condition Onset Date 2 wks ago L RCR massive full tear repair Current Complaints left shoulder not to be moved, in sling, pain / History of Current Condition Initial injury: Walking out of bus carrying things in hands, lost balance on ice, came down on left elbow, initially left shoulder pain, within a couple days feeling pain on right as well. At this time claim only approved for left shoulder. x-ray: swelling. MRI: full tear of one tendon, partial of 3 others. Surgical repair on the left shoulder 2 weeks ago. Pt presents with rehabilitation protocol for Lg to Massive RCR , subacromial decmprssion. 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 Prior Treatments and Tests Pt using mainly ice post op. Not taking medications because he doesn't like how it makes him feel. Treatment Goals Patient/Caregiver Goals Rehab per protocol. Personal Factors Other Personal Factors That May Effect Right shoulder pain as well as Therapy/Recovery left PT-OP-C Subjective Start: 12/27/21 16:53 Freq: Status: Active Protocol: Document 05/09/22 09:04 LRN (Rec: 05/09/22 09:46 LRN [id number]) OP-PT Subjective Patient Comments Patient Comments po ~4.5 wks. No strengthening , just PROM. Hving tightness in the shoulder, doesn't hurt . Takes Tyleno every 3-4 days. Will use ice at home after therapy. PT-OP-E Functional Tests Start: 12/27/21 16:53 Freq: Status: Active Protocol: Document 12/29/21 13:51 SAK (Rec: 01/02/22 17:20 SAK [id number]) Functional Tests Apley's Scratch Test Action 1- Left medial chest Action 1- Right anterior shoulder Action 2- Left lateral neck Action 2- Right T1 Action 3- Left L3 Action 3- Right L3 PT-OP-H Neuro Start: 12/27/21 16:53 Freq: Status: Active Protocol: Document 12/29/21 13:51 SAK (Rec: 01/02/22 17:20 SAK [id number]) Sensation Evaluation Gross Sensation Gross Sensation WNL PT-OP-J Posture/Palpation/Skin Start: 12/27/21 16:53 Freq: Status: Active Protocol: Document 04/27/22 13:48 LRN (Rec: 04/27/22 20:20 LRN [id number]) Posture Evaluation Position Sitting Evaluation View Pt L shoulder in sling Comments Posture Comments Pt able to don/doff sling independently without complaints of pain. Palpation Assessment Location Healed scars Palpation Location L shoulder: Anterior and posterior incisions Palpation Details Good mobility of well healed scars with barely visible incision lines noted. No tenderness. PT-OP-K Range of Motion Start: 12/27/21 16:53 Freq: Status: Active Protocol: Document 04/27/22 13:48 LRN (Rec: 04/27/22 20:20 LRN [id number]) Shoulder Goniometric Range of Motion Shoulder Right Shoulder ROM WFL No Flexion 91 Extension 11 Abduction 98 External Rotation at 0 degrees Abduction 38 Internal Rotation Behind Back (text) L3 Comments painful arc ROM as previously taken . Left Shoulder ROM WFL No Testing Position Leaning forward Flexion 35 Comments Held assessment of other motions per pt report referring physician did not want him moving the L shoulder . Elbow/Forearm Range of Motion Elbow/Forearm Left Active ROM Testing Position Sitting Comments 3-140 deg's PT-OP-L Special Tests Start: 12/27/21 16:53 Freq: Status: Active Protocol: Document 12/29/21 13:51 SAK (Rec: 01/02/22 17:20 SAK [id number]) Special Tests Shoulder Special Tests Lift-Off Rotator Cuff Test Results positive josé luis left greater than righ Drop Arm Rotator Cuff Test Results positive josé luis left greater than right PT-OP-M Strength Start: 12/27/21 16:53 Freq: Status: Active Protocol: Document 04/27/22 13:48 LRN (Rec: 04/27/22 20:20 LRN [id number]) Shoulder Strength Shoulder Manual Muscle Testing Right Flexion 3- Fair- Abduction (C5) 3- Fair- Adduction 3- Fair- External Rotation 3- Fair- Internal Rotation 3- Fair- Horizontal Abduction 3- Fair- Horizontal Adduction 3- Fair- Comments Strength as assessed initial visit 12/29/21 Left Comments Deferred, pt in sling. Pt phase I protocol for PROM only. No strengthening until 12 weeks Post Op. PT-OP-Q Treatments Start: 12/27/21 16:53 Freq: Status: Active Protocol: Document 05/09/22 09:04 LRN (Rec: 05/09/22 09:46 LRN [id number]) Therapeutic Exercises Sitting Exercises trunk rotation Sitting Exercise Name trunk rotation Side bilateral Comments elbow into sides. Neck stretch Sitting Exercise Name SB, Rot Side bilateral Reps/Minutes 10SH x 6 each Comments Pt needed cuing/instructions for ex Forearm sup/pron Sitting Exercise Name Forearm sup/pron Side left Reps/Minutes 30x Elbow flex Sitting Exercise Name Active elbow flex: Palm up, side, down. Side left Reps/Minutes 10x each Standing Exercises Coidman's Standing Exercise Name Codman's - circles, flex(90)/ ext, horiz AB/AD (cautiously) Side left Reps/Minutes 10-15x each Standing trunk rot Standing Exercise Name Standing trunk rot Side bilateral Comments Elbows into sides Manual Therapy Treatment Manual Techniques PROM L shoulder Type PROM L shoulder Comments Per protocol: no more than 90 deg flexion, IR/ER in 30 deg abduction as tolerated, abduction with caution to tolerance. L shoulder PROM: Flex~60-70 deg's, AB~50 deg's, ER - 0 deg 's. PT-OP-R Modalities Start: 12/27/21 16:53 Freq: Status: Active Protocol: Document 01/11/22 09:04 SAK (Rec: 01/11/22 09:51 SAK [id number]) Hot Pack/Cold Pack Treatment Cold Pack Location José Luis shds Patient Position Hooklying Treatment Duration (minutes) 10 Patient Tolerance Good PT-OP-T Assessment and Plan Start: 12/27/21 16:53 Freq: Status: Active Protocol: Document 05/09/22 09:04 LRN (Rec: 05/09/22 09:46 LRN [id number]) Physical Therapy Assessment Goals Three Impairment ROM Short Term Goal (STG) Per protocol, Phase 1: PROTECT SURGERY. DECR PAIN AND INFLAMMATION, pt education in self care. STG Duration 6 wks Jail Goal (LTG) Per protocol Phase II: (6-12 wks) Caution with flexion and throughout phase, functional ROM. Pt able to reach up in high cupboard. LTG Duration 4 months Two Impairment Decreased strength, not to start strengthening until phase II of protcol Short Term Goal (STG) Per protocol, Phase II: Begin gentle strengthening and scapular strengthening, Marielena IR/ER & tolerate UBE towards end of phase. Patient educated in HEP of starting AROM. STG Duration 3 months (12 weeks) [employer] Goal (LTG) Per protocol, Phase III - IV: Left shoulder ROM WFL, and left shoulder beginning and progressing weighted strenghtening, with L shoulder strength least 4-/5 all motions to allow him to return to usual activities. LTG Duration 6 months (24 weeks) One Impairment HEP Impairment Quickdash disability index score 50% Short Term Goal (STG) Phase II: Pt will be educated in PROM/AROM ex's on home program. STG Duration 3 months (6-12 weeks) Jail Goal (LTG) Pt will be independent in self correction and aquatic ex program for L shoulder ROM and strengthening ex's. LTG Duration 6 months (10/30/22) Assessment Summary Assessment Pt is post-op ~ 4.5 weeks. Pt demonstrated how he was doing PROM shoulder ER, but was doing it actively; therefore more education on PROM is needed. The pt has very high pain tolerance and had no complaints of pain with PROM, although to range, movement was taken very slowly. At end of therapy, pt did feel discomfort with return to resting motion. Pt will ice at home. Physical Therapy Plan Frequency and Duration Frequency of Treatment 2x/Week Duration of Treatment 6 months Plan of Care Start Date 04/27/22 Plan of Care End Date 10/30/22 Next Visit Focus/Plan Next Note Type Treatment Note Next Visit Plan Gentle PROM L shoulder (0-6 weeks): FLEX to 90? abduction to tolerance-being cautious with this movement, IR/ER as tolerated at 30?shoulder AB. Follow referring physicians protocol for Lg to massive Left RC repair (see protocol in meditech notes). For weeks 0-6, treatment 1x/wk or every other week for Phase I of protocol (no strengthening until 12 weeks Post Op). Per protocol pt could begin aquatic therapy 4- 6 wks post-op.
--- NOTE | 2022-05-16 14:30 | PT.OTN ---
Current Diagnoses Pain in left shoulder (05/16/22) Bursitis of left shoulder (05/16/22) Contusion of left shoulder, initial encounter (05/16/22) Physical Therapy Treatment Note PT-OP-A Visit Information Start: 12/27/21 16:53 Freq: Status: Active Protocol: Document 05/16/22 13:46 SP (Rec: 05/16/22 14:36 SP [id number]) Out-Patient Physical Therapy Visit Information Visit Information Visit Type Treatment Note Visit Start Time 13:46 Visit Stop Time 14:30 Total Visit Minutes 44 Visit Number 17 Number of PROTECTION MGR Visits 1 Precautions Precautions L rotator cuff repair of large tear - [address] Buck. Initial eval indicates full tear of one tendon, partial of 3 others. PT-OP-B Current Condition Start: 12/27/21 16:53 Freq: Status: Active Protocol: Document 04/27/22 13:48 LRN (Rec: 04/28/22 19:47 LRN [id number]) Current Condition History of Current Condition Onset Date 2 wks ago L RCR massive full tear repair Current Complaints left shoulder not to be moved, in sling, pain 1/ History of Current Condition Initial injury: Walking out of bus carrying things in hands, lost balance on ice, came down on left elbow, initially left shoulder pain, within a couple days feeling pain on right as well. At this time claim only approved for left shoulder. x-ray: swelling. MRI: full tear of one tendon, partial of 3 others. Surgical repair on the left shoulder 2 weeks ago. Pt presents with rehabilitation protocol for Lg to Massive RCR , subacromial decmprssion. 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 Prior Treatments and Tests Pt using mainly ice post op. Not taking medications because he doesn't like how it makes him feel. Treatment Goals Patient/Caregiver Goals Rehab per protocol. Personal Factors Other Personal Factors That May Effect Right shoulder pain as well as Therapy/Recovery left PT-OP-C Subjective Start: 12/27/21 16:53 Freq: Status: Active Protocol: Document 05/16/22 13:46 SP (Rec: 05/16/22 14:36 SP [id number]) OP-PT Subjective Patient Comments Patient Comments Pt 5.5 week s/p L rotator cuff repair of large tear reports see ortho tomorrow for follow up, just discomfort not pain even sleeping. PT-OP-E Functional Tests Start: 12/27/21 16:53 Freq: Status: Active Protocol: Document 12/29/21 13:51 SAK (Rec: 01/02/22 17:20 SAK [id number]) Functional Tests Apley's Scratch Test Action 1- Left medial chest Action 1- Right anterior shoulder Action 2- Left lateral neck Action 2- Right T1 Action 3- Left L3 Action 3- Right L3 PT-OP-H Neuro Start: 12/27/21 16:53 Freq: Status: Active Protocol: Document 12/29/21 13:51 SAK (Rec: 01/02/22 17:20 SAK [id number]) Sensation Evaluation Gross Sensation Gross Sensation WNL PT-OP-J Posture/Palpation/Skin Start: 12/27/21 16:53 Freq: Status: Active Protocol: Document 04/27/22 13:48 LRN (Rec: 04/27/22 20:20 LRN [id number]) Posture Evaluation Position Sitting Evaluation View Pt L shoulder in sling Comments Posture Comments Pt able to don/doff sling independently without complaints of pain. Palpation Assessment Location Healed scars Palpation Location L shoulder: Anterior and posterior incisions Palpation Details Good mobility of well healed scars with barely visible incision lines noted. No tenderness. PT-OP-K Range of Motion Start: 12/27/21 16:53 Freq: Status: Active Protocol: Document 04/27/22 13:48 LRN (Rec: 04/27/22 20:20 LRN [id number]) Shoulder Goniometric Range of Motion Shoulder Right Shoulder ROM WFL No Flexion 91 Extension 11 Abduction 98 External Rotation at 0 degrees Abduction 38 Internal Rotation Behind Back (text) L3 Comments painful arc ROM as previously taken . Left Shoulder ROM WFL No Testing Position Leaning forward Flexion 35 Comments Held assessment of other motions per pt report referring physician did not want him moving the L shoulder . Elbow/Forearm Range of Motion Elbow/Forearm Left Active ROM Testing Position Sitting Comments 3-140 deg's PT-OP-L Special Tests Start: 12/27/21 16:53 Freq: Status: Active Protocol: Document 12/29/21 13:51 SAK (Rec: 01/02/22 17:20 SAK [id number]) Special Tests Shoulder Special Tests Lift-Off Rotator Cuff Test Results positive josé luis left greater than righ Drop Arm Rotator Cuff Test Results positive josé luis left greater than right PT-OP-M Strength Start: 12/27/21 16:53 Freq: Status: Active Protocol: Document 04/27/22 13:48 LRN (Rec: 04/27/22 20:20 LRN [id number]) Shoulder Strength Shoulder Manual Muscle Testing Right Flexion 3- Fair- Abduction (C5) 3- Fair- Adduction 3- Fair- External Rotation 3- Fair- Internal Rotation 3- Fair- Horizontal Abduction 3- Fair- Horizontal Adduction 3- Fair- Comments Strength as assessed initial visit 12/29/21 Left Comments Deferred, pt in sling. Pt phase I protocol for PROM only. No strengthening until 12 weeks Post Op. PT-OP-Q Treatments Start: 12/27/21 16:53 Freq: Status: Active Protocol: Document 05/16/22 13:46 SP (Rec: 05/16/22 14:36 SP [id number]) Therapeutic Exercises Sitting Exercises scap traction Sitting Exercise Name added back into HEP Side bilateral Reps/Minutes 3sec hold x10 Comments cued arms relaxed onlap and no LB arch or UT recruit trunk rotation Sitting Exercise Name trunk rotation Side bilateral Reps/Minutes x10 Comments RUE supporting LLE Neck stretch Sitting Exercise Name SB, Rot Side bilateral Reps/Minutes 10SH x 6 each Comments good form, level shld forward Forearm sup/pron Sitting Exercise Name Forearm sup/pron Side left Resistance AROM>#2 DB Equipment Used elbow supported on chair arm Reps/Minutes 30x Comments improved form Elbow flex Sitting Exercise Name Active elbow flex: Palm up, side, down. Side left Resistance AROM> #2DB (instructed hammer at home) Reps/Minutes 10x each Comments good form Standing Exercises nutritionist public health squeeze Standing Exercise Name added to HEP Side left Resistance theraputty red>green Equipment Used nutritionist public health, thumb flexion, pick put hidden buttons Comments good form/response Coidman's Standing Exercise Name Codman's - circles, flex(90)/ ext, horiz AB/AD (cautiously) Side left Reps/Minutes 10-15x each Comments good form after cue KAREN Barnett provided movement to L Manual Therapy Treatment Soft Tissue Mobilization L Biceps Body Location L Biceps Mobilization Type Strumming Intensity/Depth Superficial Body Position Supine Comments Light massage RC Body Location L suprasp, infrasp, pec minor , Mobilization Type Cross-Friction Intensity/Depth Moderate Body Position Sidelying bicep, deltoid insertion Body Location L Mobilization Type Myofascial Release,Strumming Body Position Hooklying Joint Mobilizations scapulothoracic Joint L Comments manual then active GH Joint left Direction posterior, inferior Grade I Body Position Hooklying Reps/Duration 5 min Manual Techniques PROM L shoulder Body Location PROM L shld Comments Per protocol: no more than 90 deg flexion, IR/ER in 30 deg abduction as tolerated, abduction with caution to tolerance. PROM 05/16: 90 deg FF, 118 deg ABD, allowed IR/ ER PT-OP-R Modalities Start: 12/27/21 16:53 Freq: Status: Active Protocol: Document 01/11/22 09:04 SAK (Rec: 01/11/22 09:51 SAK [id number]) Hot Pack/Cold Pack Treatment Cold Pack Location José Luis shds Patient Position Hooklying Treatment Duration (minutes) 10 Patient Tolerance Good PT-OP-T Assessment and Plan Start: 12/27/21 16:53 Freq: Status: Active Protocol: Document 05/16/22 13:46 SP (Rec: 05/16/22 14:36 SP [id number]) Physical Therapy Assessment Goals Three Impairment ROM Short Term Goal (STG) Per protocol, Phase 1: PROTECT SURGERY. DECR PAIN AND INFLAMMATION, pt education in self care. STG Duration 6 wks Curbstone Setter Goal (LTG) Per protocol Phase II: (6-12 wks) Caution with flexion and throughout phase, functional ROM. Pt able to reach up in high cupboard. LTG Duration 4 months Two Impairment Decreased strength, not to start strengthening until phase II of protcol Short Term Goal (STG) Per protocol, Phase II: Begin gentle strengthening and scapular strengthening, Marielena IR/ER & tolerate UBE towards end of phase. Patient educated in HEP of starting AROM. STG Duration 3 months (12 weeks) Half-Way Goal (LTG) Per protocol, Phase III - IV: Left shoulder ROM WFL, and left shoulder beginning and progressing weighted strenghtening, with L shoulder strength least 4-/5 all motions to allow him to return to usual activities. LTG Duration 6 months (24 weeks) One Impairment HEP Impairment Quickdash disability index score 50% Short Term Goal (STG) Phase II: Pt will be educated in PROM/AROM ex's on home program. STG Duration 3 months (6-12 weeks) Curbstone Setter Goal (LTG) Pt will be independent in self fpc and aquatic ex program for L shoulder ROM and strengthening ex's. LTG Duration 6 months (10/30/22) Assessment Summary Assessment Pt good tolerance and response to manual, stating this feels so good, L shld seems so stiff, much more relaxed, hard to do this at home. PROTECTION MGR discussed can provide CGT with if wishes and give feedback to her for safe/ benefited/allowable pressure. Good scapular mobility post manual and added scap retraction with cues for fluid movement not excessive extension back arch. Provided #1 DB and theraputty for hand/ wrist strengthening allowed and suggested remove arm from sling and rested on chair arm. Physical Therapy Plan Frequency and Duration Frequency of Treatment 2x/Week Duration of treatment (weeks) 12 Plan of Care Start Date 04/27/22 Plan of Care End Date 10/30/22 Therapeutic Interventions Therapeutic Interventions Aquatic Therapy,Home Exercise Program,Manual Therapy, Neuromuscular Re-education, Patient/Caregiver Education, Self-Care/Home Management,Soft Tissue Mobilization,Taping, Therapeutic Activities, Therapeutic Exercises Modalities Cold Pack/Ice Massage,Electric Stimulation,Hot Packs, Infrared Therapy,Iontophoresis ,Ultrasound Next Visit Focus/Plan Next Note Type Treatment Note Next Visit Plan Check follow up ortho response .Gentle PROM L shoulder (0-6 weeks): FLEX to 90? abduction to tolerance-being cautious with this movement, IR/ER as tolerated at 30?shoulder AB. Follow referring physicians protocol for Lg to massive Left RC repair (see protocol in meditech notes). For weeks 0-6, treatment 1x/wk or every other week for Phase I of protocol (no strengthening until 12 weeks Post Op). Per protocol pt could begin aquatic therapy 4- 6 wks post-op.
--- NOTE | 2022-05-23 09:00 | PT.OTN ---
Current Diagnoses Pain in left shoulder (05/23/22) Bursitis of left shoulder (05/23/22) Contusion of left shoulder, initial encounter (05/23/22) Physical Therapy Treatment Note PT-OP-A Visit Information Start: 12/27/21 16:53 Freq: Status: Active Protocol: Document 05/23/22 08:18 SP (Rec: 05/23/22 09:06 SP [id number]) Out-Patient Physical Therapy Visit Information Visit Information Visit Type Treatment Note Visit Start Time 08:18 Visit Stop Time 09:00 Total Visit Minutes 42 Visit Number 18 Number of ROTARY DRIER Visits 2 Evaluation Information Evaluation Date 12/29/21 Precautions Precautions Surgery approx 04/05/22: L rotator cuff repair of large tear by Dr. Buck. Initial eval indicates full tear of one tendon, partial of 3 others. PT-OP-B Current Condition Start: 12/27/21 16:53 Freq: Status: Active Protocol: Document 04/27/22 13:48 LRN (Rec: 04/28/22 19:47 LRN [id number]) Current Condition History of Current Condition Onset Date 2 wks ago L RCR massive full tear repair Current Complaints left shoulder not to be moved, in sling, pain / History of Current Condition Initial injury: Walking out of bus carrying things in hands, lost balance on ice, came down on left elbow, initially left shoulder pain, within a couple days feeling pain on right as well. At this time claim only approved for left shoulder. x-ray: swelling. MRI: full tear of one tendon, partial of 3 others. Surgical repair on the left shoulder 2 weeks ago. Pt presents with rehabilitation protocol for Lg to Massive RCR , subacromial decmprssion. 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 Prior Treatments and Tests Pt using mainly ice post op. Not taking medications because he doesn't like how it makes him feel. Treatment Goals Patient/Caregiver Goals Rehab per protocol. Personal Factors Other Personal Factors That May Effect Right shoulder pain as well as Therapy/Recovery left PT-OP-C Subjective Start: 12/27/21 16:53 Freq: Status: Active Protocol: Document 05/23/22 08:18 SP (Rec: 05/23/22 09:06 SP [id number]) OP-PT Subjective Patient Comments Patient Comments Pt almost 7 weeks s/p L rotator cuff repair of large. States saw ortho last Th and stated only wear sling in crowds and busy activities for safety support. Told can start AAROM wand vs AROM standing to decrease compensations. He will bring ortho note next tx to scan in to EMR. PT-OP-E Functional Tests Start: 12/27/21 16:53 Freq: Status: Active Protocol: Document 12/29/21 13:51 SAK (Rec: 01/02/22 17:20 SAK [id number]) Functional Tests Apley's Scratch Test Action 1- Left medial chest Action 1- Right anterior shoulder Action 2- Left lateral neck Action 2- Right T1 Action 3- Left L3 Action 3- Right L3 PT-OP-H Neuro Start: 12/27/21 16:53 Freq: Status: Active Protocol: Document 12/29/21 13:51 SAK (Rec: 01/02/22 17:20 SAK [id number]) Sensation Evaluation Gross Sensation Gross Sensation WNL PT-OP-J Posture/Palpation/Skin Start: 12/27/21 16:53 Freq: Status: Active Protocol: Document 04/27/22 13:48 LRN (Rec: 04/27/22 20:20 LRN [id number]) Posture Evaluation Position Sitting Evaluation View Pt L shoulder in sling Comments Posture Comments Pt able to don/doff sling independently without complaints of pain. Palpation Assessment Location Healed scars Palpation Location L shoulder: Anterior and posterior incisions Palpation Details Good mobility of well healed scars with barely visible incision lines noted. No tenderness. PT-OP-K Range of Motion Start: 12/27/21 16:53 Freq: Status: Active Protocol: Document 04/27/22 13:48 LRN (Rec: 04/27/22 20:20 LRN [id number]) Shoulder Goniometric Range of Motion Shoulder Right Shoulder ROM WFL No Flexion 91 Extension 11 Abduction 98 External Rotation at 0 degrees Abduction 38 Internal Rotation Behind Back (text) L3 Comments painful arc ROM as previously taken . Left Shoulder ROM WFL No Testing Position Leaning forward Flexion 35 Comments Held assessment of other motions per pt report referring physician did not want him moving the L shoulder . Elbow/Forearm Range of Motion Elbow/Forearm Left Active ROM Testing Position Sitting Comments 3-140 deg's PT-OP-L Special Tests Start: 12/27/21 16:53 Freq: Status: Active Protocol: Document 12/29/21 13:51 SAK (Rec: 01/02/22 17:20 SAK [id number]) Special Tests Shoulder Special Tests Lift-Off Rotator Cuff Test Results positive josé luis left greater than righ Drop Arm Rotator Cuff Test Results positive josé luis left greater than right PT-OP-M Strength Start: 12/27/21 16:53 Freq: Status: Active Protocol: Document 04/27/22 13:48 LRN (Rec: 04/27/22 20:20 LRN [id number]) Shoulder Strength Shoulder Manual Muscle Testing Right Flexion 3- Fair- Abduction (C5) 3- Fair- Adduction 3- Fair- External Rotation 3- Fair- Internal Rotation 3- Fair- Horizontal Abduction 3- Fair- Horizontal Adduction 3- Fair- Comments Strength as assessed initial visit 12/29/21 Left Comments Deferred, pt in sling. Pt phase I protocol for PROM only. No strengthening until 12 weeks Post Op. PT-OP-Q Treatments Start: 12/27/21 16:53 Freq: Status: Active Protocol: Document 05/23/22 08:18 SP (Rec: 05/23/22 09:06 SP [id number]) Therapeutic Exercises Sitting Exercises table slides Sitting Exercise Name FF, scaption added to HEP Side left Resistance AAROM Reps/Minutes x10 each Comments good feedback ROM feels good to do. Standing Exercises IR/ ER isometric Standing Exercise Name added to HEP Side left Equipment Used at wall corner/doorway Reps/Minutes 5 sec hold x5 reps each x2 sets Comments time spent assess gentle pressure manual then wall Manual Therapy Treatment Soft Tissue Mobilization bicep, deltoid insertion Body Location L Mobilization Type Myofascial Release,Strumming Body Position Hooklying Joint Mobilizations GH Joint left Direction posterior, inferior Grade I Body Position Hooklying Reps/Duration 5 min Manual Techniques PROM L shoulder Body Location PROM L shld Comments Per protocol: no more than 90 deg flexion, IR/ER in 30 deg abduction as tolerated, abduction with caution to tolerance. Unsure allowance today until get last Follow up note will bring in phase allowance/ROM. PROM 05/16: 90 deg FF, 118 deg ABD, allowed IR/ ER Self-Care/Home Management Treatment Education Patient Education Home Exercise Program Other Education added seated table slides L shld: FF, scaption gentle ROM; supine AAROM limited rangeFF, ABD; isometrics IR/ ER Reviewed gait with arm swing 170 ft to decrease bicep stiff L shld. PT-OP-R Modalities Start: 12/27/21 16:53 Freq: Status: Active Protocol: Document 01/11/22 09:04 SAK (Rec: 01/11/22 09:51 SAK [id number]) Hot Pack/Cold Pack Treatment Cold Pack Location José Luis shds Patient Position Hooklying Treatment Duration (minutes) 10 Patient Tolerance Good PT-OP-T Assessment and Plan Start: 12/27/21 16:53 Freq: Status: Active Protocol: Document 05/23/22 08:18 SP (Rec: 05/23/22 09:06 SP [id number]) Physical Therapy Assessment Goals Three Impairment ROM Short Term Goal (STG) Per protocol, Phase 1: PROTECT SURGERY. DECR PAIN AND INFLAMMATION, pt education in self care. GOAL MET STG Duration 6 wks GOAL MET 05/23/22 Assistant Prosecuting Attorney Goal (LTG) Per protocol Phase II: (6-12 wks) Caution with flexion and throughout phase, functional ROM. Pt able to reach up in high cupboard. 05/23/22: initiated AAROM PHase II. LTG Duration 4 months progression Two Impairment Decreased strength, not to start strengthening until phase II of protcol Short Term Goal (STG) Per protocol, Phase II: Begin gentle strengthening and scapular strengthening, Marielena IR/ER & tolerate UBE towards end of phase. Patient educated in HEP of starting AROM. STG Duration 3 months (12 weeks) Custodial Goal (LTG) Per protocol, Phase III - IV: Left shoulder ROM WFL, and left shoulder beginning and progressing weighted strenghtening, with L shoulder strength least 4-/5 all motions to allow him to return to usual activities. LTG Duration 6 months (24 weeks) One Impairment HEP Impairment Quickdash disability index score 50% Short Term Goal (STG) Phase II: Pt will be educated in PROM/AROM ex's on home program. STG Duration 3 months (6-12 weeks) Custodial Goal (LTG) Pt will be independent in self chcf and aquatic ex program for L shoulder ROM and strengthening ex's. LTG Duration 6 months (10/30/22) Assessment Summary Assessment Pt good response to AAROM initiated table slides and wand (FF, ABD), isometric IR/ ER manual then good carryover proper form with correct posturing. Ecuation for safety stay within allotted PROM ranges given initially until see physican feedback for allowance AAROM. Physical Therapy Plan Frequency and Duration Frequency of Treatment 2x/Week Duration of treatment (weeks) 24 Plan of Care Start Date 04/27/22 Plan of Care End Date 10/30/22 Therapeutic Interventions Therapeutic Interventions Aquatic Therapy,Home Exercise Program,Manual Therapy, Neuromuscular Re-education, Patient/Caregiver Education, Self-Care/Home Management,Soft Tissue Mobilization,Taping, Therapeutic Activities, Therapeutic Exercises Modalities Cold Pack/Ice Massage,Electric Stimulation,Hot Packs, Infrared Therapy,Iontophoresis ,Ultrasound Next Visit Focus/Plan Next Note Type Treatment Note Next Visit Plan Check follow up ortho response .Gentle PROM L shoulder (0-6 weeks): FLEX to 90? abduction to tolerance-being cautious with this movement, IR/ER as tolerated at 30?shoulder AB. Follow referring physicians protocol for Lg to massive Left RC repair (see protocol in meditech notes). For weeks 0-6, treatment 1x/wk or every other week for Phase I of protocol (no strengthening until 12 weeks Post Op). Per protocol pt could begin aquatic therapy 4- 6 wks post-op.
--- NOTE | 2022-05-31 10:08 | PT.OTN ---
Current Diagnoses Pain in left shoulder (05/31/22) Bursitis of left shoulder (05/31/22) Contusion of left shoulder, initial encounter (05/31/22) Physical Therapy Treatment Note PT-OP-A Visit Information Start: 12/27/21 16:53 Freq: Status: Active Protocol: Document 05/31/22 09:06 SAK (Rec: 05/31/22 10:08 SAK [id number]) Out-Patient Physical Therapy Visit Information Visit Information Visit Type Treatment Note Visit Start Time 09:06 Visit Stop Time 09:56 Total Visit Minutes 50 Visit Number 19 Number of FINISHING PAN OPERATOR Visits 0 Evaluation Information Evaluation Date 12/29/21 Precautions Precautions Surgery approx 04/05/22: L rotator cuff repair of large tear by Dr. Buck. Initial eval indicates full tear of one tendon, partial of 3 others. PT-OP-B Current Condition Start: 12/27/21 16:53 Freq: Status: Active Protocol: Document 04/27/22 13:48 LRN (Rec: 04/28/22 19:47 LRN [id number]) Current Condition History of Current Condition Onset Date 2 wks ago L RCR massive full tear repair Current Complaints left shoulder not to be moved, in sling, pain / History of Current Condition Initial injury: Walking out of bus carrying things in hands, lost balance on ice, came down on left elbow, initially left shoulder pain, within a couple days feeling pain on right as well. At this time claim only approved for left shoulder. x-ray: swelling. MRI: full tear of one tendon, partial of 3 others. Surgical repair on the left shoulder 2 weeks ago. Pt presents with rehabilitation protocol for Lg to Massive RCR , subacromial decmprssion. 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 Prior Treatments and Tests Pt using mainly ice post op. Not taking medications because he doesn't like how it makes him feel. Treatment Goals Patient/Caregiver Goals Rehab per protocol. Personal Factors Other Personal Factors That May Effect Right shoulder pain as well as Therapy/Recovery left PT-OP-C Subjective Start: 12/27/21 16:53 Freq: Status: Active Protocol: Document 05/31/22 09:06 SAK (Rec: 05/31/22 10:08 SAK [id number]) OP-PT Subjective Patient Comments Patient Comments Using ice and heat both, doesn 't wake up in middle of night with pain. States doctor told him to work in comfort zone. is massaging shoulder some. PT-OP-E Functional Tests Start: 12/27/21 16:53 Freq: Status: Active Protocol: Document 12/29/21 13:51 SAK (Rec: 01/02/22 17:20 SAK [id number]) Functional Tests Apley's Scratch Test Action 1- Left medial chest Action 1- Right anterior shoulder Action 2- Left lateral neck Action 2- Right T1 Action 3- Left L3 Action 3- Right L3 PT-OP-H Neuro Start: 12/27/21 16:53 Freq: Status: Active Protocol: Document 12/29/21 13:51 SAK (Rec: 01/02/22 17:20 SAK [id number]) Sensation Evaluation Gross Sensation Gross Sensation WNL PT-OP-J Posture/Palpation/Skin Start: 12/27/21 16:53 Freq: Status: Active Protocol: Document 04/27/22 13:48 LRN (Rec: 04/27/22 20:20 LRN [id number]) Posture Evaluation Position Sitting Evaluation View Pt L shoulder in sling Comments Posture Comments Pt able to don/doff sling independently without complaints of pain. Palpation Assessment Location Healed scars Palpation Location L shoulder: Anterior and posterior incisions Palpation Details Good mobility of well healed scars with barely visible incision lines noted. No tenderness. PT-OP-K Range of Motion Start: 12/27/21 16:53 Freq: Status: Active Protocol: Document 04/27/22 13:48 LRN (Rec: 04/27/22 20:20 LRN [id number]) Shoulder Goniometric Range of Motion Shoulder Right Shoulder ROM WFL No Flexion 91 Extension 11 Abduction 98 External Rotation at 0 degrees Abduction 38 Internal Rotation Behind Back (text) L3 Comments painful arc ROM as previously taken . Left Shoulder ROM WFL No Testing Position Leaning forward Flexion 35 Comments Held assessment of other motions per pt report referring physician did not want him moving the L shoulder . Elbow/Forearm Range of Motion Elbow/Forearm Left Active ROM Testing Position Sitting Comments 3-140 deg's PT-OP-L Special Tests Start: 12/27/21 16:53 Freq: Status: Active Protocol: Document 12/29/21 13:51 SAK (Rec: 01/02/22 17:20 SAK [id number]) Special Tests Shoulder Special Tests Lift-Off Rotator Cuff Test Results positive josé luis left greater than righ Drop Arm Rotator Cuff Test Results positive josé luis left greater than right PT-OP-M Strength Start: 12/27/21 16:53 Freq: Status: Active Protocol: Document 04/27/22 13:48 LRN (Rec: 04/27/22 20:20 LRN [id number]) Shoulder Strength Shoulder Manual Muscle Testing Right Flexion 3- Fair- Abduction (C5) 3- Fair- Adduction 3- Fair- External Rotation 3- Fair- Internal Rotation 3- Fair- Horizontal Abduction 3- Fair- Horizontal Adduction 3- Fair- Comments Strength as assessed initial visit 12/29/21 Left Comments Deferred, pt in sling. Pt phase I protocol for PROM only. No strengthening until 12 weeks Post Op. PT-OP-Q Treatments Start: 12/27/21 16:53 Freq: Status: Active Protocol: Document 05/31/22 09:06 [facility] (Rec: 05/31/22 10:08 [facility] [id number]) Cardio Equipment Upper Body Ergometer (UBE) Duration (Minutes) 5 RPM 120 Seat Position 9 Height 1.5 Other forward only, cues for posture , pain-free ROM Therapeutic Exercises Sidelying Exercises scapular clocks Resistance manual Reps/Minutes 10x ea Comments 3:00 , 5:00 Sitting Exercises table slides Sitting Exercise Name FF, scaption Side left Resistance AAROM Reps/Minutes x10 each Comments cues for thumb up, good feedback ROM feels good to do. trunk rotation Sitting Exercise Name trunk rotation Side bilateral Reps/Minutes x10 Comments RUE supporting LLE Neck stretch Sitting Exercise Name HEP Forearm sup/pron Sitting Exercise Name Forearm sup/pron Side left Resistance AROM>#2 DB Equipment Used elbow supported on chair arm Reps/Minutes 30x Comments improved form Elbow flex Sitting Exercise Name Active elbow flex: Palm up, side, down. Side left Resistance AROM> #2DB (instructed hammer at home) Reps/Minutes 10x each Comments good form Standing Exercises tricep press Equipment Used L1 TB Reps/Minutes 10x5 Comments cues for neutral posture, tricep only IR/ ER isometric Side left Equipment Used at wall corner/doorway Reps/Minutes 5 sec hold x5 reps each x2 sets Comments cues for gentle pressure, neutral postural alignment Scap retract Resistance L1 TB Self-Care/Home Management Treatment Education Patient Education Home Exercise Program Other Education added UBE, tricep press, scapular retraction per protocol both with L1 TB, cues to inhibit UT Sidelying scapular clocks with manual resistance and cues to inhibit UT. PT-OP-R Modalities Start: 12/27/21 16:53 Freq: Status: Active Protocol: Document 01/11/22 09:04 [facility] (Rec: 01/11/22 09:51 [facility] [id number]) Hot Pack/Cold Pack Treatment Cold Pack Location José Luis shds Patient Position Hooklying Treatment Duration (minutes) 10 Patient Tolerance Good PT-OP-T Assessment and Plan Start: 12/27/21 16:53 Freq: Status: Active Protocol: Document 05/31/22 09:06 [facility] (Rec: 05/31/22 10:08 [facility] [id number]) Physical Therapy Assessment Goals Three Impairment ROM Short Term Goal (STG) Per protocol, Phase 1: PROTECT SURGERY. DECR PAIN AND INFLAMMATION, pt education in self care. GOAL MET STG Duration 6 wks GOAL MET 05/23/22 Associate School Psychologist Goal (LTG) Per protocol Phase II: (6-12 wks) Caution with flexion and throughout phase, functional ROM. Pt able to reach up in high cupboard. 05/23/22: initiated AAROM PHase II. LTG Duration 4 months progression Two Impairment Decreased strength, not to start strengthening until phase II of protcol Short Term Goal (STG) Per protocol, Phase II: Begin gentle strengthening and scapular strengthening, Marielena IR/ER & tolerate UBE towards end of phase. Patient educated in HEP of starting AROM. STG Duration 3 months (12 weeks) Mcc Goal (LTG) Per protocol, Phase III - IV: Left shoulder ROM WFL, and left shoulder beginning and progressing weighted strenghtening, with L shoulder strength least 4-/5 all motions to allow him to return to usual activities. LTG Duration 6 months (24 weeks) One Impairment HEP Impairment Quickdash disability index score 50% Short Term Goal (STG) Phase II: Pt will be educated in PROM/AROM ex's on home program. STG Duration 3 months (6-12 weeks) Mcc Goal (LTG) Pt will be independent in self residential and aquatic ex program for L shoulder ROM and strengthening ex's. LTG Duration 6 months (10/30/22) Assessment Summary Assessment good tolerance for progression of ther ex per post-op protocol, continued cues for pain-free ROM and intensity. Moderate cues required for UT inhibition. Physical Therapy Plan Frequency and Duration Frequency of Treatment 2x/Week Duration of treatment (weeks) 24 Plan of Care Start Date 04/27/22 Plan of Care End Date 10/30/22 Therapeutic Interventions Therapeutic Interventions Aquatic Therapy,Home Exercise Program,Manual Therapy, Neuromuscular Re-education, Patient/Caregiver Education, Self-Care/Home Management,Soft Tissue Mobilization,Taping, Therapeutic Activities, Therapeutic Exercises Modalities Cold Pack/Ice Massage,Electric Stimulation,Hot Packs, Infrared Therapy,Iontophoresis ,Ultrasound Next Visit Focus/Plan Next Note Type Treatment Note Next Visit Plan assess response to today's treatment, review tricep press , scap retraction with theraband, continue scapular clocks sidelying, gentle progression of ROM and strengthening per protocol.
--- NOTE | 2022-06-06 17:07 | PT.OTN ---
Current Diagnoses Pain in left shoulder (06/06/22) Bursitis of left shoulder (06/06/22) Contusion of left shoulder, initial encounter (06/06/22) Physical Therapy Treatment Note PT-OP-A Visit Information Start: 12/27/21 16:53 Freq: Status: Active Protocol: Document 06/06/22 11:08 [facility] (Rec: 06/06/22 12:11 SAK [id number]) Out-Patient Physical Therapy Visit Information Visit Information Visit Type Treatment Note Visit Start Time 11:15 Visit Number 20 Number of SLACKMAN Visits 0 Evaluation Information Evaluation Date 12/29/21 Precautions Precautions Surgery approx 04/05/22: L rotator cuff repair of large tear by Dr. Buck. Initial eval indicates full tear of one tendon, partial of 3 others. PT-OP-B Current Condition Start: 12/27/21 16:53 Freq: Status: Active Protocol: Document 04/27/22 13:48 LRN (Rec: 04/28/22 19:47 LRN [id number]) Current Condition History of Current Condition Onset Date 2 wks ago L RCR massive full tear repair Current Complaints left shoulder not to be moved, in sling, pain / History of Current Condition Initial injury: Walking out of bus carrying things in hands, lost balance on ice, came down on left elbow, initially left shoulder pain, within a couple days feeling pain on right as well. At this time claim only approved for left shoulder. x-ray: swelling. MRI: full tear of one tendon, partial of 3 others. Surgical repair on the left shoulder 2 weeks ago. Pt presents with rehabilitation protocol for Lg to Massive RCR , subacromial decmprssion. 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 Prior Treatments and Tests Pt using mainly ice post op. Not taking medications because he doesn't like how it makes him feel. Treatment Goals Patient/Caregiver Goals Rehab per protocol. Personal Factors Other Personal Factors That May Effect Right shoulder pain as well as Therapy/Recovery left PT-OP-C Subjective Start: 12/27/21 16:53 Freq: Status: Active Protocol: Document 06/06/22 11:08 [facility] (Rec: 06/06/22 12:11 SAK [id number]) OP-PT Subjective Patient Comments Patient Comments No new c/o, tolerated last session well. Compliant to HEP. PT-OP-E Functional Tests Start: 12/27/21 16:53 Freq: Status: Active Protocol: Document 12/29/21 13:51 SAK (Rec: 01/02/22 17:20 SAK [id number]) Functional Tests Apley's Scratch Test Action 1- Left medial chest Action 1- Right anterior shoulder Action 2- Left lateral neck Action 2- Right T1 Action 3- Left L3 Action 3- Right L3 PT-OP-H Neuro Start: 12/27/21 16:53 Freq: Status: Active Protocol: Document 12/29/21 13:51 SAK (Rec: 01/02/22 17:20 SAK [id number]) Sensation Evaluation Gross Sensation Gross Sensation WNL PT-OP-J Posture/Palpation/Skin Start: 12/27/21 16:53 Freq: Status: Active Protocol: Document 04/27/22 13:48 LRN (Rec: 04/27/22 20:20 LRN [id number]) Posture Evaluation Position Sitting Evaluation View Pt L shoulder in sling Comments Posture Comments Pt able to don/doff sling independently without complaints of pain. Palpation Assessment Location Healed scars Palpation Location L shoulder: Anterior and posterior incisions Palpation Details Good mobility of well healed scars with barely visible incision lines noted. No tenderness. PT-OP-K Range of Motion Start: 12/27/21 16:53 Freq: Status: Active Protocol: Document 04/27/22 13:48 LRN (Rec: 04/27/22 20:20 LRN [id number]) Shoulder Goniometric Range of Motion Shoulder Right Shoulder ROM WFL No Flexion 91 Extension 11 Abduction 98 External Rotation at 0 degrees Abduction 38 Internal Rotation Behind Back (text) L3 Comments painful arc ROM as previously taken . Left Shoulder ROM WFL No Testing Position Leaning forward Flexion 35 Comments Held assessment of other motions per pt report referring physician did not want him moving the L shoulder . Elbow/Forearm Range of Motion Elbow/Forearm Left Active ROM Testing Position Sitting Comments 3-140 deg's PT-OP-L Special Tests Start: 12/27/21 16:53 Freq: Status: Active Protocol: Document 12/29/21 13:51 SAK (Rec: 01/02/22 17:20 SAK [id number]) Special Tests Shoulder Special Tests Lift-Off Rotator Cuff Test Results positive josé luis left greater than righ Drop Arm Rotator Cuff Test Results positive josé luis left greater than right PT-OP-M Strength Start: 12/27/21 16:53 Freq: Status: Active Protocol: Document 04/27/22 13:48 LRN (Rec: 04/27/22 20:20 LRN [id number]) Shoulder Strength Shoulder Manual Muscle Testing Right Flexion 3- Fair- Abduction (C5) 3- Fair- Adduction 3- Fair- External Rotation 3- Fair- Internal Rotation 3- Fair- Horizontal Abduction 3- Fair- Horizontal Adduction 3- Fair- Comments Strength as assessed initial visit 12/29/21 Left Comments Deferred, pt in sling. Pt phase I protocol for PROM only. No strengthening until 12 weeks Post Op. PT-OP-Q Treatments Start: 12/27/21 16:53 Freq: Status: Active Protocol: Document 06/06/22 11:08 SAK (Rec: 06/06/22 12:11 SAK [id number]) Cardio Equipment Upper Body Ergometer (UBE) Duration (Minutes) 6 RPM 120 Seat Position 9 Height 1.5 Other fwd/bck Therapeutic Exercises Supine Exercises shld IR Supine Exercise Name PROM at 30 deg abduction, supported on towel roll Reps/Minutes 10x PNF Supine Exercise Name D2 Reps/Minutes 10x AROM serratus press Resistance 1# Reps/Minutes 10x2 Comments cues for full movement shld ER Supine Exercise Name PROM at 30 deg abd, supported on towel roll Reps/Minutes 10x Sidelying Exercises scapular clocks Resistance manual Reps/Minutes 10x ea Comments 3:00 , 5:00 Sitting Exercises shoulder IR Equipment Used towel Comments doing in shower at home table slides Sitting Exercise Name HEP trunk rotation Sitting Exercise Name HEP Neck stretch Sitting Exercise Name HEP Forearm sup/pron Sitting Exercise Name HEP Elbow flex Sitting Exercise Name HEP pulleys Sitting Exercise Name flex, scaption, abduction Reps/Minutes 10x ea Comments cues for relaxed shoulder movement. Standing Exercises bicep curl Resistance 3# Reps/Minutes 10x Comments cues to set scapulas tricep press Equipment Used L1 TB Reps/Minutes 10x5 Comments cues for neutral posture, tricep only IR/ ER isometric Standing Exercise Name sidesteps Side left Equipment Used L1 TB Reps/Minutes 5 sec hold x5 reps each x2 sets Comments cues for setting scapula Scap retract Standing Exercise Name row, shld ext Resistance L1 TB Comments emphasis on scapular movement and stab Manual Therapy Treatment Soft Tissue Mobilization scar tissue Body Location left shoulder Mobilization Type Myofascial Release,Rolling Intensity/Depth Moderate Body Position Hooklying Manual Techniques PROM L shoulder Body Location PROM L shld Comments Per protocol: no more than 90 deg flexion, IR/ER in 30 deg abduction as tolerated, abduction with caution to tolerance. Self-Care/Home Management Treatment Education Patient Education Body Mechanics,Home Exercise Program,Posture PT-OP-R Modalities Start: 12/27/21 16:53 Freq: Status: Active Protocol: Document 01/11/22 09:04 [facility] (Rec: 01/11/22 09:51 [facility] [id number]) Hot Pack/Cold Pack Treatment Cold Pack Location José Luis shds Patient Position Hooklying Treatment Duration (minutes) 10 Patient Tolerance Good PT-OP-T Assessment and Plan Start: 12/27/21 16:53 Freq: Status: Active Protocol: Document 06/06/22 11:08 [facility] (Rec: 06/06/22 12:11 [facility] [id number]) Physical Therapy Assessment Impairments Impairments Activity Tolerance,Pain,ROM, Soft Tissue Mobility,Strength Goals Three Impairment ROM Short Term Goal (STG) Per protocol, Phase 1: PROTECT SURGERY. DECR PAIN AND INFLAMMATION, pt education in self care. GOAL MET STG Duration 6 wks GOAL MET 05/23/22 Baseboard Heating Installer Goal (LTG) Per protocol Phase II: (6-12 wks) Caution with flexion and throughout phase, functional ROM. Pt able to reach up in high cupboard. 05/23/22: initiated AAROM PHase II. LTG Duration 4 months progression Two Impairment Decreased strength, not to start strengthening until phase II of protcol Short Term Goal (STG) Per protocol, Phase II: Begin gentle strengthening and scapular strengthening, Marielena IR/ER & tolerate UBE towards end of phase. Patient educated in HEP of starting AROM. STG Duration 3 months (12 weeks) Correction Goal (LTG) Per protocol, Phase III - IV: Left shoulder ROM WFL, and left shoulder beginning and progressing weighted strenghtening, with L shoulder strength least 4-/5 all motions to allow him to return to usual activities. LTG Duration 6 months (24 weeks) One Impairment HEP Impairment Quickdash disability index score 50% Short Term Goal (STG) Phase II: Pt will be educated in PROM/AROM ex's on home program. STG Duration 3 months (6-12 weeks) Baseboard Heating Installer Goal (LTG) Pt will be independent in self usp and aquatic ex program for L shoulder ROM and strengthening ex's. LTG Duration 6 months (10/30/22) Assessment Summary Assessment Continue to tolerate exercise progression well including UBE with ability to do backward today, seratus punch, improved scapular control with scapular clocks. Denied pain with all ex. Further scar mobilization indicated. Physical Therapy Plan Frequency and Duration Frequency of Treatment 2x/Week Duration of treatment (weeks) 24 Plan of Care Start Date 04/27/22 Plan of Care End Date 10/30/22 Therapeutic Interventions Therapeutic Interventions Aquatic Therapy,Home Exercise Program,Manual Therapy, Neuromuscular Re-education, Patient/Caregiver Education, Self-Care/Home Management,Soft Tissue Mobilization,Taping, Therapeutic Activities, Therapeutic Exercises Modalities Cold Pack/Ice Massage,Electric Stimulation,Hot Packs, Infrared Therapy,Iontophoresis ,Ultrasound Next Visit Focus/Plan Next Note Type Treatment Note Next Visit Plan Continue ther ex progression per protocol.
--- NOTE | 2022-06-07 10:15 | PT.OTN ---
Current Diagnoses Pain in left shoulder (06/07/22) Bursitis of left shoulder (06/07/22) Contusion of left shoulder, initial encounter (06/07/22) Physical Therapy Treatment Note PT-OP-A Visit Information Start: 12/27/21 16:53 Freq: Status: Active Protocol: Document 06/07/22 10:15 SAK (Rec: 06/12/22 14:08 SAK [id number]) Out-Patient Physical Therapy Visit Information Visit Information Visit Type Aquatic Treatment Note Visit Start Time 10:15 Visit Stop Time 11:00 Total Visit Minutes 45 Visit Number 21 Evaluation Information Evaluation Date 12/29/21 Precautions Precautions Surgery approx 04/05/22: L rotator cuff repair of large tear by Dr. Buck. Initial eval indicates full tear of one tendon, partial of 3 others. PT-OP-B Current Condition Start: 12/27/21 16:53 Freq: Status: Active Protocol: Document 04/27/22 13:48 LRN (Rec: 04/28/22 19:47 LRN [id number]) Current Condition History of Current Condition Onset Date 2 wks ago L RCR massive full tear repair Current Complaints left shoulder not to be moved, in sling, pain / History of Current Condition Initial injury: Walking out of bus carrying things in hands, lost balance on ice, came down on left elbow, initially left shoulder pain, within a couple days feeling pain on right as well. At this time claim only approved for left shoulder. x-ray: swelling. MRI: full tear of one tendon, partial of 3 others. Surgical repair on the left shoulder 2 weeks ago. Pt presents with rehabilitation protocol for Lg to Massive RCR , subacromial decmprssion. 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 Prior Treatments and Tests Pt using mainly ice post op. Not taking medications because he doesn't like how it makes him feel. Treatment Goals Patient/Caregiver Goals Rehab per protocol. Personal Factors Other Personal Factors That May Effect Right shoulder pain as well as Therapy/Recovery left PT-OP-C Subjective Start: 12/27/21 16:53 Freq: Status: Active Protocol: Document 06/07/22 10:15 SAK (Rec: 06/12/22 14:08 SAK [id number]) OP-PT Subjective Patient Comments Patient Comments Excited to try aquatic PT PT-OP-E Functional Tests Start: 12/27/21 16:53 Freq: Status: Active Protocol: Document 12/29/21 13:51 SAK (Rec: 01/02/22 17:20 SAK [id number]) Functional Tests Apley's Scratch Test Action 1- Left medial chest Action 1- Right anterior shoulder Action 2- Left lateral neck Action 2- Right T1 Action 3- Left L3 Action 3- Right L3 PT-OP-H Neuro Start: 12/27/21 16:53 Freq: Status: Active Protocol: Document 12/29/21 13:51 SAK (Rec: 01/02/22 17:20 SAK [id number]) Sensation Evaluation Gross Sensation Gross Sensation WNL PT-OP-J Posture/Palpation/Skin Start: 12/27/21 16:53 Freq: Status: Active Protocol: Document 04/27/22 13:48 LRN (Rec: 04/27/22 20:20 LRN [id number]) Posture Evaluation Position Sitting Evaluation View Pt L shoulder in sling Comments Posture Comments Pt able to don/doff sling independently without complaints of pain. Palpation Assessment Location Healed scars Palpation Location L shoulder: Anterior and posterior incisions Palpation Details Good mobility of well healed scars with barely visible incision lines noted. No tenderness. PT-OP-K Range of Motion Start: 12/27/21 16:53 Freq: Status: Active Protocol: Document 04/27/22 13:48 LRN (Rec: 04/27/22 20:20 LRN [id number]) Shoulder Goniometric Range of Motion Shoulder Right Shoulder ROM WFL No Flexion 91 Extension 11 Abduction 98 External Rotation at 0 degrees Abduction 38 Internal Rotation Behind Back (text) L3 Comments painful arc ROM as previously taken . Left Shoulder ROM WFL No Testing Position Leaning forward Flexion 35 Comments Held assessment of other motions per pt report referring physician did not want him moving the L shoulder . Elbow/Forearm Range of Motion Elbow/Forearm Left Active ROM Testing Position Sitting Comments 3-140 deg's PT-OP-L Special Tests Start: 12/27/21 16:53 Freq: Status: Active Protocol: Document 12/29/21 13:51 SAK (Rec: 01/02/22 17:20 SAK [id number]) Special Tests Shoulder Special Tests Lift-Off Rotator Cuff Test Results positive josé luis left greater than righ Drop Arm Rotator Cuff Test Results positive josé luis left greater than right PT-OP-M Strength Start: 12/27/21 16:53 Freq: Status: Active Protocol: Document 04/27/22 13:48 LRN (Rec: 04/27/22 20:20 LRN [id number]) Shoulder Strength Shoulder Manual Muscle Testing Right Flexion 3- Fair- Abduction (C5) 3- Fair- Adduction 3- Fair- External Rotation 3- Fair- Internal Rotation 3- Fair- Horizontal Abduction 3- Fair- Horizontal Adduction 3- Fair- Comments Strength as assessed initial visit 12/29/21 Left Comments Deferred, pt in sling. Pt phase I protocol for PROM only. No strengthening until 12 weeks Post Op. PT-OP-Q Treatments Start: 12/27/21 16:53 Freq: Status: Active Protocol: Document 06/06/22 11:08 SAK (Rec: 06/06/22 12:11 SAK [id number]) Cardio Equipment Upper Body Ergometer (UBE) Duration (Minutes) 6 RPM 120 Seat Position 9 Height 1.5 Other fwd/bck Therapeutic Exercises Supine Exercises shld IR Supine Exercise Name PROM at 30 deg abduction, supported on towel roll Reps/Minutes 10x PNF Supine Exercise Name D2 Reps/Minutes 10x AROM serratus press Resistance 1# Reps/Minutes 10x2 Comments cues for full movement shld ER Supine Exercise Name PROM at 30 deg abd, supported on towel roll Reps/Minutes 10x Sidelying Exercises scapular clocks Resistance manual Reps/Minutes 10x ea Comments 3:00 , 5:00 Sitting Exercises shoulder IR Equipment Used towel Comments doing in shower at home table slides Sitting Exercise Name HEP trunk rotation Sitting Exercise Name HEP Neck stretch Sitting Exercise Name HEP Forearm sup/pron Sitting Exercise Name HEP Elbow flex Sitting Exercise Name HEP pulleys Sitting Exercise Name flex, scaption, abduction Reps/Minutes 10x ea Comments cues for relaxed shoulder movement. Standing Exercises bicep curl Resistance 3# Reps/Minutes 10x Comments cues to set scapulas tricep press Equipment Used L1 TB Reps/Minutes 10x5 Comments cues for neutral posture, tricep only IR/ ER isometric Standing Exercise Name sidesteps Side left Equipment Used L1 TB Reps/Minutes 5 sec hold x5 reps each x2 sets Comments cues for setting scapula Scap retract Standing Exercise Name row, shld ext Resistance L1 TB Comments emphasis on scapular movement and stab Manual Therapy Treatment Soft Tissue Mobilization scar tissue Body Location left shoulder Mobilization Type Myofascial Release,Rolling Intensity/Depth Moderate Body Position Hooklying Manual Techniques PROM L shoulder Body Location PROM L shld Comments Per protocol: no more than 90 deg flexion, IR/ER in 30 deg abduction as tolerated, abduction with caution to tolerance. Self-Care/Home Management Treatment Education Patient Education Body Mechanics,Home Exercise Program,Posture PT-OP-R Modalities Start: 12/27/21 16:53 Freq: Status: Active Protocol: Document 01/11/22 09:04 SAK (Rec: 01/11/22 09:51 [facility] [id number]) Hot Pack/Cold Pack Treatment Cold Pack Location José Luis shds Patient Position Hooklying Treatment Duration (minutes) 10 Patient Tolerance Good PT-OP-S Aquatic Treatment Start: 12/27/21 16:53 Freq: Status: Active Protocol: Document 06/07/22 10:15 SAK (Rec: 06/12/22 14:08 [facility] [id number]) Aquatics Treatment Pool Entry/Exit Pool Entry/Exit Method Stairs Assistance Independent Water Walking fwd,back,,october Water Level Chest Level Level of Assistance Verbal Cues Comments cues for UE use all movements Upper Extremity Exercises sh fl/ext Reps/Duration 10x2 Comments with forearm pron and sup sh ER/IR Body Position Standing Water Level Chest Level Reps/Duration 10x2 bicep curl/tricep press Body Position Standing Water Level Chest Level Reps/Duration 10x2 hor ab/ad Body Position Standing Water Level Chest Level Reps/Duration 10x2 circles Body Position Standing Water Level Chest Level Reps/Duration 10x CW, 10xCCW Laura Activities Laura Activities Bicycle,Running Other Activities with breastroke, then alternating UE's, shoulders under water Equipment flotation belt Swim Strokes Elementary Backstroke Equipment Flotation Belt Laps/Duration 15m x 2 Manual Techniques Bad Ragaz passive for upper trunk and shoulder ROM neck float, waist float, noodle under knees Aquatic Massage periscapular region, shoulder PT-OP-T Assessment and Plan Start: 12/27/21 16:53 Freq: Status: Active Protocol: Document 06/07/22 10:15 SAK (Rec: 06/12/22 14:08 [facility] [id number]) Physical Therapy Assessment Impairments Impairments Activity Tolerance,Pain,ROM, Soft Tissue Mobility,Strength Goals Three Impairment ROM Short Term Goal (STG) Per protocol, Phase 1: PROTECT SURGERY. DECR PAIN AND INFLAMMATION, pt education in self care. GOAL MET STG Duration 6 wks GOAL MET 05/23/22 [employer] P[employer] Developer Goal (LTG) Per protocol Phase II: (6-12 wks) Caution with flexion and throughout phase, functional ROM. Pt able to reach up in high cupboard. 05/23/22: initiated AAROM PHase II. LTG Duration 4 months progression Two Impairment Decreased strength, not to start strengthening until phase II of protcol Short Term Goal (STG) Per protocol, Phase II: Begin gentle strengthening and scapular strengthening, Marielena IR/ER & tolerate UBE towards end of phase. Patient educated in HEP of starting AROM. STG Duration 3 months (12 weeks) [employer] P8 Developer Goal (LTG) Per protocol, Phase III - IV: Left shoulder ROM WFL, and left shoulder beginning and progressing weighted strenghtening, with L shoulder strength least 4-/5 all motions to allow him to return to usual activities. LTG Duration 6 months (24 weeks) One Impairment HEP Impairment Quickdash disability index score 50% Short Term Goal (STG) Phase II: Pt will be educated in PROM/AROM ex's on home program. STG Duration 3 months (6-12 weeks) Group Home Goal (LTG) Pt will be independent in self senior care and aquatic ex program for L shoulder ROM and strengthening ex's. LTG Duration 6 months (10/30/22) Progress Towards Goals Progress Towards Goals Progressing Toward Goals Assessment Summary Assessment Good tolerance for aquatic exercise and manual techniques with cues for slow speed andpain-free ROM due to potential for overdoing in the pool as no pain. Physical Therapy Plan Frequency and Duration Frequency of Treatment 2x/Week Duration of treatment (weeks) 24 Plan of Care Start Date 04/27/22 Plan of Care End Date 10/12/22 Therapeutic Interventions Therapeutic Interventions Aquatic Therapy,Home Exercise Program,Manual Therapy, Neuromuscular Re-education, Patient/Caregiver Education, Self-Care/Home Management,Soft Tissue Mobilization,Taping, Therapeutic Activities, Therapeutic Exercises Modalities Cold Pack/Ice Massage,Electric Stimulation,Hot Packs, Infrared Therapy,Iontophoresis ,Ultrasound Next Visit Focus/Plan Next Note Type Treatment Note Next Visit Plan Assess response to aquatic PT and progress ther ex as tolerated for shoulder ROM and strengthening.
--- NOTE | 2022-06-19 16:10 | PT.OTN ---
Current Diagnoses Pain in left shoulder (06/19/22) Bursitis of left shoulder (06/19/22) Contusion of left shoulder, initial encounter (06/19/22) Physical Therapy Treatment Note PT-OP-A Visit Information Start: 12/27/21 16:53 Freq: Status: Active Protocol: Document 06/19/22 15:11 SAK (Rec: 06/19/22 16:10 SAK [id number]) Out-Patient Physical Therapy Visit Information Visit Information Visit Type Treatment Note Visit Start Time 15:14 Visit Stop Time 16:01 Total Visit Minutes 45 Visit Number 23 Evaluation Information Evaluation Date 12/29/21 Precautions Precautions Surgery approx 04/05/22: L rotator cuff repair of large tear by Dr. Buck. Initial eval indicates full tear of one tendon, partial of 3 others. PT-OP-B Current Condition Start: 12/27/21 16:53 Freq: Status: Active Protocol: Document 04/27/22 13:48 LRN (Rec: 04/28/22 19:47 LRN [id number]) Current Condition History of Current Condition Onset Date 2 wks ago L RCR massive full tear repair Current Complaints left shoulder not to be moved, in sling, pain / History of Current Condition Initial injury: Walking out of bus carrying things in hands, lost balance on ice, came down on left elbow, initially left shoulder pain, within a couple days feeling pain on right as well. At this time claim only approved for left shoulder. x-ray: swelling. MRI: full tear of one tendon, partial of 3 others. Surgical repair on the left shoulder 2 weeks ago. Pt presents with rehabilitation protocol for Lg to Massive RCR , subacromial decmprssion. 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 Prior Treatments and Tests Pt using mainly ice post op. Not taking medications because he doesn't like how it makes him feel. Treatment Goals Patient/Caregiver Goals Rehab per protocol. Personal Factors Other Personal Factors That May Effect Right shoulder pain as well as Therapy/Recovery left PT-OP-C Subjective Start: 12/27/21 16:53 Freq: Status: Active Protocol: Document 06/19/22 15:11 SAK (Rec: 06/19/22 16:10 SAK [id number]) OP-PT Subjective Patient Comments Patient Comments Reports L and I called him to check in, he requested more PT visits, including for aquatic PT. PT-OP-E Functional Tests Start: 12/27/21 16:53 Freq: Status: Active Protocol: Document 12/29/21 13:51 SAK (Rec: 01/02/22 17:20 SAK [id number]) Functional Tests Apley's Scratch Test Action 1- Left medial chest Action 1- Right anterior shoulder Action 2- Left lateral neck Action 2- Right T1 Action 3- Left L3 Action 3- Right L3 PT-OP-H Neuro Start: 12/27/21 16:53 Freq: Status: Active Protocol: Document 12/29/21 13:51 SAK (Rec: 01/02/22 17:20 SAK [id number]) Sensation Evaluation Gross Sensation Gross Sensation WNL PT-OP-J Posture/Palpation/Skin Start: 12/27/21 16:53 Freq: Status: Active Protocol: Document 04/27/22 13:48 LRN (Rec: 04/27/22 20:20 LRN [id number]) Posture Evaluation Position Sitting Evaluation View Pt L shoulder in sling Comments Posture Comments Pt able to don/doff sling independently without complaints of pain. Palpation Assessment Location Healed scars Palpation Location L shoulder: Anterior and posterior incisions Palpation Details Good mobility of well healed scars with barely visible incision lines noted. No tenderness. PT-OP-K Range of Motion Start: 12/27/21 16:53 Freq: Status: Active Protocol: Document 04/27/22 13:48 LRN (Rec: 04/27/22 20:20 LRN [id number]) Shoulder Goniometric Range of Motion Shoulder Right Shoulder ROM WFL No Flexion 91 Extension 11 Abduction 98 External Rotation at 0 degrees Abduction 38 Internal Rotation Behind Back (text) L3 Comments painful arc ROM as previously taken . Left Shoulder ROM WFL No Testing Position Leaning forward Flexion 35 Comments Held assessment of other motions per pt report referring physician did not want him moving the L shoulder . Elbow/Forearm Range of Motion Elbow/Forearm Left Active ROM Testing Position Sitting Comments 3-140 deg's PT-OP-L Special Tests Start: 12/27/21 16:53 Freq: Status: Active Protocol: Document 12/29/21 13:51 SAK (Rec: 01/02/22 17:20 SAK [id number]) Special Tests Shoulder Special Tests Lift-Off Rotator Cuff Test Results positive josé luis left greater than righ Drop Arm Rotator Cuff Test Results positive josé luis left greater than right PT-OP-M Strength Start: 12/27/21 16:53 Freq: Status: Active Protocol: Document 04/27/22 13:48 LRN (Rec: 04/27/22 20:20 LRN [id number]) Shoulder Strength Shoulder Manual Muscle Testing Right Flexion 3- Fair- Abduction (C5) 3- Fair- Adduction 3- Fair- External Rotation 3- Fair- Internal Rotation 3- Fair- Horizontal Abduction 3- Fair- Horizontal Adduction 3- Fair- Comments Strength as assessed initial visit 12/29/21 Left Comments Deferred, pt in sling. Pt phase I protocol for PROM only. No strengthening until 12 weeks Post Op. PT-OP-Q Treatments Start: 12/27/21 16:53 Freq: Status: Active Protocol: Document 06/19/22 15:11 SAK (Rec: 06/19/22 16:10 SAK [id number]) Cardio Equipment Upper Body Ergometer (UBE) Duration (Minutes) 6 RPM 90 Seat Position 9 Height 3 Other fwd/bck Therapeutic Exercises Supine Exercises chest press Resistance 1# Reps/Minutes 10x1 FF Side bilateral Equipment Used L1 TB gentle pull lat to activate RC Reps/Minutes 10x serratus press Resistance 1# Reps/Minutes 10x2 Comments cues for full movement shld ER Supine Exercise Name PROM at 30 deg abd, supported on towel roll Reps/Minutes 10x Prone Exercises Y Reps/Minutes 10x Comments cues for gentle, pain-free Ts, Is Side bilateral Resistance 1# I Reps/Minutes x10 Comments cued no UT recruitment, post/ inf glide scapula Sidelying Exercises shoulder ER Equipment Used towel roll Reps/Minutes 10x5 scapular clocks Resistance manual Reps/Minutes 10x ea Comments 3:00 , 4:00, 5:00 Sitting Exercises shoulder IR Sitting Exercise Name HEP trunk rotation Sitting Exercise Name HEP Neck stretch Sitting Exercise Name HEP pulleys Sitting Exercise Name flex, scaption, abduction Reps/Minutes 10x ea Comments cues for relaxed shoulder movement. Standing Exercises external rotation Standing Exercise Name mirror for visual feedback Reps/Minutes 10x2 Comments arm supported on table, foam shoulder add Equipment Used L1 TB Reps/Minutes 10x5 shoulder ER Resistance L1 TB Equipment Used towel roll Reps/Minutes 10x5 Should IR Resistance L1 TB Equipment Used towel roll Reps/Minutes 10x5 bicep curl Resistance 4# Reps/Minutes 10x3, 3 backend python developer Comments cues to set scapulas IR/ ER isometric Equipment Used L1 TB Comments cues for setting scapula Scap retract Standing Exercise Name row, shld ext Resistance L1 TB Comments emphasis on scapular movement and stab shoulder ext Equipment Used L1 TB TB Reps/Minutes x20 Comments good scap stab depression today Self-Care/Home Management Treatment Education Patient Education Body Mechanics,Home Exercise Program,Posture PT-OP-R Modalities Start: 12/27/21 16:53 Freq: Status: Active Protocol: Document 01/11/22 09:04 [facility] (Rec: 01/11/22 09:51 [facility] [id number]) Hot Pack/Cold Pack Treatment Cold Pack Location José Luis shds Patient Position Hooklying Treatment Duration (minutes) 10 Patient Tolerance Good PT-OP-S Aquatic Treatment Start: 12/27/21 16:53 Freq: Status: Active Protocol: Document 06/07/22 10:15 [facility] (Rec: 06/12/22 14:08 [facility] [id number]) Aquatics Treatment Pool Entry/Exit Pool Entry/Exit Method Stairs Assistance Independent Water Walking fwd,back,side,october Water Level Chest Level Level of Assistance Verbal Cues Comments cues for UE use all movements Upper Extremity Exercises sh fl/ext Reps/Duration 10x2 Comments with forearm pron and sup sh ER/IR Body Position Standing Water Level Chest Level Reps/Duration 10x2 bicep curl/tricep press Body Position Standing Water Level Chest Level Reps/Duration 10x2 hor ab/ad Body Position Standing Water Level Chest Level Reps/Duration 10x2 circles Body Position Standing Water Level Chest Level Reps/Duration 10x CW, 10xCCW [place] Activities [place] Activities Bicycle,Running Other Activities with breastroke, then alternating UE's, shoulders under water Equipment flotation belt Swim Strokes Elementary Backstroke Equipment Flotation Belt Laps/Duration 15m x 2 Manual Techniques Bad Ragaz passive for upper trunk and shoulder ROM neck float, waist float, noodle under knees Aquatic Massage periscapular region, shoulder PT-OP-T Assessment and Plan Start: 12/27/21 16:53 Freq: Status: Active Protocol: Document 06/19/22 15:11 [facility] (Rec: 06/19/22 16:10 [facility] [id number]) Physical Therapy Assessment Rehab Potential Rehabilitation Potential Good Impairments Impairments Activity Tolerance,Pain,ROM, Soft Tissue Mobility,Strength Goals Three Impairment ROM Short Term Goal (STG) Per protocol, Phase 1: PROTECT SURGERY. DECR PAIN AND INFLAMMATION, pt education in self care. GOAL MET STG Duration 6 wks GOAL MET 05/23/22 Half-Way Goal (LTG) Per protocol Phase II: (6-12 wks) Caution with flexion and throughout phase, functional ROM. Pt able to reach up in high cupboard. 05/23/22: initiated AAROM PHase II. 06/14/22: gentle strengthening biceps, triceps, scapular musculature LTG Duration 4 months progression Two Impairment Decreased strength, not to start strengthening until phase II of protcol Short Term Goal (STG) Per protocol, Phase II: Begin gentle strengthening and scapular strengthening, Marielena IR/ER & tolerate UBE towards end of phase. Patient educated in HEP of starting AROM. 06/14/22: started gentle strengthenig STG Duration 3 months (12 weeks) Half-Way Goal (LTG) Per protocol, Phase III - IV: Left shoulder ROM WFL, and left shoulder beginning and progressing weighted strenghtening, with L shoulder strength least 4-/5 all motions to allow him to return to usual activities. 06/14/22: goal progress LTG Duration 6 months (24 weeks) One Impairment HEP Impairment Quickdash disability index score 50% Short Term Goal (STG) Phase II: Pt will be educated in PROM/AROM ex's on home program. 06/14/22: ongoing progression STG Duration 3 months (6-12 weeks) Half-Way Goal (LTG) Pt will be independent in self senior living and aquatic ex program for L shoulder ROM and strengthening ex's. 06/14/22: good compliance with good tolerance for progression of ther ex. LTG Duration 6 months (10/30/22) Progress Towards Goals Progress Towards Goals Progressing Toward Goals Assessment Summary Assessment Good tolerance for gentle progression of ther ex, denied pain, improving scapular activation. Use of mirror improves mechanics, dec UT activation. Excellent compliance to HEP, self-care with heat and ice. Physical Therapy Plan Frequency and Duration Frequency of Treatment 2x/Week Duration of treatment (weeks) 24 Plan of Care Start Date 04/27/22 Plan of Care End Date 10/12/22 Therapeutic Interventions Therapeutic Interventions Aquatic Therapy,Home Exercise Program,Manual Therapy, Neuromuscular Re-education, Patient/Caregiver Education, Self-Care/Home Management,Soft Tissue Mobilization,Taping, Therapeutic Activities, Therapeutic Exercises Modalities Cold Pack/Ice Massage,Electric Stimulation,Hot Packs, Infrared Therapy,Iontophoresis ,Ultrasound Next Visit Focus/Plan Next Note Type Treatment Note Next Visit Plan Continue gentle strengthening as tolerated, emphasis on correct muscle activation and technique, use of mirror as able.
--- NOTE | 2022-06-21 09:23 | PT.OTN ---
Current Diagnoses Pain in left shoulder (06/21/22) Bursitis of left shoulder (06/21/22) Contusion of left shoulder, initial encounter (06/21/22) Physical Therapy Treatment Note PT-OP-A Visit Information Start: 12/27/21 16:53 Freq: Status: Active Protocol: Document 06/21/22 10:15 SAK (Rec: 06/22/22 09:22 SAK [id number]) Out-Patient Physical Therapy Visit Information Visit Information Visit Type Treatment Note Visit Start Time 15:14 Visit Stop Time 16:01 Total Visit Minutes 45 Visit Number 23 Precautions Precautions Surgery approx 04/05/22: L rotator cuff repair of large tear by Dr. Buck. Initial eval indicates full tear of one tendon, partial of 3 others. PT-OP-B Current Condition Start: 12/27/21 16:53 Freq: Status: Active Protocol: Document 04/27/22 13:48 LRN (Rec: 04/28/22 19:47 LRN [id number]) Current Condition History of Current Condition Onset Date 2 wks ago L RCR massive full tear repair Current Complaints left shoulder not to be moved, in sling, pain / History of Current Condition Initial injury: Walking out of bus carrying things in hands, lost balance on ice, came down on left elbow, initially left shoulder pain, within a couple days feeling pain on right as well. At this time claim only approved for left shoulder. x-ray: swelling. MRI: full tear of one tendon, partial of 3 others. Surgical repair on the left shoulder 2 weeks ago. Pt presents with rehabilitation protocol for Lg to Massive RCR , subacromial decmprssion. 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 Prior Treatments and Tests Pt using mainly ice post op. Not taking medications because he doesn't like how it makes him feel. Treatment Goals Patient/Caregiver Goals Rehab per protocol. Personal Factors Other Personal Factors That May Effect Right shoulder pain as well as Therapy/Recovery left PT-OP-C Subjective Start: 12/27/21 16:53 Freq: Status: Active Protocol: Document 06/21/22 10:15 SAK (Rec: 06/22/22 09:22 SAK [id number]) OP-PT Subjective Patient Comments Patient Comments No new c/o, really likes aquatic therapy. Feels he continues to improve with PT. PT-OP-E Functional Tests Start: 12/27/21 16:53 Freq: Status: Active Protocol: Document 12/29/21 13:51 SAK (Rec: 01/02/22 17:20 SAK [id number]) Functional Tests Apley's Scratch Test Action 1- Left medial chest Action 1- Right anterior shoulder Action 2- Left lateral neck Action 2- Right T1 Action 3- Left L3 Action 3- Right L3 PT-OP-H Neuro Start: 12/27/21 16:53 Freq: Status: Active Protocol: Document 12/29/21 13:51 SAK (Rec: 01/02/22 17:20 SAK [id number]) Sensation Evaluation Gross Sensation Gross Sensation WNL PT-OP-J Posture/Palpation/Skin Start: 12/27/21 16:53 Freq: Status: Active Protocol: Document 04/27/22 13:48 LRN (Rec: 04/27/22 20:20 LRN [id number]) Posture Evaluation Position Sitting Evaluation View Pt L shoulder in sling Comments Posture Comments Pt able to don/doff sling independently without complaints of pain. Palpation Assessment Location Healed scars Palpation Location L shoulder: Anterior and posterior incisions Palpation Details Good mobility of well healed scars with barely visible incision lines noted. No tenderness. PT-OP-K Range of Motion Start: 12/27/21 16:53 Freq: Status: Active Protocol: Document 04/27/22 13:48 LRN (Rec: 04/27/22 20:20 LRN [id number]) Shoulder Goniometric Range of Motion Shoulder Right Shoulder ROM WFL No Flexion 91 Extension 11 Abduction 98 External Rotation at 0 degrees Abduction 38 Internal Rotation Behind Back (text) L3 Comments painful arc ROM as previously taken . Left Shoulder ROM WFL No Testing Position Leaning forward Flexion 35 Comments Held assessment of other motions per pt report referring physician did not want him moving the L shoulder . Elbow/Forearm Range of Motion Elbow/Forearm Left Active ROM Testing Position Sitting Comments 3-140 deg's PT-OP-L Special Tests Start: 12/27/21 16:53 Freq: Status: Active Protocol: Document 12/29/21 13:51 SAK (Rec: 01/02/22 17:20 SAK [id number]) Special Tests Shoulder Special Tests Lift-Off Rotator Cuff Test Results positive josé luis left greater than righ Drop Arm Rotator Cuff Test Results positive josé luis left greater than right PT-OP-M Strength Start: 12/27/21 16:53 Freq: Status: Active Protocol: Document 04/27/22 13:48 LRN (Rec: 04/27/22 20:20 LRN [id number]) Shoulder Strength Shoulder Manual Muscle Testing Right Flexion 3- Fair- Abduction (C5) 3- Fair- Adduction 3- Fair- External Rotation 3- Fair- Internal Rotation 3- Fair- Horizontal Abduction 3- Fair- Horizontal Adduction 3- Fair- Comments Strength as assessed initial visit 12/29/21 Left Comments Deferred, pt in sling. Pt phase I protocol for PROM only. No strengthening until 12 weeks Post Op. PT-OP-Q Treatments Start: 12/27/21 16:53 Freq: Status: Active Protocol: Document 06/19/22 15:11 SAK (Rec: 06/19/22 16:10 SAK [id number]) Cardio Equipment Upper Body Ergometer (UBE) Duration (Minutes) 6 RPM 90 Seat Position 9 Height 3 Other fwd/bck Therapeutic Exercises Supine Exercises chest press Resistance 1# Reps/Minutes 10x1 FF Side bilateral Equipment Used L1 TB gentle pull lat to activate RC Reps/Minutes 10x serratus press Resistance 1# Reps/Minutes 10x2 Comments cues for full movement shld ER Supine Exercise Name PROM at 30 deg abd, supported on towel roll Reps/Minutes 10x Prone Exercises Y Reps/Minutes 10x Comments cues for gentle, pain-free Ts, Is Side bilateral Resistance 1# I Reps/Minutes x10 Comments cued no UT recruitment, post/ inf glide scapula Sidelying Exercises shoulder ER Equipment Used towel roll Reps/Minutes 10x5 scapular clocks Resistance manual Reps/Minutes 10x ea Comments 3:00 , 4:00, 5:00 Sitting Exercises shoulder IR Sitting Exercise Name HEP trunk rotation Sitting Exercise Name HEP Neck stretch Sitting Exercise Name HEP pulleys Sitting Exercise Name flex, scaption, abduction Reps/Minutes 10x ea Comments cues for relaxed shoulder movement. Standing Exercises external rotation Standing Exercise Name mirror for visual feedback Reps/Minutes 10x2 Comments arm supported on table, foam shoulder add Equipment Used L1 TB Reps/Minutes 10x5 shoulder ER Resistance L1 TB Equipment Used towel roll Reps/Minutes 10x5 Should IR Resistance L1 TB Equipment Used towel roll Reps/Minutes 10x5 bicep curl Resistance 4# Reps/Minutes 10x3, 3 traffic sergeant Comments cues to set scapulas IR/ ER isometric Equipment Used L1 TB Comments cues for setting scapula Scap retract Standing Exercise Name row, shld ext Resistance L1 TB Comments emphasis on scapular movement and stab shoulder ext Equipment Used L1 TB TB Reps/Minutes x20 Comments good scap stab depression today Self-Care/Home Management Treatment Education Patient Education Body Mechanics,Home Exercise Program,Posture PT-OP-R Modalities Start: 12/27/21 16:53 Freq: Status: Active Protocol: Document 01/11/22 09:04 [facility] (Rec: 01/11/22 09:51 [facility] [id number]) Hot Pack/Cold Pack Treatment Cold Pack Location José Luis shds Patient Position Hooklying Treatment Duration (minutes) 10 Patient Tolerance Good PT-OP-S Aquatic Treatment Start: 12/27/21 16:53 Freq: Status: Active Protocol: Document 06/21/22 10:15 [facility] (Rec: 06/22/22 09:22 [facility] [id number]) Aquatics Treatment Water Walking fwd,back,,october Water Level Chest Level Level of Assistance Verbal Cues Comments cues for UE use all movements Upper Extremity Exercises throwing motion Water Level Neck Level Reps/Duration 10x Comments slow, gentle sh fl/ext Reps/Duration 10x2 Comments with forearm pron and sup sh ER/IR Details shoulder at 80 deg scaption Body Position Standing Water Level Neck Level Reps/Duration 10x2 Comments josé luis, improved ROM with repetition hor ab/ad Body Position Standing Water Level Chest Level Reps/Duration 10x2 circles Body Position Standing Water Level Chest Level Reps/Duration 10x CW, 10xCCW [place] Activities [place] Activities Bicycle,Bicycle Backwards, Cross Country,Running Other Activities bicycle and run breastroke UE' s bicycle backwards holding small noodle with cues for scapular depression cross country with shoulder flex/ex one lap bicicle holding small noodle at buttocks with cues for scapular depression Equipment flotation belt Swim Strokes Breastroke Laps/Duration 50 m Comments cues for pain-free ROM and intensity sidestroke Laps/Duration 50 m Comments (1x each side) cues for pain- free ROM and intensity Elementary Backstroke Equipment Flotation Belt Laps/Duration 25m x 2 Comments cues for pain-free ROM and intensity Manual Techniques Bad Ragaz passive for upper trunk and shoulder ROM neck float, waist float, noodle under knees Aquatic Massage periscapular region, shoulder PT-OP-T Assessment and Plan Start: 12/27/21 16:53 Freq: Status: Active Protocol: Document 06/21/22 10:15 [facility] (Rec: 06/22/22 09:22 [facility] [id number]) Physical Therapy Assessment Impairments Impairments Activity Tolerance,Pain,ROM, Soft Tissue Mobility,Strength Goals Three Impairment ROM Short Term Goal (STG) Per protocol, Phase 1: PROTECT SURGERY. DECR PAIN AND INFLAMMATION, pt education in self care. GOAL MET STG Duration 6 wks GOAL MET 05/23/22 [facility]iary Goal (LTG) Per protocol Phase II: (6-12 wks) Caution with flexion and throughout phase, functional ROM. Pt able to reach up in high cupboard. 05/23/22: initiated AAROM PHase II. 06/14/22: gentle strengthening biceps, triceps, scapular musculature LTG Duration 4 months progression Two Impairment Decreased strength, not to start strengthening until phase II of protcol Short Term Goal (STG) Per protocol, Phase II: Begin gentle strengthening and scapular strengthening, Marielena IR/ER & tolerate UBE towards end of phase. Patient educated in HEP of starting AROM. 06/14/22: started gentle strengthenig STG Duration 3 months (12 weeks) [facility]entiary Goal (LTG) Per protocol, Phase III - IV: Left shoulder ROM WFL, and left shoulder beginning and progressing weighted strenghtening, with L shoulder strength least 4-/5 all motions to allow him to return to usual activities. 06/14/22: goal progress LTG Duration 6 months (24 weeks) One Impairment HEP Impairment Quickdash disability index score 50% Short Term Goal (STG) Phase II: Pt will be educated in PROM/AROM ex's on home program. 06/14/22: ongoing progression STG Duration 3 months (6-12 weeks) [facility]iary Goal (LTG) Pt will be independent in self [facility] and aquatic ex program for L shoulder ROM and strengthening ex's. 06/14/22: good compliance with good tolerance for progression of ther ex. LTG Duration 6 months (10/30/22) Assessment Summary Assessment excellent tolerance for gentle progression of aquatic therapy with new swim strokes, progression of ER to in scaption 80 deg, plus throw motion. Denied pain with all, noting improved shoulder ROM with repetition of ER and less excess UT recruitment with support of water. Physical Therapy Plan Frequency and Duration Frequency of Treatment 2x/Week Duration of treatment (weeks) 24 Plan of Care Start Date 04/27/22 Plan of Care End Date 10/12/22 Therapeutic Interventions Therapeutic Interventions Aquatic Therapy,Home Exercise Program,Manual Therapy, Neuromuscular Re-education, Patient/Caregiver Education, Self-Care/Home Management,Soft Tissue Mobilization,Taping, Therapeutic Activities, Therapeutic Exercises Modalities Cold Pack/Ice Massage,Electric Stimulation,Hot Packs, Infrared Therapy,Iontophoresis ,Ultrasound Next Visit Focus/Plan Next Note Type Treatment Note Next Visit Plan Continue gentle strengthening as tolerated, emphasis on correct muscle activation and technique, use of mirror to prevent overrecruitment UT.
--- NOTE | 2022-06-27 07:51 | PT-OP ANOTE ---
Pt did not show for today's appointment. When called he received an text message at 5:00PM of bad weather and assumed it was canceled. He confirmed his pool appointment for tomorrow and declined opening at 8:15AM.
--- NOTE | 2022-06-28 16:29 | PT.OTN ---
Current Diagnoses Pain in left shoulder (06/21/22) Bursitis of left shoulder (06/21/22) Contusion of left shoulder, initial encounter (06/21/22) Physical Therapy Treatment Note PT-OP-A Visit Information Start: 12/27/21 16:53 Freq: Status: Active Protocol: Document 06/28/22 14:24 SAK (Rec: 06/28/22 14:27 SAK [id number]) Out-Patient Physical Therapy Visit Information Visit Information Visit Type Treatment Note Visit Start Time 11:45 Visit Stop Time 12:30 Total Visit Minutes 45 Visit Number 24 Precautions Precautions Surgery approx 04/05/22: L rotator cuff repair of large tear by Dr. Buck. Initial eval indicates full tear of one tendon, partial of 3 others. PT-OP-B Current Condition Start: 12/27/21 16:53 Freq: Status: Active Protocol: Document 04/27/22 13:48 LRN (Rec: 04/28/22 19:47 LRN [id number]) Current Condition History of Current Condition Onset Date 2 wks ago L RCR massive full tear repair Current Complaints left shoulder not to be moved, in sling, pain / History of Current Condition Initial injury: Walking out of bus carrying things in hands, lost balance on ice, came down on left elbow, initially left shoulder pain, within a couple days feeling pain on right as well. At this time claim only approved for left shoulder. x-ray: swelling. MRI: full tear of one tendon, partial of 3 others. Surgical repair on the left shoulder 2 weeks ago. Pt presents with rehabilitation protocol for Lg to Massive RCR , subacromial decmprssion. 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 Prior Treatments and Tests Pt using mainly ice post op. Not taking medications because he doesn't like how it makes him feel. Treatment Goals Patient/Caregiver Goals Rehab per protocol. Personal Factors Other Personal Factors That May Effect Right shoulder pain as well as Therapy/Recovery left PT-OP-C Subjective Start: 12/27/21 16:53 Freq: Status: Active Protocol: Document 06/28/22 14:24 SAK (Rec: 06/28/22 14:27 SAK [id number]) OP-PT Subjective Patient Comments Patient Comments Saw doctor yesterday who was pleased with his progress, recommends continued PT. Anticipates surgery on left shoulder next year. Patient Reported Progress Improving PT-OP-E Functional Tests Start: 12/27/21 16:53 Freq: Status: Active Protocol: Document 12/29/21 13:51 SAK (Rec: 01/02/22 17:20 SAK [id number]) Functional Tests Apley's Scratch Test Action 1- Left medial chest Action 1- Right anterior shoulder Action 2- Left lateral neck Action 2- Right T1 Action 3- Left L3 Action 3- Right L3 PT-OP-H Neuro Start: 12/27/21 16:53 Freq: Status: Active Protocol: Document 12/29/21 13:51 SAK (Rec: 01/02/22 17:20 SAK [id number]) Sensation Evaluation Gross Sensation Gross Sensation WNL PT-OP-J Posture/Palpation/Skin Start: 12/27/21 16:53 Freq: Status: Active Protocol: Document 04/27/22 13:48 LRN (Rec: 04/27/22 20:20 LRN [id number]) Posture Evaluation Position Sitting Evaluation View Pt L shoulder in sling Comments Posture Comments Pt able to don/doff sling independently without complaints of pain. Palpation Assessment Location Healed scars Palpation Location L shoulder: Anterior and posterior incisions Palpation Details Good mobility of well healed scars with barely visible incision lines noted. No tenderness. PT-OP-K Range of Motion Start: 12/27/21 16:53 Freq: Status: Active Protocol: Document 04/27/22 13:48 LRN (Rec: 04/27/22 20:20 LRN [id number]) Shoulder Goniometric Range of Motion Shoulder Right Shoulder ROM WFL No Flexion 91 Extension 11 Abduction 98 External Rotation at 0 degrees Abduction 38 Internal Rotation Behind Back (text) L3 Comments painful arc ROM as previously taken . Left Shoulder ROM WFL No Testing Position Leaning forward Flexion 35 Comments Held assessment of other motions per pt report referring physician did not want him moving the L shoulder . Elbow/Forearm Range of Motion Elbow/Forearm Left Active ROM Testing Position Sitting Comments 3-140 deg's PT-OP-L Special Tests Start: 12/27/21 16:53 Freq: Status: Active Protocol: Document 12/29/21 13:51 SAK (Rec: 01/02/22 17:20 SAK [id number]) Special Tests Shoulder Special Tests Lift-Off Rotator Cuff Test Results positive josé luis left greater than righ Drop Arm Rotator Cuff Test Results positive josé luis left greater than right PT-OP-M Strength Start: 12/27/21 16:53 Freq: Status: Active Protocol: Document 04/27/22 13:48 LRN (Rec: 04/27/22 20:20 LRN [id number]) Shoulder Strength Shoulder Manual Muscle Testing Right Flexion 3- Fair- Abduction (C5) 3- Fair- Adduction 3- Fair- External Rotation 3- Fair- Internal Rotation 3- Fair- Horizontal Abduction 3- Fair- Horizontal Adduction 3- Fair- Comments Strength as assessed initial visit 12/29/21 Left Comments Deferred, pt in sling. Pt phase I protocol for PROM only. No strengthening until 12 weeks Post Op. PT-OP-Q Treatments Start: 12/27/21 16:53 Freq: Status: Active Protocol: Document 06/19/22 15:11 SAK (Rec: 06/19/22 16:10 SAK [id number]) Cardio Equipment Upper Body Ergometer (UBE) Duration (Minutes) 6 RPM 90 Seat Position 9 Height 3 Other fwd/bck Therapeutic Exercises Supine Exercises chest press Resistance 1# Reps/Minutes 10x1 FF Side bilateral Equipment Used L1 TB gentle pull lat to activate RC Reps/Minutes 10x serratus press Resistance 1# Reps/Minutes 10x2 Comments cues for full movement shld ER Supine Exercise Name PROM at 30 deg abd, supported on towel roll Reps/Minutes 10x Prone Exercises Y Reps/Minutes 10x Comments cues for gentle, pain-free Ts, Is Side bilateral Resistance 1# I Reps/Minutes x10 Comments cued no UT recruitment, post/ inf glide scapula Sidelying Exercises shoulder ER Equipment Used towel roll Reps/Minutes 10x5 scapular clocks Resistance manual Reps/Minutes 10x ea Comments 3:00 , 4:00, 5:00 Sitting Exercises shoulder IR Sitting Exercise Name HEP trunk rotation Sitting Exercise Name HEP Neck stretch Sitting Exercise Name HEP pulleys Sitting Exercise Name flex, scaption, abduction Reps/Minutes 10x ea Comments cues for relaxed shoulder movement. Standing Exercises external rotation Standing Exercise Name mirror for visual feedback Reps/Minutes 10x2 Comments arm supported on table, foam shoulder add Equipment Used L1 TB Reps/Minutes 10x5 shoulder ER Resistance L1 TB Equipment Used towel roll Reps/Minutes 10x5 Should IR Resistance L1 TB Equipment Used towel roll Reps/Minutes 10x5 bicep curl Resistance 4# Reps/Minutes 10x3, 3 case manager Comments cues to set scapulas IR/ ER isometric Equipment Used L1 TB Comments cues for setting scapula Scap retract Standing Exercise Name row, shld ext Resistance L1 TB Comments emphasis on scapular movement and stab shoulder ext Equipment Used L1 TB TB Reps/Minutes x20 Comments good scap stab depression today Self-Care/Home Management Treatment Education Patient Education Body Mechanics,Home Exercise Program,Posture PT-OP-R Modalities Start: 12/27/21 16:53 Freq: Status: Active Protocol: Document 01/11/22 09:04 [facility] (Rec: 01/11/22 09:51 [facility] [id number]) Hot Pack/Cold Pack Treatment Cold Pack Location José Luis shds Patient Position Hooklying Treatment Duration (minutes) 10 Patient Tolerance Good PT-OP-S Aquatic Treatment Start: 12/27/21 16:53 Freq: Status: Active Protocol: Document 06/28/22 14:24 [facility] (Rec: 06/28/22 14:27 [facility] [id number]) Aquatics Treatment Upper Extremity Exercises pull downs Details lateral and forward Equipment small barbells Reps/Duration 10x Comments cues for scapular stab wall push up Reps/Duration 10x pulses Comments next session sh ER/IR Details shoulder at 80 deg scaption Body Position Standing Water Level Neck Level Reps/Duration 10x2 Comments josé luis, improved ROM with repetition Coin Activities Coin Activities Bicycle,Bicycle Backwards, Cross Country,Running Other Activities bicycle and run breastroke UE' s bicycle backwards holding small noodle with cues for scapular depression cross country with shoulder flex/ex one lap bicicle holding small noodle at buttocks with cues for scapular depression Equipment flotation belt, gloves Swim Strokes Backstroke Equipment Flotation Belt Other Equipment Used gloves Laps/Duration 25 m x 2 Breastroke Laps/Duration 50 m Comments cues for pain-free ROM and intensity Elementary Backstroke Equipment Flotation Belt Other Equipment Used gloves Laps/Duration 25m x 2 Comments cues for pain-free ROM and intensity Manual Techniques Bad Ragaz passive for upper trunk and shoulder ROM neck float, waist float, noodle under knees Aquatic Massage periscapular region, shoulder PT-OP-T Assessment and Plan Start: 12/27/21 16:53 Freq: Status: Active Protocol: Document 06/28/22 14:24 [facility] (Rec: 06/28/22 14:27 [facility] [id number]) Physical Therapy Assessment Impairments Impairments Activity Tolerance,Pain,ROM, Soft Tissue Mobility,Strength Goals Three Impairment ROM Short Term Goal (STG) Per protocol, Phase 1: PROTECT SURGERY. DECR PAIN AND INFLAMMATION, pt education in self care. GOAL MET STG Duration 6 wks GOAL MET 05/23/22 Assisted Goal (LTG) Per protocol Phase II: (6-12 wks) Caution with flexion and throughout phase, functional ROM. Pt able to reach up in high cupboard. 05/23/22: initiated AAROM PHase II. 06/14/22: gentle strengthening biceps, triceps, scapular musculature LTG Duration 4 months progression Two Impairment Decreased strength, not to start strengthening until phase II of protcol Short Term Goal (STG) Per protocol, Phase II: Begin gentle strengthening and scapular strengthening, Marielena IR/ER & tolerate UBE towards end of phase. Patient educated in HEP of starting AROM. 06/14/22: started gentle strengthenig STG Duration 3 months (12 weeks) Assisted Goal (LTG) Per protocol, Phase III - IV: Left shoulder ROM WFL, and left shoulder beginning and progressing weighted strenghtening, with L shoulder strength least 4-/5 all motions to allow him to return to usual activities. 06/14/22: goal progress LTG Duration 6 months (24 weeks) One Impairment HEP Impairment Quickdash disability index score 50% Short Term Goal (STG) Phase II: Pt will be educated in PROM/AROM ex's on home program. 06/14/22: ongoing progression STG Duration 3 months (6-12 weeks) Special Inspector Goal (LTG) Pt will be independent in self long-term and aquatic ex program for L shoulder ROM and strengthening ex's. 06/14/22: good compliance with good tolerance for progression of ther ex. LTG Duration 6 months (10/30/22) Assessment Summary Assessment Able to tolerate gloves for resistance with all swim activities without pain, UE pull-downs with small barbells with emphasis on scapular stab. Continues to progress well with left shoulder rehab Physical Therapy Plan Frequency and Duration Frequency of Treatment 2x/Week Duration of treatment (weeks) 24 Plan of Care Start Date 04/27/22 Plan of Care End Date 10/12/22 Therapeutic Interventions Therapeutic Interventions Aquatic Therapy,Home Exercise Program,Manual Therapy, Neuromuscular Re-education, Patient/Caregiver Education, Self-Care/Home Management,Soft Tissue Mobilization,Taping, Therapeutic Activities, Therapeutic Exercises Modalities Cold Pack/Ice Massage,Electric Stimulation,Hot Packs, Infrared Therapy,Iontophoresis ,Ultrasound Next Visit Focus/Plan Next Note Type Treatment Note Next Visit Plan Continue progressive strengthening as tolerated for left shoulder s/p RC repair, emphasis on scapular stabilization. 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
--- NOTE | 2022-07-03 14:55 | PT.OTN ---
Current Diagnoses Pain in left shoulder (07/03/22) Bursitis of left shoulder (07/03/22) Contusion of left shoulder, initial encounter (07/03/22) Physical Therapy Treatment Note PT-OP-A Visit Information Start: 12/27/21 16:53 Freq: Status: Active Protocol: Document 07/03/22 14:42 ASAD (Rec: 07/03/22 14:55 LJ [id number]) Out-Patient Physical Therapy Visit Information Visit Information Visit Type Treatment Note Visit Start Time 11:45 Visit Stop Time 12:30 Total Visit Minutes 45 Visit Number 25 Number of ACCORDION TUNER Visits 1 Precautions Precautions Surgery approx 04/05/22: L rotator cuff repair of large tear by Dr. Buck. Initial eval indicates full tear of one tendon, partial of 3 others. PT-OP-B Current Condition Start: 12/27/21 16:53 Freq: Status: Active Protocol: Document 04/27/22 13:48 LRN (Rec: 04/28/22 19:47 LRN [id number]) Current Condition History of Current Condition Onset Date 2 wks ago L RCR massive full tear repair Current Complaints left shoulder not to be moved, in sling, pain / History of Current Condition Initial injury: Walking out of bus carrying things in hands, lost balance on ice, came down on left elbow, initially left shoulder pain, within a couple days feeling pain on right as well. At this time claim only approved for left shoulder. x-ray: swelling. MRI: full tear of one tendon, partial of 3 others. Surgical repair on the left shoulder 2 weeks ago. Pt presents with rehabilitation protocol for Lg to Massive RCR , subacromial decmprssion. 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 Prior Treatments and Tests Pt using mainly ice post op. Not taking medications because he doesn't like how it makes him feel. Treatment Goals Patient/Caregiver Goals Rehab per protocol. Personal Factors Other Personal Factors That May Effect Right shoulder pain as well as Therapy/Recovery left PT-OP-C Subjective Start: 12/27/21 16:53 Freq: Status: Active Protocol: Document 07/03/22 14:42 ASAD (Rec: 07/03/22 14:55 LJ [id number]) OP-PT Subjective Patient Comments Patient Comments States he is doing very well and is progressing with strengthening. He has no pain and very good ROM all directions. Patient Reported Progress Improving PT-OP-E Functional Tests Start: 12/27/21 16:53 Freq: Status: Active Protocol: Document 12/29/21 13:51 SAK (Rec: 01/02/22 17:20 SAK [id number]) Functional Tests Apley's Scratch Test Action 1- Left medial chest Action 1- Right anterior shoulder Action 2- Left lateral neck Action 2- Right T1 Action 3- Left L3 Action 3- Right L3 PT-OP-H Neuro Start: 12/27/21 16:53 Freq: Status: Active Protocol: Document 12/29/21 13:51 SAK (Rec: 01/02/22 17:20 SAK [id number]) Sensation Evaluation Gross Sensation Gross Sensation WNL PT-OP-J Posture/Palpation/Skin Start: 12/27/21 16:53 Freq: Status: Active Protocol: Document 04/27/22 13:48 LRN (Rec: 04/27/22 20:20 LRN [id number]) Posture Evaluation Position Sitting Evaluation View Pt L shoulder in sling Comments Posture Comments Pt able to don/doff sling independently without complaints of pain. Palpation Assessment Location Healed scars Palpation Location L shoulder: Anterior and posterior incisions Palpation Details Good mobility of well healed scars with barely visible incision lines noted. No tenderness. PT-OP-K Range of Motion Start: 12/27/21 16:53 Freq: Status: Active Protocol: Document 04/27/22 13:48 LRN (Rec: 04/27/22 20:20 LRN [id number]) Shoulder Goniometric Range of Motion Shoulder Right Shoulder ROM WFL No Flexion 91 Extension 11 Abduction 98 External Rotation at 0 degrees Abduction 38 Internal Rotation Behind Back (text) L3 Comments painful arc ROM as previously taken . Left Shoulder ROM WFL No Testing Position Leaning forward Flexion 35 Comments Held assessment of other motions per pt report referring physician did not want him moving the L shoulder . Elbow/Forearm Range of Motion Elbow/Forearm Left Active ROM Testing Position Sitting Comments 3-140 deg's PT-OP-L Special Tests Start: 12/27/21 16:53 Freq: Status: Active Protocol: Document 12/29/21 13:51 SAK (Rec: 01/02/22 17:20 SAK [id number]) Special Tests Shoulder Special Tests Lift-Off Rotator Cuff Test Results positive josé luis left greater than righ Drop Arm Rotator Cuff Test Results positive josé luis left greater than right PT-OP-M Strength Start: 12/27/21 16:53 Freq: Status: Active Protocol: Document 04/27/22 13:48 LRN (Rec: 04/27/22 20:20 LRN [id number]) Shoulder Strength Shoulder Manual Muscle Testing Right Flexion 3- Fair- Abduction (C5) 3- Fair- Adduction 3- Fair- External Rotation 3- Fair- Internal Rotation 3- Fair- Horizontal Abduction 3- Fair- Horizontal Adduction 3- Fair- Comments Strength as assessed initial visit 12/29/21 Left Comments Deferred, pt in sling. Pt phase I protocol for PROM only. No strengthening until 12 weeks Post Op. PT-OP-Q Treatments Start: 12/27/21 16:53 Freq: Status: Active Protocol: Document 06/19/22 15:11 SAK (Rec: 06/19/22 16:10 SAK [id number]) Cardio Equipment Upper Body Ergometer (UBE) Duration (Minutes) 6 RPM 90 Seat Position 9 Height 3 Other fwd/bck Therapeutic Exercises Supine Exercises chest press Resistance 1# Reps/Minutes 10x1 FF Side bilateral Equipment Used L1 TB gentle pull lat to activate RC Reps/Minutes 10x serratus press Resistance 1# Reps/Minutes 10x2 Comments cues for full movement shld ER Supine Exercise Name PROM at 30 deg abd, supported on towel roll Reps/Minutes 10x Prone Exercises Y Reps/Minutes 10x Comments cues for gentle, pain-free Ts, Is Side bilateral Resistance 1# I Reps/Minutes x10 Comments cued no UT recruitment, post/ inf glide scapula Sidelying Exercises shoulder ER Equipment Used towel roll Reps/Minutes 10x5 scapular clocks Resistance manual Reps/Minutes 10x ea Comments 3:00 , 4:00, 5:00 Sitting Exercises shoulder IR Sitting Exercise Name HEP trunk rotation Sitting Exercise Name HEP Neck stretch Sitting Exercise Name HEP pulleys Sitting Exercise Name flex, scaption, abduction Reps/Minutes 10x ea Comments cues for relaxed shoulder movement. Standing Exercises external rotation Standing Exercise Name mirror for visual feedback Reps/Minutes 10x2 Comments arm supported on table, foam shoulder add Equipment Used L1 TB Reps/Minutes 10x5 shoulder ER Resistance L1 TB Equipment Used towel roll Reps/Minutes 10x5 Should IR Resistance L1 TB Equipment Used towel roll Reps/Minutes 10x5 bicep curl Resistance 4# Reps/Minutes 10x3, 3 motor installer Comments cues to set scapulas IR/ ER isometric Equipment Used L1 TB Comments cues for setting scapula Scap retract Standing Exercise Name row, shld ext Resistance L1 TB Comments emphasis on scapular movement and stab shoulder ext Equipment Used L1 TB TB Reps/Minutes x20 Comments good scap stab depression today Self-Care/Home Management Treatment Education Patient Education Body Mechanics,Home Exercise Program,Posture PT-OP-R Modalities Start: 12/27/21 16:53 Freq: Status: Active Protocol: Document 01/11/22 09:04 SAK (Rec: 01/11/22 09:51 SAK [id number]) Hot Pack/Cold Pack Treatment Cold Pack Location José Luis shds Patient Position Hooklying Treatment Duration (minutes) 10 Patient Tolerance Good PT-OP-S Aquatic Treatment Start: 12/27/21 16:53 Freq: Status: Active Protocol: Document 07/03/22 14:42 LJ (Rec: 07/03/22 14:55 LJ [id number]) Aquatics Treatment Water Walking forward Water Level Chest Level Walking Equipment sm noodle Level of Assistance Verbal Cues Comments f/b SUP and kayaking UE movements fwd,back,side,march Water Level Chest Level Level of Assistance Verbal Cues Comments cues for UE use all movements Upper Extremity Exercises pull downs Details lateral and forward Equipment small barbells Reps/Duration 10x Comments cues for scapular stab wall push up Reps/Duration 10x pulses Body Position Standing Water Level Chest Level Equipment BBS Reps/Duration 30 Comments BBs at sides UEs extended to neutral, IR and neutral sh fl/ext Reps/Duration 10x2 Comments with forearm pron and sup sh ER/IR Details shoulder at 80 deg scaption Body Position Standing Water Level Neck Level Reps/Duration 10x2 Bennett Activities Bennett Activities Bicycle,Running Other Activities bike/run tricep extension T hang 5 sec gradual abd/add ; Uni abd/add; plank-prone and side shoot thru with sidelying delay of 15 sec Equipment flotation belt, gloves Swim Strokes Backstroke Equipment Flotation Belt Other Equipment Used gloves Laps/Duration 25 m x 2 Breastroke Laps/Duration 50 m Comments cues for pain-free ROM and intensity Manual Techniques [place] passive for upper trunk and shoulder ROM neck float, waist float, noodle under knees Aquatic Massage periscapular region, shoulder PT-OP-T Assessment and Plan Start: 12/27/21 16:53 Freq: Status: Active Protocol: Document 07/03/22 14:42 ASAD (Rec: 07/03/22 14:55 ASAD [id number]) Physical Therapy Assessment Impairments Impairments Activity Tolerance,Pain,ROM, Soft Tissue Mobility,Strength Goals Three Impairment ROM Short Term Goal (STG) Per protocol, Phase 1: PROTECT SURGERY. DECR PAIN AND INFLAMMATION, pt education in self care. GOAL MET STG Duration 6 wks GOAL MET 05/23/22 Long-Term Goal (LTG) Per protocol Phase II: (6-12 wks) Caution with flexion and throughout phase, functional ROM. Pt able to reach up in high cupboard. 05/23/22: initiated AAROM PHase II. 06/14/22: gentle strengthening biceps, triceps, scapular musculature LTG Duration 4 months progression Two Impairment Decreased strength, not to start strengthening until phase II of protcol Short Term Goal (STG) Per protocol, Phase II: Begin gentle strengthening and scapular strengthening, Marielena IR/ER & tolerate UBE towards end of phase. Patient educated in HEP of starting AROM. 06/14/22: started gentle strengthenig STG Duration 3 months (12 weeks) Digital Associate Goal (LTG) Per protocol, Phase III - IV: Left shoulder ROM WFL, and left shoulder beginning and progressing weighted strenghtening, with L shoulder strength least 4-/5 all motions to allow him to return to usual activities. 06/14/22: goal progress LTG Duration 6 months (24 weeks) One Impairment HEP Impairment Quickdash disability index score 50% Short Term Goal (STG) Phase II: Pt will be educated in PROM/AROM ex's on home program. 06/14/22: ongoing progression STG Duration 3 months (6-12 weeks) Digital Associate Goal (LTG) Pt will be independent in self group home and aquatic ex program for L shoulder ROM and strengthening ex's. 06/14/22: good compliance with good tolerance for progression of ther ex. LTG Duration 6 months (10/30/22) Assessment Summary Assessment Pt had no complaint of pain with any exercise. He was challenged with deep water stabilization exercises and required occasional cueing for scapular depression with BB submerged activities. Physical Therapy Plan Frequency and Duration Frequency of Treatment 2x/Week Duration of treatment (weeks) 24 Plan of Care Start Date 04/27/22 Plan of Care End Date 10/12/22 Therapeutic Interventions Therapeutic Interventions Aquatic Therapy,Home Exercise Program,Manual Therapy, Neuromuscular Re-education, Patient/Caregiver Education, Self-Care/Home Management,Soft Tissue Mobilization,Taping, Therapeutic Activities, Therapeutic Exercises Modalities Cold Pack/Ice Massage,Electric Stimulation,Hot Packs, Infrared Therapy,Iontophoresis ,Ultrasound Next Visit Focus/Plan Next Note Type Treatment Note Next Visit Plan Continue progressive strengthening as tolerated for left shoulder s/p RC repair, emphasis on scapular stabilization. 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
--- NOTE | 2022-07-06 15:44 | PT.OPPN ---
Current Diagnoses Pain in left shoulder (07/06/22) Bursitis of left shoulder (07/06/22) Contusion of left shoulder, initial encounter (07/06/22) Physical Therapy Progress Note PT-OP-A Visit Information Start: 12/27/21 16:53 Freq: Status: Active Protocol: Document 07/06/22 08:14 SAK (Rec: 07/06/22 08:27 SAK [id number]) Out-Patient Physical Therapy Visit Information Visit Information Visit Type Treatment Note Visit Note 13 weeks post-op Visit Start Time 08:15 Visit Stop Time 12:30 Total Visit Minutes 45 Visit Number 26 Number of COMMUNITY OUTREACH MANAGER Visits 0 Precautions Precautions Surgery approx 04/05/22: L rotator cuff repair of large tear by Dr. Buck. Initial eval indicates full tear of one tendon, partial of 3 others. PT-OP-B Current Condition Start: 12/27/21 16:53 Freq: Status: Active Protocol: Document 04/27/22 13:48 LRN (Rec: 04/28/22 19:47 LRN [id number]) Current Condition History of Current Condition Onset Date 2 wks ago L RCR massive full tear repair Current Complaints left shoulder not to be moved, in sling, pain 1/10 History of Current Condition Initial injury: Walking out of bus carrying things in hands, lost balance on ice, came down on left elbow, initially left shoulder pain, within a couple days feeling pain on right as well. At this time claim only approved for left shoulder. x-ray: swelling. MRI: full tear of one tendon, partial of 3 others. Surgical repair on the left shoulder 2 weeks ago. Pt presents with rehabilitation protocol for Lg to Massive RCR , subacromial decmprssion. 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 Prior Treatments and Tests Pt using mainly ice post op. Not taking medications because he doesn't like how it makes him feel. Treatment Goals Patient/Caregiver Goals Rehab per protocol. Personal Factors Other Personal Factors That May Effect Right shoulder pain as well as Therapy/Recovery left PT-OP-C Subjective Start: 12/27/21 16:53 Freq: Status: Active Protocol: Document 07/06/22 08:14 SAK (Rec: 07/06/22 08:27 SAK [id number]) OP-PT Subjective Patient Comments Patient Comments No new c/o, stiff in am. Patient Reported Progress Improving PT-OP-E Functional Tests Start: 12/27/21 16:53 Freq: Status: Active Protocol: Document 12/29/21 13:51 [facility] (Rec: 01/02/22 17:20 [facility] [id number]) Functional Tests Apley's Scratch Test Action 1: The subject is instructed to touch the opposite shoulder with his/her hand. This motion checks Glenohumeral adduction, internal rotation , horizontal adduction and scapular protraction Action 2: The subject is instructed to place his/her arm overhead and reach behind the neck to touch his/her upper back. This motion checks Glenohumeral abduction, external rotation and scapular upward rotation and elevation. Action 3: The subject puts his/her hand on the lower back and reaches upward as far as possible. This motion checks glenohumeral adduction, internal rotation and scapular retraction with downward rotation Action 1- Left medial chest Action 1- Right anterior shoulder Action 2- Left lateral neck Action 2- Right T1 Action 3- Left L3 Action 3- Right L3 PT-OP-H Neuro Start: 12/27/21 16:53 Freq: Status: Active Protocol: Document 12/29/21 13:51 [facility] (Rec: 01/02/22 17:20 [facility] [id number]) Sensation Evaluation Gross Sensation Gross Sensation WNL PT-OP-J Posture/Palpation/Skin Start: 12/27/21 16:53 Freq: Status: Active Protocol: Document 04/27/22 13:48 LRN (Rec: 04/27/22 20:20 LRN [id number]) Posture Evaluation Position Sitting Evaluation View Pt L shoulder in sling Comments Posture Comments Pt able to don/doff sling independently without complaints of pain. Palpation Assessment Location Healed scars Palpation Location L shoulder: Anterior and posterior incisions Palpation Details Good mobility of well healed scars with barely visible incision lines noted. No tenderness. PT-OP-K Range of Motion Start: 12/27/21 16:53 Freq: Status: Active Protocol: Document 04/27/22 13:48 LRN (Rec: 04/27/22 20:20 LRN [id number]) Shoulder Goniometric Range of Motion Shoulder Measured in Degrees Right Shoulder ROM WFL No Flexion 91 Extension 11 Abduction 98 External Rotation at 0 degrees Abduction 38 Internal Rotation Behind Back (text) L3 Comments painful arc ROM as previously taken . Left Shoulder ROM WFL No Testing Position Leaning forward Flexion 35 Comments Held assessment of other motions per pt report referring physician did not want him moving the L shoulder . Elbow/Forearm Range of Motion Elbow/Forearm Measured in Degrees Left Active ROM Testing Position Sitting Comments 3-140 deg's PT-OP-L Special Tests Start: 12/27/21 16:53 Freq: Status: Active Protocol: Document 12/29/21 13:51 SAK (Rec: 01/02/22 17:20 SAK [id number]) Special Tests Shoulder Special Tests Lift-Off Rotator Cuff Test Results positive antoine left greater than righ Drop Arm Rotator Cuff Test Results positive antoine left greater than right PT-OP-M Strength Start: 12/27/21 16:53 Freq: Status: Active Protocol: Document 04/27/22 13:48 LRN (Rec: 04/27/22 20:20 LRN [id number]) Shoulder Strength Shoulder Manual Muscle Testing Right Flexion 3- Fair- Abduction (C5) 3- Fair- Adduction 3- Fair- External Rotation 3- Fair- Internal Rotation 3- Fair- Horizontal Abduction 3- Fair- Horizontal Adduction 3- Fair- Comments Strength as assessed initial visit 12/29/21 Left Comments Deferred, pt in sling. Pt phase I protocol for PROM only. No strengthening until 12 weeks Post Op. PT-OP-T Assessment and Plan Start: 12/27/21 16:53 Freq: Status: Active Protocol: Document 07/06/22 08:14 [facility] (Rec: 07/06/22 08:27 [facility] [id number]) Physical Therapy Assessment Goals Three Impairment ROM Short Term Goal (STG) Per protocol, Phase 1: PROTECT SURGERY. DECR PAIN AND INFLAMMATION, pt education in self care. GOAL MET STG Duration 6 wks GOAL MET 05/23/22 Care Home Goal (LTG) Per protocol Phase II: (6-12 wks) Caution with flexion and throughout phase, functional ROM. Pt able to reach up in high cupboard. 05/23/22: initiated AAROM PHase II. 06/14/22: gentle strengthening biceps, triceps, scapular musculature 07/06/22: now Phase III goal met LTG Duration goal met Two Impairment Decreased strength, not to start strengthening until phase II of protcol Short Term Goal (STG) Per protocol, Phase II: Begin gentle strengthening and scapular strengthening, Marielena IR/ER & tolerate UBE towards end of phase. Patient educated in HEP of starting AROM. 06/14/22: started gentle strengthenig 07/06/22: incremental progression of post-op ther ex STG Duration 3 months (12 weeks) Special Education Instructor Goal (LTG) Per protocol, Phase III - IV: Left shoulder ROM WFL, and left shoulder beginning and progressing weighted strenghtening, with L shoulder strength least 4-/5 all motions to allow him to return to usual activities. 07/06/22: now in phase III strengthening and ROM LTG Duration 6 months (24 weeks) One Impairment HEP Impairment Quickdash disability index score 50% Short Term Goal (STG) Phase II: Pt will be educated in PROM/AROM ex's on home program. 06/14/22: ongoing progression 07/06/22: Quickdash score 43%, HEP progression continues STG Duration 3 months (6-12 weeks) Care Home Goal (LTG) Pt will be independent in self retirement and aquatic ex program for L shoulder ROM and strengthening ex's. 06/14/22: good compliance with good tolerance for progression of ther ex. 07/06/22: continues progression of ex and activities with good compliance to HEP and post-op protocol with consistent improvement in symptoms LTG Duration 6 months (10/30/22) Progress Towards Goals Progress Towards Goals Progressing Toward Goals Assessment Summary Assessment Patient continues to make good progress toward goals. Would benefit from continued PT for further progression of strengthening, ROM, functional retraining of left shoulder s /p surgery. Physical Therapy Plan Frequency and Duration Frequency of Treatment 2x/Week Duration of treatment (weeks) 24 Plan of Care Start Date 04/27/22 Plan of Care End Date 10/12/22 Therapeutic Interventions Therapeutic Interventions Aquatic Therapy,Home Exercise Program,Manual Therapy, Neuromuscular Re-education, Patient/Caregiver Education, Self-Care/Home Management,Soft Tissue Mobilization,Taping, Therapeutic Activities, Therapeutic Exercises Modalities Cold Pack/Ice Massage,Electric Stimulation,Hot Packs, Infrared Therapy,Iontophoresis ,Ultrasound Next Visit Focus/Plan Next Note Type Treatment Note Next Visit Plan Continue progressive strengthening as tolerated for left shoulder s/p RC repair, emphasis on scapular stabilization. 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
--- NOTE | 2022-07-11 08:07 | PT-OP ANOTE ---
Patient cancelled PT due to being sick
--- NOTE | 2022-07-19 08:55 | PT.OTN ---
Current Diagnoses Pain in left shoulder (07/19/22) Bursitis of left shoulder (07/19/22) Contusion of left shoulder, initial encounter (07/19/22) Physical Therapy Treatment Note PT-OP-A Visit Information Start: 12/27/21 16:53 Freq: Status: Active Protocol: Document 07/19/22 08:05 TS (Rec: 07/19/22 11:19 TS [id number]) Out-Patient Physical Therapy Visit Information Visit Information Visit Type Treatment Note Visit Note FELIZ Han lead treatment under direction and supervision of KALPANA Wade. Visit Start Time 08:15 Visit Stop Time 08:55 Total Visit Minutes 40 Visit Number 27 Number of ORTHODONTIC TECHNICIAN ASSISTANT Visits 1 PT-OP-B Current Condition Start: 12/27/21 16:53 Freq: Status: Active Protocol: Document 04/27/22 13:48 LRN (Rec: 04/28/22 19:47 LRN [id number]) Current Condition History of Current Condition Onset Date 2 wks ago L RCR massive full tear repair Current Complaints left shoulder not to be moved, in sling, pain / History of Current Condition Initial injury: Walking out of bus carrying things in hands, lost balance on ice, came down on left elbow, initially left shoulder pain, within a couple days feeling pain on right as well. At this time claim only approved for left shoulder. x-ray: swelling. MRI: full tear of one tendon, partial of 3 others. Surgical repair on the left shoulder 2 weeks ago. Pt presents with rehabilitation protocol for Lg to Massive RCR , subacromial decmprssion. 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 Prior Treatments and Tests Pt using mainly ice post op. Not taking medications because he doesn't like how it makes him feel. Treatment Goals Patient/Caregiver Goals Rehab per protocol. Personal Factors Other Personal Factors That May Effect Right shoulder pain as well as Therapy/Recovery left PT-OP-C Subjective Start: 12/27/21 16:53 Freq: Status: Active Protocol: Document 07/19/22 08:05 TS (Rec: 07/19/22 11:19 TS [id number]) OP-PT Subjective Patient Comments Patient Comments Pt reports shoulder has been feeling good, some slight stiffness. Saw his doctor yesterday and he might release him for L shoulder and will have surgery on R shoulder in future. Doctor jorden reported he can increase his resistance level. PT-OP-E Functional Tests Start: 12/27/21 16:53 Freq: Status: Active Protocol: Document 12/29/21 13:51 SAK (Rec: 01/02/22 17:20 SAK [id number]) Functional Tests Apley's Scratch Test Action 1- Left medial chest Action 1- Right anterior shoulder Action 2- Left lateral neck Action 2- Right T1 Action 3- Left L3 Action 3- Right L3 PT-OP-H Neuro Start: 12/27/21 16:53 Freq: Status: Active Protocol: Document 12/29/21 13:51 SAK (Rec: 01/02/22 17:20 SAK [id number]) Sensation Evaluation Gross Sensation Gross Sensation WNL PT-OP-J Posture/Palpation/Skin Start: 12/27/21 16:53 Freq: Status: Active Protocol: Document 04/27/22 13:48 LRN (Rec: 04/27/22 20:20 LRN [id number]) Posture Evaluation Position Sitting Evaluation View Pt L shoulder in sling Comments Posture Comments Pt able to don/doff sling independently without complaints of pain. Palpation Assessment Location Healed scars Palpation Location L shoulder: Anterior and posterior incisions Palpation Details Good mobility of well healed scars with barely visible incision lines noted. No tenderness. PT-OP-K Range of Motion Start: 12/27/21 16:53 Freq: Status: Active Protocol: Document 04/27/22 13:48 LRN (Rec: 04/27/22 20:20 LRN [id number]) Shoulder Goniometric Range of Motion Shoulder Right Shoulder ROM WFL No Flexion 91 Extension 11 Abduction 98 External Rotation at 0 degrees Abduction 38 Internal Rotation Behind Back (text) L3 Comments painful arc ROM as previously taken . Left Shoulder ROM WFL No Testing Position Leaning forward Flexion 35 Comments Held assessment of other motions per pt report referring physician did not want him moving the L shoulder . Elbow/Forearm Range of Motion Elbow/Forearm Left Active ROM Testing Position Sitting Comments 3-140 deg's PT-OP-L Special Tests Start: 12/27/21 16:53 Freq: Status: Active Protocol: Document 12/29/21 13:51 SAK (Rec: 01/02/22 17:20 SAK [id number]) Special Tests Shoulder Special Tests Lift-Off Rotator Cuff Test Results positive antoine left greater than righ Drop Arm Rotator Cuff Test Results positive antoine left greater than right PT-OP-M Strength Start: 12/27/21 16:53 Freq: Status: Active Protocol: Document 04/27/22 13:48 LRN (Rec: 04/27/22 20:20 LRN [id number]) Shoulder Strength Shoulder Manual Muscle Testing Right Flexion 3- Fair- Abduction (C5) 3- Fair- Adduction 3- Fair- External Rotation 3- Fair- Internal Rotation 3- Fair- Horizontal Abduction 3- Fair- Horizontal Adduction 3- Fair- Comments Strength as assessed initial visit 12/29/21 Left Comments Deferred, pt in sling. Pt phase I protocol for PROM only. No strengthening until 12 weeks Post Op. PT-OP-Q Treatments Start: 12/27/21 16:53 Freq: Status: Active Protocol: Document 07/19/22 08:05 TS (Rec: 07/19/22 11:19 TS [id number]) Cardio Equipment Upper Body Ergometer (UBE) Duration (Minutes) 8 RPM 80 Seat Position 9 Height 3 Other fwd/bck Therapeutic Exercises Prone Exercises Y Prone Exercise Name [place] Citizen ball Reps/Minutes 2x10 Comments cues for gentle, pain-free Ts, Is Prone Exercise Name 1. ext 2. T's 3. I's Equipment Used irish ball Reps/Minutes 2x10 Comments Cues for core act, slight click in L shoulder Standing Exercises Shldr Ext Resistance lvl 1 Reps/Minutes 2x10 Comments Cues for scap retraction, upright posture Shldr ABD Side bilateral Equipment Used LVL 1 Reps/Minutes 1x10, 1x10 lvl1 Comments Cues for thrumb up, slight discomfort in R side Pec Stretch Equipment Used Door Reps/Minutes 3x30 Comments Feeling good stretch Chest pass Standing Exercise Name 5.5# medicine ball Equipment Used Black medicine ball Reps/Minutes 1x25 Comments Emphasis on elbow ext Serratus Press Equipment Used lvl 1 Reps/Minutes 2x10 Comments Cues for scap protraction wall push-up Reps/Minutes 2x10 Comments Good form, cues for hand positioning Body blade Standing Exercise Name elbows at side, antoine, unil Equipment Used Middle body blade Reps/Minutes 30 sec each Comments elbows bent PT-OP-R Modalities Start: 12/27/21 16:53 Freq: Status: Active Protocol: Document 01/11/22 09:04 SAK (Rec: 01/11/22 09:51 SAK [id number]) Hot Pack/Cold Pack Treatment Cold Pack Location Antoine shds Patient Position Hooklying Treatment Duration (minutes) 10 Patient Tolerance Good PT-OP-S Aquatic Treatment Start: 12/27/21 16:53 Freq: Status: Active Protocol: Document 07/03/22 14:42 LJ (Rec: 07/03/22 14:55 LJ [id number]) Aquatics Treatment Water Walking forward Water Level Chest Level Walking Equipment sm noodle Level of Assistance Verbal Cues Comments f/b SUP and kayaking UE movements fwd,back,side,march Water Level Chest Level Level of Assistance Verbal Cues Comments cues for UE use all movements Upper Extremity Exercises pull downs Details lateral and forward Equipment small barbells Reps/Duration 10x Comments cues for scapular stab wall push up Reps/Duration 10x pulses Body Position Standing Water Level Chest Level Equipment BBS Reps/Duration 30 Comments BBs at sides UEs extended to neutral, IR and neutral sh fl/ext Reps/Duration 10x2 Comments with forearm pron and sup sh ER/IR Details shoulder at 80 deg scaption Body Position Standing Water Level Neck Level Reps/Duration 10x2 [place] Activities [place] Activities Bicycle,Running Other Activities bike/run tricep extension T hang 5 sec gradual abd/add ; Uni abd/add; plank-prone and side shoot thru with sidelying delay of 15 sec Equipment flotation belt, gloves Swim Strokes Backstroke Equipment Flotation Belt Other Equipment Used gloves Laps/Duration 25 m x 2 Breastroke Laps/Duration 50 m Comments cues for pain-free ROM and intensity Manual Techniques Bad Ragaz passive for upper trunk and shoulder ROM neck float, waist float, noodle under knees Aquatic Massage periscapular region, shoulder PT-OP-T Assessment and Plan Start: 12/27/21 16:53 Freq: Status: Active Protocol: Document 07/19/22 08:05 TS (Rec: 07/19/22 11:19 TS [id number]) Physical Therapy Assessment Goals Three Impairment ROM Short Term Goal (STG) Per protocol, Phase 1: PROTECT SURGERY. DECR PAIN AND INFLAMMATION, pt education in self care. GOAL MET STG Duration 6 wks GOAL MET 05/23/22 Long-Term Goal (LTG) Per protocol Phase II: (6-12 wks) Caution with flexion and throughout phase, functional ROM. Pt able to reach up in high cupboard. 05/23/22: initiated AAROM PHase II. 06/14/22: gentle strengthening biceps, triceps, scapular musculature 07/06/22: now Phase III goal met LTG Duration goal met Two Impairment Decreased strength, not to start strengthening until phase II of protcol Short Term Goal (STG) Per protocol, Phase II: Begin gentle strengthening and scapular strengthening, Marielena IR/ER & tolerate UBE towards end of phase. Patient educated in HEP of starting AROM. 06/14/22: started gentle strengthenig 07/06/22: incremental progression of post-op ther ex STG Duration 3 months (12 weeks) Naval Gunfire Liaison Officer Goal (LTG) Per protocol, Phase III - IV: Left shoulder ROM WFL, and left shoulder beginning and progressing weighted strenghtening, with L shoulder strength least 4-/5 all motions to allow him to return to usual activities. 07/06/22: now in phase III strengthening and ROM LTG Duration 6 months (24 weeks) One Impairment HEP Impairment Quickdash disability index score 50% Short Term Goal (STG) Phase II: Pt will be educated in PROM/AROM ex's on home program. 06/14/22: ongoing progression 07/06/22: Quickdash score 43%, HEP progression continues STG Duration 3 months (6-12 weeks) Naval Gunfire Liaison Officer Goal (LTG) Pt will be independent in self [facility] and aquatic ex program for L shoulder ROM and strengthening ex's. 06/14/22: good compliance with good tolerance for progression of ther ex. 07/06/22: continues progression of ex and activities with good compliance to HEP and post-op protocol with consistent improvement in symptoms LTG Duration 6 months (10/30/22) Assessment Summary Assessment Pt progressing strength with I 's,Y's,T's with 2# DB, reports some clicking in L shoulder but is not painful. Pt required cues for full follow through push and eccentric return during chest pass ex with 5# ball, he demonstrates limited strength of bringing ball to chest. Pt had difficulty with ABD and Flex of shoulder with large body blade, form improved with medium blade. PT will benefit from continued intervention to improve strength and ROM Bi shoulders for return to work duties. Physical Therapy Plan Frequency and Duration Frequency of Treatment 2x/Week Duration of treatment (weeks) 24 Plan of Care Start Date 04/27/22 Plan of Care End Date 10/12/22 Therapeutic Interventions Therapeutic Interventions Aquatic Therapy,Home Exercise Program,Manual Therapy, Neuromuscular Re-education, Patient/Caregiver Education, Self-Care/Home Management,Soft Tissue Mobilization,Taping, Therapeutic Activities, Therapeutic Exercises Modalities Cold Pack/Ice Massage,Electric Stimulation,Hot Packs, Infrared Therapy,Iontophoresis ,Ultrasound Next Visit Focus/Plan Next Visit Plan Continue progressing pushing ex, increase tb res if comfortable, shoulder er, ir, ext with tb.
--- NOTE | 2022-07-26 14:26 | PT.OTN ---
Current Diagnoses Pain in left shoulder (07/26/22) Bursitis of left shoulder (07/26/22) Contusion of left shoulder, initial encounter (07/26/22) Physical Therapy Treatment Note PT-OP-A Visit Information Start: 12/27/21 16:53 Freq: Status: Active Protocol: Document 07/26/22 14:04 SAK (Rec: 07/26/22 14:26 SAK [id number]) Out-Patient Physical Therapy Visit Information Visit Information Visit Type Treatment Note Visit Start Time 12:15 Visit Stop Time 13:00 Total Visit Minutes 455 Visit Number 28 Number of PACK TRAIN DRIVER Visits 0 PT-OP-B Current Condition Start: 12/27/21 16:53 Freq: Status: Active Protocol: Document 04/27/22 13:48 LRN (Rec: 04/28/22 19:47 LRN [id number]) Current Condition History of Current Condition Onset Date 2 wks ago L RCR massive full tear repair Current Complaints left shoulder not to be moved, in sling, pain / History of Current Condition Initial injury: Walking out of bus carrying things in hands, lost balance on ice, came down on left elbow, initially left shoulder pain, within a couple days feeling pain on right as well. At this time claim only approved for left shoulder. x-ray: swelling. MRI: full tear of one tendon, partial of 3 others. Surgical repair on the left shoulder 2 weeks ago. Pt presents with rehabilitation protocol for Lg to Massive RCR , subacromial decmprssion. 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 Prior Treatments and Tests Pt using mainly ice post op. Not taking medications because he doesn't like how it makes him feel. Treatment Goals Patient/Caregiver Goals Rehab per protocol. Personal Factors Other Personal Factors That May Effect Right shoulder pain as well as Therapy/Recovery left PT-OP-C Subjective Start: 12/27/21 16:53 Freq: Status: Active Protocol: Document 07/26/22 14:04 SAK (Rec: 07/26/22 14:26 SAK [id number]) OP-PT Subjective Patient Comments Patient Comments Patient reports some tightness in his left ant and latdeltoid region, states not pain but tightness and discomfort. PT-OP-E Functional Tests Start: 12/27/21 16:53 Freq: Status: Active Protocol: Document 12/29/21 13:51 SAK (Rec: 01/02/22 17:20 SAK [id number]) Functional Tests Apley's Scratch Test Action 1- Left medial chest Action 1- Right anterior shoulder Action 2- Left lateral neck Action 2- Right T1 Action 3- Left L3 Action 3- Right L3 PT-OP-H Neuro Start: 12/27/21 16:53 Freq: Status: Active Protocol: Document 12/29/21 13:51 SAK (Rec: 01/02/22 17:20 SAK [id number]) Sensation Evaluation Gross Sensation Gross Sensation WNL PT-OP-J Posture/Palpation/Skin Start: 12/27/21 16:53 Freq: Status: Active Protocol: Document 04/27/22 13:48 LRN (Rec: 04/27/22 20:20 LRN [id number]) Posture Evaluation Position Sitting Evaluation View Pt L shoulder in sling Comments Posture Comments Pt able to don/doff sling independently without complaints of pain. Palpation Assessment Location Healed scars Palpation Location L shoulder: Anterior and posterior incisions Palpation Details Good mobility of well healed scars with barely visible incision lines noted. No tenderness. PT-OP-K Range of Motion Start: 12/27/21 16:53 Freq: Status: Active Protocol: Document 04/27/22 13:48 LRN (Rec: 04/27/22 20:20 LRN [id number]) Shoulder Goniometric Range of Motion Shoulder Right Shoulder ROM WFL No Flexion 91 Extension 11 Abduction 98 External Rotation at 0 degrees Abduction 38 Internal Rotation Behind Back (text) L3 Comments painful arc ROM as previously taken . Left Shoulder ROM WFL No Testing Position Leaning forward Flexion 35 Comments Held assessment of other motions per pt report referring physician did not want him moving the L shoulder . Elbow/Forearm Range of Motion Elbow/Forearm Left Active ROM Testing Position Sitting Comments 3-140 deg's PT-OP-L Special Tests Start: 12/27/21 16:53 Freq: Status: Active Protocol: Document 12/29/21 13:51 SAK (Rec: 01/02/22 17:20 [facility] [id number]) Special Tests Shoulder Special Tests Lift-Off Rotator Cuff Test Results positive josé luis left greater than righ Drop Arm Rotator Cuff Test Results positive josé luis left greater than right PT-OP-M Strength Start: 12/27/21 16:53 Freq: Status: Active Protocol: Document 04/27/22 13:48 LRN (Rec: 04/27/22 20:20 LRN [id number]) Shoulder Strength Shoulder Manual Muscle Testing Right Flexion 3- Fair- Abduction (C5) 3- Fair- Adduction 3- Fair- External Rotation 3- Fair- Internal Rotation 3- Fair- Horizontal Abduction 3- Fair- Horizontal Adduction 3- Fair- Comments Strength as assessed initial visit 12/29/21 Left Comments Deferred, pt in sling. Pt phase I protocol for PROM only. No strengthening until 12 weeks Post Op. PT-OP-Q Treatments Start: 12/27/21 16:53 Freq: Status: Active Protocol: Document 07/19/22 08:05 TS (Rec: 07/19/22 11:19 TS [id number]) Cardio Equipment Upper Body Ergometer (UBE) Duration (Minutes) 8 RPM 80 Seat Position 9 Height 3 Other fwd/bck Therapeutic Exercises Prone Exercises Y Prone Exercise Name [place] ball Reps/Minutes 2x10 Comments cues for gentle, pain-free Ts, Is Prone Exercise Name 1. ext 2. T's 3. I's Equipment Used [place] ball Reps/Minutes 2x10 Comments Cues for core act, slight click in L shoulder Standing Exercises Shldr Ext Resistance lvl 1 Reps/Minutes 2x10 Comments Cues for scap retraction, upright posture Shldr ABD Side bilateral Equipment Used LVL 1 Reps/Minutes 1x10, 1x10 lvl1 Comments Cues for thrumb up, slight discomfort in R side Pec Stretch Equipment Used Door Reps/Minutes 3x30 Comments Feeling good stretch Chest pass Standing Exercise Name 5.5# medicine ball Equipment Used Black medicine ball Reps/Minutes 1x25 Comments Emphasis on elbow ext Serratus Press Equipment Used lvl 1 Reps/Minutes 2x10 Comments Cues for scap protraction wall push-up Reps/Minutes 2x10 Comments Good form, cues for hand positioning Body blade Standing Exercise Name elbows at side, josé luis, unil Equipment Used Middle body blade Reps/Minutes 30 sec each Comments elbows bent PT-OP-R Modalities Start: 12/27/21 16:53 Freq: Status: Active Protocol: Document 01/11/22 09:04 SAK (Rec: 01/11/22 09:51 SAK [id number]) Hot Pack/Cold Pack Treatment Cold Pack Location José Luis shds Patient Position Hooklying Treatment Duration (minutes) 10 Patient Tolerance Good PT-OP-S Aquatic Treatment Start: 12/27/21 16:53 Freq: Status: Active Protocol: Document 07/26/22 14:04 [facility] (Rec: 07/26/22 14:26 [facility] [id number]) Aquatics Treatment Upper Extremity Exercises reverse push ups Body Position Prone Equipment flotation belt, med barbells Reps/Duration 10x2 sh ER/IR Details elbows at sides Body Position Standing Water Level Neck Level Reps/Duration 10x2 [place] Activities [place] Activities Bicycle,Bicycle Backwards, Cross Country,Running Other Activities bike/run tricep extension plank-prone and side shoot thru with sidelying delay of 15 sec Equipment flotation belt, gloves Duration 13 min Comments bicycling backward with reverse UE's bicycle forward with barbells held down at sides for scapular stab Swim Strokes Crawl Equipment Flotation Belt Other Equipment Used gloves Laps/Duration 25m x 2 Comments do crawl vs lift UE out of water Breastroke Laps/Duration 50 m Comments cues for pain-free ROM and intensity sidestroke Laps/Duration 50 m Comments (1x each side) cues for pain- free ROM and intensity Elementary Backstroke Equipment Flotation Belt Other Equipment Used gloves Laps/Duration 25m x 2 Comments cues for pain-free ROM and intensity Manual Techniques Bad Ragaz passive for upper trunk and shoulder ROM neck float, waist float, noodle under knees Aquatic Massage periscapular region, deltoids, pecs instruction in self-massage with tennis ball PT-OP-T Assessment and Plan Start: 12/27/21 16:53 Freq: Status: Active Protocol: Document 07/26/22 14:04 [facility] (Rec: 07/26/22 14:26 [facility] [id number]) Physical Therapy Assessment Goals Three Impairment ROM Short Term Goal (STG) Per protocol, Phase 1: PROTECT SURGERY. DECR PAIN AND INFLAMMATION, pt education in self care. GOAL MET STG Duration 6 wks GOAL MET 05/23/22 Senior Living Goal (LTG) Per protocol Phase II: (6-12 wks) Caution with flexion and throughout phase, functional ROM. Pt able to reach up in high cupboard. 05/23/22: initiated AAROM PHase II. 06/14/22: gentle strengthening biceps, triceps, scapular musculature 07/06/22: now Phase III goal met LTG Duration goal met Two Impairment Decreased strength, not to start strengthening until phase II of protcol Short Term Goal (STG) Per protocol, Phase II: Begin gentle strengthening and scapular strengthening, Marielena IR/ER & tolerate UBE towards end of phase. Patient educated in HEP of starting AROM. 06/14/22: started gentle strengthenig 07/06/22: incremental progression of post-op ther ex STG Duration 3 months (12 weeks) Street Light Repairer Helper Goal (LTG) Per protocol, Phase III - IV: Left shoulder ROM WFL, and left shoulder beginning and progressing weighted strenghtening, with L shoulder strength least 4-/5 all motions to allow him to return to usual activities. 07/06/22: now in phase III strengthening and ROM LTG Duration 6 months (24 weeks) One Impairment HEP Impairment Quickdash disability index score 50% Short Term Goal (STG) Phase II: Pt will be educated in PROM/AROM ex's on home program. 06/14/22: ongoing progression 07/06/22: Quickdash score 43%, HEP progression continues STG Duration 3 months (6-12 weeks) Street Light Repairer Helper Goal (LTG) Pt will be independent in self [facility] and aquatic ex program for L shoulder ROM and strengthening ex's. 06/14/22: good compliance with good tolerance for progression of ther ex. 07/06/22: continues progression of ex and activities with good compliance to HEP and post-op protocol with consistent improvement in symptoms LTG Duration 6 months (10/30/22) Assessment Summary Assessment Increased soft tissue tightness lateral and anterior shoulder, treated with both aquatic manual techniques and self-massage instruction with tennis ball with patient demonstrating good understanding. Cautioned to not overdo especially with overhead activities d/t some impingement symptoms. Physical Therapy Plan Frequency and Duration Frequency of Treatment 2x/Week Duration of treatment (weeks) 24 Plan of Care Start Date 04/27/22 Plan of Care End Date 10/12/22 Therapeutic Interventions Therapeutic Interventions Aquatic Therapy,Home Exercise Program,Manual Therapy, Neuromuscular Re-education, Patient/Caregiver Education, Self-Care/Home Management,Soft Tissue Mobilization,Taping, Therapeutic Activities, Therapeutic Exercises Modalities Cold Pack/Ice Massage,Electric Stimulation,Hot Packs, Infrared Therapy,Iontophoresis ,Ultrasound Next Visit Focus/Plan Next Note Type Treatment Note Next Visit Plan Work on scapulohumeral rhythm/ scapular kinematics to assure no impingement with elevation . Manual treatment as indicated to decrease soft tissue tightness and improve shoulder mobility. Continue strengthening with emphasis in clinic with functional srengthening for return to work.
--- NOTE | 2022-07-28 12:37 | PT-IP ANOTE ---
Pt care is transferred to Lena Saleh PT at pt request (07/19/22) for her being primary therapist due to her being the therapist pre-surgery. Further treatments/responsibiilty will be with Lena Saleh PT.
--- NOTE | 2022-08-16 12:59 | PT.OTN ---
Current Diagnoses Pain in left shoulder (08/16/22) Bursitis of left shoulder (08/16/22) Contusion of left shoulder, initial encounter (08/16/22) Physical Therapy Treatment Note PT-OP-A Visit Information Start: 12/27/21 16:53 Freq: Status: Active Protocol: Document 08/16/22 12:17 SP (Rec: 08/16/22 12:59 SP [id number]) Out-Patient Physical Therapy Visit Information Visit Information Visit Type Treatment Note Visit Note Progress Note potentially due Visit Start Time 12:17 Visit Stop Time 13:00 Total Visit Minutes 43 Visit Number 29 Number of OCEANIC SCIENCES PROFESSOR Visits 1 Evaluation Information Evaluation Date 12/29/21 Precautions Precautions Surgery approx 04/05/22: L rotator cuff repair of large tear by Dr. Buck. Initial eval indicates full tear of one tendon, partial of 3 others. PT-OP-B Current Condition Start: 12/27/21 16:53 Freq: Status: Active Protocol: Document 04/27/22 13:48 LRN (Rec: 04/28/22 19:47 LRN [id number]) Current Condition History of Current Condition Onset Date 2 wks ago L RCR massive full tear repair Current Complaints left shoulder not to be moved, in sling, pain 1/ History of Current Condition Initial injury: Walking out of bus carrying things in hands, lost balance on ice, came down on left elbow, initially left shoulder pain, within a couple days feeling pain on right as well. At this time claim only approved for left shoulder. x-ray: swelling. MRI: full tear of one tendon, partial of 3 others. Surgical repair on the left shoulder 2 weeks ago. Pt presents with rehabilitation protocol for Lg to Massive RCR , subacromial decmprssion. 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 Prior Treatments and Tests Pt using mainly ice post op. Not taking medications because he doesn't like how it makes him feel. Treatment Goals Patient/Caregiver Goals Rehab per protocol. 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 FU L shld 09/14/[address] Buck . PT-OP-E Functional Tests Start: 12/27/21 16:53 Freq: Status: Active Protocol: Document 12/29/21 13:51 SAK (Rec: 01/02/22 17:20 SAK [id number]) Functional Tests Apley's Scratch Test Action 1- Left medial chest Action 1- Right anterior shoulder Action 2- Left lateral neck Action 2- Right T1 Action 3- Left L3 Action 3- Right L3 PT-OP-H Neuro Start: 12/27/21 16:53 Freq: Status: Active Protocol: Document 12/29/21 13:51 SAK (Rec: 01/02/22 17:20 SAK [id number]) Sensation Evaluation Gross Sensation Gross Sensation WNL PT-OP-J Posture/Palpation/Skin Start: 12/27/21 16:53 Freq: Status: Active Protocol: Document 04/27/22 13:48 LRN (Rec: 04/27/22 20:20 LRN [id number]) Posture Evaluation Position Sitting Evaluation View Pt L shoulder in sling Comments Posture Comments Pt able to don/doff sling independently without complaints of pain. Palpation Assessment Location Healed scars Palpation Location L shoulder: Anterior and posterior incisions Palpation Details Good mobility of well healed scars with barely visible incision lines noted. No tenderness. PT-OP-K Range of Motion Start: 12/27/21 16:53 Freq: Status: Active Protocol: Document 08/16/22 12:17 SP (Rec: 08/16/22 12:59 SP [id number]) Shoulder Goniometric Range of Motion Shoulder Left Shoulder ROM WFL No Testing Position Standing Flexion 145 Extension 46 Abduction 168 Internal Rotation Behind Back (text) T10 Comments Challenged mid range FF and ABD decrease strength but if goes slow able progress into more AROM PT-OP-L Special Tests Start: 12/27/21 16:53 Freq: Status: Active Protocol: Document 12/29/21 13:51 SAK (Rec: 01/02/22 17:20 SAK [id number]) Special Tests Shoulder Special Tests Lift-Off Rotator Cuff Test Results positive josé luis left greater than righ Drop Arm Rotator Cuff Test Results positive josé luis left greater than right PT-OP-M Strength Start: 12/27/21 16:53 Freq: Status: Active Protocol: Document 04/27/22 13:48 LRN (Rec: 04/27/22 20:20 LRN [id number]) Shoulder Strength Shoulder Manual Muscle Testing Right Flexion 3- Fair- Abduction (C5) 3- Fair- Adduction 3- Fair- External Rotation 3- Fair- Internal Rotation 3- Fair- Horizontal Abduction 3- Fair- Horizontal Adduction 3- Fair- Comments Strength as assessed initial visit 12/29/21 Left Comments Deferred, pt in sling. Pt phase I protocol for PROM only. No strengthening until 12 weeks Post Op. PT-OP-Q Treatments Start: 12/27/21 16:53 Freq: Status: Active Protocol: Document 08/16/22 12:17 SP (Rec: 08/16/22 12:59 SP [id number]) Cardio Equipment Upper Body Ergometer (UBE) Duration (Minutes) 6 RPM 60 Seat Position 9 Height 3 Other fwd/bck Therapeutic Exercises Supine Exercises chest press Supine Exercise Name do next tx with med ball Prone Exercises ball walk outs Prone Exercise Name trialed in PT Resistance over 65cm Tball Reps/Minutes 3 steps on BUEs x2 sets Comments cued scap complex and core facilitation controlled advancement Ts, Is Prone Exercise Name 1. ext (Is) 2. T's 3. Ys Equipment Used over Green 65cm ball Reps/Minutes 2x10 Comments cued no UT recruitment Standing Exercises throwing motion Standing Exercise Name concentric, slow controlled eccentric ABD, ER able Resistance TB #1 Reps/Minutes x10 Comments cued slow motion ABD, ER, no UE shoulder ER Resistance L1 TB Equipment Used towel roll Reps/Minutes 2x10 reps, 10 strech Comments cued slow pacing eccentric return Should IR Resistance L3 TB Equipment Used towel roll Reps/Minutes 2x10 reps, 10 strech Comments cued slow pacing eccentric return PT-OP-R Modalities Start: 12/27/21 16:53 Freq: Status: Active Protocol: Document 01/11/22 09:04 SAK (Rec: 01/11/22 09:51 SAK [id number]) Hot Pack/Cold Pack Treatment Cold Pack Location José Luis shds Patient Position Hooklying Treatment Duration (minutes) 10 Patient Tolerance Good PT-OP-S Aquatic Treatment Start: 12/27/21 16:53 Freq: Status: Active Protocol: Document 07/26/22 14:04 SAK (Rec: 07/26/22 14:26 SAK [id number]) Aquatics Treatment Upper Extremity Exercises reverse push ups Body Position Prone Equipment flotation belt, med barbells Reps/Duration 10x2 sh ER/IR Details elbows at sides Body Position Standing Water Level Neck Level Reps/Duration 10x2 Ponce Activities Ponce Activities Bicycle,Bicycle Backwards, Cross Country,Running Other Activities bike/run tricep extension plank-prone and side shoot thru with sidelying delay of 15 sec Equipment flotation belt, gloves Duration 13 min Comments bicycling backward with reverse UE's bicycle forward with barbells held down at sides for scapular stab Swim Strokes Crawl Equipment Flotation Belt Other Equipment Used gloves Laps/Duration 25m x 2 Comments do crawl vs lift UE out of water Breastroke Laps/Duration 50 m Comments cues for pain-free ROM and intensity sidestroke Laps/Duration 50 m Comments (1x each side) cues for pain- free ROM and intensity Elementary Backstroke Equipment Flotation Belt Other Equipment Used gloves Laps/Duration 25m x 2 Comments cues for pain-free ROM and intensity Manual Techniques [place] passive for upper trunk and shoulder ROM neck float, waist float, noodle under knees Aquatic Massage periscapular region, deltoids, pecs instruction in self-massage with tennis ball PT-OP-T Assessment and Plan Start: 12/27/21 16:53 Freq: Status: Active Protocol: Document 08/16/22 12:17 SP (Rec: 08/16/22 12:59 SP [id number]) Physical Therapy Assessment Goals Three Impairment ROM Short Term Goal (STG) Per protocol, Phase 1: PROTECT SURGERY. DECR PAIN AND INFLAMMATION, pt education in self care. GOAL MET STG Duration 6 wks GOAL MET 05/23/22 Industrial Relations Commissioner Goal (LTG) Per protocol Phase II: (6-12 wks) Caution with flexion and throughout phase, functional ROM. Pt able to reach up in high cupboard. 05/23/22: initiated AAROM PHase II. 06/14/22: gentle strengthening biceps, triceps, scapular musculature 07/06/22: now Phase III goal met LTG Duration goal met Two Impairment Decreased strength, not to start strengthening until phase II of protcol Short Term Goal (STG) Per protocol, Phase II: Begin gentle strengthening and scapular strengthening, Marielena IR/ER & tolerate UBE towards end of phase. Patient educated in HEP of starting AROM. 06/14/22: started gentle strengthenig 07/06/22: incremental progression of post-op ther ex STG Duration 3 months (12 weeks) Group Home Goal (LTG) Per protocol, Phase III - IV: Left shoulder ROM WFL, and left shoulder beginning and progressing weighted strenghtening, with L shoulder strength least 4-/5 all motions to allow him to return to usual activities. 07/06/22: now in phase III strengthening and ROM LTG Duration 6 months (24 weeks) One Impairment HEP Impairment Quickdash disability index score 50% Short Term Goal (STG) Phase II: Pt will be educated in PROM/AROM ex's on home program. 06/14/22: ongoing progression 07/06/22: Quickdash score 43%, HEP progression continues STG Duration 3 months (6-12 weeks) Industrial Relations Commissioner Goal (LTG) Pt will be independent in self senior care and aquatic ex program for L shoulder ROM and strengthening ex's. 06/14/22: good compliance with good tolerance for progression of ther ex. 07/06/22: continues progression of ex and activities with good compliance to HEP and post-op protocol with consistent improvement in symptoms LTG Duration 6 months (10/30/22) Assessment Summary Assessment Pt responded well to added eccentric AAROM throwing and ball walk outs, painfree. Physical Therapy Plan Frequency and Duration Frequency of Treatment 2x/Week Duration of treatment (weeks) 24 Plan of Care Start Date 04/27/22 Plan of Care End Date 10/12/22 Therapeutic Interventions Therapeutic Interventions Aquatic Therapy,Home Exercise Program,Manual Therapy, Neuromuscular Re-education, Patient/Caregiver Education, Self-Care/Home Management,Soft Tissue Mobilization,Taping, Therapeutic Activities, Therapeutic Exercises Modalities Cold Pack/Ice Massage,Electric Stimulation,Hot Packs, Infrared Therapy,Iontophoresis ,Ultrasound Next Visit Focus/Plan Next Note Type Treatment Note Next Visit Plan Recheck tolerance to WB prone, throwing ABD/ ER eccentric in PT. POC: Work on scapulohumeral rhythm/ scapular kinematics to assure no impingement with elevation. Manual treatment as indicated to decrease soft tissue tightness and improve shoulder mobility. Continue strengthening with emphasis in clinic with functional srengthening for return to work.
--- NOTE | 2022-08-23 09:23 | PT.OTN ---
Current Diagnoses Pain in left shoulder (08/23/22) Bursitis of left shoulder (08/23/22) Contusion of left shoulder, initial encounter (08/23/22) Physical Therapy Treatment Note PT-OP-A Visit Information Start: 12/27/21 16:53 Freq: Status: Active Protocol: Document 08/23/22 08:11 SAK (Rec: 08/23/22 09:02 SAK [id number]) Out-Patient Physical Therapy Visit Information Visit Information Visit Type Treatment Note Visit Start Time 08:15 Visit Stop Time 08:58 Total Visit Minutes 43 Visit Number 30 Number of HARVESTING CONTRACTOR Visits 0 Evaluation Information Evaluation Date 12/29/21 Precautions Precautions Surgery approx 04/05/22: L rotator cuff repair of large tear by Dr. Buck. Initial eval indicates full tear of one tendon, partial of 3 others. PT-OP-B Current Condition Start: 12/27/21 16:53 Freq: Status: Active Protocol: Document 04/27/22 13:48 LRN (Rec: 04/28/22 19:47 LRN [id number]) Current Condition History of Current Condition Onset Date 2 wks ago L RCR massive full tear repair Current Complaints left shoulder not to be moved, in sling, pain / History of Current Condition Initial injury: Walking out of bus carrying things in hands, lost balance on ice, came down on left elbow, initially left shoulder pain, within a couple days feeling pain on right as well. At this time claim only approved for left shoulder. x-ray: swelling. MRI: full tear of one tendon, partial of 3 others. Surgical repair on the left shoulder 2 weeks ago. Pt presents with rehabilitation protocol for Lg to Massive RCR , subacromial decmprssion. 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 Prior Treatments and Tests Pt using mainly ice post op. Not taking medications because he doesn't like how it makes him feel. Treatment Goals Patient/Caregiver Goals Rehab per protocol. Personal Factors Other Personal Factors That May Effect Right shoulder pain as well as Therapy/Recovery left PT-OP-C Subjective Start: 12/27/21 16:53 Freq: Status: Active Protocol: Document 08/23/22 08:11 SAK (Rec: 08/23/22 09:02 SAK [id number]) OP-PT Subjective Patient Comments Patient Comments Most difficulty with throwing motion, feels some tightness at shoulder joint at midrange of lifting PT-OP-E Functional Tests Start: 12/27/21 16:53 Freq: Status: Active Protocol: Document 12/29/21 13:51 SAK (Rec: 01/02/22 17:20 SAK [id number]) Functional Tests Apley's Scratch Test Action 1- Left medial chest Action 1- Right anterior shoulder Action 2- Left lateral neck Action 2- Right T1 Action 3- Left L3 Action 3- Right L3 PT-OP-H Neuro Start: 12/27/21 16:53 Freq: Status: Active Protocol: Document 12/29/21 13:51 SAK (Rec: 01/02/22 17:20 SAK [id number]) Sensation Evaluation Gross Sensation Gross Sensation WNL PT-OP-J Posture/Palpation/Skin Start: 12/27/21 16:53 Freq: Status: Active Protocol: Document 04/27/22 13:48 LRN (Rec: 04/27/22 20:20 LRN [id number]) Posture Evaluation Position Sitting Evaluation View Pt L shoulder in sling Comments Posture Comments Pt able to don/doff sling independently without complaints of pain. Palpation Assessment Location Healed scars Palpation Location L shoulder: Anterior and posterior incisions Palpation Details Good mobility of well healed scars with barely visible incision lines noted. No tenderness. PT-OP-K Range of Motion Start: 12/27/21 16:53 Freq: Status: Active Protocol: Document 08/16/22 12:17 SP (Rec: 08/16/22 12:59 SP [id number]) Shoulder Goniometric Range of Motion Shoulder Left Shoulder ROM WFL No Testing Position Standing Flexion 145 Extension 46 Abduction 168 Internal Rotation Behind Back (text) T10 Comments Challenged mid range FF and ABD decrease strength but if goes slow able progress into more AROM PT-OP-L Special Tests Start: 12/27/21 16:53 Freq: Status: Active Protocol: Document 12/29/21 13:51 SAK (Rec: 01/02/22 17:20 SAK [id number]) Special Tests Shoulder Special Tests Lift-Off Rotator Cuff Test Results positive josé luis left greater than righ Drop Arm Rotator Cuff Test Results positive josé luis left greater than right PT-OP-M Strength Start: 12/27/21 16:53 Freq: Status: Active Protocol: Document 04/27/22 13:48 LRN (Rec: 04/27/22 20:20 LRN [id number]) Shoulder Strength Shoulder Manual Muscle Testing Right Flexion 3- Fair- Abduction (C5) 3- Fair- Adduction 3- Fair- External Rotation 3- Fair- Internal Rotation 3- Fair- Horizontal Abduction 3- Fair- Horizontal Adduction 3- Fair- Comments Strength as assessed initial visit 12/29/21 Left Comments Deferred, pt in sling. Pt phase I protocol for PROM only. No strengthening until 12 weeks Post Op. PT-OP-Q Treatments Start: 12/27/21 16:53 Freq: Status: Active Protocol: Document 08/23/22 08:11 SAK (Rec: 08/23/22 09:02 SAK [id number]) Cardio Equipment Upper Body Ergometer (UBE) Duration (Minutes) 6 RPM 60 Seat Position 9 Height 3.5 Other fwd/bck Therapeutic Exercises Supine Exercises chest press Reps/Minutes 10x shld ER Supine Exercise Name PROM at 30 deg abd, supported on towel roll Reps/Minutes 10x5 Comments 1# passive, contract/relax Prone Exercises ball walk outs Prone Exercise Name trialed in PT Resistance over 65cm Tball Reps/Minutes 3 steps on BUEs x2 sets Comments cued scap complex and core facilitation controlled advancement Ts, Is Prone Exercise Name 1. ext (Is) 2. T's 3. Ys Equipment Used over Green 65cm ball Reps/Minutes 2x10 Comments cued no [place] recruitment Sidelying Exercises should flex Reps/Minutes 10x2 Comments with manual scapular upward rotation, pt education on kinematics shoulder ER Equipment Used towel roll Reps/Minutes 10x5 Comments verbal and tactile cues for rotation and glide in shoulder joint Sitting Exercises Shoulder ER Equipment Used cane, towel roll Reps/Minutes 10x2, 5s hold pulleys Sitting Exercise Name flex, scaption, abduction Reps/Minutes 10x ea Comments cues for relaxed shoulder movement, manual inf glide. Standing Exercises throwing motion Standing Exercise Name concentric, slow controlled eccentric ABD, ER able Resistance TB #1 Reps/Minutes x10 Comments cued slow motion ABD, ER, no UE external rotation Standing Exercise Name reverse throw motion Equipment Used L1 TB Reps/Minutes 10x2 Comments arm supported on table, vc and manual cues for motion, dec UT shoulder ER Resistance L1 TB Equipment Used towel roll Reps/Minutes 2x10 reps, 10 strech Comments cued slow pacing eccentric return Should IR Resistance L3 TB Equipment Used towel roll Reps/Minutes 2x10 reps, 10 strech Comments cued slow pacing eccentric return Manual Therapy Treatment Joint Mobilizations GH Joint left Direction posterior, inferior Grade I Reps/Duration 5 min Comments supine and sitting with UE in scaption 90 deg, and with pulleys PT-OP-R Modalities Start: 12/27/21 16:53 Freq: Status: Active Protocol: Document 01/11/22 09:04 [facility] (Rec: 01/11/22 09:51 [facility] [id number]) Hot Pack/Cold Pack Treatment Cold Pack Location José Luis shds Patient Position Hooklying Treatment Duration (minutes) 10 Patient Tolerance Good PT-OP-T Assessment and Plan Start: 12/27/21 16:53 Freq: Status: Active Protocol: Document 08/23/22 08:11 [facility] (Rec: 08/23/22 09:02 [facility] [id number]) Physical Therapy Assessment Goals Four Impairment impaired ROM, strength, and shoulder kinematics Peer Financial Counselor Goal (LTG) Patient to demonstrate left shoulder ROM, strength and kinematics WNL for return to all usual activities with ease . Three Impairment unable to reach overhead without impingement symptoms Peer Financial Counselor Goal (LTG) Patient will be able to do all usual activities including reaching overhead without impingement symptoms. LTG Duration 10/30/22 Two Impairment Decreased strength, not to start strengthening until phase II of protcol Short Term Goal (STG) Per protocol, Phase II: Begin gentle strengthening and scapular strengthening, Marielena IR/ER & tolerate UBE towards end of phase. Patient educated in HEP of starting AROM. 06/14/22: started gentle strengthenig 07/06/22: incremental progression of post-op ther ex STG Duration 3 months (12 weeks) Group Home Goal (LTG) Per protocol, Phase III - IV: Left shoulder ROM WFL, and left shoulder beginning and progressing weighted strenghtening, with L shoulder strength least 4-/5 all motions to allow him to return to usual activities. 07/06/22: now in phase III strengthening and ROM 08/22/22: Some limitations in ER and flex with patient verbalizing impingment signs; decreased significantly with manual joint mobs, cues for correct GH and scapular mechanics with movement. Verbal and tactile cues needed with most ex. Emphasis on LTG Duration 6 months (24 weeks) One Impairment HEP Impairment Quickdash disability index score 50% Short Term Goal (STG) Phase II: Pt will be educated in PROM/AROM ex's on home program. 06/14/22: ongoing progression 07/06/22: Quickdash score 43%, HEP progression continues STG Duration 3 months (6-12 weeks) Peer Financial Counselor Goal (LTG) Pt will be independent in self [facility] and aquatic ex program for L shoulder ROM and strengthening ex's. 06/14/22: good compliance with good tolerance for progression of ther ex. 07/06/22: continues progression of ex and activities with good compliance to HEP and post-op protocol with consistent improvement in symptoms 08/22/22: some impingment signs due to dec GH joint inf glide, and impaired scapulohumeral rhythm. Emphasis today on improving ER ROM and strengthening posterior chain. LTG Duration 6 months (10/30/22) Assessment Summary Assessment Obtained 70 deg ER supine after manual techniques. Patient needs verbal and tactile cues for proper movement and to feel roll in glide w/in shoulder joint. Decreased impingment symptoms withmanual treatcment. Emphasis on shoulder ER ROM and correct scapular and GH mechanics, patient demonstrating improved understanding of importance of ER ROM, roll and glide within GH joint, rotation of scapula Physical Therapy Plan Frequency and Duration Frequency of Treatment 2x/Week Duration of treatment (weeks) 24 Plan of Care Start Date 04/27/22 Plan of Care End Date 10/12/22 Therapeutic Interventions Therapeutic Interventions Aquatic Therapy,Home Exercise Program,Manual Therapy, Neuromuscular Re-education, Patient/Caregiver Education, Self-Care/Home Management,Soft Tissue Mobilization,Taping, Therapeutic Activities, Therapeutic Exercises Modalities Cold Pack/Ice Massage,Electric Stimulation,Hot Packs, Infrared Therapy,Iontophoresis ,Ultrasound Next Visit Focus/Plan Next Note Type Treatment Note Next Visit Plan POC: Manual joint mobs and soft tissue mob to improve joint mechanics and ROMWork on scapulohumeral rhythm/ scapular kinematics to assure no impingement with elevation. Manual treatment as indicated to decrease soft tissue tightness and improve shoulder mobility. Continue strengthening with emphasis in clinic with functional srengthening for return to work. [ End ]
--- NOTE | 2022-08-25 09:00 | PT.OTN ---
Current Diagnoses Pain in left shoulder (08/25/22) Bursitis of left shoulder (08/25/22) Contusion of left shoulder, initial encounter (08/25/22) Physical Therapy Treatment Note PT-OP-A Visit Information Start: 12/27/21 16:53 Freq: Status: Active Protocol: Document 08/25/22 08:21 SP (Rec: 08/25/22 09:04 SP [id number]) Out-Patient Physical Therapy Visit Information Visit Information Visit Type Treatment Note Visit Start Time 08:21 Visit Stop Time 09:00 Total Visit Minutes 39 Visit Number 31 Number of CLINIC PHYSICIAN Visits 1 Evaluation Information Evaluation Date 12/29/21 Precautions Precautions Surgery approx 04/05/22: L rotator cuff repair of large tear by Dr. Buck. Initial eval indicates full tear of one tendon, partial of 3 others. PT-OP-B Current Condition Start: 12/27/21 16:53 Freq: Status: Active Protocol: Document 04/27/22 13:48 LRN (Rec: 04/28/22 19:47 LRN [id number]) Current Condition History of Current Condition Onset Date 2 wks ago L RCR massive full tear repair Current Complaints left shoulder not to be moved, in sling, pain / History of Current Condition Initial injury: Walking out of bus carrying things in hands, lost balance on ice, came down on left elbow, initially left shoulder pain, within a couple days feeling pain on right as well. At this time claim only approved for left shoulder. x-ray: swelling. MRI: full tear of one tendon, partial of 3 others. Surgical repair on the left shoulder 2 weeks ago. Pt presents with rehabilitation protocol for Lg to Massive RCR , subacromial decmprssion. 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 Prior Treatments and Tests Pt using mainly ice post op. Not taking medications because he doesn't like how it makes him feel. Treatment Goals Patient/Caregiver Goals Rehab per protocol. Personal Factors Other Personal Factors That May Effect Right shoulder pain as well as Therapy/Recovery left PT-OP-C Subjective Start: 12/27/21 16:53 Freq: Status: Active Protocol: Document 08/25/22 08:21 SP (Rec: 08/25/22 09:04 SP [id number]) OP-PT Subjective Patient Comments Patient Comments Pt reports going for a walk after tx. Shld feels stiff over anterior L shld. PT-OP-E Functional Tests Start: 12/27/21 16:53 Freq: Status: Active Protocol: Document 12/29/21 13:51 SAK (Rec: 01/02/22 17:20 SAK [id number]) Functional Tests Apley's Scratch Test Action 1- Left medial chest Action 1- Right anterior shoulder Action 2- Left lateral neck Action 2- Right T1 Action 3- Left L3 Action 3- Right L3 PT-OP-H Neuro Start: 12/27/21 16:53 Freq: Status: Active Protocol: Document 12/29/21 13:51 SAK (Rec: 01/02/22 17:20 SAK [id number]) Sensation Evaluation Gross Sensation Gross Sensation WNL PT-OP-J Posture/Palpation/Skin Start: 12/27/21 16:53 Freq: Status: Active Protocol: Document 04/27/22 13:48 LRN (Rec: 04/27/22 20:20 LRN [id number]) Posture Evaluation Position Sitting Evaluation View Pt L shoulder in sling Comments Posture Comments Pt able to don/doff sling independently without complaints of pain. Palpation Assessment Location Healed scars Palpation Location L shoulder: Anterior and posterior incisions Palpation Details Good mobility of well healed scars with barely visible incision lines noted. No tenderness. PT-OP-K Range of Motion Start: 12/27/21 16:53 Freq: Status: Active Protocol: Document 08/16/22 12:17 SP (Rec: 08/16/22 12:59 SP [id number]) Shoulder Goniometric Range of Motion Shoulder Left Shoulder ROM WFL No Testing Position Standing Flexion 145 Extension 46 Abduction 168 Internal Rotation Behind Back (text) T10 Comments Challenged mid range FF and ABD decrease strength but if goes slow able progress into more AROM PT-OP-L Special Tests Start: 12/27/21 16:53 Freq: Status: Active Protocol: Document 12/29/21 13:51 SAK (Rec: 01/02/22 17:20 SAK [id number]) Special Tests Shoulder Special Tests Lift-Off Rotator Cuff Test Results positive josé luis left greater than righ Drop Arm Rotator Cuff Test Results positive josé luis left greater than right PT-OP-M Strength Start: 12/27/21 16:53 Freq: Status: Active Protocol: Document 04/27/22 13:48 LRN (Rec: 04/27/22 20:20 LRN [id number]) Shoulder Strength Shoulder Manual Muscle Testing Right Flexion 3- Fair- Abduction (C5) 3- Fair- Adduction 3- Fair- External Rotation 3- Fair- Internal Rotation 3- Fair- Horizontal Abduction 3- Fair- Horizontal Adduction 3- Fair- Comments Strength as assessed initial visit 12/29/21 Left Comments Deferred, pt in sling. Pt phase I protocol for PROM only. No strengthening until 12 weeks Post Op. PT-OP-Q Treatments Start: 12/27/21 16:53 Freq: Status: Active Protocol: Document 08/25/22 08:21 SP (Rec: 08/25/22 09:04 SP [id number]) Cardio Equipment Upper Body Ergometer (UBE) Duration (Minutes) 6 RPM 60 Seat Position 9 Height 3.5 Other fwd/bck Therapeutic Exercises Supine Exercises chest press Supine Exercise Name chest pass up/eccentric catch Resistance 4.4# Lblue small med ball Reps/Minutes x20 reps Comments cued press pass ceiling and eccentric absorbtion FF Side bilateral Equipment Used 4.4# Lblue small med ball Reps/Minutes 2x10 L, 2x5 reps R Comments cued slow controlled movement serratus press Resistance 4.4# L, 5.5 # R blue small med ball Reps/Minutes 2x10 Comments good form Prone Exercises elbow plank Prone Exercise Name off feet Equipment Used good effort pain free. Reps/Minutes 2x 15 , 10 x2 Comments cued glut squeeze and SP level scap Sidelying Exercises should flex Reps/Minutes 10x2 Comments with manual scapular upward rotation, pt education on kinematics open book Side bilateral Resistance 2# DB Reps/Minutes x10 reps Comments cued slow eccentric Sitting Exercises pulleys Sitting Exercise Name flex, scaption, abduction, IR Resistance standing Equipment Used mirror for self posturing Reps/Minutes 10SH, 15 reps Comments cues for relaxed shoulder movement good alignment Standing Exercises Body blade Standing Exercise Name punch forward, down, IR/ER Lateral Equipment Used Middle body blade, elbow bent tucked at side Reps/Minutes 30 sec each direction Comments cued no UT compensations PT-OP-R Modalities Start: 12/27/21 16:53 Freq: Status: Active Protocol: Document 01/11/22 09:04 SAK (Rec: 01/11/22 09:51 SAK [id number]) Hot Pack/Cold Pack Treatment Cold Pack Location José Luis shds Patient Position Hooklying Treatment Duration (minutes) 10 Patient Tolerance Good PT-OP-T Assessment and Plan Start: 12/27/21 16:53 Freq: Status: Active Protocol: Document 08/25/22 08:21 SP (Rec: 08/25/22 09:04 SP [id number]) Physical Therapy Assessment Goals Four Impairment impaired ROM, strength, and shoulder kinematics Halfway Goal (LTG) Patient to demonstrate left shoulder ROM, strength and kinematics WNL for return to all usual activities with ease . Three Impairment unable to reach overhead without impingement symptoms City Maintenance Manager Goal (LTG) Patient will be able to do all usual activities including reaching overhead without impingement symptoms. LTG Duration 10/30/22 Two Impairment Decreased strength, not to start strengthening until phase II of protcol Short Term Goal (STG) Per protocol, Phase II: Begin gentle strengthening and scapular strengthening, Marielena IR/ER & tolerate UBE towards end of phase. Patient educated in HEP of starting AROM. 06/14/22: started gentle strengthenig 07/06/22: incremental progression of post-op ther ex STG Duration 3 months (12 weeks) Halfway Goal (LTG) Per protocol, Phase III - IV: Left shoulder ROM WFL, and left shoulder beginning and progressing weighted strenghtening, with L shoulder strength least 4-/5 all motions to allow him to return to usual activities. 07/06/22: now in phase III strengthening and ROM 08/22/22: Some limitations in ER and flex with patient verbalizing impingment signs; decreased significantly with manual joint mobs, cues for correct GH and scapular mechanics with movement. Verbal and tactile cues needed with most ex. Emphasis on LTG Duration 6 months (24 weeks) One Impairment HEP Impairment Quickdash disability index score 50% Short Term Goal (STG) Phase II: Pt will be educated in PROM/AROM ex's on home program. 06/14/22: ongoing progression 07/06/22: Quickdash score 43%, HEP progression continues STG Duration 3 months (6-12 weeks) City Maintenance Manager Goal (LTG) Pt will be independent in self nursing home and aquatic ex program for L shoulder ROM and strengthening ex's. 06/14/22: good compliance with good tolerance for progression of ther ex. 07/06/22: continues progression of ex and activities with good compliance to HEP and post-op protocol with consistent improvement in symptoms 08/22/22: some impingment signs due to dec GH joint inf glide, and impaired scapulohumeral rhythm. Emphasis today on improving ER ROM and strengthening posterior chain. LTG Duration 6 months (10/30/22) Assessment Summary Assessment Pt showed good effort with ther ex today. Improved LT and Rhomboid activation manual fac with down casper scapular rotation during FF on side. He was able to complete elbow plank off feet today. Will continue to focus scapular rot and ABD/ ER next tx. Physical Therapy Plan Frequency and Duration Frequency of Treatment 2x/Week Duration of treatment (weeks) 24 Plan of Care Start Date 04/27/22 Plan of Care End Date 10/12/22 Therapeutic Interventions Therapeutic Interventions Aquatic Therapy,Home Exercise Program,Manual Therapy, Neuromuscular Re-education, Patient/Caregiver Education, Self-Care/Home Management,Soft Tissue Mobilization,Taping, Therapeutic Activities, Therapeutic Exercises Modalities Cold Pack/Ice Massage,Electric Stimulation,Hot Packs, Infrared Therapy,Iontophoresis ,Ultrasound Next Visit Focus/Plan Next Note Type Treatment Note Next Visit Plan POC: Manual joint mobs and soft tissue mob to improve joint mechanics and ROMWork on scapulohumeral rhythm/ scapular kinematics to assure no impingement with elevation. Manual treatment as indicated to decrease soft tissue tightness and improve shoulder mobility. Continue strengthening with emphasis in clinic with functional srengthening for return to work. [ End ]
--- NOTE | 2022-08-30 10:30 | PT.OTN ---
Current Diagnoses Pain in left shoulder (08/30/22) Bursitis of left shoulder (08/30/22) Contusion of left shoulder, initial encounter (08/30/22) Physical Therapy Treatment Note PT-OP-A Visit Information Start: 12/27/21 16:53 Freq: Status: Active Protocol: Document 08/30/22 09:46 SP (Rec: 08/30/22 10:32 SP [id number]) Out-Patient Physical Therapy Visit Information Visit Information Visit Type Treatment Note Visit Start Time 09:46 Visit Stop Time 10:30 Total Visit Minutes 44 Visit Number 32 Number of RN PROCEDURES Visits 2 Evaluation Information Evaluation Date 12/29/21 Precautions Precautions Surgery approx 04/05/22: L rotator cuff repair of large tear by Dr. Buck. Initial eval indicates full tear of one tendon, partial of 3 others. PT-OP-B Current Condition Start: 12/27/21 16:53 Freq: Status: Active Protocol: Document 04/27/22 13:48 LRN (Rec: 04/28/22 19:47 LRN [id number]) Current Condition History of Current Condition Onset Date 2 wks ago L RCR massive full tear repair Current Complaints left shoulder not to be moved, in sling, pain / History of Current Condition Initial injury: Walking out of bus carrying things in hands, lost balance on ice, came down on left elbow, initially left shoulder pain, within a couple days feeling pain on right as well. At this time claim only approved for left shoulder. x-ray: swelling. MRI: full tear of one tendon, partial of 3 others. Surgical repair on the left shoulder 2 weeks ago. Pt presents with rehabilitation protocol for Lg to [facility]ive RCR , subacromial decmprssion. 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 Prior Treatments and Tests Pt using mainly ice post op. Not taking medications because he doesn't like how it makes him feel. Treatment Goals Patient/Caregiver Goals Rehab per protocol. Personal Factors Other Personal Factors That May Effect Right shoulder pain as well as Therapy/Recovery left PT-OP-C Subjective Start: 12/27/21 16:53 Freq: Status: Active Protocol: Document 08/30/22 09:46 SP (Rec: 08/30/22 10:32 SP [id number]) OP-PT Subjective Patient Comments Patient Comments Pt reports stated didn't feel to bad after last tx. Some sore spots and stiff after last tx. PT-OP-E Functional Tests Start: 12/27/21 16:53 Freq: Status: Active Protocol: Document 12/29/21 13:51 SAK (Rec: 01/02/22 17:20 SAK [id number]) Functional Tests Apley's Scratch Test Action 1- Left medial chest Action 1- Right anterior shoulder Action 2- Left lateral neck Action 2- Right T1 Action 3- Left L3 Action 3- Right L3 PT-OP-H Neuro Start: 12/27/21 16:53 Freq: Status: Active Protocol: Document 12/29/21 13:51 SAK (Rec: 01/02/22 17:20 SAK [id number]) Sensation Evaluation Gross Sensation Gross Sensation WNL PT-OP-J Posture/Palpation/Skin Start: 12/27/21 16:53 Freq: Status: Active Protocol: Document 04/27/22 13:48 LRN (Rec: 04/27/22 20:20 LRN [id number]) Posture Evaluation Position Sitting Evaluation View Pt L shoulder in sling Comments Posture Comments Pt able to don/doff sling independently without complaints of pain. Palpation Assessment Location Healed scars Palpation Location L shoulder: Anterior and posterior incisions Palpation Details Good mobility of well healed scars with barely visible incision lines noted. No tenderness. PT-OP-K Range of Motion Start: 12/27/21 16:53 Freq: Status: Active Protocol: Document 08/16/22 12:17 SP (Rec: 08/16/22 12:59 SP [id number]) Shoulder Goniometric Range of Motion Shoulder Left Shoulder ROM WFL No Testing Position Standing Flexion 145 Extension 46 Abduction 168 Internal Rotation Behind Back (text) T10 Comments Challenged mid range FF and ABD decrease strength but if goes slow able progress into more AROM PT-OP-L Special Tests Start: 12/27/21 16:53 Freq: Status: Active Protocol: Document 12/29/21 13:51 SAK (Rec: 01/02/22 17:20 SAK [id number]) Special Tests Shoulder Special Tests Lift-Off Rotator Cuff Test Results positive josé luis left greater than righ Drop Arm Rotator Cuff Test Results positive josé luis left greater than right PT-OP-M Strength Start: 12/27/21 16:53 Freq: Status: Active Protocol: Document 04/27/22 13:48 LRN (Rec: 04/27/22 20:20 LRN [id number]) Shoulder Strength Shoulder Manual Muscle Testing Right Flexion 3- Fair- Abduction (C5) 3- Fair- Adduction 3- Fair- External Rotation 3- Fair- Internal Rotation 3- Fair- Horizontal Abduction 3- Fair- Horizontal Adduction 3- Fair- Comments Strength as assessed initial visit 12/29/21 Left Comments Deferred, pt in sling. Pt phase I protocol for PROM only. No strengthening until 12 weeks Post Op. PT-OP-Q Treatments Start: 12/27/21 16:53 Freq: Status: Active Protocol: Document 08/30/22 09:46 SP (Rec: 08/30/22 10:32 SP [id number]) Cardio Equipment Upper Body Ergometer (UBE) Duration (Minutes) 6 RPM 60 Seat Position 9 Height 3.5 Other fwd/bck Therapeutic Exercises Supine Exercises shoulder flex Supine Exercise Name FF, Ts, Ys- painfree occasional manual proximal humeral inf glide Resistance L1TB between hands, gentle pull Equipment Used over foam roller along spine Reps/Minutes 2x10 each Comments cued scap back/down (LT) through range, palm facing body/fwd Other Exercises 1/2 kneel eccentric FF, ABD Other Exercise Name inititated in PT Side left Reps/Minutes x8 reps each Comments cued eccentric slow FF, ABD Manual Therapy Treatment Soft Tissue Mobilization RC Body Location L pec minor, major, teres minor, distal lat, prox tricep , post deltoid Mobilization Type Cross-Friction Intensity/Depth Moderate Body Position Supine Comments manual and discussed self use racquetball. Joint Mobilizations GH Joint left Direction posterior, inferior Grade I Reps/Duration 5 min Comments supine ABD/ ER, FF with functional movement, 1/2 kneel eccentric FF, ABD. PT-OP-R Modalities Start: 12/27/21 16:53 Freq: Status: Active Protocol: Document 01/11/22 09:04 SAK (Rec: 01/11/22 09:51 SAK [id number]) Hot Pack/Cold Pack Treatment Cold Pack Location José Luis shds Patient Position Hooklying Treatment Duration (minutes) 10 Patient Tolerance Good PT-OP-T Assessment and Plan Start: 12/27/21 16:53 Freq: Status: Active Protocol: Document 08/30/22 09:46 SP (Rec: 08/30/22 10:32 SP [id number]) Physical Therapy Assessment Goals Four Impairment impaired ROM, strength, and shoulder kinematics Fpc Goal (LTG) Patient to demonstrate left shoulder ROM, strength and kinematics WNL for return to all usual activities with ease . Three Impairment unable to reach overhead without impingement symptoms Fpc Goal (LTG) Patient will be able to do all usual activities including reaching overhead without impingement symptoms. LTG Duration 10/30/22 Two Impairment Decreased strength, not to start strengthening until phase II of protcol Short Term Goal (STG) Per protocol, Phase II: Begin gentle strengthening and scapular strengthening, Marielena IR/ER & tolerate UBE towards end of phase. Patient educated in HEP of starting AROM. 06/14/22: started gentle strengthenig 07/06/22: incremental progression of post-op ther ex STG Duration 3 months (12 weeks) Fpc Goal (LTG) Per protocol, Phase III - IV: Left shoulder ROM WFL, and left shoulder beginning and progressing weighted strenghtening, with L shoulder strength least 4-/5 all motions to allow him to return to usual activities. 07/06/22: now in phase III strengthening and ROM 08/22/22: Some limitations in ER and flex with patient verbalizing impingment signs; decreased significantly with manual joint mobs, cues for correct GH and scapular mechanics with movement. Verbal and tactile cues needed with most ex. Emphasis on LTG Duration 6 months (24 weeks) One Impairment HEP Impairment Quickdash disability index score 50% Short Term Goal (STG) Phase II: Pt will be educated in PROM/AROM ex's on home program. 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 06/14/22: good compliance with good tolerance for progression of ther ex. 07/06/22: continues progression of ex and activities with good compliance to HEP and post-op protocol with consistent improvement in symptoms 08/22/22: some impingment signs due to dec GH joint inf glide, and impaired scapulohumeral rhythm. Emphasis today on improving ER ROM and strengthening posterior chain. LTG Duration 6 months (10/30/22) Assessment Summary Assessment Pt responded well to manual, STMs and FM L GH Jt mob w/ FM through ther ex. Pt states feels less pinching tightness moving [place] during ther ex today , has better understanding how slow pacing and controlled movement helped to perform resistance through ROM with TB today. Give HO next tx if needed. Physical Therapy Plan Frequency and Duration Frequency of Treatment 2x/Week Duration of treatment (weeks) 24 Plan of Care Start Date 04/27/22 Plan of Care End Date 10/12/22 Therapeutic Interventions Therapeutic Interventions Aquatic Therapy,Home Exercise Program,Manual Therapy, Neuromuscular Re-education, Patient/Caregiver Education, Self-Care/Home Management,Soft Tissue Mobilization,Taping, Therapeutic Activities, Therapeutic Exercises Modalities Cold Pack/Ice Massage,Electric Stimulation,Hot Packs, Infrared Therapy,Iontophoresis ,Ultrasound Next Visit Focus/Plan Next Note Type Treatment Note Next Visit Plan Continue emphasis on ther ex with decreasec impingement mobility and strengthening with emphasis functional srengthening for return to work. POC: Manual joint mobs and soft tissue mob to improve joint mechanics and ROM Work on scapulohumeral rhythm/ scapular kinematics to assure no impingement with elevation. Manual treatment as indicated to decrease soft tissue tightness and improve shoulder mobility. [ End ]
--- NOTE | 2022-09-07 17:22 | PT.OTN ---
Current Diagnoses Pain in left shoulder (09/07/22) Bursitis of left shoulder (09/07/22) Contusion of left shoulder, initial encounter (09/07/22) Physical Therapy Treatment Note PT-OP-A Visit Information Start: 12/27/21 16:53 Freq: Status: Active Protocol: Document 09/07/22 09:06 SAK (Rec: 09/07/22 09:44 SAK [id number]) Out-Patient Physical Therapy Visit Information Visit Information Visit Type Treatment Note Visit Start Time 09:01 Visit Stop Time 09:45 Total Visit Minutes 44 Visit Number 33 Number of MARINE OILER Visits 0 Evaluation Information Evaluation Date 12/29/21 Precautions Precautions Surgery approx 04/05/22: L rotator cuff repair of large tear by Dr. Buck. Initial eval indicates full tear of one tendon, partial of 3 others. PT-OP-B Current Condition Start: 12/27/21 16:53 Freq: Status: Active Protocol: Document 04/27/22 13:48 LRN (Rec: 04/28/22 19:47 LRN [id number]) Current Condition History of Current Condition Onset Date 2 wks ago L RCR massive full tear repair Current Complaints left shoulder not to be moved, in sling, pain / History of Current Condition Initial injury: Walking out of bus carrying things in hands, lost balance on ice, came down on left elbow, initially left shoulder pain, within a couple days feeling pain on right as well. At this time claim only approved for left shoulder. x-ray: swelling. MRI: full tear of one tendon, partial of 3 others. Surgical repair on the left shoulder 2 weeks ago. Pt presents with rehabilitation protocol for Lg to Massive RCR , subacromial decmprssion. 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 Prior Treatments and Tests Pt using mainly ice post op. Not taking medications because he doesn't like how it makes him feel. Treatment Goals Patient/Caregiver Goals Rehab per protocol. Personal Factors Other Personal Factors That May Effect Right shoulder pain as well as Therapy/Recovery left PT-OP-C Subjective Start: 12/27/21 16:53 Freq: Status: Active Protocol: Document 09/07/22 09:06 SAK (Rec: 09/07/22 09:44 SAK [id number]) OP-PT Subjective Patient Comments Patient Comments feeling stiff, most difficulty getting arm back toward throwing motion, heavy and tight feeling at 90 deg elevation. Continues with HEP . PT-OP-E Functional Tests Start: 12/27/21 16:53 Freq: Status: Active Protocol: Document 12/29/21 13:51 SAK (Rec: 01/02/22 17:20 SAK [id number]) Functional Tests Apley's Scratch Test Action 1- Left medial chest Action 1- Right anterior shoulder Action 2- Left lateral neck Action 2- Right T1 Action 3- Left L3 Action 3- Right L3 PT-OP-H Neuro Start: 12/27/21 16:53 Freq: Status: Active Protocol: Document 12/29/21 13:51 SAK (Rec: 01/02/22 17:20 SAK [id number]) Sensation Evaluation Gross Sensation Gross Sensation WNL PT-OP-J Posture/Palpation/Skin Start: 12/27/21 16:53 Freq: Status: Active Protocol: Document 04/27/22 13:48 LRN (Rec: 04/27/22 20:20 LRN [id number]) Posture Evaluation Position Sitting Evaluation View Pt L shoulder in sling Comments Posture Comments Pt able to don/doff sling independently without complaints of pain. Palpation Assessment Location Healed scars Palpation Location L shoulder: Anterior and posterior incisions Palpation Details Good mobility of well healed scars with barely visible incision lines noted. No tenderness. PT-OP-K Range of Motion Start: 12/27/21 16:53 Freq: Status: Active Protocol: Document 08/16/22 12:17 SP (Rec: 08/16/22 12:59 SP [id number]) Shoulder Goniometric Range of Motion Shoulder Left Shoulder ROM WFL No Testing Position Standing Flexion 145 Extension 46 Abduction 168 Internal Rotation Behind Back (text) T10 Comments Challenged mid range FF and ABD decrease strength but if goes slow able progress into more AROM PT-OP-L Special Tests Start: 12/27/21 16:53 Freq: Status: Active Protocol: Document 12/29/21 13:51 SAK (Rec: 01/02/22 17:20 SAK [id number]) Special Tests Shoulder Special Tests Lift-Off Rotator Cuff Test Results positive josé luis left greater than righ Drop Arm Rotator Cuff Test Results positive josé luis left greater than right PT-OP-M Strength Start: 12/27/21 16:53 Freq: Status: Active Protocol: Document 04/27/22 13:48 LRN (Rec: 04/27/22 20:20 LRN [id number]) Shoulder Strength Shoulder Manual Muscle Testing Right Flexion 3- Fair- Abduction (C5) 3- Fair- Adduction 3- Fair- External Rotation 3- Fair- Internal Rotation 3- Fair- Horizontal Abduction 3- Fair- Horizontal Adduction 3- Fair- Comments Strength as assessed initial visit 12/29/21 Left Comments Deferred, pt in sling. Pt phase I protocol for PROM only. No strengthening until 12 weeks Post Op. PT-OP-Q Treatments Start: 12/27/21 16:53 Freq: Status: Active Protocol: Document 09/07/22 09:06 SAK (Rec: 09/07/22 09:44 SAK [id number]) Cardio Equipment Upper Body Ergometer (UBE) Other not available Therapeutic Exercises Supine Exercises shoulder flex Supine Exercise Name FF, Ts, Ys- painfree occasional manual proximal humeral inf glide Resistance L1TB between hands, gentle pull Equipment Used over foam roller along spine Reps/Minutes 2x10 each Comments cued scap back/down (LT) through range, palm facing body/fwd, rotation thru pec stretch Equipment Used foam roller Reps/Minutes 2x30 shld ER Supine Exercise Name with flex and hor ab (throw motion) AROM Reps/Minutes 10x2 Comments cues to allow gravity assist , slow controlled motion Sidelying Exercises shoulder ER Resistance 2#, 0# Equipment Used towel roll Reps/Minutes 10x2 Comments verbal and tactile cues for rotation and glide in shoulder joint open book Side bilateral Resistance 2# DB Reps/Minutes x10 reps Comments cued slow eccentric Other Exercises cat/cow Reps/Minutes 6x Comments cues for segmental movement 1/2 kneel eccentric FF, ABD Other Exercise Name inititated in PT Side left Reps/Minutes x8 reps each Comments cued eccentric slow FF, ABD Manual Therapy Treatment Joint Mobilizations GH Joint left Direction posterior, inferior Grade I Reps/Duration 5 min Comments supine ABD/ ER, FF with functional movement, 1/2 kneel eccentric FF, ABD. PT-OP-R Modalities Start: 12/27/21 16:53 Freq: Status: Active Protocol: Document 01/11/22 09:04 SAK (Rec: 01/11/22 09:51 SAK [id number]) Hot Pack/Cold Pack Treatment Cold Pack Location José Luis shds Patient Position Hooklying Treatment Duration (minutes) 10 Patient Tolerance Good PT-OP-T Assessment and Plan Start: 12/27/21 16:53 Freq: Status: Active Protocol: Document 09/07/22 09:06 AL (Rec: 09/07/22 09:44 [facility] [id number]) Physical Therapy Assessment Goals Four Impairment impaired ROM, strength, and shoulder kinematics [facility] Goal (LTG) Patient to demonstrate left shoulder ROM, strength and kinematics WNL for return to all usual activities with ease . Three Impairment unable to reach overhead without impingement symptoms High Tension Tester Goal (LTG) Patient will be able to do all usual activities including reaching overhead without impingement symptoms. LTG Duration 10/30/22 Two Impairment Decreased strength, not to start strengthening until phase II of protcol Short Term Goal (STG) Per protocol, Phase II: Begin gentle strengthening and scapular strengthening, Marielena IR/ER & tolerate UBE towards end of phase. Patient educated in HEP of starting AROM. 06/14/22: started gentle strengthenig 07/06/22: incremental progression of post-op ther ex STG Duration 3 months (12 weeks) High Tension Tester Goal (LTG) Per protocol, Phase III - IV: Left shoulder ROM WFL, and left shoulder beginning and progressing weighted strenghtening, with L shoulder strength least 4-/5 all motions to allow him to return to usual activities. 07/06/22: now in phase III strengthening and ROM 08/22/22: Some limitations in ER and flex with patient verbalizing impingment signs; decreased significantly with manual joint mobs, cues for correct GH and scapular mechanics with movement. Verbal and tactile cues needed with most ex. Emphasis on LTG Duration 6 months (24 weeks) One Impairment HEP Impairment Quickdash disability index score 50% Short Term Goal (STG) Phase II: Pt will be educated in PROM/AROM ex's on home program. 06/14/22: ongoing progression 07/06/22: Quickdash score 43%, HEP progression continues STG Duration 3 months (6-12 weeks) [facility] Goal (LTG) Pt will be independent in self halfway and aquatic ex program for L shoulder ROM and strengthening ex's. 06/14/22: good compliance with good tolerance for progression of ther ex. 07/06/22: continues progression of ex and activities with good compliance to HEP and post-op protocol with consistent improvement in symptoms 08/22/22: some impingment signs due to dec GH joint inf glide, and impaired scapulohumeral rhythm. Emphasis today on improving ER ROM and strengthening posterior chain. LTG Duration 6 months (10/30/22) Assessment Summary Assessment Education regarding using gravity assisted motions with resistance of theraband as works toward being able to do motions against gravity (ie throwing motion). Improving understanding of ways to modify exercises to dec any impingment symptoms. Doing throw movement supine allowed patient to move into improved functional ER movement. Physical Therapy Plan Frequency and Duration Frequency of Treatment 2x/Week Duration of treatment (weeks) 24 Plan of Care Start Date 04/27/22 Plan of Care End Date 10/12/22 Therapeutic Interventions Therapeutic Interventions Aquatic Therapy,Home Exercise Program,Manual Therapy, Neuromuscular Re-education, Patient/Caregiver Education, Self-Care/Home Management,Soft Tissue Mobilization,Taping, Therapeutic Activities, Therapeutic Exercises Modalities Cold Pack/Ice Massage,Electric Stimulation,Hot Packs, Infrared Therapy,Iontophoresis ,Ultrasound Next Visit Focus/Plan Next Note Type Treatment Note Next Visit Plan Continue emphasis on ther ex with decreasec impingement mobility and strengthening with emphasis functional srengthening for return to work. POC: Manual joint mobs and soft tissue mob to improve joint mechanics and ROM Work on scapulohumeral rhythm/ scapular kinematics to assure no impingement with elevation. Manual treatment as indicated to decrease soft tissue tightness and improve shoulder mobility. [ End ]
--- NOTE | 2022-09-11 10:04 | PT.OTN ---
Current Diagnoses Pain in left shoulder (09/11/22) Bursitis of left shoulder (09/11/22) Contusion of left shoulder, initial encounter (09/11/22) Physical Therapy Treatment Note PT-OP-A Visit Information Start: 12/27/21 16:53 Freq: Status: Active Protocol: Document 09/11/22 09:02 AL (Rec: 09/11/22 10:04 SAK [id number]) Out-Patient Physical Therapy Visit Information Visit Information Visit Type Treatment Note Visit Start Time 09:02 Visit Stop Time 09:45 Total Visit Minutes 43 Visit Number 34 Precautions Precautions Surgery approx 04/05/22: L rotator cuff repair of large tear by Dr. Buck. Initial eval indicates full tear of one tendon, partial of 3 others. PT-OP-B Current Condition Start: 12/27/21 16:53 Freq: Status: Active Protocol: Document 04/27/22 13:48 LRN (Rec: 04/28/22 19:47 LRN [id number]) Current Condition History of Current Condition Onset Date 2 wks ago L RCR massive full tear repair Current Complaints left shoulder not to be moved, in sling, pain /10 History of Current Condition Initial injury: Walking out of bus carrying things in hands, lost balance on ice, came down on left elbow, initially left shoulder pain, within a couple days feeling pain on right as well. At this time claim only approved for left shoulder. x-ray: swelling. MRI: full tear of one tendon, partial of 3 others. Surgical repair on the left shoulder 2 weeks ago. Pt presents with rehabilitation protocol for Lg to Massive RCR , subacromial decmprssion. 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 Prior Treatments and Tests Pt using mainly ice post op. Not taking medications because he doesn't like how it makes him feel. Treatment Goals Patient/Caregiver Goals Rehab per protocol. Personal Factors Other Personal Factors That May Effect Right shoulder pain as well as Therapy/Recovery left PT-OP-C Subjective Start: 12/27/21 16:53 Freq: Status: Active Protocol: Document 09/11/22 09:02 AL (Rec: 09/11/22 10:04 SAK [id number]) OP-PT Subjective Patient Comments Patient Comments Exhausted from camping over weekend. Took bands, did HEP. Sees surgeon in 3 days. PT-OP-E Functional Tests Start: 12/27/21 16:53 Freq: Status: Active Protocol: Document 12/29/21 13:51 SAK (Rec: 01/02/22 17:20 SAK [id number]) Functional Tests Apley's Scratch Test Action 1- Left medial chest Action 1- Right anterior shoulder Action 2- Left lateral neck Action 2- Right T1 Action 3- Left L3 Action 3- Right L3 PT-OP-H Neuro Start: 12/27/21 16:53 Freq: Status: Active Protocol: Document 12/29/21 13:51 SAK (Rec: 01/02/22 17:20 SAK [id number]) Sensation Evaluation Gross Sensation Gross Sensation WNL PT-OP-J Posture/Palpation/Skin Start: 12/27/21 16:53 Freq: Status: Active Protocol: Document 04/27/22 13:48 LRN (Rec: 04/27/22 20:20 LRN [id number]) Posture Evaluation Position Sitting Evaluation View Pt L shoulder in sling Comments Posture Comments Pt able to don/doff sling independently without complaints of pain. Palpation Assessment Location Healed scars Palpation Location L shoulder: Anterior and posterior incisions Palpation Details Good mobility of well healed scars with barely visible incision lines noted. No tenderness. PT-OP-K Range of Motion Start: 12/27/21 16:53 Freq: Status: Active Protocol: Document 08/16/22 12:17 SP (Rec: 08/16/22 12:59 SP [id number]) Shoulder Goniometric Range of Motion Shoulder Left Shoulder ROM WFL No Testing Position Standing Flexion 145 Extension 46 Abduction 168 Internal Rotation Behind Back (text) T10 Comments Challenged mid range FF and ABD decrease strength but if goes slow able progress into more AROM PT-OP-L Special Tests Start: 12/27/21 16:53 Freq: Status: Active Protocol: Document 12/29/21 13:51 SAK (Rec: 01/02/22 17:20 SAK [id number]) Special Tests Shoulder Special Tests Lift-Off Rotator Cuff Test Results positive josé luis left greater than righ Drop Arm Rotator Cuff Test Results positive josé luis left greater than right PT-OP-M Strength Start: 12/27/21 16:53 Freq: Status: Active Protocol: Document 04/27/22 13:48 LRN (Rec: 04/27/22 20:20 LRN [id number]) Shoulder Strength Shoulder Manual Muscle Testing Right Flexion 3- Fair- Abduction (C5) 3- Fair- Adduction 3- Fair- External Rotation 3- Fair- Internal Rotation 3- Fair- Horizontal Abduction 3- Fair- Horizontal Adduction 3- Fair- Comments Strength as assessed initial visit 12/29/21 Left Comments Deferred, pt in sling. Pt phase I protocol for PROM only. No strengthening until 12 weeks Post Op. PT-OP-Q Treatments Start: 12/27/21 16:53 Freq: Status: Active Protocol: Document 09/11/22 09:02 AL (Rec: 09/11/22 10:04 SAK [id number]) Cardio Equipment Upper Body Ergometer (UBE) Duration (Minutes) 6 RPM 60 Seat Position 9 Height 3.5 Therapeutic Exercises Supine Exercises shoulder flex Supine Exercise Name FF, Ts, Ys- painfree occasional manual proximal humeral inf glide Resistance L2TB between hands, gentle pull Equipment Used over foam roller along spine Reps/Minutes 2x10 each Comments cued scap back/down (LT) through range, palm facing body/fwd, rotation thru pec stretch Equipment Used foam roller Reps/Minutes 2x30 chest press Resistance 5# DB Reps/Minutes x20 reps PNF Supine Exercise Name D2 Equipment Used L2 TB Reps/Minutes 10x AROM serratus press Equipment Used 5# Reps/Minutes 10x2 shld ER Supine Exercise Name with flex and hor ab (throw motion) AROM Resistance 2# ball Reps/Minutes 10x2 Comments cues to allow gravity assist , slow controlled motion Sidelying Exercises shoulder ER Resistance 0# Equipment Used towel roll Reps/Minutes 10x2 Comments mirror for visual feedback motion, manual guidance into end-range open book Side left Reps/Minutes 5 reps Comments for ROM, flexibility, cues for deep breathing at end range stretch Sitting Exercises FF Side bilateral Equipment Used L3 TB around thigh and upper humerus to facil inf glide GH left Reps/Minutes 10x2 Comments mirror for visual feedback Shoulder ER Sitting Exercise Name 80 deg scaption Resistance 0#, L1 TB Equipment Used elbow resting on table Reps/Minutes 10x2 Comments mirror for visual feedback Other Exercises cat/cow Reps/Minutes 6x Comments cues for segmental movement Manual Therapy Treatment Soft Tissue Mobilization RC Body Location L bic pec minor, major, teres minor, distal lat, prox tricep, post deltoid Mobilization Type Cross-Friction Intensity/Depth Moderate Body Position Supine Comments manual and discussed self use racquetball. Joint Mobilizations GH Joint left Direction posterior, inferior Grade I Reps/Duration 5 min Comments supine ABD/ ER, FF with functional movement PT-OP-R Modalities Start: 12/27/21 16:53 Freq: Status: Active Protocol: Document 01/11/22 09:04 SAK (Rec: 01/11/22 09:51 SAK [id number]) Hot Pack/Cold Pack Treatment Cold Pack Location José Luis shds Patient Position Hooklying Treatment Duration (minutes) 10 Patient Tolerance Good PT-OP-T Assessment and Plan Start: 12/27/21 16:53 Freq: Status: Active Protocol: Document 09/11/22 09:02 SAK (Rec: 09/11/22 10:04 [facility] [id number]) Physical Therapy Assessment Goals Four Impairment impaired ROM, strength, and shoulder kinematics [facility] Goal (LTG) Patient to demonstrate left shoulder ROM, strength and kinematics WNL for return to all usual activities with ease . 09/11/22:ROM WNL, strength improving but most limited in ER and FF. Three Impairment unable to reach overhead without impingement symptoms [facility] Goal (LTG) Patient will be able to do all usual activities including reaching overhead without impingement symptoms. 09/11/22: can lift left UE overhead, but with dec control and some impingment symptoms occur at times, decreased today with use of theraband in sitting for improved inferior GH glide. Continue emphasis on correct joint mechanics. LTG Duration 10/30/22 Two Impairment Decreased strength, not to start strengthening until phase II of protcol Short Term Goal (STG) Per protocol, Phase II: Begin gentle strengthening and scapular strengthening, Marielena IR/ER & tolerate UBE towards end of phase. Patient educated in HEP of starting AROM. 06/14/22: started gentle strengthenig 07/06/22: incremental progression of post-op ther ex 09/11/22: goal met STG Duration 3 months (12 weeks) Baggage Smasher Goal (LTG) Per protocol, Phase III - IV: Left shoulder ROM WFL, and left shoulder beginning and progressing weighted strenghtening, with L shoulder strength least 4-/5 all motions to allow him to return to usual activities. 07/06/22: now in phase III strengthening and ROM 08/22/22: Some limitations in ER and flex with patient verbalizing impingment signs; decreased significantly with manual joint mobs, cues for correct GH and scapular mechanics with movement. Verbal and tactile cues needed with most ex. Emphasis on correct mechanics of movement. 09/11/22: good goal progress with patient demonstrating improved strength, some impingement which lessens with manual joint mob, and was introducted to self-mob in sitting with use of TB with patient reporting dec symptoms . LTG Duration 6 months (24 weeks) One Impairment HEP Impairment Quickdash disability index score 50% Short Term Goal (STG) Phase II: Pt will be educated in PROM/AROM ex's on home program. 06/14/22: ongoing progression 07/06/22: Quickdash score 43%, HEP progression continues 09/11/22: goal met STG Duration 3 months (6-12 weeks) Baggage Smasher Goal (LTG) Pt will be independent in self fpc and aquatic ex program for L shoulder ROM and strengthening ex's. 06/14/22: good compliance with good tolerance for progression of ther ex. 07/06/22: continues progression of ex and activities with good compliance to HEP and post-op protocol with consistent improvement in symptoms 08/22/22: some impingment signs due to dec GH joint inf glide, and impaired scapulohumeral rhythm. Emphasis today on improving ER ROM and strengthening posterior chain. 09/11/22: cont progress HEP with good tolerance and compliance at home. PT guidance, use of mirror promotes improved biomechanics and decreased impingment. LTG Duration 6 months (10/30/22) Assessment Summary Assessment Good response to use of mirror for improved mechanics espescially into shoulder ER. use of TB helpful to facil inf glide with shoulder elevation; issued L3 TB for self mob at home. Physical Therapy Plan Frequency and Duration Frequency of Treatment 2x/Week Duration of treatment (weeks) 24 Plan of Care Start Date 04/27/22 Plan of Care End Date 10/12/22 Therapeutic Interventions Therapeutic Interventions Aquatic Therapy,Home Exercise Program,Manual Therapy, Neuromuscular Re-education, Patient/Caregiver Education, Self-Care/Home Management,Soft Tissue Mobilization,Taping, Therapeutic Activities, Therapeutic Exercises Modalities Cold Pack/Ice Massage,Electric Stimulation,Hot Packs, Infrared Therapy,Iontophoresis ,Ultrasound Next Visit Focus/Plan Next Note Type Treatment Note Next Visit Plan Continue left shoulder rehab, emphasis on correct mechanics with decreased impingement, functional strengthening. Cont ex progression and manual techniques to facilitate correct joint mechanics and accessory motions for helping patient with full return to prior activities including work.
--- NOTE | 2022-09-11 10:05 | PT.OPPOC ---
Physical, Occupational & Speech Therapy At [facility] Current Diagnoses Pain in left shoulder (09/11/22) Bursitis of left shoulder (09/11/22) Contusion of left shoulder, initial encounter (09/11/22) Visit Care Team Role Provider Type LIANNE Cummins Family Provider Advanced Waist Pleater Primary Care Provider Specialty: Family Practice Address: [address] [place] [address], [id number] Email: [email or web address] Chas Buck MD Attending Provider Non-Staff Referring Provider Specialty: Orthopedic Surgery Address: [facility], [place], [address] Email: Plan Of Care PT-OP-T Assessment and Plan Start: 12/27/21 16:53 Freq: Status: Active Protocol: Document 09/11/22 09:02 AL (Rec: 09/11/22 10:04 [facility] [id number]) Physical Therapy Assessment Goals Four Impairment impaired ROM, strength, and shoulder kinematics Hydrochloric Manufacturing Supervisor Goal (LTG) Patient to demonstrate left shoulder ROM, strength and kinematics WNL for return to all usual activities with ease . 09/11/22:ROM WNL, strength improving but most limited in ER and FF. Three Impairment unable to reach overhead without impingement symptoms Hydrochloric Manufacturing Supervisor Goal (LTG) Patient will be able to do all usual activities including reaching overhead without impingement symptoms. 09/11/22: can lift left UE overhead, but with dec control and some impingment symptoms occur at times, decreased today with use of theraband in sitting for improved inferior GH glide. Continue emphasis on correct joint mechanics. LTG Duration 10/30/22 Two Impairment Decreased strength, not to start strengthening until phase II of protcol Short Term Goal (STG) Per protocol, Phase II: Begin gentle strengthening and scapular strengthening, Marielena IR/ER & tolerate UBE towards end of phase. Patient educated in HEP of starting AROM. 06/14/22: started gentle strengthenig 07/06/22: incremental progression of post-op ther ex 09/11/22: goal met STG Duration 3 months (12 weeks) Retirement Goal (LTG) Per protocol, Phase III - IV: Left shoulder ROM WFL, and left shoulder beginning and progressing weighted strenghtening, with L shoulder strength least 4-/5 all motions to allow him to return to usual activities. 07/06/22: now in phase III strengthening and ROM 08/22/22: Some limitations in ER and flex with patient verbalizing impingment signs; decreased significantly with manual joint mobs, cues for correct GH and scapular mechanics with movement. Verbal and tactile cues needed with most ex. Emphasis on correct mechanics of movement. 09/11/22: good goal progress with patient demonstrating improved strength, some impingement which lessens with manual joint mob, and was introducted to self-mob in sitting with use of TB with patient reporting dec symptoms . LTG Duration 6 months (24 weeks) One Impairment HEP Impairment Quickdash disability index score 50% Short Term Goal (STG) Phase II: Pt will be educated in PROM/AROM ex's on home program. 06/14/22: ongoing progression 07/06/22: Quickdash score 43%, HEP progression continues 09/11/22: goal met STG Duration 3 months (6-12 weeks) Retirement Goal (LTG) Pt will be independent in self fdc and aquatic ex program for L shoulder ROM and strengthening ex's. 06/14/22: good compliance with good tolerance for progression of ther ex. 07/06/22: continues progression of ex and activities with good compliance to HEP and post-op protocol with consistent improvement in symptoms 08/22/22: some impingment signs due to dec GH joint inf glide, and impaired scapulohumeral rhythm. Emphasis today on improving ER ROM and strengthening posterior chain. 09/11/22: cont progress HEP with good tolerance and compliance at home. PT guidance, use of mirror promotes improved biomechanics and decreased impingment. LTG Duration 6 months (10/30/22) Assessment Summary Assessment Good response to use of mirror for improved mechanics espescially into shoulder ER. use of TB helpful to facil inf glide with shoulder elevation; issued L3 TB for self mob at home. Physical Therapy Plan Frequency and Duration Frequency of Treatment 2x/Week Duration of treatment (weeks) 24 Plan of Care Start Date 04/27/22 Plan of Care End Date 10/12/22 Therapeutic Interventions Therapeutic Interventions Aquatic Therapy,Home Exercise Program,Manual Therapy, Neuromuscular Re-education, Patient/Caregiver Education, Self-Care/Home Management,Soft Tissue Mobilization,Taping, Therapeutic Activities, Therapeutic Exercises Modalities Cold Pack/Ice Massage,Electric Stimulation,Hot Packs, Infrared Therapy,Iontophoresis ,Ultrasound Next Visit Focus/Plan Next Note Type Treatment Note Next Visit Plan Continue left shoulder rehab, emphasis on correct mechanics with decreased impingement, functional strengthening. Cont ex progression and manual techniques to facilitate correct joint mechanics and accessory motions for helping patient with full return to prior activities including work. Plan of Care Dates Plan of Care Start Date 04/27/22 Plan of Care End Date 10/12/22 Electronically Signed by: Lena Saleh, PT 09/11/22 1009 If you are in agreement with this Plan of Care, please return a signed and dated copy. I have reviewed this Plan of Care and certify that the skilled therapy services above are required to meet the patient?s needs. Physician Signature Date Printed Name and Credentials Clinical Instructor Signature Printed Name and Credentials
--- NOTE | 2022-09-13 08:15 | PT.OTN ---
Current Diagnoses Pain in left shoulder (09/13/22) Bursitis of left shoulder (09/13/22) Contusion of left shoulder, initial encounter (09/13/22) Physical Therapy Treatment Note PT-OP-A Visit Information Start: 12/27/21 16:53 Freq: Status: Active Protocol: Document 09/13/22 07:33 SP (Rec: 09/13/22 08:19 SP [id number]) Out-Patient Physical Therapy Visit Information Visit Information Visit Type Treatment Note Visit Start Time 07:33 Visit Stop Time 08:15 Total Visit Minutes 42 Visit Number 35 Number of STENCILING MACHINE TENDER Visits 1 Evaluation Information Evaluation Date 12/29/21 Precautions Precautions Surgery approx 04/05/22: L rotator cuff repair of large tear by Dr. Buck. Initial eval indicates full tear of one tendon, partial of 3 others. PT-OP-B Current Condition Start: 12/27/21 16:53 Freq: Status: Active Protocol: Document 04/27/22 13:48 LRN (Rec: 04/28/22 19:47 LRN [id number]) Current Condition History of Current Condition Onset Date 2 wks ago L RCR massive full tear repair Current Complaints left shoulder not to be moved, in sling, pain / History of Current Condition Initial injury: Walking out of bus carrying things in hands, lost balance on ice, came down on left elbow, initially left shoulder pain, within a couple days feeling pain on right as well. At this time claim only approved for left shoulder. x-ray: swelling. MRI: full tear of one tendon, partial of 3 others. Surgical repair on the left shoulder 2 weeks ago. Pt presents with rehabilitation protocol for Lg to Massive RCR , subacromial decmprssion. 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 Prior Treatments and Tests Pt using mainly ice post op. Not taking medications because he doesn't like how it makes him feel. Treatment Goals Patient/Caregiver Goals Rehab per protocol. 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 PT-OP-E Functional Tests Start: 12/27/21 16:53 Freq: Status: Active Protocol: Document 12/29/21 13:51 SAK (Rec: 01/02/22 17:20 SAK [id number]) Functional Tests Apley's Scratch Test Action 1- Left medial chest Action 1- Right anterior shoulder Action 2- Left lateral neck Action 2- Right T1 Action 3- Left L3 Action 3- Right L3 PT-OP-H Neuro Start: 12/27/21 16:53 Freq: Status: Active Protocol: Document 12/29/21 13:51 SAK (Rec: 01/02/22 17:20 SAK [id number]) Sensation Evaluation Gross Sensation Gross Sensation WNL PT-OP-J Posture/Palpation/Skin Start: 12/27/21 16:53 Freq: Status: Active Protocol: Document 04/27/22 13:48 LRN (Rec: 04/27/22 20:20 LRN [id number]) Posture Evaluation Position Sitting Evaluation View Pt L shoulder in sling Comments Posture Comments Pt able to don/doff sling independently without complaints of pain. Palpation Assessment Location Healed scars Palpation Location L shoulder: Anterior and posterior incisions Palpation Details Good mobility of well healed scars with barely visible incision lines noted. No tenderness. PT-OP-K Range of Motion Start: 12/27/21 16:53 Freq: Status: Active Protocol: Document 08/16/22 12:17 SP (Rec: 08/16/22 12:59 SP [id number]) Shoulder Goniometric Range of Motion Shoulder Left Shoulder ROM WFL No Testing Position Standing Flexion 145 Extension 46 Abduction 168 Internal Rotation Behind Back (text) T10 Comments Challenged mid range FF and ABD decrease strength but if goes slow able progress into more AROM PT-OP-L Special Tests Start: 12/27/21 16:53 Freq: Status: Active Protocol: Document 12/29/21 13:51 SAK (Rec: 01/02/22 17:20 SAK [id number]) Special Tests Shoulder Special Tests Lift-Off Rotator Cuff Test Results positive josé luis left greater than righ Drop Arm Rotator Cuff Test Results positive ojsé luis left greater than right PT-OP-M Strength Start: 12/27/21 16:53 Freq: Status: Active Protocol: Document 04/27/22 13:48 LRN (Rec: 04/27/22 20:20 LRN [id number]) Shoulder Strength Shoulder Manual Muscle Testing Right Flexion 3- Fair- Abduction (C5) 3- Fair- Adduction 3- Fair- External Rotation 3- Fair- Internal Rotation 3- Fair- Horizontal Abduction 3- Fair- Horizontal Adduction 3- Fair- Comments Strength as assessed initial visit 12/29/21 Left Comments Deferred, pt in sling. Pt phase I protocol for PROM only. No strengthening until 12 weeks Post Op. PT-OP-Q Treatments Start: 12/27/21 16:53 Freq: Status: Active Protocol: Document 09/13/22 07:33 SP (Rec: 09/13/22 08:19 SP [id number]) Cardio Equipment Upper Body Ergometer (UBE) Duration (Minutes) 6 RPM 60 Seat Position 9 Height 4 Therapeutic Exercises Supine Exercises shoulder flex Supine Exercise Name FF, Ts, Ys, Ws- painfree occasional manual proximal humeral inf glide Resistance L2TB between hands, gentle pull Equipment Used over foam roller along spine Reps/Minutes 2x10 each Comments cued scap back/down (LT) through range, palm facing radha, abd/ pec stretch Equipment Used foam roller Reps/Minutes 2x30 shld ER Supine Exercise Name throw/catch (abd/ ER) over foam roller Resistance supine table, Tb# TB, 2.2# small med ball over foam roller Equipment Used therapist assist initially then target hand self Reps/Minutes 10x2 Comments cues to allow gravity assist , slow controlled motion abd/ ER Standing Exercises throwing motion Standing Exercise Name concentric, slow controlled eccentric ABD, ER able Resistance TB #3 Reps/Minutes x10 Comments cued slow motion ABD, ER, no UT Manual Therapy Treatment Soft Tissue Mobilization L Biceps Body Location L proximal Biceps Mobilization Type Strumming Intensity/Depth Moderate Body Position Supine RC Body Location L bic pec minor, major, teres minor, subscap, prox tricep, post deltoid Mobilization Type Cross-Friction Intensity/Depth Moderate Body Position Supine Comments manual and discussed self use racquetball. PT-OP-R Modalities Start: 12/27/21 16:53 Freq: Status: Active Protocol: Document 01/11/22 09:04 SAK (Rec: 01/11/22 09:51 SAK [id number]) Hot Pack/Cold Pack Treatment Cold Pack Location José Luis shds Patient Position Hooklying Treatment Duration (minutes) 10 Patient Tolerance Good PT-OP-T Assessment and Plan Start: 12/27/21 16:53 Freq: Status: Active Protocol: Document 09/13/22 07:33 SP (Rec: 09/13/22 08:19 SP [id number]) Physical Therapy Assessment Goals Four Impairment impaired ROM, strength, and shoulder kinematics Intermediate Goal (LTG) Patient to demonstrate left shoulder ROM, strength and kinematics WNL for return to all usual activities with ease . 09/11/22:ROM WNL, strength improving but most limited in ER and FF. Three Impairment unable to reach overhead without impingement symptoms Intermediate Goal (LTG) Patient will be able to do all usual activities including reaching overhead without impingement symptoms. 09/11/22: can lift left UE overhead, but with dec control and some impingment symptoms occur at times, decreased today with use of theraband in sitting for improved inferior GH glide. Continue emphasis on correct joint mechanics. LTG Duration 10/30/22 Two Impairment Decreased strength, not to start strengthening until phase II of protcol Short Term Goal (STG) Per protocol, Phase II: Begin gentle strengthening and scapular strengthening, Marielena IR/ER & tolerate UBE towards end of phase. Patient educated in HEP of starting AROM. 06/14/22: started gentle strengthenig 07/06/22: incremental progression of post-op ther ex 09/11/22: goal met STG Duration 3 months (12 weeks) Receptionist Airline Lounge Goal (LTG) Per protocol, Phase III - IV: Left shoulder ROM WFL, and left shoulder beginning and progressing weighted strenghtening, with L shoulder strength least 4-/5 all motions to allow him to return to usual activities. 07/06/22: now in phase III strengthening and ROM 08/22/22: Some limitations in ER and flex with patient verbalizing impingment signs; decreased significantly with manual joint mobs, cues for correct GH and scapular mechanics with movement. Verbal and tactile cues needed with most ex. Emphasis on correct mechanics of movement. 09/11/22: good goal progress with patient demonstrating improved strength, some impingement which lessens with manual joint mob, and was introducted to self-mob in sitting with use of TB with patient reporting dec symptoms . LTG Duration 6 months (24 weeks) One Impairment HEP Impairment Quickdash disability index score 50% Short Term Goal (STG) Phase II: Pt will be educated in PROM/AROM ex's on home program. 06/14/22: ongoing progression 07/06/22: Quickdash score 43%, HEP progression continues 09/11/22: goal met STG Duration 3 months (6-12 weeks) Receptionist Airline Lounge Goal (LTG) Pt will be independent in self jail and aquatic ex program for L shoulder ROM and strengthening ex's. 06/14/22: good compliance with good tolerance for progression of ther ex. 07/06/22: continues progression of ex and activities with good compliance to HEP and post-op protocol with consistent improvement in symptoms 08/22/22: some impingment signs due to dec GH joint inf glide, and impaired scapulohumeral rhythm. Emphasis today on improving ER ROM and strengthening posterior chain. 09/11/22: cont progress HEP with good tolerance and compliance at home. PT guidance, use of mirror promotes improved biomechanics and decreased impingment. LTG Duration 6 months (10/30/22) Assessment Summary Assessment Pt good feedback response to manual and focused on ABD/ER motion this tx supine LUE off table, foam roller, standing assisted resistance. Pt reported felt got more motion stretch and humerus allowing back rotational motion this tx with downward pressure behind hand. Good understanding and will try to assimulate if proper form home. Physical Therapy Plan Frequency and Duration Frequency of Treatment 2x/Week Duration of treatment (weeks) 24 Plan of Care Start Date 04/27/22 Plan of Care End Date 10/12/22 Therapeutic Interventions Therapeutic Interventions Aquatic Therapy,Home Exercise Program,Manual Therapy, Neuromuscular Re-education, Patient/Caregiver Education, Self-Care/Home Management,Soft Tissue Mobilization,Taping, Therapeutic Activities, Therapeutic Exercises Modalities Cold Pack/Ice Massage,Electric Stimulation,Hot Packs, Infrared Therapy,Iontophoresis ,Ultrasound Next Visit Focus/Plan Next Note Type Treatment Note Next Visit Plan 3 more appts before DC to HEP. POC: Continue left shoulder rehab, emphasis on correct mechanics with decreased impingement, functional strengthening. Cont ex progression and manual techniques to facilitate correct joint mechanics and accessory motions for helping patient with full return to prior activities including work.
--- NOTE | 2022-09-18 08:15 | PT.OTN ---
Current Diagnoses Pain in left shoulder (09/18/22) Bursitis of left shoulder (09/18/22) Contusion of left shoulder, initial encounter (09/18/22) Physical Therapy Treatment Note PT-OP-A Visit Information Start: 12/27/21 16:53 Freq: Status: Active Protocol: Document 09/18/22 07:34 SP (Rec: 09/18/22 08:18 SP [id number]) Out-Patient Physical Therapy Visit Information Visit Information Visit Type Treatment Note Visit Note 2 more tx: SPRING INTERN then PT on 09/27, POC expires 10/12 Visit Start Time 07:34 Visit Stop Time 08:15 Total Visit Minutes 41 Visit Number 36 Number of SPRING INTERN Visits 2 Evaluation Information Evaluation Date 12/29/21 Precautions Precautions Surgery approx 04/05/22: L rotator cuff repair of large tear by Dr. Buck. Initial eval indicates full tear of one tendon, partial of 3 others. PT-OP-B Current Condition Start: 12/27/21 16:53 Freq: Status: Active Protocol: Document 04/27/22 13:48 LRN (Rec: 04/28/22 19:47 LRN [id number]) Current Condition History of Current Condition Onset Date 2 wks ago L RCR massive full tear repair Current Complaints left shoulder not to be moved, in sling, pain 1/ History of Current Condition Initial injury: Walking out of bus carrying things in hands, lost balance on ice, came down on left elbow, initially left shoulder pain, within a couple days feeling pain on right as well. At this time claim only approved for left shoulder. x-ray: swelling. MRI: full tear of one tendon, partial of 3 others. Surgical repair on the left shoulder 2 weeks ago. Pt presents with rehabilitation protocol for Lg to Massive RCR , subacromial decmprssion. 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 Prior Treatments and Tests Pt using mainly ice post op. Not taking medications because he doesn't like how it makes him feel. Treatment Goals Patient/Caregiver Goals Rehab per protocol. Personal Factors Other Personal Factors That May Effect Right shoulder pain as well as Therapy/Recovery left PT-OP-C Subjective Start: 12/27/21 16:53 Freq: Status: Active Protocol: Document 09/18/22 07:34 SP (Rec: 09/18/22 08:18 SP [id number]) OP-PT Subjective Patient Comments Patient Comments Pt reports having some soreness in chest and HS from raking so used some CP/ MHP. Wants to review stretching for recovery. Dr Rivers f/u gorge Reis. PT-OP-E Functional Tests Start: 12/27/21 16:53 Freq: Status: Active Protocol: Document 12/29/21 13:51 SAK (Rec: 01/02/22 17:20 SAK [id number]) Functional Tests Apley's Scratch Test Action 1- Left medial chest Action 1- Right anterior shoulder Action 2- Left lateral neck Action 2- Right T1 Action 3- Left L3 Action 3- Right L3 PT-OP-H Neuro Start: 12/27/21 16:53 Freq: Status: Active Protocol: Document 12/29/21 13:51 SAK (Rec: 01/02/22 17:20 SAK [id number]) Sensation Evaluation Gross Sensation Gross Sensation WNL PT-OP-J Posture/Palpation/Skin Start: 12/27/21 16:53 Freq: Status: Active Protocol: Document 04/27/22 13:48 LRN (Rec: 04/27/22 20:20 LRN [id number]) Posture Evaluation Position Sitting Evaluation View Pt L shoulder in sling Comments Posture Comments Pt able to don/doff sling independently without complaints of pain. Palpation Assessment Location Healed scars Palpation Location L shoulder: Anterior and posterior incisions Palpation Details Good mobility of well healed scars with barely visible incision lines noted. No tenderness. PT-OP-K Range of Motion Start: 12/27/21 16:53 Freq: Status: Active Protocol: Document 08/16/22 12:17 SP (Rec: 08/16/22 12:59 SP [id number]) Shoulder Goniometric Range of Motion Shoulder Left Shoulder ROM WFL No Testing Position Standing Flexion 145 Extension 46 Abduction 168 Internal Rotation Behind Back (text) T10 Comments Challenged mid range FF and ABD decrease strength but if goes slow able progress into more AROM PT-OP-L Special Tests Start: 12/27/21 16:53 Freq: Status: Active Protocol: Document 12/29/21 13:51 SAK (Rec: 01/02/22 17:20 SAK [id number]) Special Tests Shoulder Special Tests Lift-Off Rotator Cuff Test Results positive josé luis left greater than righ Drop Arm Rotator Cuff Test Results positive josé luis left greater than right PT-OP-M Strength Start: 12/27/21 16:53 Freq: Status: Active Protocol: Document 04/27/22 13:48 LRN (Rec: 04/27/22 20:20 LRN [id number]) Shoulder Strength Shoulder Manual Muscle Testing Right Flexion 3- Fair- Abduction (C5) 3- Fair- Adduction 3- Fair- External Rotation 3- Fair- Internal Rotation 3- Fair- Horizontal Abduction 3- Fair- Horizontal Adduction 3- Fair- Comments Strength as assessed initial visit 12/29/21 Left Comments Deferred, pt in sling. Pt phase I protocol for PROM only. No strengthening until 12 weeks Post Op. PT-OP-Q Treatments Start: 12/27/21 16:53 Freq: Status: Active Protocol: Document 09/18/22 07:34 SP (Rec: 09/18/22 08:18 SP [id number]) Cardio Equipment Upper Body Ergometer (UBE) Duration (Minutes) 6 RPM 55 Seat Position 12 Height 4.5 Other f/b 1 min each direction Therapeutic Exercises Supine Exercises shoulder flex Supine Exercise Name FF, Ts, Ys, Ws- painfree occasional manual proximal humeral inf glide Resistance L2TB Equipment Used over 65cm Tball Reps/Minutes [id number] (introduce over tball) Comments cued scap stab, neutral LS/ glut lift, palms facing body/ ceiling pec stretch Supine Exercise Name various angles Equipment Used 65cm tball Reps/Minutes 20SH Comments good feedback stretch, pre UE TB ex chest press Supine Exercise Name serratus press 1/30 Resistance 5# DB Equipment Used over 65cm Tball Reps/Minutes 2x10 reps Comments cued glut lift and neutral pelvis shld ER Supine Exercise Name throw/catch (abd/ ER)A Resistance AROM warm up, slow eccentric stretch, eccentric catch Equipment Used over foam roller Reps/Minutes 5 min total Comments cues to allow gravity assist , slow controlled motion abd/ ER Other Exercises 1/2 kneel eccentric FF, ABD Other Exercise Name ABD/ ER- cool down end tx Side left Reps/Minutes 10SH x4 Comments cued eccentric AAROM/ stretch, neutral pelvis Self-Care/Home Management Treatment Education Patient Education Body Mechanics,Home Exercise Program,Posture,Safety Other Education Time spent cool down post yard work stretchig: HS, pec stretch, AROM UEs into pec stretch and ABD/ ER to improved normal mobility LUE. Added ABD/ ER 1/2 kneel during tx pt stated will incorporate . PT-OP-R Modalities Start: 12/27/21 16:53 Freq: Status: Active Protocol: Document 01/11/22 09:04 SAK (Rec: 01/11/22 09:51 SAK [id number]) Hot Pack/Cold Pack Treatment Cold Pack Location José Luis shds Patient Position Hooklying Treatment Duration (minutes) 10 Patient Tolerance Good PT-OP-T Assessment and Plan Start: 12/27/21 16:53 Freq: Status: Active Protocol: Document 09/18/22 07:34 SP (Rec: 09/18/22 08:18 SP [id number]) Physical Therapy Assessment Goals Four Impairment impaired ROM, strength, and shoulder kinematics Care Home Goal (LTG) Patient to demonstrate left shoulder ROM, strength and kinematics WNL for return to all usual activities with ease . 09/11/22:ROM WNL, strength improving but most limited in ER and FF. Three Impairment unable to reach overhead without impingement symptoms Care Home Goal (LTG) Patient will be able to do all usual activities including reaching overhead without impingement symptoms. 09/11/22: can lift left UE overhead, but with dec control and some impingment symptoms occur at times, decreased today with use of theraband in sitting for improved inferior GH glide. Continue emphasis on correct joint mechanics. LTG Duration 10/30/22 Two Impairment Decreased strength, not to start strengthening until phase II of protcol Short Term Goal (STG) Per protocol, Phase II: Begin gentle strengthening and scapular strengthening, Marielena IR/ER & tolerate UBE towards end of phase. Patient educated in HEP of starting AROM. 06/14/22: started gentle strengthenig 07/06/22: incremental progression of post-op ther ex 09/11/22: goal met STG Duration 3 months (12 weeks) Chief Deputy Coroner Goal (LTG) Per protocol, Phase III - IV: Left shoulder ROM WFL, and left shoulder beginning and progressing weighted strenghtening, with L shoulder strength least 4-/5 all motions to allow him to return to usual activities. 07/06/22: now in phase III strengthening and ROM 08/22/22: Some limitations in ER and flex with patient verbalizing impingment signs; decreased significantly with manual joint mobs, cues for correct GH and scapular mechanics with movement. Verbal and tactile cues needed with most ex. Emphasis on correct mechanics of movement. 09/11/22: good goal progress with patient demonstrating improved strength, some impingement which lessens with manual joint mob, and was introducted to self-mob in sitting with use of TB with patient reporting dec symptoms . LTG Duration 6 months (24 weeks) One Impairment HEP Impairment Quickdash disability index score 50% Short Term Goal (STG) Phase II: Pt will be educated in PROM/AROM ex's on home program. 06/14/22: ongoing progression 07/06/22: Quickdash score 43%, HEP progression continues 09/11/22: goal met STG Duration 3 months (6-12 weeks) Care Home Goal (LTG) Pt will be independent in self usp and aquatic ex program for L shoulder ROM and strengthening ex's. 06/14/22: good compliance with good tolerance for progression of ther ex. 07/06/22: continues progression of ex and activities with good compliance to HEP and post-op protocol with consistent improvement in symptoms 08/22/22: some impingment signs due to dec GH joint inf glide, and impaired scapulohumeral rhythm. Emphasis today on improving ER ROM and strengthening posterior chain. 09/11/22: cont progress HEP with good tolerance and compliance at home. PT guidance, use of mirror promotes improved biomechanics and decreased impingment. LTG Duration 6 months (10/30/22) Assessment Summary Assessment Tx focused on self support ABD / ER various ex/stretches and incorporating into HEP. Pt good feedback response ABD/ER AAROM use of weighted ball and 1/2 kneel use TB end tx. Self care ed stretching/ self massage after yard work for lessen soreness. Physical Therapy Plan Frequency and Duration Frequency of Treatment 2x/Week Duration of treatment (weeks) 24 Plan of Care Start Date 04/27/22 Plan of Care End Date 10/12/22 Therapeutic Interventions Therapeutic Interventions Aquatic Therapy,Home Exercise Program,Manual Therapy, Neuromuscular Re-education, Patient/Caregiver Education, Self-Care/Home Management,Soft Tissue Mobilization,Taping, Therapeutic Activities, Therapeutic Exercises Modalities Cold Pack/Ice Massage,Electric Stimulation,Hot Packs, Infrared Therapy,Iontophoresis ,Ultrasound Next Visit Focus/Plan Next Note Type Treatment Note Next Visit Plan 2 more appts before potential DC to HEP. Assess ROM, IR behind back. POC: Continue left shoulder rehab, emphasis on correct mechanics with decreased impingement, functional strengthening. Cont ex progression and manual techniques to facilitate correct joint mechanics and accessory motions for helping patient with full return to prior activities including work.
--- NOTE | 2022-09-20 07:40 | PT-OP ANOTE ---
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 Pt stated called over night and messaging stated to call back to speak with personnel and after gone through prompts didn't give him options to leave message so waited to call after knew we were here which was same time as his appt. Pt understood could get NS fee and will make next appt with PT and call back to schedule more appts for continued PT for R and L shlds.
--- NOTE | 2023-03-19 16:03 | PT.OPDS ---
Current Diagnoses Pain in left shoulder (09/18/22) Bursitis of left shoulder (09/18/22) Contusion of left shoulder, initial encounter (09/18/22) Visit Care Team Role Provider Type LIANNE Cummins Family Provider Advanced Renal Medicine Specialist Primary Care Provider Specialty: Family Practice Address: [address] [place] [address], [id number] Email: [email or web address] Chas Buck MD Attending Provider Non-Staff Referring Provider Specialty: Orthopedic Surgery Address: [address] [place] [address] , [place], [address] Email: Visit Number Visit Number 36 Discharge Summary PT-OP-B Current Condition Start: 12/27/21 16:53 Freq: Status: Active Protocol: Document 04/27/22 13:48 LRN (Rec: 04/28/22 19:47 LRN [id number]) Current Condition History of Current Condition Onset Date 2 wks ago L RCR massive full tear repair Current Complaints left shoulder not to be moved, in sling, pain / History of Current Condition Initial injury: Walking out of bus carrying things in hands, lost balance on ice, came down on left elbow, initially left shoulder pain, within a couple days feeling pain on right as well. At this time claim only approved for left shoulder. x-ray: swelling. MRI: full tear of one tendon, partial of 3 others. Surgical repair on the left shoulder 2 weeks ago. Pt presents with rehabilitation protocol for Lg to Massive RCR , subacromial decmprssion. 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 Prior Treatments and Tests Pt using mainly ice post op. Not taking medications because he doesn't like how it makes him feel. Treatment Goals Patient/Caregiver Goals Rehab per protocol. Personal Factors Other Personal Factors That May Effect Right shoulder pain as well as Therapy/Recovery left PT-OP-C Subjective Start: 12/27/21 16:53 Freq: Status: Active Protocol: Document 09/18/22 07:34 SP (Rec: 09/18/22 08:18 SP [id number]) OP-PT Subjective Patient Comments Patient Comments Pt reports having some soreness in chest and HS from raking so used some CP/ MHP. Wants to review stretching for recovery. Dr Rivers f/u appt Simley. PT-OP-E Functional Tests Start: 12/27/21 16:53 Freq: Status: Active Protocol: Document 12/29/21 13:51 SAK (Rec: 01/02/22 17:20 SAK [id number]) Functional Tests Apley's Scratch Test Action 1- Left medial chest Action 1- Right anterior shoulder Action 2- Left lateral neck Action 2- Right T1 Action 3- Left L3 Action 3- Right L3 PT-OP-H Neuro Start: 12/27/21 16:53 Freq: Status: Active Protocol: Document 12/29/21 13:51 SAK (Rec: 01/02/22 17:20 SAK [id number]) Sensation Evaluation Gross Sensation Gross Sensation WNL PT-OP-J Posture/Palpation/Skin Start: 12/27/21 16:53 Freq: Status: Active Protocol: Document 04/27/22 13:48 LRN (Rec: 04/27/22 20:20 LRN [id number]) Posture Evaluation Position Sitting Evaluation View Pt L shoulder in sling Comments Posture Comments Pt able to don/doff sling independently without complaints of pain. Palpation Assessment Location Healed scars Palpation Location L shoulder: Anterior and posterior incisions Palpation Details Good mobility of well healed scars with barely visible incision lines noted. No tenderness. PT-OP-K Range of Motion Start: 12/27/21 16:53 Freq: Status: Active Protocol: Document 08/16/22 12:17 SP (Rec: 08/16/22 12:59 SP [id number]) Shoulder Goniometric Range of Motion Shoulder Left Shoulder ROM WFL No Testing Position Standing Flexion 145 Extension 46 Abduction 168 Internal Rotation Behind Back (text) T10 Comments Challenged mid range FF and ABD decrease strength but if goes slow able progress into more AROM PT-OP-L Special Tests Start: 12/27/21 16:53 Freq: Status: Active Protocol: Document 12/29/21 13:51 SAK (Rec: 01/02/22 17:20 SAK [id number]) Special Tests Shoulder Special Tests Lift-Off Rotator Cuff Test Results positive antoine left greater than righ Drop Arm Rotator Cuff Test Results positive antoine left greater than right PT-OP-M Strength Start: 12/27/21 16:53 Freq: Status: Active Protocol: Document 04/27/22 13:48 LRN (Rec: 04/27/22 20:20 LRN [id number]) Shoulder Strength Shoulder Manual Muscle Testing Right Flexion 3- Fair- Abduction (C5) 3- Fair- Adduction 3- Fair- External Rotation 3- Fair- Internal Rotation 3- Fair- Horizontal Abduction 3- Fair- Horizontal Adduction 3- Fair- Comments Strength as assessed initial visit 12/29/21 Left Comments Deferred, pt in sling. Pt phase I protocol for PROM only. No strengthening until 12 weeks Post Op. PT-OP-T Assessment and Plan Start: 12/27/21 16:53 Freq: Status: Active Protocol: Document 03/19/23 16:02 AL (Rec: 03/19/23 16:03 SAK [id number]) Physical Therapy Plan Discharge Physical Therapy Discharge Reasons No Longer Attending PT
== END 2023-03-21 11:10 | disposition home or self-care (01) ==
LOC: PHYS 07:30
PROVIDERS: Family Provider Nurse Practitioner; PCP Nurse Practitioner; Referring Provider Orthopaedic Surgery; Visit Provider Orthopaedic Surgery
DX: M75.52 Bursitis of left shoulder (principal); S40.012A Contusion of left shoulder, initial encounter; M25.512 Pain in left shoulder
CPT/HCPCS: 97110; 97113; 97140; 97162; 97164; 97535